=== PATIENT | female | born 1945 | race Caucasian/White ===

== ENCOUNTER 2017-03-19 06:55 | Inpatient (IN) | payer MEDICARE, SELFPAY ==
[2017-03-19] VITALS (12 sets, daily range): BP systolic 110–158; BP diastolic 66–84; PULSE 78–100; RESP 16–20; TEMP 36.1–36.7; O2SAT 89–98; BMI 28.1
--- NOTE | 2017-03-19 07:15 | CT_ITS ---
STUDY: CT ABDOMEN AND PELVIS WITH CONTRAST REASON FOR EXAM: Female, 71 years old. 2 day history of lower abdominal pain with nausea and diarrhea RADIATION DOSAGE (If Supplied By Facility): CTDIvol = ( 17.6 ) mGy, DLP = ( 1144.55 ) mGycm TECHNIQUE: Transaxial images were obtained from the dome of the diaphragm to the symphysis pubis without oral contrast. 100 ml of Isovue 300 contrast was administered. Sagittal and coronal images were reconstructed. Individualized dose optimization techniques were used for this CT. COMPARISON: Comparison is made with prior study dated October 01, 2015. FINDINGS: Minimal increased markings at the lung bases suggestive of mild scarring. The visualized portions of the heart are within normal limits. Normal liver. There are surgical clips in the gallbladder fossa consistent with a prior cholecystectomy. Normal spleen. Normal pancreas. Normal bilateral adrenal glands. Normal right kidney. Normal left kidney. Normal visualized stomach. There is evidence of the mural thickening and increased markings in the surrounding mesenteric fat in the small bowel loops in the right mid abdomen and right lower quadrant. Enteritis should be ruled out. The patient is status post right hemicolectomy. There is non-visualization of the appendix. Normal abdominal aorta. Normal inferior vena cava. Normal retroperitoneum. Normal urinary bladder. There is absence of the uterus consistent with a prior hysterectomy. There is evidence of a midline ventral hernia just cephalad to the umbilicus containing fat. The hernial neck measures 6.9 cm. Increased markings are seen within the subcutaneous fat at that site. There are diffuse degenerative changes of the visualized lumbar spine. CT/Abdomen/Pelvis WITH Contrast IMPRESSION: Circumferential wall thickening of the distal ileal loops in the right mid abdomen and right lower quadrant with increased markings in the surrounding peritoneal fat. This is suggestive of enteritis. Midline anterior abdominal wall hernia containing fat with increased markings within it just cephalad to the umbilicus. The neck of the hernia measures 6.9 cm. Electronically Signed: Srinivasa Garcia MD at 10:00 EDT Tel [phone], Service support ,
[2017-03-19] MEDS: 0.9% Normal Saline 1,000 ML 125 ML IV (07:30)
[2017-03-19 07:34] LABS: Absolute Lymphocyte Count 1.68 X10^3/ul (0.83-4.51); Basophil# 0.03 X10^3/uL; Basophil% 0.3 % (0-1); Eosinophil# 0.11 X10^3/uL; Hematocrit 45.4 % (37-47); Hemoglobin 15.3 g/dl (12.0-15.0); Lymphocyte # 1.68 X10^3/ul (4.0); Lymphocyte % 14.7 % (19-41); Mean Corp Hgb Conc 33.7 g/gl (32-36); Mean Corpuscular Hgb 29.4 pg (27.0-32.0); Mean Corpuscular Volume 87.1 fL (81-99); Monocyte# 0.62 X10^3/uL; Monocyte% 5.4 % (0-10); Neutrophil # 8.98 X10^3/uL (2.7-7.7); Neutrophil % 78.3 % (47-70); Platelet Count 325 K/mm3 (150-450); RBC Distribution Width CV 14.3 % (11.6-14.6); RBC Distribution Width SD 45.2 fl (35.1-43.9); Red Blood Count 5.21 M/mm3 (4.2-5.4); White Blood Count 11.5 K/mm3 (4.4-11.0)
[2017-03-19 07:35] LABS: POSITIVE COUNT NO; POSITIVE DIFFERENTIAL NO; POSITIVE MORPHOLOGY NO
[2017-03-19 07:38] LABS: Anion Gap 7 (5-15); BUN 16 mg/dL (7-18); Calcium,Total 8.8 mg/dL (8.5-10.1); Chloride 107 mmol/L (98-107); EST Glomerular Filtration Rate 58 mL/min (>60); Est Glom Filt Rate - Afr Amer 70 mL/min (>60); Estimated Creatinine Clearance 50.18 ml/min; Glucose 109 mg/dL (70-110); Potassium 4.3 mmol/L (3.5-5.1); Sodium Level 140 mmol/L (136-145)
[2017-03-19 08:08] LABS: Mucous, Urine 0 SEEN /hpf (<or=2+)
[2017-03-19 08:09] LABS: Color, Urine Yellow (Yellow); Glucose, Dipstick Normal (Normal); Ketone-Dipstick Negative (Negative); Leukocyte Esterase-Dipstick 500 /ul (Negative); Nitrite-Dipstick Positive (Negative); Occult Blood-Urine 50 /ul (Negative); Protein-Dipstick Negative (Negative); Urine Bilirubin Dipstick Negative (Negative); Urine Clarity Sl. Cloudy (Clear); Urine Urobilinogen Normal (Normal)
[2017-03-19 08:19] LABS: Bacteria 4+ /hpf (None Seen); Red Blood Cells-Urine 0-5 SEEN /hpf (0-5); Squamous Epithelial Cells - UA 0-5 SEEN /hpf (5-10); White Blood Cells 10-25 SEEN /hpf (0-5)
--- NOTE | 2017-03-19 10:39 | NURSING ---
DR REYES IN ER. PATIENT GOING TO SURGERY, INCARCERATED HERNIA
--- NOTE | 2017-03-19 10:44 | EKG12_ITS ---
Test Reason : PRE OP Blood Pressure : / mmHG Vent. Rate : 087 BPM Atrial Rate : 087 BPM P-R Int : 138 ms QRS Dur : 084 ms QT Int : 396 ms P-R-T Axes : 074 034 055 degrees QTc Int : 476 ms Normal sinus rhythm Low voltage QRS (LIMB LEADS) Confirmed by SUGEY SIDDIQUI, MALLY ([id number]), material expeditor CHELSIE MONTOYA ([id number]) on 03/24/2017 2:59:46 PM Referred By: ERIC/MICHELLE Confirmed By:MALLY MAYES MD
--- NOTE | 2017-03-19 10:49 | NURSING ---
MED SURG INCARCERATED VENTRAL INCISION HERNIA REYES
[2017-03-19] MEDS: Bupiv/Epi 0.5% Mpf 30 ML Vial (11:56)
--- NOTE | 2017-03-19 12:23 | HP_ITS ---
DATE OF SERVICE: CHIEF COMPLAINT: Abdominal pain. HISTORY OF PRESENT ILLNESS: The patient is a 71-year-old white female who presents with severe abdominal pain in the periumbilical area. She is found by CT scan in the Emergency Room to have an incarcerated ventral incisional hernia with fatty omental tissue within it. She states that she has been having intermittent abdominal pain for the past few days. However, at around 1:30 this morning, she woke with severe abdominal pain and therefore presents to the Emergency Room. She has been passing flatus that she had a bowel movement just prior to this examination. She notes that she has been having diarrhea since the last night, having loose bowel movement almost every hour. She states that she normally has loose stool since her surgery that was done in 2012. She had undergone a laparoscopic-assisted right colectomy by Dr. Fernando for unresectable dysplastic colon polyp. Postoperatively, she developed superior mesenteric venous thrombosis. She was treated with Lovenox and Coumadin and this resolved. She was last seen by Dr. Fernando in 2013 for which she underwent a colonoscopy. She has complaint of abdominal pain at that time. However, CT scan finding revealed no source of the pain. 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 PAST MEDICAL HISTORY: Gastroesophageal reflux disease, history of depressive disorder, seasonal allergies. PAST SURGICAL HISTORY: Laparoscopic cholecystectomy in 1999, laparoscopic right colectomy in July 2013. Skin lesion removed in 2004, multiple colonoscopies. MEDICATIONS: Pantoprazole and an allergy medication. ALLERGIES TO MEDICATIONS: DEMEROL, PERCOCET AND VICODIN. SOCIAL HISTORY: The patient denies tobacco or alcohol use. She is and is present with her at bedside. REVIEW OF SYSTEMS: GENERAL: The patient denies any fevers. CARDIOVASCULAR: She denies any chest pain or history of heart attack. RESPIRATORY: Denies any shortness of breath or hemoptysis. GASTROINTESTINAL: As per HPI. KIDNEY, BLADDER: Denies any burning with urination. Denies any blood in her urine. NEUROLOGIC: Denies any seizures. ENDOCRINE: Denies any diabetes or thyroid disorders. HEMATOLOGIC: Denies any spontaneous prolonged bleeding, is not on any blood thinners. MUSCULOSKELETAL: The patient does note sciatica. Denies any chronic joint pain. PHYSICAL EXAMINATION: VITAL SIGNS: Temperature is 98, heart rate is 100, blood pressure is 158/84, respiratory rate is 20. GENERAL: Well-developed, well-nourished white female in apparent abdominal pain, anxious appearing, alert and oriented. HEENT: Normocephalic, EOMI, sclerae is clear. NECK: Supple with no tracheal deviation, no jugular venous distention detected. LUNGS: With normal breath sounds, no rales, rhonchi or wheezing noted. HEART: Sounds normal with no rubs, murmurs or clicks detected. ABDOMEN: Soft, but tender in the periumbilical area. There is no hernia palpable due to the patient's body habitus. There is a well-healed incisional site just above the vertical incisional site above the umbilicus. The hernia is more prominent when the patient is standing upright and obvious protrusion is noted. EXTREMITIES: Without any pitting edema or calf tenderness. LABORATORY STUDIES: WBC is 11.5K with a slight left differential of 78.3 neutrophils. BUN and creatinine are 16 and 1 respectively. The patient also is noted to have urinary tract infection at present. She is nitrite positive and the gastritis positive with bacteria also seen. She presented to the Emergency Room with this. CT scan findings are consistent with an incarcerated ventral hernia with omentum. The impression is circumferential wall thickening of the distal loops in the right mid abdomen and right lower quadrant with increased markings in the surrounding peritoneal fat, which is suggestive of enteritis, mild anterior abdominal wall hernia containing fat with increased markings just superior to the umbilicus. The neck of the hernia measures 6.9 cm. IMPRESSION: Incarcerated ventral hernia. PLAN: The patient presently rates the pain 10/10. She states that she cannot continue with such severe pain. We will proceed to the Emergency Room for urgent ventral hernia repair plus or minus use of mesh. I have counseled the patient as to risks of procedure including but not limited to infection, bleeding, injury to any bowel or bladder, injury to any internal organs, injury to any blood vessels or nerves, scar tissue, recurrence of hernia, wound infections intraabdominal abscess, intraabdominal bleeding, possible DVT, pulmonary embolism, heart attack, stroke, etc. The patient understands and agrees to proceed. Monika Barry MD T: [facility] JOB: [id number]
--- NOTE | 2017-03-19 12:50 | PCM.IMDPSTOP ---
Immediate Post-Op Note Date of Procedure: 03/19/17 Primary Surgeon/Physician: Monika Barry citrix systems administrator: NOT,DEFINED Pre-Operative Diagnosis: incarcerated ventral incisional hernia Post-Operative Diagnosis: incarcerated incisional ventral hernia - multiple small hernias Surgery/Procedure Performed:: incarcerated incisional ventral hernia repair with mesh Description of Surgical Findings:: patient with multiple ventral incisional hernias at site of previous incision one large hernia defect about 6 cm, and multiple smaller lesions ranging in size for 1-2 cm Devices used - Ventrio ST hernia patch medium lot [id number] Secure Strap Lot [id number] Estimated Blood Loss: < 10 ml Specimen's removed: none Type of Anesthesia:: General ASA Class: ASA2 Plus Emergency - Admit VTE Documentation VTE Present on Admission: Yes VTE Mechan Device Prophylaxis: SCD's
--- NOTE | 2017-03-19 12:53 | OP.PN_ITS ---
Immediate Post-Op Note Date of Procedure: 03/19/17 Primary Surgeon/Physician: Monika Barry mailroom coordinator: NOT,DEFINED Pre-Operative Diagnosis: incarcerated ventral incisional hernia Post-Operative Diagnosis: incarcerated incisional ventral hernia - multiple small hernias Surgery/Procedure Performed:: incarcerated incisional ventral hernia repair with mesh Description of Surgical Findings:: patient with multiple ventral incisional hernias at site of previous incision one large hernia defect about 6 cm, and multiple smaller lesions ranging in size for 1-2 cm Devices used - Ventrio ST hernia patch medium lot [id number] Secure Strap Lot [id number] Estimated Blood Loss: < 10 ml Specimen's removed: none Type of Anesthesia:: General ASA Class: ASA2 Plus Emergency - Admit VTE Documentation VTE Present on Admission: Yes VTE Mechan Device Prophylaxis: SCD's
--- NOTE | 2017-03-19 12:57 | EDS_ITS ---
DATE OF SERVICE: 03/19/2017 CHIEF COMPLAINT: Abdominal pain. HISTORY OF CHIEF COMPLAINT: A 71-year-old female with abdominal pain over the last 3 days, worse over the last 24 hours. States that really throughout the night could not sleep. She has had nausea, but no vomiting. Did start with some diarrhea this morning. She has had about 8 episodes of watery stool. She states there may have been some blood mixed in at times. The patient denies any fevers at home. She states that she feels like there might be a knot in her left lower quadrant, especially when standing and walking as when most of her pain comes on lying flat. She describes a burning sensation, but not so much pain. PAST MEDICAL HISTORY: Significant for GERD. SURGICAL HISTORY: Includes cholecystectomy, hysterectomy, bladder suspension, and partial colectomy. PRIMARY CARE PHYSICIAN: Dr. Avendaño. Dr. Prabhakar Fernando has been her surgeon in the past. ALLERGIES: VICODIN AND DEMEROL. SOCIAL HISTORY: The patient does not smoke or drink alcohol. PHYSICAL EXAMINATION: VITAL SIGNS: Blood pressure 158/84, temperature 98, heart rate 100, respirations 20, pulse oximetry 99% on room air. GENERAL APPEARANCE: The patient is awake, alert, no acute distress. Nontoxic appearing. HEENT: The patient is normocephalic, atraumatic. Pupils equal, react to light. TMs are clear. Neck is supple. Mucous membranes moist. CARDIOVASCULAR: Heart is regular. Pulses +2/4 equal bilaterally in the upper and lower extremities. LUNGS: Clear. No rales or wheezes. Chest wall is stable. No crepitus. No subcutaneous emphysema. ABDOMEN: Soft, tender to palpation over the left lower quadrant and just over the area of suprapubic region. There is some mild soft tissue swelling and fullness noted in the left lower quadrant. It is very tender to palpation. When she stands it becomes more noticeable and more tender on palpation. EXTREMITIES: Intact x4. Muscle strength +5/5. Exam otherwise unremarkable. EMERGENCY DEPARTMENT COURSE: An IV line was established. The patient initially did not want anything for pain. CBC with differential obtained showed an elevated white count of 11.5, hemoglobin 15, hematocrit 45, platelets 325. Chemistries were normal. Urinalysis was positive for nitrites, 10-25 wbc's and +4 bacteria. I did send off a urine culture. The patient was started on Rocephin [address] scan of the abdomen and pelvis was ordered and was read by radiology as circumferential wall thickening of the distal ileal loops on the right mid abdomen and right lower quadrant with increased markings in the surrounding peritoneal fat is suggestive of enteritis. Also, midline anterior abdominal wall hernia containing fat with increased markings within it just cephalad to the umbilicus. The neck of the hernia measures 6.9 cm. At this point, discussed the case with Dr. Monika Barry who is covering for Dr. Fernando. She will present to the Emergency Department to evaluate the patient. After the patient was evaluated by Dr. Barry, Dr. Barry decided she will take patient to the OR. DIAGNOSES: 1. Abdominal pain, incarcerated abdominal hernia. 2. Urinary tract infection. The patient's final disposition per Dr. Barry. Baron Blanco DO T: [facility] JOB: [id number]
--- NOTE | 2017-03-19 13:20 | NURSING ---
o2 applied at 3l for low r.a. p.o.
[2017-03-19] MEDS: Lactated Ringers 1,000 ML 150 ML IV ×2 (15:13→21:33)
[2017-03-19] MEDS: HYDROmorphone 0.5 MG/0.5 ML Syringe IV (16:36)
[2017-03-19] MEDS: Ketorolac 15 MG/ML Vial IV ×2 (18:37→23:41)
[2017-03-19] MEDS: Ondansetron 4 MG/2 ML Vial IV (18:42)
[2017-03-20 02:14] VITALS: BP 118/50; PULSE 95; RESP 14; TEMP 37.2; O2SAT 96
[2017-03-20] MEDS: 0.9% NaCl Peripheral Flush Adult/Peds IV ×2 (02:31→23:19)
[2017-03-20] MEDS: Lactated Ringers 1,000 ML 150 ML IV ×3 (04:38→18:16)
[2017-03-20] MEDS: Ketorolac 15 MG/ML Vial IV (05:57)
[2017-03-20 07:06] VITALS: O2SAT 95
[2017-03-20 07:39] VITALS: BP 121/70; PULSE 79; RESP 18; TEMP 36.8; O2SAT 94
--- NOTE | 2017-03-20 08:13 | PN.SURG_ITS ---
Subjective: difficulty with controlling patient's pain throughout night, pain at incisional site c/w postoperative pain has passed small amount of flatus and urinating well had tried toradol throughout night with no improvement - will d/c - Physical Exam General: Alert, Oriented x3 Oral: Moist Mucosa Neck: Supple Lungs: Normal air movement Cardiovascular: Regular rate Abdomen: Bowel Sounds Present, Soft, - - dressing intact - no seepage, slight ecchymoses surrounding Vital Signs Temp Pulse Resp BP Pulse Ox 98.2 F 79 18 121/70 94 03/20/17 07:39 03/20/17 07:39 03/20/17 07:39 03/20/17 07:39 03/20/17 07:39 Oxygen Flow Rate 2 Oxygen Delivery Method Room Air Weight: 87.1 kg Body Mass Index (BMI) 30.0 Intake and Output for Last 24 Hours 03/18/17 03/19/17 03/20/17 23:59 23:59 23:59 Intake Total 3927 1025 Output Total 500 300 Balance 3427 725 Laboratory Tests Past 24 Hrs 03/19/17 08:00 Urine Color Yellow Urine Clarity Sl. Cloudy Urine pH 5.0 Ur Specific [place] 1.020 Urine Protein Negative Urine Glucose (UA) Normal Urine Ketones Negative Urine Occult Blood 50 H Urine Nitrite Positive H Urine Bilirubin Negative Urine Urobilinogen Normal Ur Leukocyte Esterase 500 H Urine RBC 0-5 SEEN Urine WBC 10-25 SEEN Ur Squamous Epith Cells 0-5 SEEN Urine Bacteria 4+ Urine Mucus 0 SEEN Assessment/Plan Impression: POD#1 s/p incarcerated ventral incisional hernia repair UTI Plan: will d/c toradol, since not working, concern for renal side effects in this elderly patient will trial oxyir round the clock - patient does have side effect to vicodin - will monitor - may have to change to another type of narcotic if develops side effects encourage ambulation and IS continue with morphine
[2017-03-20] MEDS: oxyCODONE 5 MG Tablet PO (09:37)
[2017-03-20] MEDS: Pantoprazole Sodium 20 MG Tablet PO ×2 (09:38→18:16)
--- NOTE | 2017-03-20 09:53 | OP_ITS ---
DATE OF SERVICE: 03/19/2017 DATE OF SERVICE: 03/19/2017. PREOPERATIVE DIAGNOSIS: Incarcerated incisional ventral hernia. POSTOPERATIVE DIAGNOSIS: Incarcerated incisional ventral hernia. PROCEDURE PERFORMED: Repair of incarcerated incisional ventral hernia with mesh. ANESTHESIA USED: General endotracheal. THE MATERIAL FORWARDED TO LABORATORY FOR EXAMINATION: None. INDICATIONS: The patient is a 71-year-old white female who presents with severe abdominal pain and findings of an incarcerated incisional ventral hernia with fat that was found by CT scan upon her presentation to the Emergency Room. She therefore presents for hernia repair. She has been counseled as to the risks of procedure including but not limited to infection, bleeding, injury to any bowel or bladder, injury to any intraabdominal organs, injury to any blood vessels or nerves, scar tissue, intraabdominal abscess, intraabdominal bleeding, recurrence of hernia, complications of anesthesia, wound infections, etc. The patient understands and agrees to proceed. DESCRIPTION OF THE PROCEDURE: After informed consent was given, the patient was brought to the operating room , placed in supine position. Appropriate time-out protocol was followed. The patient was then placed under general endotracheal anesthesia. The abdomen was then prepped with a sterile surgical skin preparation. Appropriate sterile surgical drapes were placed. The patient had a previous midline vertical skin incision. The skin and subcutaneous tissues were infiltrated with local anesthetic. The skin was then incised at the previous incision site with a 10 blade scalpel, was carried down to subcutaneous tissues. Any hemorrhage was adequately controlled with electrocoagulation. Dissection then began bluntly to identify out the hernia. There was no actual hernia sac. The patient did have a large amount of subcutaneous fatty tissues. There was a fascial defect that was noted. Of note is that the patient had thinning of the fascia with concomitant rectus diastasis. The patient was noted to have multiple ventral incisional hernias at the site of the previous incision; the largest defect being above the umbilicus and approximately 6 cm in diameter. There were also multiple smaller lesions ranging in size from 1 to 2 cm along the incision site, almost like a [place]oc[place] cheese type of pattern. It was felt then the patient would best benefit with placement of a dual-sided mesh. All the omental adhesions were cleared from the intraabdominal surface of the abdominal wall. Hemostasis carefully checked with electrocautery. Once the anterior abdominal wall was freed of all omental adhesions, then a medium-sized Ventrio ST Hernia Patch, lot # [id number] was placed up against the anterior abdominal wall, so that it would be overlapping over all the fascial defect sites and covering them. It was then secured in position using the SecureStrap stapling device, lot # is [id number]. Once it was properly positioned superiorly, then digital examination revealed that the mesh had covered all the fascial defects superiorly where most of the smaller defects were. Once again, the stapling device was then applied to secure the mesh in proper position and a staple was applied every 1-2 cm in circumference of the entire mesh. Once this was done, the fascia was then reapproximated using a [id number] PDS suture. Hemostasis carefully controlled with electrocautery. The subdermal tissues were then approximated using Vicryl suture in interrupted simple fashion. The skin incision was closed with 4-0 Monocryl in a running subcuticular fashion. Benzoin and Steri-Strips were used to reinforce skin closure. Proper sterile dressing was applied. The patient was extubated, tolerated the procedure well and brought to the recovery room in stable condition. Monika Barry MD T: [facility] JOB: [id number]
--- NOTE | 2017-03-20 10:58 | CPS ---
not started, patient sleepy
[2017-03-20 11:34] VITALS: BP 112/66; PULSE 78; RESP 18; TEMP 36.9; O2SAT 94
[2017-03-20] MEDS: Smz/Tmp Ds Tablet 1 TABLET PO ×2 (11:38→18:16)
--- NOTE | 2017-03-20 15:00 | CASEMGMT ---
See RN CM Assessment. DC PLAN: home on dc. -Intro role of CM to patient in room. She states she is independent, drives and has family available to help. Her requires some assistance, and her family will do this as well as provide transportation while she recovers. Bhavna DE GUZMAN BSN ACM
[2017-03-20 18:11] VITALS: BP 132/67; PULSE 79; RESP 20; TEMP 37; O2SAT 95
[2017-03-20] MEDS: Bisacodyl 5 MG Tablet PO (18:34)
[2017-03-20] MEDS: DiphenhydrAMINE 25 MG Capsule PO (21:08)
[2017-03-20 23:01] VITALS: BP 134/77; PULSE 82; RESP 16; TEMP 37; O2SAT 92
[2017-03-21 02:50] VITALS: BP 133/78; PULSE 84; RESP 16; TEMP 36.8; O2SAT 96
[2017-03-21] MEDS: Lactated Ringers 1,000 ML 150 ML IV ×2 (02:56→09:59)
[2017-03-21 07:35] VITALS: BP 130/83; PULSE 74; RESP 18; TEMP 36.1; O2SAT 91
[2017-03-21] MEDS: Pantoprazole Sodium 20 MG Tablet PO (07:38)
[2017-03-21] MEDS: Smz/Tmp Ds Tablet 1 TABLET PO (07:38)
--- NOTE | 2017-03-21 10:12 | PCM.PN.SRG ---
Subjective: patient feeling well, passing flatus, no BM tolerating liquids - Physical Exam General: Alert, Oriented x3 Oral: Moist Mucosa Neck: Supple Lungs: Normal air movement Cardiovascular: Regular rate Abdomen: Bowel Sounds Present, Soft, - - dressing intact Vital Signs Temp Pulse Resp BP Pulse Ox 97.0 F 74 18 130/83 91 03/21/17 07:35 03/21/17 07:35 03/21/17 07:35 03/21/17 07:35 03/21/17 07:35 Oxygen Flow Rate 2 Oxygen Delivery Method Room Air Weight: 87.1 kg Body Mass Index (BMI) 30.0 Intake and Output for Last 24 Hours 03/19/17 03/20/17 03/21/17 23:59 23:59 23:59 Intake Total 3927 3183 1854 Output Total 500 1500 1000 Balance 3427 3935 448 Assessment/Plan Impression: POD#2 s/p incarcerated ventral incisional hernia repair UTI Plan: d/c to home today
--- NOTE | 2017-03-21 10:13 | PCM.DC.HER ---
Discharge Diet: Light diet - advance as tolerated Discharge Activity: Return to Normal Activity, May not drive while taking narcotic pain medications. Lifting Restrictions: no lifting/pushing/pulling greater than 10 pounds for 2 months Call your doctor if your incision/area has: Continuous Slow Oozing, Foul Smelling Discharge Call your doctor if you observe: Fever of 101 or Higher Additional Dressing/Incision Instructions:: Sponge bathe until follow up appointment. Use abdominal binder as per needed. Leave dressings in place, if falls off or becomes soiled - may remove but do not replace Allergies/Adverse Reactions: Allergies prednisone Allergy (Severe, Verified 03/19/17 07:00) deathly sick hydrocodone bitartrate [From Vicodin] Adverse Reaction (Verified 03/19/17 07:00) Other oxycodone Adverse Reaction (Verified 03/20/17 16:52) Itching Medications to take at Discharge Acid Reflux Pill 1 tab PO BID 03/19/17 Allergy Pill 1 tab PO DAILY 03/19/17 Bisacodyl [Dulcolax] 5 mg PO DAILY #1 tablet 03/21/17 DiphenhydrAMINE [Benadryl] 25 mg PO TID PRN PRN #20 capsule 03/21/17 Smz/Tmp Ds [Bactrim Ds] 1 tablet PO BID #10 tablet 03/21/17 TraMADol [Ultram] 50 mg PO Q4H PRN PRN #30 tablet 03/21/17 The following prescriptions were given: TraMADol [Ultram] 50 mg PO Q4H PRN PRN #30 tablet PRN Reason: Pain Bisacodyl [Dulcolax] 5 mg PO DAILY #1 tablet DiphenhydrAMINE [Benadryl] 25 mg PO TID PRN PRN #20 capsule PRN Reason: Itching Smz/Tmp Ds [Bactrim Ds] 1 tablet PO BID #10 tablet Please Follow Up With: Monika Barry - call When: to be seen on March 30, please call for time
[2017-03-21 10:17] VITALS: BP 137/88; PULSE 85; RESP 18; TEMP 36.4; O2SAT 93
--- NOTE | 2017-03-21 10:17 | PCM.DC.BLA ---
Discharge Summary (Blank) Date of Admission: 03/19/17 Date of Discharge: 03/21/17 Summary: Bozena Stuart is a 71 y/o WF who presents with acute abdominal pain that awoke her from sleep. Presented to ED, CT scan obtained which revealed ventral incisional hernia with incarcerated fat. Upon examination, patient with severe abdominal pain, rated at 10 out of 10. Taken to OR for urgent ventral incisional hernia repair. Found to have multiple small incisional hernias and one larger hernia defect (about 6 cm). Dual sided mesh placed was placed intraabdominally. Patient's postoperative recovery was unremarkable, except for pain control. Does not tolerate vicodin, and trial of oxyir resulted in pruritis. Patient tolerated Tramadol. Discharged to home on light diet, to self advance at home. Follow up as outpatient in the clinic.
[2017-03-21] MEDS: DiphenhydrAMINE 25 MG Capsule PO (10:20)
== END 2017-03-21 13:00 | disposition home or self-care (01) | DRG 354 ==
PROVIDERS: Admitting Provider Surgery; Emergency Provider Emergency Medicine; Family Provider Family Medicine; PCP Family Medicine; Visit Provider Surgery
DX: K43.0 Incisional hernia with obstruction, without gangrene (principal); M62.08 Separation of muscle (nontraumatic), other site; N39.0 Urinary tract infection, site not specified; K21.9 Gastro-esophageal reflux disease without esophagitis; Z79.899 Other long term (current) drug therapy; Z90.49 Acquired absence of other specified parts of digestive tract; Z90.710 Acquired absence of both cervix and uterus; Z86.718 Personal history of other venous thrombosis and embolism
CPT/HCPCS: 74177; 80048; 81001; 85025; 87086; 87088; 87186; 93005; 99284; J7030; J7120; Q9967; A4216; C1781; J2405; J3490

== ENCOUNTER 2017-12-17 11:33 | Emergency (ER) | payer MEDICARE, SELFPAY ==
[2017-12-17 11:35] VITALS: BP 132/76; PULSE 100; RESP 18; TEMP 36.9; O2SAT 95; BMI 25.8
[2017-12-17 11:46] VITALS: BP 128/75; PULSE 95; RESP 14; O2SAT 99
--- NOTE | 2017-12-17 12:03 | CT_ITS ---
STUDY: CT ABDOMEN AND PELVIS WITHOUT CONTRAST REASON FOR EXAM: Female, 72 years old. Abdominal pain. Low back pain. Diarrhea. RADIATION DOSAGE (If Supplied By Facility): CTDIvol = ( 9.59 ) mGy, DLP = ( 496.20 ) mGycm TECHNIQUE: Transaxial images were obtained from the dome of the diaphragm to the symphysis pubis without oral contrast, and without intravenous contrast. Sagittal and coronal images were reconstructed. Individualized dose optimization techniques were used for this CT. COMPARISON: None. FINDINGS: The visualized lung bases are unremarkable. The visualized portions of the heart are within normal limits. Normal liver. There are surgical clips in the gallbladder fossa consistent with a prior cholecystectomy. Normal spleen. Normal pancreas. Normal bilateral adrenal glands. Normal right kidney. Normal left kidney. Normal bilateral ureters. Normal visualized stomach. Normal small intestine. There is descending and sigmoid diverticulosis without acute inflammatory change. There is evidence of right hemicolectomy with an ileocolic transverse colonic anastomosis seen in the right upper quadrant. There is questionable thickening at the anastomosis. This appears unchanged from the prior CT.. There is diffuse atherosclerotic calcification of the abdominal aorta, without a demonstrated aneurysm. Normal inferior vena cava. Normal retroperitoneum. Normal urinary bladder. Normal vaginal cuff. There is no pelvic lymphadenopathy. No free air or free fluid is seen within the cavity. There are midline surgical changes of the abdominal wall. There is a decrease in the ventral hernia containing omental fat. Prior study. There are mild degenerative changes of the thoracic spine. CT/Abdomen/Pelvis without Cont IMPRESSION: 1. Resolution of the right upper quadrant enteritis seen on the prior study. 2. Decrease in size of the ventral hernia. 3. No other marked interval change. Electronically Signed: Josse Wright DO at 13:07 EDT Tel [phone], Service support ,
--- NOTE | 2017-12-17 12:03 | EKG12_ITS ---
Test Reason : Blood Pressure : / mmHG Vent. Rate : 088 BPM Atrial Rate : 088 BPM P-R Int : 146 ms QRS Dur : 090 ms QT Int : 382 ms P-R-T Axes : 080 035 064 degrees QTc Int : 462 ms Normal sinus rhythm Low voltage QRS Borderline ECG Confirmed by KERLINE SIDDIQUI, SHELBY ([id number]), movie editor CHELSIE MONTOYA ([id number]) on 12/18/2017 2:44:43 PM Referred By: FRANK Confirmed By:SHELBY CHURCHILL MD
--- NOTE | 2017-12-17 12:20 | ED.DCSUM_ITS ---
- ER Visit Summary Date of Service: 12/17/17 Chief Complaint: [] Right sided abdominal pain with diarrhea since Thursday History of Present Illness: The patient is a 72 F [] complaints since Thursday no fever no vomiting copious diarrhea no blood she has a history of colon surgery to precancerous polyps no cancer was found, she had a colonoscopy about a year ago unremarkable, also history of cholecystectomy Thursday with crampy pain to the right side of the abdomen no vomiting no fever no antibiotics no exposure to anyone who is been ill no history of C. difficile she is otherwise healthy, she also reports that she had some type of abdominal surgery possibly for abdominal wall hernias a year or 2 ago Physical Examination: [] Distress her vital signs are unremarkable head neck chest unremarkable the abdomen is soft there is a vague pain to the right lower abdomen is diffuse is no rebound guarding or megaly is focal her upper lower extremities unremarkable neurologically she is awake alert moving all 4 Test Results: [] Emergency Department Course and Treatment: [] Differential is rather extensive certainly would include appendicitis bowel obstruction diarrheal illnesses CT scan is general unremarkable she appears to have had a right partial colectomy in the area of the ileocecal valve region please see the CT report but again is nothing acute her labs are also generally unremarkable except her UA shows signs of UTI but also contamination, I recommended her a urine cath for better analysis of the UA urine culture however she declined that I explained her if she has UTI this could cause her symptoms would need to start antibiotics it would be better to actually know what were treating with a clean urine sample culture but she again declined at this time she is feeling much better abdomen soft there is no tenderness rebound guarding organomegaly she wants to be discharged home we will send the urine cultures of the her family doctor follow that start her on Cipro and have her return for change in symptoms and also see her surgeon in a few days Treatment Plan: [] Disposition: [] Home stable Impression: [] Right abdominal pain resolved possible UTI versus contamination This note was generated with [facility] dictation software. It may contain incorrect words, spelling, and punctuation that were not noted in review of the chart prior to signing ED Disposition - Plan for ED Patient: Chief Complaint: Abd Pain Referrals: Oh Avendaño [Primary Care Provider] -
[2017-12-17] MEDS: 0.9% Normal Saline 1,000 ML 125 ML IV (12:31)
[2017-12-17] MEDS: Ondansetron 4 MG/2 ML Vial IV (12:31)
[2017-12-17] MEDS: morphine 8 MG/ML Syringe IV (12:31)
[2017-12-17 12:35] LABS: Absolute Lymphocyte Count 1.48 X10^3/ul (0.83-4.51); Absolute Neutrophil Count 1.1 X10^3/uL (2.0-7.7); Basophil# 0.02 X10^3/uL; Basophil% 0.6 % (0-1); Hematocrit 44.1 % (37-47); Hemoglobin 14.9 g/dl (12.0-15.0); Lymphocyte # 1.48 X10^3/ul (4.0); Lymphocyte % 46.8 % (19-41); Mean Corp Hgb Conc 33.8 g/gl (32-36); Mean Corpuscular Hgb 29.1 pg (27.0-32.0); Mean Corpuscular Volume 86.1 fL (81-99); Mean Platelet Vol. 8.5 fl (6.2-12.0); Monocyte# 0.55 X10^3/uL; Monocyte% 17.4 % (0-10); Neutrophil % 34.9 % (47-70); Platelet Count 242 K/mm3 (150-450); RBC Distribution Width CV 13.7 % (11.6-14.6); RBC Distribution Width SD 43.2 fl (35.1-43.9); Red Blood Count 5.12 M/mm3 (4.2-5.4); White Blood Count 3.2 K/mm3 (4.4-11.0)
[2017-12-17 12:36] LABS: POSITIVE COUNT NO; POSITIVE DIFFERENTIAL NO; POSITIVE MORPHOLOGY NO
[2017-12-17 12:49] LABS: AST(SGOT) 24 U/L (15-37); Alanine Aminotransfer ALT/SGPT 21 U/L (13-56); Albumin, Serum 3.4 g/dL (3.2-5.0); Alkaline Phosphatase 89 U/L (45-117); Anion Gap 9 (5-15); BUN 15 mg/dL (7-18); BUN/Creat Ratio 15.5 RATIO (10-20); Bilirubin, Direct 0.14 mg/dL (0.00-0.30); Calcium,Total 8.2 mg/dL (8.5-10.1); Chloride 97 mmol/L (98-107); Creatinine, Serum 0.96 mg/dL (0.55-1.02); EST Glomerular Filtration Rate 60 mL/min (>60); Est Glom Filt Rate - Afr Amer 73 mL/min (>60); Estimated Creatinine Clearance 51.51 ml/min; Globulin 3.9 g/dL (2.2-4.2); Glucose 88 mg/dL (74-106); Lipase 140 U/L (73-393); Potassium 3.7 mmol/L (3.5-5.1); Protein, Total 7.3 g/dL (6.4-8.2); Sodium Level 132 mmol/L (136-145)
[2017-12-17 14:14] VITALS: BP 135/76; PULSE 82; RESP 16; O2SAT 99
[2017-12-17 14:47] LABS: Color, Urine Yellow (Yellow); Glucose, Dipstick Normal (Normal); Ketone-Dipstick 15 mg/dl (Negative); Leukocyte Esterase-Dipstick 500 /ul (Negative); Mucous, Urine 0 SEEN /hpf (<or=2+); Nitrite-Dipstick Positive (Negative); Occult Blood-Urine 50 /ul (Negative); Protein-Dipstick 30 mg/dl (Negative); Specific Gravity, Urine 1.025 (1.002-1.030); Urine Bilirubin Dipstick Negative (Negative); Urine Clarity Sl. Cloudy (Clear); Urine Urobilinogen Normal (Normal)
[2017-12-17 14:56] LABS: Red Blood Cells-Urine 0-5 SEEN /hpf (0-5); Squamous Epithelial Cells - UA 5-10 SEEN /hpf (5-10); White Blood Cells 50-100 SEEN /hpf (0-5)
[2017-12-17 14:57] LABS: Bacteria 4+ /hpf (None Seen)
--- NOTE | 2017-12-17 15:43 | ED.DEP ---
ED Disposition - Plan for ED Patient: Chief Complaint: Abd Pain Instructions: ED Abdominal Pain Unkn Cause, ED UTI Cystitis Female Prescriptions: Ciprofloxacin [Cipro] 500 mg PO BID #20 tab Referrals: Oh Avendaño [Primary Care Provider] -
[2017-12-17] MEDS: 0.9% Normal Saline 1,000 ML 999 ML IV (15:49)
[2017-12-17] MEDS: Ciprofloxacin 500 MG Tablet PO (16:01)
[2017-12-17 16:09] VITALS: BP 135/91; PULSE 74; RESP 16; O2SAT 95
== END 2017-12-17 16:11 | disposition home or self-care (01) ==
PROVIDERS: Emergency Provider Emergency Medicine
DX: R10.9 Unspecified abdominal pain (principal); R19.7 Diarrhea, unspecified; Z90.49 Acquired absence of other specified parts of digestive tract
CPT/HCPCS: 74176; 80048; 80076; 81001; 83690; 85025; 87077; 87086; 87088; 87186; 93005; 96361; 96374; 96375; 99283; J7030; J2405

== ENCOUNTER → 2018-02-10 07:34 | Outpatient (CLI) | payer MEDICARE, SELFPAY ==
--- NOTE | 2018-02-10 07:36 | BI_ITS ---
MAMMOGRAPHY - BILATERAL SCREENING REASON FOR EXAM: Female, 72 years old. Routine annual screening examination. PERTINENT HISTORY: Remote right excisional breast biopsy. TECHNIQUE: Digital bilateral breast ankit (3D mammographic acquisition) in the CC and MLO projections. 2-D mediolateral oblique (MLO) and craniocaudad (CC) views of both breasts were obtained. CAD: Full Field Digital Mammography with Computer Added Detection was performed. COMPARISON: Comparison is made with prior study dated January 19, 2017 and November 15, 2015. FINDINGS: Breast Composition: The breasts are almost entirely fatty. There are no dominant masses or suspicious calcifications. No other significant abnormalities are identified. There has been no significant change since the prior study. BI/SCREENING MAMM (CAD), BILAT IMPRESSION: Stable bilateral screening mammogram. Yearly follow-up mammogram recommended. (A) ASSESSMENT CATEGORY: BIRADS Category 1: Negative. A letter regarding these results will be sent to the patient by the facility within 30 days. Approximately 10% of breast cancers are not detected by mammography. A normal mammogram should not delay biopsy of a clinically suspicious abnormality. [id number] Electronically Signed: Srinivasa Garcia MD at 9:11 EDT Tel [phone], Service support ,
== END ==
PROVIDERS: Visit Provider Family Medicine
DX: Z12.31 Encounter for screening mammogram for malignant neoplasm of breast (principal)
CPT/HCPCS: 77063; 77067

== ENCOUNTER → 2018-07-16 10:26 | Outpatient (CLI) | payer MEDICARE, SELFPAY ==
[2018-07-16 12:09] LABS: Absolute Lymphocyte Count 2.77 X10^3/ul (0.83-4.51); Absolute Neutrophil Count 2.8 X10^3/uL (2.0-7.7); Basophil# 0.04 X10^3/uL; Basophil% 0.6 % (0-1); Eosinophil# 0.21 X10^3/uL; Eosinophils% 3.4 % (0-5); Hematocrit 43.8 % (37-47); Hemoglobin 14.8 g/dl (12.0-15.0); Lymphocyte # 2.77 X10^3/ul (4.0); Lymphocyte % 44.3 % (19-41); Mean Corp Hgb Conc 33.8 g/gl (32-36); Mean Corpuscular Volume 88.8 fL (81-99); Monocyte# 0.47 X10^3/uL; Monocyte% 7.5 % (0-10); Neutrophil # 2.75 X10^3/uL (2.7-7.7); Platelet Count 283 K/mm3 (150-450); RBC Distribution Width CV 13.4 % (11.6-14.6); RBC Distribution Width SD 43.2 fl (35.1-43.9); Red Blood Count 4.93 M/mm3 (4.2-5.4); White Blood Count 6.3 K/mm3 (4.4-11.0)
[2018-07-16 12:11] LABS: POSITIVE COUNT NO; POSITIVE DIFFERENTIAL NO; POSITIVE MORPHOLOGY NO
[2018-07-16 12:19] LABS: Color, Urine Yellow (Yellow); Glucose, Dipstick Normal (Normal); Ketone-Dipstick Negative (Negative); Leukocyte Esterase-Dipstick 500 /ul (Negative); Nitrite-Dipstick Negative (Negative); Occult Blood-Urine 25 /ul (Negative); Protein-Dipstick 15 mg/dl (Negative); Specific Gravity, Urine 1.025 (1.002-1.030); Urine Bilirubin Dipstick Negative (Negative); Urine Clarity Sl. Cloudy (Clear); Urine Urobilinogen Normal (Normal)
[2018-07-16 12:39] LABS: BUN 19 mg/dL (7-18); Creatinine, Serum 0.91 mg/dL (0.55-1.02); Glucose 85 mg/dL (74-106)
[2018-07-16 12:40] LABS: ALB/GLOB Ratio 0.9 RATIO (0.9-2.4); AST(SGOT) 15 U/L (15-37); Alanine Aminotransfer ALT/SGPT 19 U/L (13-56); Albumin, Serum 3.6 g/dL (3.2-5.0); Alkaline Phosphatase 106 U/L (45-117); Anion Gap 7 (5-15); BUN/Creat Ratio 20.9 RATIO (10-20); Calcium,Total 8.8 mg/dL (8.5-10.1); Chloride 105 mmol/L (98-107); Cholesterol 160 mg/dL (200); EST Glomerular Filtration Rate 65 mL/min (>60); Est Glom Filt Rate - Afr Amer 78 mL/min (>60); Globulin 3.9 g/dL (2.2-4.2); High Density Lipoprotein 41 mg/dL; Potassium 3.9 mmol/L (3.5-5.1); Protein, Total 7.5 g/dL (6.4-8.2); Sodium Level 139 mmol/L (136-145); Triglycerides 145 mg/dL; Very Low Density Lipoprotein 29 mg/dL (5-40)
== END ==
PROVIDERS: Referring Provider Family Medicine; Visit Provider Family Medicine
DX: Z00.00 Encounter for general adult medical examination without abnormal findings (principal); E78.6 Lipoprotein deficiency
CPT/HCPCS: 36415; 80053; 80061; 81002; 85025

== ENCOUNTER 2019-03-07 08:57 | Emergency (ER) | payer OTHER, MEDICARE, SELFPAY ==
[2019-03-07 08:58] VITALS: BP 126/72; PULSE 88; RESP 17; TEMP 36.7; O2SAT 93; BMI 25.8
--- NOTE | 2019-03-07 09:15 | RAD_ITS ---
STUDY: X-RAY - RIGHT FOOT CLINICAL: Female, 73 years old. Pain following a fall. TECHNIQUE: 3 view(s) of the foot. COMPARISON: None. FINDINGS: There is an enthesophyte involving the posterior superior calcaneus at the site of insertion of the Achilles tendon. Normal visualized subtalar, talonavicular, calcaneocuboid, tarsal and tarsometatarsal articulations. Normal metatarsi. There is degenerative arthrosis of the metatarsophalangeal joint of the hallux . Normal tibial and fibular sesamoid bones. Normal interphalangeal joint of the great toe. Normal phalanges of the great toe. Normal second through fifth metatarsophalangeal joints. Normal interphalangeal joints and phalanges of the lesser toes. Dorsal soft tissue swelling. RAD/Foot min 3 Views IMPRESSION: Dorsal soft tissue swelling. Electronically Signed: Srinivasa Garcia, at 9:49 EDT , Service support ,
--- NOTE | 2019-03-07 09:18 | ED.DCSUM_ITS ---
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 She complains of pain and swelling to her right foot. She is able to walk on her heel only. She did take Tylenol prior to arrival for pain. Physical Examination: Vital signs unremarkable. Patient sitting upright in bed no acute distress. Right lower extremity examination reveals ecchymosis and edema to the distal aspect of the right dorsal foot. She has normal cap refill distally. She denies tenderness at the ankle or knee. Test Results: Right foot x-rays reveal dorsal soft tissue swelling with no evidence of fracture. Emergency Department Course and Treatment: Patient had taken Tylenol prior to arrival declined anything further for pain. Test results were discussed with her. She will be given a postop shoe. She will follow-up with [facility]. Treatment Plan: [] Disposition: Discharge Impression: Crush injury right foot This note was generated with [employer] dictation software. It may contain incorrect words, spelling, and punctuation that were not noted in review of the chart prior to signing ED Disposition - Plan for ED Patient: Disposition: Home or Assisted Living Instructions: ED Crush Injury Toe No Fx Referrals: [facility] [GROUP OF PHYSICIANS] - 3-5 Days
== END 2019-03-07 10:55 | disposition home or self-care (01) ==
PROVIDERS: Emergency Provider Emergency Medicine
DX: S97.81XA Crushing injury of right foot, initial encounter (principal); W20.8XXA Other cause of strike by thrown, projected or falling object, initial encounter; Y93.9 Activity, unspecified; Y92.9 Unspecified place or not applicable; Y99.9 Unspecified external cause status; K21.9 Gastro-esophageal reflux disease without esophagitis
CPT/HCPCS: 73630; 99283

== ENCOUNTER → 2019-04-26 16:52 | Outpatient (CLI) | payer MEDICARE, SELFPAY ==
[2019-03-10 10:50] VITALS: BMI 25.8
--- NOTE | 2019-04-26 16:57 | BI_ITS ---
MAMMOGRAPHY - BILATERAL SCREENING REASON FOR EXAM: Female, 73 years old. Routine annual screening examination. PERTINENT HISTORY: Non-contributory. Remote right excisional breast biopsy. TECHNIQUE: Digital bilateral breast jyoti (3D mammographic acquisition) in the CC and MLO projections. 2-D mediolateral oblique (MLO) and craniocaudad (CC) views of both breasts were obtained. CAD: Full Field Digital Mammography with Computer Added Detection was performed. COMPARISON: Comparison is made with prior examination dated February 10, 2018 and January 19, 2017. FINDINGS: Breast Composition: The breasts are almost entirely fatty. There are no dominant masses or suspicious calcifications. No other significant abnormalities are identified. There has been no significant change since the prior study. BI/SCREEN MAMM (CAD) W/JYOTI BILAT IMPRESSION: Stable bilateral screening mammogram. Yearly follow-up mammogram recommended. (A) ASSESSMENT CATEGORY: BIRADS Category 1: Negative. A letter regarding these results will be sent to the patient by the facility within 30 days. Approximately 10% of breast cancers are not detected by mammography. A normal mammogram should not delay biopsy of a clinically suspicious abnormality. [id number] Electronically Signed: Srinivasa Garcia, at 9:26 EDT , Service support ,
== END ==
PROVIDERS: Referring Provider Family Medicine; Visit Provider Family Medicine
DX: Z12.31 Encounter for screening mammogram for malignant neoplasm of breast (principal)
CPT/HCPCS: 77063; 77067

== ENCOUNTER → 2019-07-20 14:31 | Outpatient (CLI) | payer MEDICARE, SELFPAY ==
[2019-03-10 10:50] VITALS: BMI 25.8
[2019-07-20 16:04] LABS: CRP < 2.90 mg/L (0.0-3.0)
[2019-07-22 16:08] LABS: Endomysial Antibody IgA Negative (Negative)
[2019-07-25 13:21] LABS: Immunoglobulin A 406 mg/dL (64-422); t-Transglutaminase IgA <2 U/mL (0-3)
== END ==
PROVIDERS: Referring Provider Internal Medicine Gastroenterology; Visit Provider Internal Medicine Gastroenterology
DX: R19.7 Diarrhea, unspecified (principal)
CPT/HCPCS: 36415; 82784; 83516; 86140; 86255

== ENCOUNTER → 2019-07-25 | Outpatient (CLI) | payer MEDICARE, SELFPAY ==
[2019-03-10 10:50] VITALS: BMI 25.8
--- NOTE | 2019-07-25 12:52 | COLBX_PTH ---
PATIENT: CRISTÓBAL MDEEL [facility][id number] AGE/SX: 73/F ROOM: RE07/25/[address]: Dr. Jeet Martinez MD : 1945 BED: DIS: 07/25/2019 SPEC #: [id number] RECD: 07/25/19 15:26 STATUS: LION RESteve #: [id number] ROMELIA: 07/25/19 12:[address]: Jeet Martinez DEPT: SURGICAL PATHOLOGY RECD BY: Robert Hallman ENTERED: 07/26/19 08:00 SP TYPE: COLON BX OTHR DR: Oh Avendaño [facility] Tissues: A - Transverse colon B - Rectum, NOS Procedures: Surgery Specimen Level IV HEADER OPERATION: Colonoscopy with biopsies PRE-OP DIAGNOSIS: Rectal bleed/diarrhea TISSUE SUBMITTED: A - Transverse and left colon, B - Polyp rectum MICROSCOPIC DIAGNOSIS A. Transverse and left colon, biopsy: Fragments of colonic mucosa, no pathologic diagnosis. B. Polyp rectum, biopsy: Hyperplastic polyp. ERICKA:bertin 07/27/19 MICROSCOPIC DESCRIPTION Slides are reviewed. GROSS DESCRIPTION A - Received in fixative is one container labeled with the patient's name and designated transverse and left colon. The specimen consists of multiple irregular fragments of light snider soft tissue that in aggregate measure 1.2 x 0.7 x 0.1 cm. The specimen is totally submitted in one cassette. B - Received in fixative is one container labeled with the patient's name and designated polyp rectum. The specimen consists of one irregular fragment of light snider soft tissue that measures 0.3 x 0.3 x 0.2 cm. The specimen is totally submitted in one cassette. / ERICKA:bertin 07/26/19 TC:1 CPT: 74449 x2
== END | disposition home or self-care (01) ==
LOC: LABSPEC 16:25
PROVIDERS: Referring Provider Internal Medicine Gastroenterology; Visit Provider Internal Medicine Gastroenterology
DX: K62.5 Hemorrhage of anus and rectum (principal); R19.7 Diarrhea, unspecified
CPT/HCPCS: 88305

== ENCOUNTER → 2019-10-14 13:12 | Outpatient (CLI) | payer MEDICARE, SELFPAY ==
[2019-03-10 10:50] VITALS: BMI 25.8
[2019-10-14 14:45] LABS: Anion Gap 6 (5-15); BUN 19 mg/dL (7-18); BUN/Creat Ratio 17.3 RATIO (10-20); Calcium,Total 9.2 mg/dL (8.5-10.1); Chloride 107 mmol/L (98-107); EST Glomerular Filtration Rate 52 mL/min (>60); Est Glom Filt Rate - Afr Amer 62 mL/min (>60); Glucose 143 mg/dL (74-106); Potassium 3.7 mmol/L (3.5-5.1); Sodium Level 140 mmol/L (136-145)
== END ==
PROVIDERS: Referring Provider Family Medicine; Visit Provider Family Medicine
DX: K52.9 Noninfective gastroenteritis and colitis, unspecified (principal)
CPT/HCPCS: 36415; 80048

== ENCOUNTER → 2020-04-04 08:44 | Outpatient (CLI) | payer MEDICARE, SELFPAY ==
[2019-03-10 10:50] VITALS: BMI 25.8
[2020-04-04 10:15] LABS: Absolute Lymphocyte Count 2.53 X10^3/uL (0.83-4.51); Absolute Neutrophil Count 2.5 X10^3/uL (2.0-7.7); Basophil# 0.06 X10^3/uL; Eosinophil# 0.29 X10^3/uL; Eosinophils% 4.9 % (0-5); Hematocrit 44.3 % (37-47); Hemoglobin 13.9 g/dL (12.0-15.0); Lymphocyte # 2.53 X10^3/ul (4.0); Mean Corp Hgb Conc 31.4 g/dL (32-36); Mean Corpuscular Hgb 28.1 pg (27.0-32.0); Mean Corpuscular Volume 89.7 fL (81-99); Mean Platelet Vol. 8.9 fl (6.2-12.0); Monocyte# 0.51 X10^3/uL; Monocyte% 8.7 % (0-10); NRBC Flagged by Analyzer 0 % (0-5); Neutrophil # 2.48 X10^3/uL (2.7-7.7); Neutrophil % 42.1 % (47-70); Platelet Count 309 K/mm3 (150-450); RBC Distribution Width CV 13.3 % (11.6-14.6); RBC Distribution Width SD 43.7 fl (35.1-43.9); Red Blood Count 4.94 M/mm3 (4.2-5.4); White Blood Count 5.9 K/mm3 (4.4-11.0)
[2020-04-04 10:29] LABS: Color, Urine Yellow (Yellow); Glucose, Dipstick Normal (Normal); Ketone-Dipstick Negative (Negative); Leukocyte Esterase-Dipstick 500 /ul (Negative); Nitrite-Dipstick Negative (Negative); Occult Blood-Urine 25 /ul (Negative); Protein-Dipstick 100 mg/dl (Negative); Specific Gravity, Urine 1.025 (1.002-1.030); Urine Bilirubin Dipstick Negative (Negative); Urine Clarity Sl. Cloudy (Clear); Urine Urobilinogen Normal (Normal)
[2020-04-04 10:43] LABS: ALB/GLOB Ratio 0.9 RATIO (0.9-2.4); AST(SGOT) 14 U/L (15-37); Alanine Aminotransfer ALT/SGPT 20 U/L (13-56); Albumin, Serum 3.5 g/dL (3.2-5.0); Alkaline Phosphatase 102 U/L (45-117); Anion Gap 5 (5-15); BUN 20 mg/dL (7-18); BUN/Creat Ratio 24.7 RATIO (10-20); Calcium,Total 8.5 mg/dL (8.5-10.1); Chloride 107 mmol/L (98-107); Cholesterol 172 mg/dL (200); Creatinine, Serum 0.81 mg/dL (0.55-1.02); EST Glomerular Filtration Rate 73 mL/min (>60); Est Glom Filt Rate - Afr Amer 89 mL/min (>60); Glucose 90 mg/dL (74-106); High Density Lipoprotein 42 mg/dL; Potassium 3.6 mmol/L (3.5-5.1); Protein, Total 7.5 g/dL (6.4-8.2); Sodium Level 138 mmol/L (136-145); Triglycerides 210 mg/dL; Very Low Density Lipoprotein 42 mg/dL (5-40)
== END ==
PROVIDERS: Referring Provider Family Medicine; Visit Provider Family Medicine
DX: Z00.00 Encounter for general adult medical examination without abnormal findings (principal); K62.5 Hemorrhage of anus and rectum; R19.7 Diarrhea, unspecified
CPT/HCPCS: 36415; 80053; 80061; 81002; 85025

== ENCOUNTER → 2020-05-09 16:06 | Outpatient (CLI) | payer MEDICARE, SELFPAY ==
[2019-03-10 10:50] VITALS: BMI 25.8
--- NOTE | 2020-05-09 16:09 | BI_ITS ---
MAMMOGRAPHY - BILATERAL SCREENING REASON FOR EXAM: Female, 74 years old. Routine annual screening examination. PERTINENT HISTORY: Non-contributory. Remote right excisional breast biopsy. TECHNIQUE: Digital bilateral breast jyoti (3D mammographic acquisition) in the CC and MLO projections. 2-D mediolateral oblique (MLO) and craniocaudad (CC) views of both breasts were obtained. CAD: Full Field Digital Mammography with Computer Added Detection was performed. COMPARISON: Comparison is made with prior study dated 04/26/2019 and 02/10/2018. FINDINGS: Breast Composition: The breasts are almost entirely fatty. There are no dominant masses or suspicious calcifications. No other significant abnormalities are identified. There has been no significant change since the prior study. BI/SCREEN MAMM (CAD) W/JYOTI BILAT IMPRESSION: Stable bilateral screening mammogram. Yearly follow-up mammogram recommended. (A) ASSESSMENT CATEGORY: BIRADS Category 1: Negative. A letter regarding these results will be sent to the patient by the facility within 30 days. Approximately 10% of breast cancers are not detected by mammography. A normal mammogram should not delay biopsy of a clinically suspicious abnormality. [id number] Electronically Signed: Srinivasa Garcia, at 8:03 EDT , Service support ,
== END ==
PROVIDERS: Referring Provider Family Medicine; Visit Provider Family Medicine
DX: Z12.31 Encounter for screening mammogram for malignant neoplasm of breast (principal)
CPT/HCPCS: 77063; 77067

== ENCOUNTER 2020-11-29 04:17 | Emergency (ER) | payer MEDICARE, SELFPAY ==
[2019-03-10 10:50] VITALS: BMI 25.8
[2020-11-29 04:18] VITALS: BP 175/90; PULSE 86; RESP 15; TEMP 35.9; O2SAT 92; BMI 28.6
--- NOTE | 2020-11-29 04:24 | RAD_ITS ---
STUDY: X-RAY CHEST REASON FOR EXAM: Female, 75 years old. chest pain TECHNIQUE: AP COMPARISON: None. FINDINGS: The lungs are clear and expanded. There is no demonstrated pleural abnormality. Normal size heart. Normal mediastinum and stephen. Normal visualized pulmonary arteries. Normal visualized aortic arch and descending thoracic aorta. Normal visualized thoracic spine. Normal visualized ribs, clavicles, and shoulders. There is no demonstrated abnormality of the visualized soft tissue structures of the upper abdomen. RAD/Chest 1 View (Portable) IMPRESSION: Negative x-ray examination of the chest. Electronically Signed: Asim Abarca MD at 5:08 EST Tel , Service support ,
--- NOTE | 2020-11-29 04:24 | EKG12_ITS ---
Test Reason : L ARM PAIN Blood Pressure : / mmHG Vent. Rate : 083 BPM Atrial Rate : 083 BPM P-R Int : 140 ms QRS Dur : 090 ms QT Int : 380 ms P-R-T Axes : 069 028 037 degrees QTc Int : 446 ms Normal sinus rhythm Normal ECG Confirmed by SUGEY SIDDIQUI, MALLY ([id number]), society editor MIGUEL ANGEL ONEILL ([id number]) on 12/03/2020 2:35:57 PM Referred By: GERMAINE Confirmed By:MALLY MAYES MD
[2020-11-29 04:25] VITALS: O2SAT 90; O2SAT 97
--- NOTE | 2020-11-29 04:31 | ED.VIS.GEN ---
History of Present Illness Chief Complaint: Shortness of Breath Informant: Patient Narrative: 75-year-old female presenting with complaint of shortness of breath. Patient states she gets short of breath at shorter distances now. Patient denies having any chest pain. She states she gets concerned because she has tingling in her left hand that radiates up her arm. She also complains of some neck pain. She has not had any facial droop, slurred speech, loss of use of any extremity. She states she has no medical problems except reflux intermittently. She states she did call her primary care provider who set up a stress test for next week. - Past Medical History (1) GERD (gastroesophageal reflux disease) Status: Chronic Past Medical History - Allergies and Home Meds Allergies/Adverse Reactions: Allergies prednisone Allergy (Severe, Verified 03/10/19 10:49) deathly sick hydrocodone bitartrate [From Vicodin] Adverse Reaction (Verified 03/10/19 10:49) Other oxycodone Adverse Reaction (Verified 03/10/19 10:49) Itching Primary Care Physician: Abdi Hampton DO [STAFF PHYSICIAN] - Oh Avendaño [Primary Care Provider] - Prior records reviewed: Yes Past Medical History: - - Reviewed in problem list Surgical History: cholecystectomy, colectomy, hysterectomy, - - Bladder sling. Lives: Alone Smoking Status: Never smoker Alcohol: None Drugs: None - Family History Maternal Family History: Reports: Unknown, No pertinent history Paternal Family History: Reports: Unknown, No pertinent history Review of Systems General: Denies: Chills, Fever, Sweats Eyes: Denies: Visual changes - bilaterally, Diplopia ENT: Denies: Rhinorrhea, Sore throat Cardiovascular: Denies: Chest pain, Palpitations Respiratory: Reports: Dyspnea, Dyspnea on exertion Gastrointestinal: Denies: Abdominal pain, Nausea, Vomiting Genitourinary: Denies: Dysuria, Hematuria Musculoskeletal: Reports: Neck pain. Denies: Myalgias, Arthralgias Neurological: Reports: Parasthesia - Left forearm and left hand to all fingers. Psych: Denies: Depression, Anxiety Physical Exam Vital Signs/Narrative: Vital Signs Temp Pulse Resp BP Pulse Ox 11/29/20 04:25 97 11/29/20 04:18 96.6 F L 86 15 175/90 H 92 General: Well nourished, Acute Distress Head: Normocephalic, Atraumatic Eyes: Perrl, EOMI ENT: Moist mucous membranes, No rhinorrhea Neck: - - Tenderness to palpation left paraspinal cervical musculature. No midline deformity or step-off. Cardiovascular: Regular rate, Regular rhythm Respiratory: No distress, CTA bilaterally Back: Negative for: Nontender, Normal Inspection Extremities: Negative for: Nontender, No edema Skin: Negative for: Normal color, No rash, Cyanosis, Diaphoresis Neurological: Alert, Oriented x3, Cranial nerves II-XII grossly intact Psychological: Normal affect, Normal Mood Diagnostic/Tx/Re-eval Clinical Impression(s) from Imaging Studies Chest X-Ray 11/29/20 04:24 IMPRESSION: Negative x-ray examination of the chest. Electronically Signed: Asim Abarca MD at 5:08 EST Tel , Service support , Cervical Spine CT 11/29/20 05:07 IMPRESSION: Multilevel degenerative changes, as described above. Electronically Signed: Asim Abarca MD at 5:43 EST Tel , Service support , Laboratory Data 11/29/20 11/29/20 11/29/20 04:40 04:40 05:25 WBC 7.2 RBC 4.85 Hgb 14.2 Hct 42.9 MCV 88.5 MCH 29.3 MCHC 33.1 RDW Std Deviation 42.6 RDW Coeff of Pollo 13.1 Plt Count 281 MPV 8.8 Immature Gran % (Auto) 0.100 Neut % (Auto) 37.6 L Lymph % (Auto) 47.6 H Archuleta % (Auto) 9.3 Eos % (Auto) 4.6 Baso % (Auto) 0.8 Absolute Neuts (auto) 2.7 Absolute Lymphs (auto) 3.42 Nucleated RBC % 0 D-Dimer Quant (PE/DVT) 0.58 H* Sodium 139 Potassium 4.1 Chloride 106 Carbon Dioxide 26.0 Anion Gap 7 BUN 19 H Creatinine 0.97 Estim Creat Clear Calc 48.73 Est GFR (MDRD) Af Amer 72 Est GFR (MDRD) Non-Af 59 L BUN/Creatinine Ratio 19.6 Glucose 92 Calcium 9.4 Troponin I < 0.015 - Medical Decision Making 75-year-old female presenting with intermittent episodes of shortness of breath as well as tingling in the left arm. She states that the tingling radiates up from her hand sometimes to her shoulder. She also has left-sided neck pain. She denies any chest pain with her shortness of breath. She states he does not have any significant medical problems. Patient's EKG is normal sinus rhythm at 81 bpm without signs of ischemic change as interpreted by myself. Her chest x-ray one-view portable shows no acute cardiopulmonary process as interpreted by myself. CBC shows blood cell count of 7.2, hemoglobin 14.2, platelets 281. D-dimer is 0.58 and when age-adjusted is negative. GFR is 59 creatinine 0.97 troponin is negative. Patient was noted to have elevated blood pressure multiple times in the ED. She does not have a history of this. She is given hydralazine 5 mg. I discussed her with Dr. Avendaño who wants her to be started on Norvasc 5 mg. She follows up with him next week for an appointment. Impression: 1. Shortness of breath 2. Hypertension 3. Cervical radiculopathy ED Disposition - Plan for ED Patient: Disposition: Home or Assisted Living Instructions: ED Dyspnea, ED Hypertension, New (Begin Treatment), ED Radiculopathy, Cervical Prescriptions: Amlodipine [Norvasc] 5 mg PO DAILY #30 tab Prescription Printed Referrals: Oh Avendaño [Primary Care Provider] - Abdi Hampton DO [STAFF PHYSICIAN] -
[2020-11-29] MEDS: Aspirin 81 MG TAB.CHEW 324 MG PO (04:42)
[2020-11-29 04:45] LABS: Absolute Lymphocyte Count 3.42 X10^3/uL (0.83-4.51); Absolute Neutrophil Count 2.7 X10^3/uL (2.0-7.7); Basophil# 0.06 X10^3/uL; Basophil% 0.8 % (0-1); Eosinophil# 0.33 X10^3/uL; Eosinophils% 4.6 % (0-5); Hematocrit 42.9 % (37-47); Hemoglobin 14.2 g/dL (12.0-15.0); Lymphocyte # 3.42 X10^3/ul (4.0); Lymphocyte % 47.6 % (19-41); Mean Corp Hgb Conc 33.1 g/dL (32-36); Mean Corpuscular Hgb 29.3 pg (27.0-32.0); Mean Corpuscular Volume 88.5 fL (81-99); Mean Platelet Vol. 8.8 fl (6.2-12.0); Monocyte# 0.67 X10^3/uL; Monocyte% 9.3 % (0-10); NRBC Flagged by Analyzer 0 % (0-5); Neutrophil % 37.6 % (47-70); Platelet Count 281 K/mm3 (150-450); RBC Distribution Width CV 13.1 % (11.6-14.6); RBC Distribution Width SD 42.6 fl (35.1-43.9); Red Blood Count 4.85 M/mm3 (4.2-5.4); White Blood Count 7.2 K/mm3 (4.4-11.0)
[2020-11-29 05:04] LABS: Anion Gap 7 (5-15); BUN 19 mg/dL (7-18); BUN/Creat Ratio 19.6 RATIO (10-20); Calcium,Total 9.4 mg/dL (8.5-10.1); Chloride 106 mmol/L (98-107); Creatinine, Serum 0.97 mg/dL (0.55-1.02); EST Glomerular Filtration Rate 59 mL/min (>60); Est Glom Filt Rate - Afr Amer 72 mL/min (>60); Estimated Creatinine Clearance 48.73 ml/min; Glucose 92 mg/dL (74-106); Potassium 4.1 mmol/L (3.5-5.1); Sodium Level 139 mmol/L (136-145)
--- NOTE | 2020-11-29 05:07 | CT_ITS ---
STUDY: CT CERVICAL SPINE WITHOUT CONTRAST REASON FOR EXAM: Female, 75 years old. neck pain RADIATION DOSAGE (If Supplied By Facility): CTDIvol = ( 19.36 ) mGy, DLP = ( 390.40 ) mGycm TECHNIQUE: High resolution transaxial imaging was performed without contrast material. Sagittal and coronal images were reconstructed. Individualized dose optimization techniques were used for this CT. COMPARISON: None FINDINGS: Normal craniovertebral junction. There are degenerative changes of the anterior atlantoaxial articulation. Normal odontoid process. Normal cervical lordosis. No acute fracture or subluxation. Diffuse facet arthrosis. There is areas of mild neural foraminal encroachment due to facet arthrosis and endplate changes. Normal visualized soft tissue structures. CT/Spine Cervical without Contras IMPRESSION: Multilevel degenerative changes, as described above. Electronically Signed: Asim Abarca MD at 5:43 EST Tel , Service support ,
[2020-11-29 06:11] LABS: D-Dimer Quantitative (DVT/PE) 0.58 FEU/ug/m (0.27-0.49)
[2020-11-29] MEDS: hydrALAZINE 20 MG/ML Vial 5 MG IV (06:28)
[2020-11-29] MEDS: amLODIPine 5 MG Tablet PO (07:10)
[2020-11-29 07:12] VITALS: BP 168/104; PULSE 93; RESP 16; O2SAT 94
== END 2020-11-29 07:17 | disposition home or self-care (01) ==
PROVIDERS: Emergency Provider Student in an Organized Health Care Education/Training Program
DX: R06.02 Shortness of breath (principal); I10 Essential (primary) hypertension; M54.12 Radiculopathy, cervical region; K21.9 Gastro-esophageal reflux disease without esophagitis; Z79.899 Other long term (current) drug therapy; Z90.710 Acquired absence of both cervix and uterus; Z90.49 Acquired absence of other specified parts of digestive tract
CPT/HCPCS: 71045; 72125; 80048; 84484; 85025; 85379; 93005; 96374; 99285; A4216

== ENCOUNTER → 2020-12-04 06:56 | Outpatient (CLI) | payer MEDICARE, SELFPAY ==
[2019-03-10 10:50] VITALS: BMI 25.8
[2020-11-29 04:18] VITALS: BMI 28.6
--- NOTE | 2020-12-04 11:59 | STRESSREP ---
Stress Test Report Pharmacologic myocardial perfusion stress test. 75-year-old lady with a history of shortness of breath. Stress protocol: Resting EKG demonstrates normal sinus rhythm with a rate of 94 bpm normal occasional premature ventricular complexes are noted. Resting blood pressure is 128/90 mmHg. 0.4 mg of regadenoson was infused per usual protocol followed by rapid intravenous saline flush injection continuous EKG monitoring was performed. At rest there were no ST or T wave changes noted to suggest abnormal flow reserve at peak infusion nonspecific ST-T wave changes were noted with no meet the criteria for ischemia. No clinical angina was noted. The final blood pressure was 124/78. Myocardial perfusion protocol. 11.9 mCi of technetium 99m sestamibi was injected at rest. 0.4 mg of regadenoson was infused per usual protocol. At peak infusion 36.0 mCi of technetium 99m sestamibi was injected stress images were obtained stress and rest images were reconstructed and compared in the short axis vertical long horizontal long axis. Gated images were also obtained Perfusion SPECT analysis: Review of the stress images demonstrate normal uptake of tracer noted in all areas of the myocardium the resting images similarly demonstrate normal uptake of tracer noted in all areas of the myocardium. No reversibility is noted to suggest ischemia no previous infarct is noted. Gated SPECT analysis: The gated ejection fraction is 88%. Conclusion: Normal pharmacologic myocardial perfusion stress test. Preserved ejection fraction.
== END ==
PROVIDERS: Referring Provider Family Medicine; Visit Provider Family Medicine
DX: R07.9 Chest pain, unspecified (principal); R06.00 Dyspnea, unspecified
CPT/HCPCS: 78452; 93017; A9500; A4216; J2785

== ENCOUNTER → 2021-05-16 13:33 | Outpatient (CLI) | payer MEDICARE, SELFPAY ==
--- NOTE | 2021-05-16 13:36 | BI_ITS ---
MAMMOGRAPHY - BILATERAL SCREENING REASON FOR EXAM: Female, 75 years old. Routine annual screening examination. PERTINENT HISTORY: Non-contributory. Remote excisional right breast biopsy. TECHNIQUE: Digital bilateral breast jyoti (3D mammographic acquisition) in the CC and MLO projections. 2-D mediolateral oblique (MLO) and craniocaudad (CC) views of both breasts were obtained. CAD: Full Field Digital Mammography with Computer Added Detection was performed. COMPARISON: Comparison is made with prior study 05/09/2020 and 04/26/2019. FINDINGS: Breast Composition: The breasts are almost entirely fatty. There are no dominant masses or suspicious calcifications. No other significant abnormalities are identified. There has been no significant change since the prior study. BI/SCRN MAMM (CAD)W/JYOTI BILAT IMPRESSION: Stable bilateral screening mammogram. Yearly follow-up mammogram recommended. (A) ASSESSMENT CATEGORY: BIRADS Category 1: Negative. A letter regarding these results will be sent to the patient by the facility within 30 days. Approximately 10% of breast cancers are not detected by mammography. A normal mammogram should not delay biopsy of a clinically suspicious abnormality. [id number] Electronically Signed: Srinivasa Garcia MD at 14:36 EDT , Service support ,
== END ==
PROVIDERS: Referring Provider Family Medicine; Visit Provider Family Medicine
DX: Z12.31 Encounter for screening mammogram for malignant neoplasm of breast (principal)
CPT/HCPCS: 77063; 77067

== ENCOUNTER → 2022-02-06 | Outpatient (CLI) | payer MEDICARE, SELFPAY ==
[2022-02-06 17:46] LABS: Absolute Lymphocyte Count 2.84 X10^3/uL (0.83-4.51); Absolute Neutrophil Count 2.9 X10^3/uL (2.0-7.7); Basophil# 0.06 X10^3/uL; Basophil% 0.9 % (0-1); Eosinophil# 0.17 X10^3/uL; Eosinophils% 2.7 % (0-5); Hematocrit 41.7 % (37-47); Hemoglobin 13.6 g/dL (12.0-15.0); Lymphocyte # 2.84 X10^3/ul (0.83-4.51); Lymphocyte % 44.3 % (19-41); Mean Corp Hgb Conc 32.6 g/dL (32-36); Mean Corpuscular Hgb 29.5 pg (27.0-32.0); Mean Corpuscular Volume 90.5 fL (81-99); Mean Platelet Vol. 9.4 fl (6.2-12.0); Monocyte# 0.45 X10^3/uL; NRBC Flagged by Analyzer 0 % (0-5); Neutrophil # 2.88 X10^3/uL (2.7-7.7); Neutrophil % 44.9 % (47-70); Platelet Count 271 K/mm3 (150-450); RBC Distribution Width CV 13.1 % (11.6-14.6); RBC Distribution Width SD 42.9 fl (35.1-43.9); Red Blood Count 4.61 M/mm3 (4.2-5.4); White Blood Count 6.4 K/mm3 (4.4-11.0)
[2022-02-06 18:06] LABS: AST(SGOT) 13 U/L (15-37); Alanine Aminotransfer ALT/SGPT 18 U/L (13-56); Albumin, Serum 3.6 g/dL (3.2-5.0); Alkaline Phosphatase 97 U/L (45-117); Anion Gap 5 (5-15); BUN 19 mg/dL (7-18); BUN/Creat Ratio 24.9 RATIO (10-20); Calcium,Total 8.9 mg/dL (8.5-10.1); Chloride 108 mmol/L (98-107); Cholesterol 158 mg/dL (200); Creatinine, Serum 0.76 mg/dL (0.55-1.02); EST Glomerular Filtration Rate 78 mL/min (>60); Est Glom Filt Rate - Afr Amer 94 mL/min (>60); Globulin 3.6 g/dL (2.2-4.2); Glucose 107 mg/dL (74-106); High Density Lipoprotein 43 mg/dL; Potassium 3.6 mmol/L (3.5-5.1); Protein, Total 7.2 g/dL (6.4-8.2); Sodium Level 139 mmol/L (136-145); T4 Free Direct 0.95 ng/dL (0.76-1.46); Thyroid Stim Hormone (TSH) 1.52 uIU/mL (0.358-3.74); Triglycerides 174 mg/dL; Very Low Density Lipoprotein 35 mg/dL (5-40)
[2022-02-10 18:02] LABS: Hemoglobin A1c 5.4 % (3.8-5.6)
== END | disposition home or self-care (01) ==
LOC: MFPLAB 15:50
PROVIDERS: Visit Provider Family Medicine
DX: K21.9 Gastro-esophageal reflux disease without esophagitis (principal); E04.1 Nontoxic single thyroid nodule; R73.09 Other abnormal glucose; Z13.220 Encounter for screening for lipoid disorders
CPT/HCPCS: 36415; 80053; 80061; 83036; 84439; 84443; 85025

== ENCOUNTER → 2022-03-04 | Outpatient (CLI) | payer MEDICARE, SELFPAY ==
--- NOTE | 2022-03-04 13:16 | US_ITS ---
STUDY: THYROID ULTRASOUND REASON FOR EXAM: Female, 76 years old. Thyroid nodule TECHNIQUE: Ultrasound evaluation of the thyroid was performed with real-time and static miller-scale imaging. COMPARISON: None. FINDINGS: RIGHT LOBE: The right lobe of the thyroid gland measures 3.9 cm x 1.5 cm x 1.1 cm. There is a homogeneous echotexture. There is a 3 mm x 4 mm x 2 mm cyst in the lower pole. LEFT LOBE: The left lobe of the thyroid gland measures 3.7 cm x 1.7 cm x 1 cm. There is a homogeneous echotexture. There is evidence of a 4 mm x 3 mm x 2 mm cyst in the upper pole. ISTHMUS: The isthmus measures 2 mm. The regional lymph nodes are normal. US/Thyroid IMPRESSION: Tiny cyst in both lobes of the thyroid gland. Electronically Signed: Srinivasa Garcia MD at 15:54 EDT ,
== END | disposition home or self-care (01) ==
LOC: US 13:15
PROVIDERS: PCP Family Medicine; Referring Provider Family Medicine; Visit Provider Family Medicine
DX: E04.1 Nontoxic single thyroid nodule (principal)
CPT/HCPCS: 76536

== ENCOUNTER → 2022-05-22 | Outpatient (CLI) | payer MEDICARE, SELFPAY ==
--- NOTE | 2022-05-22 12:06 | BI_ITS ---
MAMMOGRAPHY - BILATERAL SCREENING REASON FOR EXAM: Female, 76 years old. Routine annual screening examination. PERTINENT HISTORY: Non-contributory. Remote right excisional breast biopsy. TECHNIQUE: Digital bilateral breast jyoti (3D mammographic acquisition) in the CC and MLO projections. 2-D mediolateral oblique (MLO) and craniocaudad (CC) views of both breasts were obtained. CAD: Full Field Digital Mammography with Computer Added Detection was performed. COMPARISON: Comparison is made with prior study dated 05/16/2021 and 05/09/2020. FINDINGS: Breast Composition: The breasts are almost entirely fatty. There are no dominant masses or suspicious calcifications. No other significant abnormalities are identified. There has been no significant change since the prior study. BI/SCRN MAMM (CAD)W/JYOTI BILAT IMPRESSION: Stable bilateral screening mammogram. Yearly follow-up mammogram recommended. (A) ASSESSMENT CATEGORY: BIRADS Category 1: Negative. A letter regarding these results will be sent to the patient by the facility within 30 days. Approximately 10% of breast cancers are not detected by mammography. A normal mammogram should not delay biopsy of a clinically suspicious abnormality. [id number] Electronically Signed: Srinivasa Garcia MD at 13:17 EDT ,
--- NOTE | 2022-05-22 12:20 | BD_ITS ---
STUDY: DUAL ENERGY X-RAY ABSORPTIOMETRY / DXA REASON FOR EXAM: Female, 76 years old. [id number]. Patient is postmenopausal. TECHNIQUE: Bone Mineral Density (BMD) measurements of lumbar spine and bilateral hips were obtained. COMPARISON: None. FINDINGS: Lumbar Spine (L1-L4): g/cm2 (0.752) / T-score (-2.4) / Z-score (0.0) Findings are suggestive of osteopenia with a high fracture risk. Left Femur Total: g/cm2 (0.815) / T-score (-1.0) / Z-score (0.8) Left Femoral Neck: g/cm2 (0.668) / T-score (-1.6) / Z-score (0.5) Right Femur Total: g/cm2 (0.756) / T-score (-1.5) / Z-score (0.4) Right Femoral Neck: g/cm2 (0.625) / T-score (-2.0) / Z-score (0.1) BD/Dexa Bone Density Study IMPRESSION: The patient is considered osteopenic as outlined below according to World Mal Organization (WHO) criteria with a high fracture risk. Reference Information: The T-score is the number of standard deviations above or below the standard which is normal for young adults at their peak bone mineral density. The World Health Organization (WHO) interprets the T-scores as follows: Above -1 Normal bone density Between -1 and -2.5 Osteopenia Equal to / or below -2.5 Osteoporosis As a practical clinical guideline, osteopenia may be graded as follows: Mild -1 through -1.5 Moderate -1.6 through -2.0 Severe -2.1 through -2.4 The Z-score is the number of standard deviations above or below age-matched controls. A Z-score of less than -1.5 would be considered abnormal. References: 1. NIH Osteoporosis and Related Bone Diseases www osteo.org 2. International Society for Clinical Densitometry www iscd.org 3. National Osteoporosis Foundation www nof.org Electronically Signed: Srinivasa Garcia MD at 15:27 EDT ,
== END | disposition home or self-care (01) ==
LOC: OPBD 12:03
PROVIDERS: PCP Family Medicine; Visit Provider Family Medicine
DX: Z12.31 Encounter for screening mammogram for malignant neoplasm of breast (principal); M85.80 Other specified disorders of bone density and structure, unspecified site; Z78.0 Asymptomatic menopausal state
CPT/HCPCS: 77063; 77067; 77080

== ENCOUNTER → 2023-04-30 | Outpatient (CLI) | payer MEDICARE, SELFPAY ==
[2023-04-30 12:54] LABS: Anion Gap 6 (5-15); BUN 15 mg/dL (7-18); BUN/Creat Ratio 17.3 RATIO (10-20); Calcium,Total 8.9 mg/dL (8.5-10.1); Chloride 106 mmol/L (98-107); Cholesterol 122 mg/dL (200); Creatinine, Serum 0.86 mg/dL (0.55-1.02); EST Glomerular Filtration Rate 67 mL/min (>60); Est Glom Filt Rate - Afr Amer 82 mL/min (>60); Glucose 80 mg/dL (74-106); High Density Lipoprotein 49 mg/dL; Potassium 4.1 mmol/L (3.5-5.1); Sodium Level 139 mmol/L (136-145); Triglycerides 122 mg/dL; Very Low Density Lipoprotein 24 mg/dL (5-40)
== END | disposition home or self-care (01) ==
LOC: MFPLAB 10:48
PROVIDERS: PCP Family Medicine; Visit Provider Family Medicine
DX: Z13.220 Encounter for screening for lipoid disorders (principal); Z13.6 Encounter for screening for cardiovascular disorders; Z13.1 Encounter for screening for diabetes mellitus
CPT/HCPCS: 36415; 80048; 80061

== ENCOUNTER → 2023-05-28 | Outpatient (CLI) | payer MEDICARE, SELFPAY ==
--- NOTE | 2023-05-28 11:56 | BI_ITS ---
MAMMOGRAPHY - BILATERAL SCREENING REASON FOR EXAM: Female, 77 years old. Routine annual screening examination. PERTINENT HISTORY: Non-contributory. Remote right excisional breast biopsy. TECHNIQUE: Digital bilateral breast jyoti (3D mammographic acquisition) in the CC and MLO projections. 2-D mediolateral oblique (MLO) and craniocaudad (CC) views of both breasts were obtained. CAD: Full Field Digital Mammography with Computer Added Detection was performed. COMPARISON: Comparison is made with prior study dated May 22, 2022 and May 16, 2021. FINDINGS: Breast Composition: The breasts are almost entirely fatty. There are no dominant masses or suspicious calcifications. No other significant abnormalities are identified. There has been no significant change since the prior study. BI/SCRN MAMM (CAD)W/JYOTI BILAT IMPRESSION: Stable bilateral screening mammogram. Yearly follow-up mammogram recommended. (A) ASSESSMENT CATEGORY: BIRADS Category 1: Negative. A letter regarding these results will be sent to the patient by the facility within 30 days. Approximately 10% of breast cancers are not detected by mammography. A normal mammogram should not delay biopsy of a clinically suspicious abnormality. [id number] Electronically Signed: Srinivasa Garcia MD at 13:22 EDT ,
== END | disposition home or self-care (01) ==
LOC: OPBI 11:54
PROVIDERS: PCP Family Medicine; Referring Provider Family Medicine; Visit Provider Family Medicine
DX: Z12.31 Encounter for screening mammogram for malignant neoplasm of breast (principal)
CPT/HCPCS: 77063; 77067

== ENCOUNTER 2023-06-22 15:33 | Outpatient (CLI) | payer MEDICARE, SELFPAY ==
[2023-06-22 17:50] LABS: Absolute Lymphocyte Count 3.02 X10^3/uL (0.83-4.51); Absolute Neutrophil Count 2.6 X10^3/uL (2.0-7.7); Basophil# 0.07 X10^3/uL; Basophil% 1.1 % (0-1); Eosinophil# 0.17 X10^3/uL; Eosinophils% 2.7 % (0-5); Hematocrit 44.3 % (37-47); Hemoglobin 14.1 g/dL (12.0-15.0); Lymphocyte # 3.02 X10^3/ul (0.83-4.51); Lymphocyte % 47.7 % (19-41); Mean Corp Hgb Conc 31.8 g/dL (32-36); Mean Corpuscular Hgb 29.1 pg (27.0-32.0); Mean Corpuscular Volume 91.3 fL (81-99); Mean Platelet Vol. 9.6 fl (6.2-12.0); Monocyte# 0.49 X10^3/uL; Monocyte% 7.7 % (0-10); NRBC Flagged by Analyzer 0 % (0-5); Neutrophil # 2.57 X10^3/uL (2.7-7.7); Neutrophil % 40.6 % (47-70); Platelet Count 300 K/mm3 (150-450); RBC Distribution Width CV 13.3 % (11.6-14.6); RBC Distribution Width SD 45.2 fl (35.1-43.9); Red Blood Count 4.85 M/mm3 (4.2-5.4); White Blood Count 6.3 K/mm3 (4.4-11.0)
[2023-06-22 18:14] LABS: ALB/GLOB Ratio 0.9 RATIO (0.9-2.4); AST(SGOT) 15 U/L (15-37); Alanine Aminotransfer ALT/SGPT 18 U/L (13-56); Albumin, Serum 3.6 g/dL (3.2-5.0); Alkaline Phosphatase 104 U/L (45-117); Anion Gap 5 (5-15); BUN 20 mg/dL (7-18); BUN/Creat Ratio 22.3 RATIO (10-20); Calcium,Total 8.8 mg/dL (8.5-10.1); Chloride 107 mmol/L (98-107); EST Glomerular Filtration Rate 65 mL/min (>60); Est Glom Filt Rate - Afr Amer 78 mL/min (>60); Globulin 3.8 g/dL (2.2-4.2); Glucose 92 mg/dL (74-106); Magnesium 2.7 mg/dL (1.6-2.6); Potassium 4.2 mmol/L (3.5-5.1); Protein, Total 7.4 g/dL (6.4-8.2); Sodium Level 139 mmol/L (136-145)
[2023-06-22 18:23] LABS: Erythrocyte Sedimentation Rate 12 mm/hr (0-30)
[2023-06-22 18:48] LABS: Vitamin D,25 Hydroxy 27.5 ng/mL
== END 2023-06-22 23:59 | disposition home or self-care (01) ==
PROVIDERS: PCP Family Medicine; Referring Provider Family Medicine; Visit Provider Family Medicine
DX: R25.2 Cramp and spasm (principal)
CPT/HCPCS: 36415; 80053; 82306; 83735; 84443; 85025; 85652

== ENCOUNTER 2024-01-26 14:24 | Emergency (ER) | payer MEDICARE, SELFPAY ==
[2024-01-26 14:25] VITALS: BP 127/83; PULSE 87; RESP 18; TEMP 36.4; O2SAT 95
--- NOTE | 2024-01-26 14:37 | RAD_ITS ---
STUDY: X-RAY - RIGHT FEMUR REASON FOR STUDY: Female, 78 years old. Pain. No known injury. TECHNIQUE: 5 view(s) of the femur. COMPARISON: None. FINDINGS: Normal visualized femur. Normal visualized soft tissue structure. RAD/Femur Min 2 Views IMPRESSION: Normal x-ray examination of the femur. Electronically Signed: Srinivasa Garcia MD at 15:01 EDT ,
--- NOTE | 2024-01-26 14:40 | RAD_ITS ---
STUDY: X-RAY - RIGHT KNEE REASON FOR EXAM: Female, 78 years old. INJURY TECHNIQUE: 4 view(s) of the knee. COMPARISON: None. FINDINGS: Normal visualized distal femur. Normal visualized proximal tibia and fibula. Normal proximal tibiofibular articulation. There is mild degenerative arthrosis of the medial femorotibial compartment. Normal lateral femorotibial compartment. There is mild degenerative arthrosis of the patellofemoral articulation. Mild calcification of the medial and lateral menisci in keeping with chondrocalcinosis. Minimal soft tissue swelling. RAD/Knee 4 or More Views IMPRESSION: Degenerative arthrosis. Electronically Signed: Srinivasa Garcia MD at 15:03 EDT ,
--- NOTE | 2024-01-26 15:05 | ED.VIS.LOWEX ---
HPI History of Present Illness Chief Complaint: Lower Extremity Injury Detail of Chief Complaint: Throbbing pain mid right thigh distally to calf. Informant: patient Occured/Mechanism Comment: No history of trauma. No history of injury Onset/Context/Timing Onset: Days (4 to 5 days) Context: Sudden Onset Timing: Intermittent and Waxes and wanes Quality of Pain: Throbbing Location: Mid thigh to calf right side, circumferential Current Severity: 1/10 Maximum Severity: 8/10 Worsened by: Movement and weightbearing Relieved by: Elevation of the foot Associated Symptoms Associated Symptoms: Negative for Parasthesia, Weakness or Loss of Funtion Narrative Narrative: Patient is a 78-year-old woman. She has history of atypical chest pain, GERD who presents with atraumatic throbbing right mid thigh pain radiating to the calf. It is circumferential. Walking makes it worse. She denies symptoms of claudication. She denies history of PE or DVT. She denies rash. She has no other complaints. Patient has been taking Advil gelcaps with some improvement. Reluctant to prescribe NSAIDs in light of patient's age history of GERD. Prior similar symptoms: No Recent Illness/Hospitalization: No PFSH PFSH Home Medications amlodipine 5 mg tablet 5 mg PO DAILY #30 tabs 11/29/20 [Rx Last Taken Unknown] hydrocodone-acetaminophen 5-325mg 5mg-325mg 1 tab PO Q6H PRN PRN Pain 3 days #10 TABLETS 01/26/24 [Rx Last Taken Unknown] Allergy/AdvReac Type Severity Reaction Status Date / Time prednisone Allergy Severe deathly Verified 01/26/24 14:27 sick hydrocodone bitartrate AdvReac Other Verified 01/26/24 14:27 [From Vicodin] oxycodone AdvReac Itching Verified 01/26/24 14:27 Social History (Updated 01/26/24 @ 15:[address] Noam Hennessy MD) household members: spouse Smoking Status: Never smoker alcohol intake: never ROS ROS ED Constitutional Constitutional ED: Denies chills, fever(s), subjective or sweats Eyes Eyes: Denies blurry vision or change in vision Respiratory/Chest Respiratory/Chest: Denies dyspnea or dyspnea on exertion Musculoskeletal Musculoskeletal: Denies arthralgias, back pain, myalgias or neck pain Integumentary Denies rash Neurologic Neurologic: Denies paresthesias or weakness Hematologic/Lymphatic Hematologic/Lymphatic: Denies easy bleeding or easy bruising EXAM Physical Exam Const Vital Signs: 01/26/24 14:25 Temperature 97.6 F L Temperature Source Temporal Pulse Rate 87 Respiratory Rate 18 Blood Pressure 127/83 H Blood Pressure Mean 97 Pulse Ox 95 Oxygen Delivery Method Room Air Positive well nourished and well developed General Appearance ED: well developed and NAD HEENT Reports moist mucous membranes normocephalic and atraumatic Resp normal respiratory effort Cardio regular rate and regular rhythm Extremity normal to inspection Extremity Narrative: There is no inguinal lymphadenopathy. There is no asymmetry, swelling, discoloration, leg vein distention, palpable cords or tenderness along the distribution of the deep venous system. DP and PT pulse are 2+ and symmetric. There is no pain palpation with palpation of the calf, popliteal fossa or abductor canal. Movement of her leg causes her discomfort. Ángel Ad 4 test causes her significant discomfort in the proximal gastrocnemius region. There is no swelling of the knee. The patella is not ballotable. There is no effusion. Patient complains of pain with varus valgus stress testing. There was no laxity. Efra's test was negative. Modified Peyman's test was negative. There is no pulsatile mass in the popliteal fossa. Psych mental status grossly normal Skin no wounds Lesions: no lesions Rashes: no rashes MDM MDM MDM Narrative Medical decision making narrative: X-rays were obtained per nurse protocol. Differential diagnosis is musculoskeletal pain, pathologic fracture, peripheral arterial disease. Since patient has palpable pulses and movement exacerbates her pain and a positive Ángel Ad 4 test this is not due to peripheral arterial disease or DVT and x-ray confirms there is no evidence of pathologic fracture. Radiography Chest X-Ray - ED: 2 View (Three-view x-ray of the femur reveals no fracture, foreign body or abnormality of the hip joint or knee joint. Interpreted by me [email or web address]) and Read by ED Physician (4 view x-ray of the knee reveals degenerative arthritis. There is no effusion, fracture, subluxation dislocation. This was apparently reviewed interpreted by [id number]) Diagnostic Testing: Clinical Impression(s) from Imaging Studies Femur X-Ray 01/26/24 14:37 IMPRESSION: Normal x-ray examination of the femur. Electronically Signed: Srinivasa Garcia MD at 15:01 EDT , Knee X-Ray 01/26/24 14:40 IMPRESSION: Degenerative arthrosis. Electronically Signed: Srinivasa Garcia MD at 15:03 EDT , Discharge Plan Triage Chief Complaint: Lower Extremity Injury ED Provider: Noam Hennessy Dx/Rx/DC Orders Clinical Impression: Musculoskeletal pain of right lower extremity, Pain of right lower extremity, Elevated blood-pressure reading without diagnosis of hypertension Instructions: Osteoarthritis Knee Prescriptions: New hydrocodone-acetaminophen [hydrocodone-acetaminophen] 5-325 mg tablet 1 tab PO Q6H PRN PRN (Reason: Pain) 3 Days Qty: 10 0RF No Action amlodipine 5 MG tablet 5 mg PO DAILY Qty: 30 0RF Primary Care Provider: Lali Crowley Referrals: Rebecca Menezes MD [Med Staff - Active Staff] - Keep Maril[facility] appointment Lali Crowley DO [Primary Care Provider] - Activity Restrictions/Additional Instructions: 1. Apply ice 6 times a day. Disposition Disposition: Home, Self Care
[2024-01-26 15:33] VITALS: BMI 29.8
== END 2024-01-26 15:35 | disposition home or self-care (01) ==
PROVIDERS: Emergency Provider Emergency Medicine; PCP Family Medicine; Visit Provider Emergency Medicine
DX: M79.604 Pain in right leg (principal); R03.0 Elevated blood-pressure reading, without diagnosis of hypertension; Z79.899 Other long term (current) drug therapy
CPT/HCPCS: 73552; 73564; 99282

== ENCOUNTER → 2024-02-23 | Outpatient (CLI) | payer MEDICARE, SELFPAY ==
--- NOTE | 2024-02-23 10:57 | CT_ITS ---
STUDY: CT ABDOMEN AND PELVIS WITH CONTRAST REASON FOR EXAM: Female, 78 years old. Incisional pain, h/o hernia RADIATION DOSAGE (If Supplied By Facility): CTDIvol = ( 16.10 ) mGy, DLP = ( 864.83 ) mGycm TECHNIQUE: Oral and amp; IV Gastrografin and amp; 100mL Isovue-300 was administered. Transaxial images were obtained from the dome of the diaphragm to the symphysis pubis. Multiplanar coronal and sagittal images were reformatted. The protocol utilizes one or more of the following dose reduction techniques: automated exposure control, adjustment of mA and/or kV according to patient size,and/or use of iterative reconstruction technique. COMPARISON: No relevant prior comparison study available FINDINGS: The visualized portions of lung bases demonstrate chronic changes. No focal infiltrate. The visualized portions of the heart are within normal limits. Normal liver. There are surgical clips in the gallbladder fossa consistent with a prior cholecystectomy. Normal spleen. Normal pancreas. Normal bilateral adrenal glands. Prominent bilateral collecting system likely due to extrarenal pelvis. No evidence of hydronephrosis. The kidneys otherwise unremarkable. Normal visualized stomach. Normal in caliber small bowel loops. Status post right hemicolectomy. Thickening of the descending and rectosigmoid colon could be due to underdistention. Colitis cannot be excluded. There is diffuse atherosclerotic calcification of the abdominal aorta with elongation and tortuosity, but without a demonstrated aneurysm. No retroperitoneal adenopathy. Circumferential thickening of the bladder wall probably due to underdistention. Cystitis is less likely. There is absence of the uterus consistent with a prior hysterectomy. No discrete abdominal wall hernia. No demonstrated acute osseous changes. CT/Abdomen/Pelvis WITH Contrast IMPRESSION: 1. Status post right hemicolectomy, cholecystectomy and hysterectomy. 2. Thickening of the descending and rectosigmoid colon could be due to underdistention. Colitis cannot be excluded. 3. Circumferential thickening of bladder wall likely due to underdistention. Cystitis is less likely. 4. Otherwise no focal acute inflammatory process. Electronically Signed: Samy Mejia MD at 15:33 EDT ,
[2024-02-23 14:52] LABS: CREATININE FINGERSTICK < 1.0 mg/dL (0.55-1.02)
== END | disposition home or self-care (01) ==
PROVIDERS: PCP Internal Medicine; Referring Provider Internal Medicine; Visit Provider Internal Medicine
DX: L76.82 Other postprocedural complications of skin and subcutaneous tissue (principal); Z87.19 Personal history of other diseases of the digestive system
CPT/HCPCS: 74177; Q9967

== ENCOUNTER 2024-04-15 11:45 | Day surgery (SDC) | payer MEDICARE, SELFPAY ==
--- NOTE | 2024-04-07 13:33 | EKG12_ITS ---
Test Reason : PREOP Blood Pressure : / mmHG Vent. Rate : 099 BPM Atrial Rate : 099 BPM P-R Int : 146 ms QRS Dur : 076 ms QT Int : 370 ms P-R-T Axes : 077 018 063 degrees QTc Int : 474 ms Sinus rhythm with frequent Premature ventricular complexes Low voltage QRS Borderline ECG Confirmed by Demetri Torres ([id number]), department editor MIGUEL ANGEL ONEILL ([id number]) on 04/08/2024 6:23:04 AM Referred By: Lori Mart Confirmed By:Demetri Torres
[2024-04-15] VITALS (12 sets, daily range): BP systolic 129–151; BP diastolic 73–93; PULSE 65–95; RESP 14–16; TEMP 36.1–36.7; O2SAT 93–96; BMI 26.6
[2024-04-15] MEDS: Lactated Ringers 1,000 ML 15 ML IV (12:39)
--- NOTE | 2024-04-15 13:10 | PRE.ANES_ITS ---
ASA Classification* ASA Classification ASA Classification: 3 Assessment & Plan Anesthesia* Anesthesia Assessment Anesthesia Assessment: Discussed sedation and/or anesthesia options, risks, benefits, and alternatives with patient/parents/legal guardian/POA. Questions invited. The patient/parents/legal guardian/POA seems to understand and agrees to proceed with anesthesia plan. Reviewed the physical assessment, medical history, allergy history and patient home medications list prior to surgery/procedure/anesthetic and documented any changes. Performed airway and anesthesia risk assessments. Anesthesia Type Anesthesia Type: General History Source History Obtained from:: Patient and Chart Anesthesia Focused Assessment* Temperature: 98.0 F Pulse Rate: 95 Blood Pressure: 138/73 Respiratory Rate: 14 Pulse Ox: 93 Oxygen Delivery Method: Room Air Airway Assessment Mouth opens: >3 cm Mallampati Score: II Teeth Condition: Dentures and Full (Dentures are out) Neck Range of motion (ROM): Full ROM Pertinent Findings EKG Pertinent Findings:: 04/07/2021 Sinus rhythm with PVC's Stress Test Pertinent Findings:: 12/04/2020. EF=88%. No ischemia Focused Labs Anesthesia Preop lab: CBC WBC 6.3 K/mm3 (4.4-11.0) 06/22/23 15:36 RBC 4.85 M/mm3 (4.2-5.4) 06/22/23 15:36 Hgb 14.1 g/dL (12.0-15.0) 06/22/23 15:36 Hct 44.3 % (37-47) 06/22/23 15:36 Plt Count 300 K/mm3 (150-450) 06/22/23 15:36 CHEMISTRY Potassium 4.2 mmol/L (3.5-5.1) 06/22/23 15:36 Sodium 139 mmol/L (136-145) 06/22/23 15:36 Magnesium 2.7 mg/dL (1.6-2.6) H 06/22/23 15:36 BUN 20 mg/dL (7-18) H 06/22/23 15:36 Creatinine 0.90 mg/dL (0.55-1.02) 06/22/23 15:36 Glucose 92 mg/dL (74-106) 06/22/23 15:36 TSH 2.40 uIU/mL (0.358-3.74) 06/22/23 15:36 COAG PT 25.7 SECONDS (11.9-14.4) H 09/29/13 10:41 Pre-Assessment Diagnosis/Proposed Procedure Planned Operative Procedure(s): Hybrid lap/open Hernia,Recurrent Incisional Repair w/ Mesh poss removal of mesh Anesthesia History Anesthesia History - audio installer: Anesthesia History - audio installer Hx Hospitalization No 04/06/24 08:25 Any Problems With Anesthesia Yes: PT STATES LOW O2 WITH 04/06/24 08:25 LAST HERNIA SURG, KEPT OVER NIGHT DUE TO THIS Cholinesterase deficiency No 04/06/24 08:25 You/Your Family Experience No 04/06/24 08:25 fever (hyperthermia) with Relationship Recent Exposure to Contagious No 04/15/24 12:35 Disease Does patient have nerve No 04/06/24 08:25 stimulator Patient instructed to have device shut off --Does patient have Pacemaker No 04/15/24 12:35 or ICD? When Was Last Pacemaker Check QUESTION #4 FULL TEXT: You/Your Family Experience fever (hyperthermia) with Anesthesia Last Oral Intake Last Oral intake: Last Oral Intake NPO since 00:00 04/15/24 12:35 Meds taken in AM with sips of No 04/15/24 12:35 water? Meds patient instructed to take am of surgery PONV PONV - audio installer: PONV - audio installer Female Yes 04/06/24 08:25 HX of Motion Sickness No 04/06/24 08:25 HX of N/V After Surgery No 04/06/24 08:25 Non-Smoker Yes 04/06/24 08:25 Duration of Surgery greater Yes 04/06/24 08:25 than 60 minutes Number of Risk Factors 3 04/06/24 08:25 PONV Score Moderate Risk 04/06/24 08:25 Height & Weight Height & Weight: Anesthesia: Height & Weight Height 5 ft 7 in 04/15/24 12:35 Weight: 77.111 kg 04/15/24 12:35 Body Mass Index (BMI) 26.6 04/15/24 12:35 Respiratory Assessment Respiratory Assessment - audio installer: Respiratory Tract Infection Hx - audio installer Hx Respiratory Tract Infection No 04/06/24 08:25 STOP Sleep Apnea STOP Sleep Apnea - audio installer: STOP Sleep Apnea - audio installer Hx Hypertension No 04/06/24 08:25 Hx Sleep Apnea No 04/06/24 08:25 CPAP No 08/07/17 06:50 BIPAP No 08/06/16 19:08 Do you snore loudly (louder No 04/06/24 08:25 than talking or can be heard Do you often feel tired/ No 04/06/24 08:25 fatigued/ sleepy during daytime? Has anyone observed you stop No 04/06/24 08:25 breathing during sleep? STOP Results Negative 04/06/24 08:25 QUESTION #5 FULL TEXT : Do you snore loudly (louder than talking or can be heard through closed doors)? 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 Specify any problems Hx of Preganancy in last 3 N/A 04/06/24 08:25 Months Nurse Filling Out Transfusion NBUCHER 04/06/24 08:25 & Questions: Date: 04/06/24 04/06/24 08:25 Time: 08:27 04/06/24 08:25 Patient unable to answer at this time (ie. confused, unrespo /Reproduction History /Reproductive History - audio installer: /Reproductive Hx- audio installer Hx Now Gestational Age (in weeks): EDC: Hx Hx Para Hx Section SAB Active Medications Active Medications: Current Medications Generic Name Dose Route Start Last Admin Trade Name Freq PRN Reason Stop Dose Admin Cefazolin Sodium 2 gm/ Sodium 110 mls @ 150 mls/hr 04/15/24 14:00 Chloride IV 04/15/24 14:43 PREOP ONE Lactated Ringer's 1,000 mls @ 15 mls/hr 04/15/24 12:00 04/15/24 12:39 IV 15 mls/hr .Q48H REGLA Administration PFSH Medical History Wears hearing aid Loss of hearing Wears glasses Wears dentures Post-menopausal Cancer Anxiety Arthritis History of IBS Non-smoker Leg cramps History of stress test (~2020) Skin cancer IBS (irritable bowel syndrome) Hearing problem Gallstone Emotional problems Breast lump Back problem Crushing injury of right foot, initial encounter Precancerous polyps Home Medications ?Medication ?Instructions ?Recorded ?Last Taken ?Type cetirizine 10 mg capsule (Zyrtec) 10 mg PO DAILY PRN allergy symptoms 02/03/24 04/14/24 History alprazolam 0.25 mg tablet 0.25 mg PO BID PRN anxiety #10 tabs 04/11/24 04/14/24 Rx Allergy/AdvReac Type Severity Reaction Status Date / Time prednisone Allergy Severe deathly Verified 04/15/24 12:22 sick hydrocodone bitartrate (From AdvReac Other Verified 04/15/24 12:22 Vicodin) oxycodone AdvReac Itching Verified 04/15/24 12:22 Family History Father Alcohol abuse Respiratory disease Emphysema Brother Colon cancer Sister CVA (cerebral vascular accident) Mother Myocardial infarction Surgical History History of cardiac catheterization (~2020) History of surgical procedure History of colon surgery H/O hernia repair Hx of bladder repair surgery H/O: hysterectomy History of tubal ligation History of cholecystectomy H/O breast surgery Social History household members: none housing: house current occupational status: employed 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
--- NOTE | 2024-04-15 13:12 | PCM.HP.BLA ---
History and Physical Date of Admission: 04/15/24 Date of Service: 03/22/24 MR#: [id number] Acct: [id number] Name: CRISTÓBAL MEDEL Rep #: [id number] : 1945 Provider: Dr. Lori Mart MD Age/Sex: 78/F Location: [facility] Status: Signed Intake Vital Signs 02/03/2412:48 03/22/2414:41 Height 5 ft 7 in 5 ft 7 in Weight: 165 lb 165 lb BMI 25.8 25.8 BP 120/76 137/78 H Blood Pressure Location Lt brachial Rt brachial Position Sitting Sitting Respiration 16 16 Pulse 93 Pulse Source Monitor Temp 97.4 F L Temp Source Temporal Pulse Oximetry (%) 96 Oxygen Delivery Method room air Intake Visit Reasons: POSSIBLE Adhesion Lysis Chief Complaint: abn CT scan Outpatient Program Coordinator Required: No Is patient in pain?: Yes (midline lower abdomen) Allergies prednisone Allergy (Severe, Verified 03/22/24 14:42) deathly sickhydrocodone bitartrate (From Vicodin) Adverse Reaction (Verified 03/22/24 14:42) Otheroxycodone Adverse Reaction (Verified 03/22/24 14:42) Itching Medications ?Medication ?Instructions ?Recorded ?Confirmed ?Type alprazolam 0.25 mg tablet 0.25 mg PO BID PRN anxiety 02/03/24 03/22/24 History cetirizine 10 mg capsule (Zyrtec) 10 mg PO DAILY PRN 02/03/24 03/22/24 History Have you fallen in the past year?: No PFSH Medical History Skin cancer IBS (irritable bowel syndrome) Hearing problem Gallstone Emotional problems Breast lump Back problem Crushing injury of right foot, initial encounter Precancerous polyps Surgical History History of surgical procedure History of colon surgery H/O hernia repair Hx of bladder repair surgery H/O: hysterectomy History of tubal ligation History of cholecystectomy H/O breast surgery Family History Father Alcohol abuse Respiratory disease EmphysemaBrother Colon cancerSister CVA (cerebral vascular accident)Mother Myocardial infarction Social History household members: none housing: house current occupational status: employed 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 Patient states she has had this for about 6 or 7 months. This will cause patient occasionally occasionally can wake her up at night or if she moves a certain way during the day. Patient has been avoiding lifting she does work at [employer] due to the pain. Patient did have incisional hernia [place] [address] Barry with Ventralex ST mesh placement. Recent CT abdomen pelvis did not call any hernias however upon reviewing it there is an area on the left that appears to have a small hernia. ROS General General: Yes weight change and fatigue; No appetite, colon cancer, breast cancer or weakness HEENT HEENT: No difficulty swallowing, eye injury, eye surgery, swollen glands or hoarseness Endo Endocrine: No thyroid disease, diabetes mellitus, thyroid cancer, Hair loss, heat intolerance or cold intolerance Skin Skin: No rash or changing moles Breast Breast: No left breast lump, right breast lump, nipple discharge, breast pain, abnormal mammogram, abnormal US or breast enlargement Musc Musculoskeletal: Yes back problems and arthritis; No rheumatoid arthritis, gout or joint pain Cardio Cardiovascular: No murmur, pacemaker, heart disease, atrial fibrillation, high blood pressure, heart attack, heart stent, palpitations, shortness of breat with exertion or chest pain Psych Psychiatric: No depression, anxiety or hearing voices Resp Respiratory: No shortness of breath, No sleep apnea, No cough, No COPD, No asthma, No emphysema and No wheezing Gastro Gastrointestinal: Yes abdominal pain, No nausea or vomiting, No diarrhea, No constipation, No blood in stool, Yes acid reflux, Yes hemorrhoids, No ulcers, No gallbladder problem and No black,tarry stools Juan Hematologic: No blood thinners, No blood disorders, No bleeding, No anemia and No blood clots Neuro Neurologic: No system reviewed and no additional complaints, except as documented, No as per HPI, No abnormal gait, No abnormal hearing, No abnormal movements, No abnormal speech, No behavioral changes, No burning sensations, No confusion, No convulsions, No disequilibrium, No dizziness, No localized weakness, No frequent falls, No headache(s), No lack of coordination, No loss of vision, No memory loss, No numbness, No other visual disturbances, No radicular pain, No restless legs, No sensory deficit, No syncope, No tingling, No tremor(s), No weakness and No other Exam Const General: cooperative, healthy appearing, comfortable and no acute distress HENNY Head: normocephalic and atraumatic Neck Neck: supple Resp Effort & Inspection: normal respiratory effort Cardio Rate: regular rate GI Inspection: non-distended Palpation: soft and tender periumbilically Other: Unable to feel a discrete hernia on exam patient is tender around the umbilicus with palpation. No peritoneal signs Skin General: no rashes or lesions noted Neuro General: CN's II-XI intact bilaterally Extrem General: normal to inspection Psych Mental Status: mental status grossly normal Attitude: cooperative Assessment and Plan Assessment and Plan (1) Recurrent incisional hernia: Status: Acute Plan Did review patient's latest CT abdomen pelvis with the patient personally. There appears to be a small area just to the left of the mesh with herniation. Discussed with patient would plan for a hybrid laparoscopic possible open approach. Did discuss possible removal of the mesh or placing additional mesh over the mesh if it is well incorporated. Discussed procedure including but not limited to risk of bleeding, infection, recurrent hernia, pain and anesthesia. Patient is also aware that during surgery we could find no additional hernia however CAT scan does show a likely hernia. Patient had no further questions this time. She is agreeable to proceed. Coding Level of Care Code Off vis,new,level 3 Diagnoses Recurrent incisional hernia K43.2 Clinical Quality Measures Falls Risk Screening/Assistive Devices Have you fallen in the past year?: No 03/25/24 0515 <Electronically signed by Lori Mart MD> Date Lori Mart MD
[2024-04-15] MEDS: Cefazolin 2 GM in 0.9% Normal Saline (100mL Bag) 100 ML IV (13:59)
--- NOTE | 2024-04-15 15:39 | OP.PCM_ITS ---
Report of Operation Date of Procedure: 04/15/24 Pre-Operative Diagnosis: recurrent ventral incisional hernia Post-Operative Diagnosis: same Surgery/Procedure Performed:: laparoscopic/open repair of recurrent incisional hernia with mesh Surgeon: Lori Mart profile saw operator: Gregg Rivera Type of Anesthesia: General/Supplemental Anesthesiologist: Gurpreet Mcgovern Special Medications: Ancef 2 grams IV x1 Specimen's removed: none Estimated Blood Loss (mL): 10 cc Description of Procedure: Indications this is a 78 year-old female who had a symptomatic recurrent incisional ventral hernia. Laparoscopic ventral hernia repair with mesh was elected. Description procedure: The patient was placed on operating table in supine position. General Anesthesia was induced. A timeout was completed verifying correct patient, procedure, site, position, social, and special equipment prior to beginning procedure. The abdomen was prepped and draped in usual sterile fashion. An incision was made in the epigastric midline. The fascia was elevated and incised. The peritoneum was elevated and incised. Entry into the peritoneum was confirmed visually and no bowel was noted in the vicinity of the incision. Solis trocar was placed. The abdomen was insufflated with carbon dioxide to a pressure of 12-15 mmHg. Patient tolerated insufflation well. The laparoscope was then inserted and abdomen inspected. No injuries from initial trocar placement were noted. Additional trochars were then inserted in the following locations 5 mm trocar in the left upper/mid/lower abdomen. The abdomen was inspected omentum was adherent to previous mesh, which was well incorporated to the fascia- omentum was removed using enseal and omentum was removed from hernia left side of edge of mesh -12mm x 12 mm hernia with gentle traction. Hernia was closed primarily with 0 prolene figure of 8 suture. The echo mesh 11.4 cm diameter was showed chosen for repair. Mesh was rolled into a cylinder in place through the Solis trocar. The inflation tubing was grasped with a suture passer in the middle of the hernia defect and pulled up against the abdominal wall. The balloon was deployed and the mesh was laying flat against the abdominal wall. Additional 5 mm trocar was placed in right lateral abdomen. The secure strap was used to secure the mesh in place. The balloon deployment system was removed from the mesh and the abdomen. The mesh was further secured in place. Secondary trochars removed under direct vision. No bleeding was noted the trocar sites. The laparoscope was withdrawn and umbilical trocar removed. The abdomen was allowed to collapse. The fascia of the 12 mm trocar was closed with a [id number] 0 Vicryl suture. The skin was closed with sutures of 4-0 Monocryl and Steri-Strips. The patient was extubated. The patient tolerated procedure well and was taken to the postanesthesia care unit in stable condition. Grafts/Implants Used: echo mesh 11.4 cm diameter REF [id number] Complications none
[2024-04-15] MEDS: Bupivacaine Mpf 0.5% 30 ML VIAL (15:40)
--- NOTE | 2024-04-15 15:47 | DCINST_ITS ---
Discharge Instructions Diet Discharge Diet: Light diet - advance as tolerated Activity Discharge Activity: May Not Drive (while taking narcotic pain medications.) May shower in (days): 1 Lifting Restrictions: no lifting >20 lbs x 2 wks, no strenuous exercise for 4 wks Additional Activity Instructions:: abdominal binder for comfort only Dressing / Incision Call your doctor if your incision/area has: Continuous Slow Oozing, Sudden Increased Bleeding, Increased Pain/ Swelling, Increased Redness, Foul Smelling Discharge and Swelling at the incision site Call your doctor if you observe: Fever of 101 or Higher Remove Dressing in: 2 days Cleanse incision/area with: Soap & Water Additional Dressing/Incision Instructions:: Steri-Strips will fall off in 7 to 10 days, if they do not fall off okay to remove after 10 days. Follow Up Care Please Follow Up With: Lori Mart MD When: Call the office for a follow-up appointment 2 weeks; after 5 PM and on the weekends call [phone] with any concerns. Test Results: Test results from this visit will be discussed in further detail at your follow- up appointment, if applicable. Discharge Plan Admission Attending Provider: Lori Mart Primary Care Provider: Rebecca Menezes Instructions Print Language: Persian Discharge Orders/Prescriptions Prescriptions: New tramadol 50 mg tablet 50 - 100 mg PO Q6H PRN (Reason: pain) 3 Days Qty: 14 0RF Continued Zyrtec 10 mg capsule 10 mg PO DAILY PRN (Reason: allergy symptoms) alprazolam 0.25 mg tablet 0.25 mg PO BID PRN (Reason: anxiety) Qty: 10 0RF Referrals / Follow Up: Rebecca Menezes MD [Primary Care Provider] - Disposition Disposition (needs filled in before D/C Order can be placed): Home, Self Care
--- NOTE | 2024-04-15 16:06 | PCM.POST.ANE ---
Anesthesia: Postop Eval I Current Vital Signs Temperature: 97 F Pulse Rate: 65 Blood Pressure: 133/73 Respiratory Rate: 16 Pulse Ox: 96 Oxygen Delivery Method: Room Air Assessment Airway patent: Yes Spontaneous unlabored respirations: Yes Mental status: Awake and Calm nausea: No Vomiting: No Anesthesia Complication: No Fluid Hydration Crystalloid volume administer (ml): 1,500 Total IV fluid infused: 1,500 Progress Note Anesthesia document: Postop Eval 1 completed: Yes
--- NOTE | 2024-04-15 16:25 | PCM.POSTANE2 ---
Anesthesia Postop Eval I Sum Postop Eval Completion status Anesthesia document: Postop Eval 1 completed: Yes Anesthesia Postop Eval I Summary Anesthesia Postop Eval I Summary: Anesthesia Postop Eval I: Assessment Summary Airway patent Yes 04/15/24 16:09 Spontaneous unlabored Yes 04/15/24 16:09 respirations Mental status Awake,Calm 04/15/24 16:09 nausea No 04/15/24 16:09 Vomiting No 04/15/24 16:09 Anesthesia Postop Eval I: Fluid Summary Crystalloid volume administer 1,500 04/15/24 16:11 (ml) Colloids volume administered ( ml) Blood Product volume administered (ml) Total IV fluid infused 1,500 04/15/24 16:11 Anesthesia Postop Eval I: Summary Notes Anesthesia Complication No 04/15/24 16:09 Anesthesia Complication Comment: Post-operative progress note Anesthesia: Postop Eval II Evaluation Mental status: Awake and Calm Pain Level: 4 nausea: No Vomiting: No Complications Anesthesia Complication: No
[2024-04-15] MEDS: Ketorolac 15 MG/ML Vial IM (17:10)
[2024-04-15] MEDS: traMADol 50 MG Tablet PO (17:26)
== END 2024-04-15 18:20 | disposition home or self-care (01) ==
LOC: SDC 11:51 → AC 11:52
PROVIDERS: PCP Internal Medicine; Referring Provider Surgery; Visit Provider Surgery
PROC: 0WQF4ZZ Repair Abdominal Wall, Percutaneous Endoscopic Approach (ICD-10-PCS; CPT 49613; principal; 2024-04-15 13:40)
DX: K43.2 Incisional hernia without obstruction or gangrene (principal); Z87.19 Personal history of other diseases of the digestive system
CPT/HCPCS: 49613; 00840; 93005; J7120; C1760; J2405

== ENCOUNTER → 2024-06-01 | Outpatient (CLI) | payer MEDICARE, SELFPAY ==
--- NOTE | 2024-06-01 10:17 | BI_ITS ---
MAMMOGRAPHY - BILATERAL SCREENING REASON FOR EXAM: Female, 78 years old. Routine annual screening examination. PERTINENT HISTORY: Non-contributory. Remote right excisional breast biopsy. TECHNIQUE: Digital bilateral breast jyoti (3D mammographic acquisition) in the CC and MLO projections. 2-D mediolateral oblique (MLO) and craniocaudad (CC) views of both breasts were obtained. CAD: Full Field Digital Mammography with Computer Added Detection was performed. COMPARISON: Comparison is made with prior study dated May 28, 2023 and May 22, 2022. FINDINGS: Breast Composition: The breasts are almost entirely fatty. There are no dominant masses or suspicious calcifications. No other significant abnormalities are identified. There has been no significant change since the prior study. BI/SCRN MAMM (CAD)W/JYOTI BILAT IMPRESSION: Stable bilateral screening mammogram. Yearly follow-up mammogram recommended. (A) ASSESSMENT CATEGORY: BIRADS Category 1: Negative. A letter regarding these results will be sent to the patient by the facility within 30 days. Approximately 10% of breast cancers are not detected by mammography. A normal mammogram should not delay biopsy of a clinically suspicious abnormality. [id number] Electronically Signed: Srinivasa Garcia MD at 11:22 EDT ,
== END | disposition home or self-care (01) ==
PROVIDERS: PCP Internal Medicine; Referring Provider Internal Medicine; Visit Provider Physician Assistant
DX: Z12.31 Encounter for screening mammogram for malignant neoplasm of breast (principal)
CPT/HCPCS: 77063; 77067

== ENCOUNTER 2024-07-21 09:03 | Emergency (ER) | payer MEDICARE, SELFPAY ==
[2024-07-21 09:03] VITALS: BP 143/83; PULSE 100; RESP 14; TEMP 36.6; O2SAT 98; BMI 25.9
[2024-07-21 09:58] LABS: Absolute Lymphocyte Count 3.12 X10^3/uL (0.83-4.51); Absolute Neutrophil Count 3.2 X10^3/uL (2.0-7.7); Basophil# 0.05 X10^3/uL; Basophil% 0.7 % (0-1); Eosinophils% 2.8 % (0-5); Hematocrit 44.8 % (37-47); Hemoglobin 14.9 g/dL (12.0-15.0); Lymphocyte # 3.12 X10^3/ul (0.83-4.51); Lymphocyte % 43.9 % (19-41); Mean Corp Hgb Conc 33.3 g/dL (32-36); Mean Corpuscular Hgb 29.3 pg (27.0-32.0); Mean Platelet Vol. 8.9 fl (6.2-12.0); Monocyte# 0.55 X10^3/uL; Monocyte% 7.7 % (0-10); NRBC Flagged by Analyzer 0 % (0-5); Neutrophil # 3.18 X10^3/uL (2.7-7.7); Neutrophil % 44.8 % (47-70); Platelet Count 272 K/mm3 (150-450); RBC Distribution Width CV 13.4 % (11.6-14.6); RBC Distribution Width SD 43.2 fl (35.1-43.9); Red Blood Count 5.09 M/mm3 (4.2-5.4); White Blood Count 7.1 K/mm3 (4.4-11.0)
[2024-07-21 10:43] LABS: AST(SGOT) 14 U/L (15-37); Alanine Aminotransfer ALT/SGPT 15 U/L (13-56); Albumin, Serum 3.9 g/dL (3.2-5.0); Alkaline Phosphatase 92 U/L (45-117); Anion Gap 6 (5-15); BUN 17 mg/dL (7-18); BUN/Creat Ratio 17.9 RATIO (10-20); Calcium,Total 9.3 mg/dL (8.5-10.1); Chloride 106 mmol/L (98-107); Creatinine, Serum 0.95 mg/dL (0.55-1.02); EST Glomerular Filtration Rate 61 mL/min (>60); Est Glom Filt Rate - Afr Amer 73 mL/min (>60); Estimated Creatinine Clearance 51.62 ml/min; Globulin 3.8 g/dL (2.2-4.2); Glucose 100 mg/dL (74-106); Potassium 3.8 mmol/L (3.5-5.1); Protein, Total 7.7 g/dL (6.4-8.2); Sodium Level 137 mmol/L (136-145)
--- NOTE | 2024-07-21 10:43 | CT_ITS ---
STUDY: CT ABDOMEN AND PELVIS WITH CONTRAST REASON FOR EXAM: Female, 78 years old. Lower abdominal pain RADIATION DOSAGE (If Supplied By Facility): CTDIvol = ( 21.52 ) mGy, DLP = ( 1053.59 ) mGycm TECHNIQUE: Transaxial images were obtained from the dome of the diaphragm to the symphysis pubis with oral contrast. Oral and amp; IV Gastrografin and amp; 100mL Isovue-370 was administered. Sagittal and coronal images were reconstructed. Individualized dose optimization techniques were used for this CT. COMPARISON: 02/23/2024 FINDINGS: There are chronic interstitial fibrotic changes of the lung bases. The visualized portions of the heart are within normal limits. Normal liver. There are surgical clips in the gallbladder fossa consistent with a prior cholecystectomy. Normal spleen. Normal pancreas. Normal bilateral adrenal glands. Normal right kidney. Normal left kidney. Normal visualized stomach. Normal small intestine. Normal colon. There is non-visualization of the appendix. There is diffuse atherosclerotic calcification of the abdominal aorta, without a demonstrated aneurysm. Normal inferior vena cava. No suspicious retroperitoneal adenopathy. There is nonspecific induration of the mesenteric fat which is likely postsurgical Normal urinary bladder. There is absence of the uterus consistent with a prior hysterectomy. Normal abdominal wall. There are diffuse degenerative changes of the visualized lumbar spine, and pelvis. CT/Abdomen/Pelvis WITH Contrast IMPRESSION: No suspicious solid organ abnormality. Small and large bowel loops are unremarkable without evidence of inflammation of ileus or obstruction. Likely postsurgical induration of the mesenteric fat No free intraperitoneal fluid, air, or suspicious adenopathy Previous noted bladder wall thickening not seen current study Electronically Signed: Vinicio Ceballos MD at 12:56 EDT ,
--- NOTE | 2024-07-21 10:44 | EDS_ITS ---
HPI HPI - GI History of Present Illness Chief Complaint: Abd Pain Informant: patient Narrative Narrative: 78-year-old female was been having mid and lower diffuse abdominal pain intermittently, fairly randomly especially when she is walking though, not associated with meals, since March. This has been since she had a recent umbilical incisional herniorrhaphy. She saw her surgeon and has a CT ordered/scheduled for next week but she states the pain is getting worse and she cannot wait. She denies any nausea or vomiting or problems with bowel movements or urination. No bright red blood per rectum or melena. No fevers or chills. No radiation migration of the pain. She states it is there but not as bad right now that it has been. [facility] Medical History Abdominal pain Wears hearing aid Loss of hearing Wears glasses Wears dentures Post-menopausal Cancer Anxiety Arthritis History of IBS Non-smoker Leg cramps History of stress test (~2020) Skin cancer IBS (irritable bowel syndrome) Hearing problem Gallstone Emotional problems Breast lump Back problem Crushing injury of right foot, initial encounter Precancerous polyps Home Medications ?Medication ?Instructions ?Recorded ?Last Taken ?Type cetirizine 10 mg capsule (Zyrtec) 10 mg PO DAILY PRN allergy symptoms 02/03/24 04/14/24 History alprazolam 0.25 mg tablet 0.25 mg PO BID PRN anxiety #10 tabs 04/11/24 04/14/24 Rx tramadol 50 mg tablet 50 - 100 mg (1 - 2 x 50 mg) PO Q6H 04/15/24 Unknown Rx PRN pain 3 days #14 tabs Allergy/AdvReac Type Severity Reaction Status Date / Time prednisone Allergy Severe deathly Verified 07/21/24 09:03 sick hydrocodone bitartrate (From AdvReac Other Verified 07/21/24 09:03 Vicodin) oxycodone AdvReac Itching Verified 07/21/24 09:03 Family History Father Alcohol abuse Respiratory disease Emphysema Brother Colon cancer Sister CVA (cerebral vascular accident) Mother Myocardial infarction Surgical History History of cardiac catheterization (~2020) History of surgical procedure History of colon surgery H/O hernia repair Hx of bladder repair surgery H/O: hysterectomy History of tubal ligation History of cholecystectomy H/O breast surgery Social History household members: none housing: house current occupational status: employed 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 [employer] Smoking Status: Never smoker Electronic Cigarette Use: not used alcohol intake: never substance use type: does not use what type of physical activity do you participate in: none seatbelt use: always do you feel safe at home: Yes ROS ROS ED Constitutional Constitutional ED: Denies chills or fever(s) Eyes Eyes: Denies change in vision or diplopia ENT ENT ED: Denies rhinorrhea or sore throat Cardiovascular Cardiovascular: Denies chest pain or palpitations Respiratory/Chest Respiratory/Chest: Denies cough or dyspnea Gastrointestinal Gastrointestinal: Reports as per HPI and abdominal pain; Denies diarrhea, nausea or vomiting Genitourinary Genitourinary ED: Denies dysuria or hematuria Musculoskeletal Musculoskeletal: Denies back pain or neck pain Integumentary Denies abscess or rash Neurologic Neurologic: Denies headache(s), paresthesias or weakness Psychiatric Psychiatric: Denies anxiety or suicidal thoughts EXAM Physical Exam Const Vital Signs: 07/21/24 09:03 07/21/24 11:10 Temperature 98 F Temperature Source Temporal Pulse Rate 100 84 Respiratory Rate 14 18 Blood Pressure 143/83 H 148/77 H Blood Pressure Mean 103 100 Pulse Ox 98 Oxygen Delivery Method Room Air Positive well nourished and well developed General Appearance ED: well developed and NAD HEENT Reports moist mucous membranes normocephalic and atraumatic Eyes PERRL and EOMs intact bilaterally Neck full ROM and supple Resp normal respiratory effort and clear to auscultation bilaterally Cardio regular rate, regular rhythm and no murmurs GI non-distended GI Narrative: There is no palpable hernia. Bowel sounds are normal. There is diffuse tenderness in periumbilical area as well as throughout the lower abdomen. There is no palpable mass. Normal inspection well-healed laparoscopic surgical incisions. Auscultation: normoactive bowel sounds Palpation: soft Back/Spine no CVA tenderness General Back: other FROM Extremity normal to inspection General Extremety ED: Negative for edema, pulses abnormal or tenderness General Extremity: Negative for edema or pulses abnormal Neuro oriented x3, CN's II-XII intact bilaterally and no sensory deficits noted Sensorium / Orientation: awake and alert Motor Exam: strength 5/5 throughout Psych mental status grossly normal and thought process normal Skin no rashes or lesions noted and no wounds MDM MDM MDM Narrative Medical decision making narrative: I obtained labs, urinalysis, and an oral/IV contrasted CT the abdomen/pelvis. She states she was not hurting that bad she did not require any pain medication right now, and on reevaluation she states she is really feeling pretty good right now and does not require any medication either. I reviewed the CT images and the report which I agree with, it is basically negative for anything acute. There is some postoperative changes. I am referring her back to her surgeon as an outpatient, I offered her prescription for analgesics, she declines and states she does not want anything strong she will continue taking the Excedrin that she had been taking initially. Lab Data Attestation: I reviewed the patient's lab results. Labs: Laboratory Results - last 24 hr 07/21/24 07/21/24 09:45 10:30 WBC 7.1 RBC 5.09 Hgb 14.9 Hct 44.8 MCV 88.0 MCH 29.3 MCHC 33.3 RDW Std Deviation 43.2 RDW Coeff of Pollo 13.4 Plt Count 272 MPV 8.9 Immature Gran % (Auto) 0.100 Neut % (Auto) 44.8 L Lymph % (Auto) 43.9 H [place] % (Auto) 7.7 Eos % (Auto) 2.8 Baso % (Auto) 0.7 Absolute Neuts (auto) 3.2 Absolute Lymphs (auto) 3.12 Nucleated RBC % 0 Sodium 137 Potassium 3.8 Chloride 106 Carbon Dioxide 26.0 Anion Gap 6 BUN 17 Creatinine 0.95 Estim Creat Clear Calc 51.62 Est GFR (MDRD) Af Amer 73 Est GFR (MDRD) Non-Af 61 BUN/Creatinine Ratio 17.9 Glucose 100 Calcium 9.3 Total Bilirubin 0.80 AST 14 L ALT 15 Alkaline Phosphatase 92 Total Protein 7.7 Albumin 3.9 Globulin 3.8 Albumin/Globulin Ratio 1.0 Urine Color Yellow Urine Clarity Sl. Cloudy Urine pH 6.0 Ur Specific Given 1.015 Urine Protein Negative Urine Glucose (UA) Normal Urine Ketones Negative Urine Occult Blood 25 H Urine Nitrite Negative Urine Bilirubin Negative Urine Urobilinogen Normal Ur Leukocyte Esterase 25 H Urine RBC 0 SEEN Urine WBC 0-5 SEEN Ur Squamous Epith Cells 0-5 SEEN Urine Bacteria 0 SEEN Urine Mucus 0 SEEN Radiography Diagnostic Testing: Clinical Impression(s) from Imaging Studies Abdomen/Pelvis CT 07/21/24 10:43 IMPRESSION: No suspicious solid organ abnormality. Small and large bowel loops are unremarkable without evidence of inflammation of ileus or obstruction. Likely postsurgical induration of the mesenteric fat No free intraperitoneal fluid, air, or suspicious adenopathy Previous noted bladder wall thickening not seen current study Electronically Signed: Vinicio Ceballos MD at 12:56 EDT , Discharge Plan Triage Chief Complaint: Abd Pain ED Provider: Mehran Bravo Dx/Rx/DC Orders Clinical Impression: Abdominal pain, acute, periumbilical Instructions: Abdominal Pain Prescriptions: No Action Zyrtec 10 mg capsule 10 mg PO DAILY PRN (Reason: allergy symptoms) tramadol 50 mg tablet 50 - 100 mg PO Q6H PRN (Reason: pain) 3 Days Qty: 14 0RF alprazolam 0.25 mg tablet 0.25 mg PO BID PRN (Reason: anxiety) Qty: 10 0RF Primary Care Provider: Rebecca Menezes Referrals: Rebecca Menezes MD [Primary Care Provider] - Lori Mart MD [Med Staff - Active Staff] - As soon as possible Print Language: Persian Disposition Disposition: Home, Self Care
[2024-07-21 10:50] LABS: Bacteria 0 SEEN /hpf (None Seen); Mucous, Urine 0 SEEN /hpf (<or=2+); Red Blood Cells-Urine 0 SEEN /hpf (0-5)
[2024-07-21 10:53] LABS: Color, Urine Yellow (Yellow); Glucose, Dipstick Normal (Normal); Ketone-Dipstick Negative (Negative); Leukocyte Esterase-Dipstick 25 /ul (Negative); Nitrite-Dipstick Negative (Negative); Occult Blood-Urine 25 /ul (Negative); Protein-Dipstick Negative (Negative); Specific Gravity, Urine 1.015 (1.002-1.030); Urine Bilirubin Dipstick Negative (Negative); Urine Clarity Sl. Cloudy (Clear); Urine Urobilinogen Normal (Normal)
[2024-07-21 11:04] LABS: Squamous Epithelial Cells - UA 0-5 SEEN /hpf (5-10)
[2024-07-21 11:06] LABS: White Blood Cells 0-5 SEEN /hpf (0-5)
[2024-07-21 11:10] VITALS: BP 148/77; PULSE 84; RESP 18
--- OUTSIDE RECORDS SUMMARY | 2024-07-21 11:16 | XMS RPT_ITS | CCD ---
Author Organization [facility] Care Team Providers Care Coil Connector Name Role Phone Magdalene Hutton Unavailable Unavailable Sj Fernando MD Unavailable Jorge Crowley DO Primary Care Provider [phone] JORGE CROWLEY Primary Care Unavailable MEGAN VICTOR Unavailable JORGE CROWLEY Primary Care Unavailable Jorge Crowley DO Primary Care Provider [phone] Oh Avendaño MD Primary Care Provider Allergies Allergy Classification Reported Allergen(s) Allergy Type Date of Onset Reaction(s) Facility (2 sources) acetaminophen / HYDROcodone Drug Allergy 7 mental status change [facility] Work Phone: (2 sources) meperidine Drug Allergy 7 hives [facility] Work Phone: (4 sources) Acetaminophen / HYDROcodone; Translations: [HYDROCODONE-ACET AMINOPHEN] Drug Allergy 3 GI Upset [facility] (4 sources) Acetaminophen / oxyCODONE; Translations: [OXYCODONE-ACETAM INOPHEN] Drug Allergy 3 GI Upset [facility] (4 sources) Meperidine; Translations: [MEPERIDINE (PF)] Drug Allergy 3 Hives, Itching [facility] Medications Current Medications Medication Drug Class(es) Dates Sig (Normalized) Sig (Original) acetaminophen 325 mg oral tablet (3 sources) take 2 tablets by mouth every six hours as needed acetaminophen (TYLENOL) 325 mg tablet Take 650 mg by mouth every 6 hours as needed. Active Comment on above: Take 650 mg by mouth every 6 hours as needed. predniSONE 10 mg oral tablet (2 sources) Start: 12-07-2023 predniSONE (DELTASONE) 10 mg tablet Take 4 tabs daily for 3 days, then 2 tabs daily for 3 days, then 1 tab daily for 3 days with food. 21 tablet 09/03/2023 Active Comment on above: Take 4 tabs daily fo r 3 days, then 2 tabs daily for 3 days, then 1 tab daily for 3 days with food. Completed/Discontinued Medications Medication Drug Class(es) Dates Sig (Normalized) Sig (Original) amoxicillin 875 mg / clavulanate 125 mg oral tablet (2 sources) Penicillin-class Antibacterial Start: 09-03-2023 End: 09-13-2023 take 1 tablet by mouth twice daily amoxicillin-clavu lanate potassium (AUGMENTIN) 875-125 mg per tablet Take 1 tablet by mouth two times a day for 10 days. 20 tablet 09/03/2023 09/13/2023 Comment on above: Take 1 tablet by todd two times a day for 10 days. 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; Translations: [Embolism and thrombosis of unspecified artery] Onset: 10-20-2013 10-20-2013 Chronic Other congenital anomalies (3 sources) Congenital anomaly of skin; Translations: [Other specified congenital malformations of skin] Onset: 08-04-2005 08-04-2005 Chronic Other connective tissue disease (1 source) Pain in left foot; Translations: [Pain in left foot] 10-09-2021 Episodic Other lower respiratory disease (2 sources) Cough; Translations: [Acute cough] 09-03-2023 Episodic Other upper respiratory infections (1 source) Chronic sinusitis, unspecified; Translations: [Unspecified sinusitis (chronic)] 09-03-2023 Chronic Unclassified (1 source) Acute cough; Translations: [Acute cough] Onset: 09-03-2023 Past or Other Problems Problem Classification Problem Date Documented Da te Episodic/Chronic Abdominal pain (3 sources) Abdominal pain; Translations: [Unspecified abdominal pain] Onset: 12-22-2013 12-22-2013 Episodic Gastrointestinal hemorrhage (3 sources) Rectal hemorrhage; Translations: [Hemorrhage of anus and rectum] Onset: 03-10-2013 03-10-2013 Episodic Other and unspecified benign neoplasm (7 sources) Personal history of colonic polyps; Translations: [History of polyp of colon] Onset: 03-10-2013 07-01-2017 Episodic Other and unspecified benign neoplasm (3 sources) Polyp of colon; Translations: [Polyp of colon] Onset: 04-27-2013 04-27-2013 Episodic Results Test Name Value Interpretation Reference Range Facility [facility] 09-03-2023 CNOV Office Visit (UCWSTR ) BOZENA MEDEL ([id number]) 1945 F Date Time Provider Department 09/03/23 10:45 AM MEGAN VICTOR [facility] During your visit today, we recorded the following information about you: Temperature Pulse Respiration Blood pressure 98.4 degrees 98/minute 20/minute 123/81 Weight 74 kg Megan Victor APRN.CNP 09/03/2023 1:23 PM Signed This note was created using NoteWriter. Subjective Bozena Medel is a 78 year old female. 78 year old female with no PMH presents for complaints of illness. Acute onset 2 weeks ago Endorses she woke up feeling ill +sore throat +fatigue States she felt better after, But then this past week she developed return of symptoms +sore throat +cold + congestion + cough +sinus pressure + ill contacts The history is provided by the patient. No modern languages professor was used. Sore Throat This is a new problem. The current episode started 1 to 4 weeks ago. The problem has been unchanged. Neither side of throat is experiencing more pain than the other. There has been no fever. The pain is at a severity of 5/10. The pain is moderate. Associated symptoms include congestion, coughing, ear pain and headaches. Pertinent negatives include no abdominal pain, diarrhea, drooling, ear discharge, hoarse voice, neck pain, shortness of breath, stridor, swollen glands, trouble swallowing or vomiting. She has had no exposure to strep or mono. She has tried nothing for the symptoms. The treatment provided no relief. PAST MEDICAL HISTORY Diagnosis Date Depression Environmental allergies GERD (gastroesophageal reflux disease) Internal hemorrhoids Sciatica PAST SURGICAL HISTORY Procedure Laterality Date COLECTOMY PRTL W/RMVL TERMINAL ILEUM AND ILEOCOLOS 08-05-13 COLONOSCOPY 04/15/13 COLONOSCOPY - DIAGNOSTIC 08/09/03 with biopsy COLONOSCOPY FLX DX W/COLLJ SPEC WHEN PFRMD 05-02-14 LAPAROSCOPY SURG CHOLECYSTECTOMY 09/30/99 Cholecystectomy, lap REM LESION TRUNK,ARM,LEG 0.6 -1.0CM 08/06/05 Lesion Left Volar Wrist ALLERGIES Demerol [Meperidine (Pf)], Percocet [Oxycodone-Acetaminop hen], and Vicodin [Hydrocodone-Acetamin ophen] MEDICATIONS acetaminophen (TYLENOL) 325 mg tablet Take 650 mg by mouth every 6 hours as needed. predniSONE (DELTASONE) 10 mg tablet Take 4 tabs daily for 3 days, then 2 tabs daily for 3 days, then 1 tab daily for 3 days with food. amoxicillin-clavulana te potassium (AUGMENTIN) 875-125 mg per tablet Take 1 tablet by mouth two times a day for 10 days. No family history on file. Social History Tobacco Use Smoking status: Never Smokeless tobacco: Never Substance Use Topics Alcohol use: No Drug use: No Review of Systems Constitutional: Positive for fatigue and fever. Negative for activity change, appetite change and chills. HENT: Positive for congestion, ear pain and sore throat. Negative for drooling, ear discharge, hoarse voice and trouble swallowing. Eyes: Negative for pain, discharge, redness and itching. Respiratory: Positive for cough. Negative for shortness of breath and stridor. Gastrointestinal: Negative for abdominal pain, diarrhea and vomiting. Musculoskeletal: Negative for neck pain. Allergic/Immunologic: Negative for environmental allergies, food allergies and immunocompromised state. Neurological: Positive for headaches. Hematological: Negative for adenopathy. Does not bruise/bleed easily. Psychiatric/Behaviora l: Negative for agitation and behavioral problems. Objective BP 123/81 Pulse 98 Temp 36.9 ?C (98.4 ?F) Resp 20 Wt 74 kg (163 lb 3.2 oz) SpO2 93% BMI 25.56 kg/m? Physical Exam Vitals and nursing note reviewed. Constitutional: General: She is not in acute distress. Appearance: Normal appearance. She is normal weight. She is not ill-appearing, toxic-appearing or diaphoretic. HENT: Head: Normocephalic and atraumatic. Comments: +frontal sinus pressure +maxillary sinus pressure Right Ear: Ear canal and external ear normal. Left Ear: Ear canal and external ear normal. Nose: Congestion present. No rhinorrhea. Mouth/Throat: Mouth: Mucous membranes are moist. Pharynx: Posterior oropharyngeal erythema present. No oropharyngeal exudate. Eyes: General: Right eye: No discharge. Left eye: No discharge. Extraocular Movements: Extraocular movements intact. Conjunctiva/sclera: Conjunctivae normal. Pupils: Pupils are equal, round, and reactive to light. Cardiovascular: Rate and Rhythm: Normal rate and regular rhythm. Pulses: Normal pulses. Heart sounds: Normal heart sounds. No murmur heard. No friction rub. Pulmonary: Effort: Pulmonary effort is normal. No respiratory distress. Breath sounds: No stridor. Wheezing and rhonchi present. No rales. Chest: Chest wall: No tenderness. Abdominal: General: Abdomen is flat. There is no distension. Palpations: Abdom (more content not included)... Normal [facility] XR CHEST 2V FRONTAL/LATon XR CHEST 2V FRONTAL/LAT * * *Final Report* * * DATE OF EXAM: Sep 03 2023 11:15AM WOX 5291 - XR CHEST 2V FRONTAL/LAT / PROCEDURE REASON: Acute cough * * * * Physician Interpretation * * * * EXAMINATION: CHEST RADIOGRAPH (2 VIEW FRONTAL and LATERAL) CLINICAL HISTORY: Acute cough MQ: XC2_6 EXAM DATE/TIME: 09/03/2023 11:15 AM COMPARISON: Chest radiograph 09/29/2013 RESULT: Lines, tubes, and devices: None. Lungs and pleura: No consolidation. No lung mass. No pleural effusion. No pneumothorax. Minimal subsegmental left basilar atelectasis. Cardiomediastinal silhouette: Normal cardiomediastinal silhouette. Aortic calcifications. Bones and soft tissues: Thoracic spondylosis. IMPRESSION: No acute radiographic abnormality. Futures Trader: NISHI Transcribe Date/Time: Sep 03 2023 11:22A Dictated by : SADI ROTHMAN MD This examination was interpreted and the report reviewed and electronically signed by: SADI ROTHMAN MD on Sep 03 2023 11:23AM EST [id number] Normal [facility] XR Chest PA and Lateralon IMPRESSION: No acute radiographic abnormality. Futures Trader: NISHI Transcribe Date/Time: Sep 03 2023 11:22A Dictated by : SADI ROTHMAN MD This examination was interpreted and the report reviewed and electronically signed by: SADI ROTHMAN MD on Sep 03 2023 11:23AM EST DIVISION OF RADIOLOGY * * *Final Report* * * DATE OF EXAM: Sep 03 2023 11:15AM WOX 5291 - XR CHEST 2V FRONTAL/LAT / PROCEDURE REASON: Acute cough * * * * Physician Interpretation * * * * EXAMINATION: CHEST RADIOGRAPH (2 VIEW FRONTAL & LATERAL) CLINICAL HISTORY: Acute cough MQ: XC2_6 EXAM DATE/TIME: 09/03/2023 11:15 AM COMPARISON: Chest radiograph 09/29/2013 RESULT: Lines, tubes, and devices: None. Lungs and pleura: No consolidation. No lung mass. No pleural effusion. No pneumothorax. Minimal subsegmental left basilar atelectasis. Cardiomediastinal silhouette: Normal cardiomediastinal silhouette. Aortic calcifications. Bones and soft tissues: Thoracic spondylosis. DIVISION OF RADIOLOGY Provider, [facility] - 09/03/2023 * * *Final Report* * * DATE OF EXAM: Sep 03 2023 11:15AM WOX 5291 - XR CHEST 2V FRONTAL/LAT / PROCEDURE REASON: Acute cough * * * * Physician Interpretation * * * * EXAMINATION: CHEST RADIOGRAPH (2 VIEW FRONTAL & LATERAL) CLINICAL HISTORY: Acute cough MQ: XC2_6 EXAM DATE/TIME: 09/03/2023 11:15 AM COMPARISON: Chest radiograph 09/29/2013 RESULT: Lines, tubes, and devices: None. Lungs and pleura: No consolidation. No lung mass. No pleural effusion. No pneumothorax. Minimal subsegmental left basilar atelectasis. Cardiomediastinal silhouette: Normal cardiomediastinal silhouette. Aortic calcifications. Bones and soft tissues: Thoracic spondylosis. IMPRESSION IMPRESSION: No acute radiographic abnormality. Futures Trader: NISHI Transcribe Date/Time: Sep 03 2023 11:22A Dictated by : SADI ROTHMAN MD This examination was interpreted and the report reviewed and electronically signed by: SADI ROTHMAN MD on Sep 03 2023 11:23AM EST [facility] Radiology Study observation (narrative) [facility] XR Chest PA and LateralOrder ed By: [facility] Provider on 09-03-2023 [facility] No Panel Informationon 10-09 IMPRESSION: No acute bony finding. Futures Trader: [facility] Transcribe Date/Time: Oct 09 2021 11:41A Dictated by : PRINCE ROSS MD This examination was interpreted and the report reviewed and electronically signed by: PRINCE ROSS MD on Oct 09 2021 11:46AM EST DIVISION OF RADIOLOGY Radiology Study observation (narrative) [facility] No Panel InformationOrdered By: Ccf Provider on 10-09-2021 [facility] XR Ankle - left AP and Later al and obliqueon 10-09-2021 * * *Final Report* * * DATE OF EXAM: Oct 09 2021 11:22AM WOX 5298 - XR ANKLE 3V AP/LAT/OBL LT / PROCEDURE REASON: Foot pain, left * * * * Physician Interpretation * * * * Left ankle and foot HISTORY: 76 years old Clinical information: Foot pain, left Left dorsal forefoot pain and left anterior ankle pain x 6 days without injury. TECHNIQUE: Images: XR ANKLE 3V AP/LAT/OBL LT, XR FOOT 3V AP/LAT/OBL LT Comparison: None. RESULT: Findings: No fracture is evident. There is first metatarsal bunion and mild hallux valgus. Other joint spaces maintained. Posterior calcaneal enthesophyte. DIVISION OF RADIOLOGY Provider, [facility] - 10/09/2021 * * *Final Report* * * DATE OF EXAM: Oct 09 2021 11:22AM WOX 5298 - XR ANKLE 3V AP/LAT/OBL LT / PROCEDURE REASON: Foot pain, left * * * * Physician Interpretation * * * * Left ankle and foot HISTORY: 76 years old Clinical information: Foot pain, left Left dorsal forefoot pain and left anterior ankle pain x 6 days without injury. TECHNIQUE: Images: XR ANKLE 3V AP/LAT/OBL LT, XR FOOT 3V AP/LAT/OBL LT Comparison: None. RESULT: Findings: No fracture is evident. There is first metatarsal bunion and mild hallux valgus. Other joint spaces maintained. Posterior calcaneal enthesophyte. IMPRESSION IMPRESSION: No acute bony finding. Futures Trader: NISHI Transcribe Date/Time: Oct 09 2021 11:41A Dictated by : PRINCE ROSS MD This examination was interpreted and the report reviewed and electronically signed by: PRINCE ROSS MD on Oct 09 2021 11:46AM [facility] XR Foot - left AP and Latera l and obliqueon 10-09-2021 * * *Final Report* * * DATE OF EXAM: Oct 09 2021 11:22AM WOX 5336 - XR FOOT 3V AP/LAT/OBL LT / PROCEDURE REASON: Foot pain, left * * * * Physician Interpretation * * * * Left ankle and foot HISTORY: 76 years old Clinical information: Foot pain, left Left dorsal forefoot pain and left anterior ankle pain x 6 days without injury. TECHNIQUE: Images: XR ANKLE 3V AP/LAT/OBL LT, XR FOOT 3V AP/LAT/OBL LT Comparison: None. RESULT: Findings: No fracture is evident. There is first metatarsal bunion and mild hallux valgus. Other joint spaces maintained. Posterior calcaneal enthesophyte. DIVISION OF RADIOLOGY Provider, [facility] - 10/09/2021 * * *Final Report* * * DATE OF EXAM: Oct 09 2021 11:22AM WOX 5336 - XR FOOT 3V AP/LAT/OBL LT / PROCEDURE REASON: Foot pain, left * * * * Physician Interpretation * * * * Left ankle and foot HISTORY: 76 years old Clinical information: Foot pain, left Left dorsal forefoot pain and left anterior ankle pain x 6 days without injury. TECHNIQUE: Images: XR ANKLE 3V AP/LAT/OBL LT, XR FOOT 3V AP/LAT/OBL LT Comparison: None. RESULT: Findings: No fracture is evident. There is first metatarsal bunion and mild hallux valgus. Other joint spaces maintained. Posterior calcaneal enthesophyte. IMPRESSION IMPRESSION: No acute bony finding. Futures Trader: [facility] Transcribe Date/Time: Oct 09 2021 11:41A Dictated by : PRINCE ROSS MD This examination was interpreted and the report reviewed and electronically signed by: PRINCE ROSS MD on Oct 09 2021 11:46AM EST [facility] SURGon 04-25-2020 SURG - -------- Patient: BOZENA MEDEL -------- SPECIMEN: [id number] Collection Date: 04/25/20 Received: 04/26/20 Status: LION [address] Dr.: Oh Avendaño MD Ph# Material for Examination: A SUSPICIOUS MOLE LEFT SHOULDER PRE-OP DIAGNOSIS: SUSPICIOUS MOLE LEFT SHOULDER POST-OP DIAGNOSIS: SUSPICIOUS FOR SKIN CA SURGICAL PROCEDURE: NONE GIVEN DIAGNOSIS A. Skin, left shoulder, shave biopsy: Seborrheic keratosis. GROSS DESCRIPTION The specimen is received in formalin and labeled with the patient's name, ID and not designated, is a snider-miller, granular, thin shave of skin, 0.8 x 0.6 x 0.1 cm. The specimen is inked blue and trisected. The specimen is entirely submitted in cassettes A1-ends, A2- mid portion. MICROSCOPIC DESCRIPTION 4 Yumiko stained slides reviewed. RH/pm 04/27/2020 Signed Verified/Reviewed by SJ KONG MD 04/27/20 This dictation was created using voice recognition software. Phonetic and/or minor grammatical errors may exist. -------- [facility] NAME: BOZENA MEDEL Pathology and Laboratory Medicine UNIT#: [id number] LOC: [facility] Acquisition Associate: Grace Powell M.D. [id number] ROOM/BED: [facility] : 45 AGE/SEX: 74/F ORD.DR. Avendaño,Oh Jolly MD END OF REPORT Normal [facility] [place] Office Visit: 3 year colonos copyon 07-01-2017 Documentation of current medications (procedure) Done Invalid Interpretation Code [facility] [employer] Work Phone: Fall risk assessment No Invalid Interpretation Code [facility] [employer] Work Phone: Tobacco smoking status NHIS Never Invalid Interpretation Code [facility] [employer] Work Phone: Tobacco use [facility] Never smoker Invalid Interpretation Code [facility] [employer] Work Phone: Vital Signs Date Time Vital Sign Value Performing Clinician Facility 09-03-2023 10:46-0500 Body temperature 98.4 [degF] Megan Victor APRN.MATTRESS FILLER Work Phone: [facility] 09-03-2023 10:46-0500 Body weight 74.03 kg Megan Victor APRN.MATTRESS FILLER Work Phone: [facility] 09-03-2023 10:46-0500 Diastolic blood pressure 81 mm[Hg] Megan Victor APRN.MATTRESS FILLER Work Phone: [facility] 09-03-2023 10:46-0500 Heart rate 98 /min Megan Victor HEAVY DUTY PRESS OPERATOR.MATTRESS FILLER Work Phone: [facility] 09-03-2023 10:46-0500 Respiratory rate 20 /min Megan Victor HEAVY DUTY PRESS OPERATOR.MATTRESS FILLER Work Phone: [facility] 09-03-2023 10:46-0500 SaO2% (BldA) [Mass fraction] 93 % Megan Victor HEAVY DUTY PRESS OPERATOR.MATTRESS FILLER Work Phone: [facility] 09-03-2023 10:46-0500 Systolic blood pressure 123 mm[Hg] Megan Victor HEAVY DUTY PRESS OPERATOR.MATTRESS FILLER Work Phone: [facility] 07-01-2017 07:16-0400 BMI (Body Mass Index) 22.37 kg/m2 Sj Fernando MD [facility] Work Phone: 07-01-2017 07:16-0400 Body Temperature 97.9 [degF] Sj Fernando MD [facility] Work Phone: 07-01-2017 07:16-0400 BP Diastolic 93 mm[Hg] Sj Fernando MD [facility] Work Phone: 07-01-2017 07:16-0400 BP Systolic 154 mm[Hg] Sj Fernando MD [facility] Work Phone: 07-01-2017 07:16-0400 Height 167.64 cm Sj Fernando MD [facility] Work Phone: 07-01-2017 07:16-0400 Pulse (Heart Rate) 92 /min Sj Fernando MD [facility] Work Phone: 07-01-2017 07:16-0400 Respiratory Rate 20 /min Sj Fernando MD [facility] Work Phone: 07-01-2017 07:16-0400 Weight 62.87 kg Sj Fernando MD [facility] Work Phone: Encounters Encounter Date Encounter Type Care Provider Facility Start: 09-03-2023 End: 09-03-2023 ambulatory JORGE CROWLEY Facility:[facility] Start: 09-03-2023 End: 09-03-2023 Subsequent hospital visit by physician Alejandrina [facility] Work Phone: Radiology Comment on above: Acute cough [R05.1] Start: 09-03-2023 End: 09-03-2023 Patient encounter procedure Megan Victor APRN.MATTRESS FILLER Work Phone: [facility] Comment on above: Acute cough (Primary Dx); Rhinosinusitis Start: 10-09-2021 End: 10-09-2021 Subsequent hospital visit by physician Alejandrina [facility] Work Phone: Radiology Comment on above: Foot pain, left [[id number]] Procedures Date Procedure Procedure Detail Performing Clinician Start: 09-03-2023 Radiologic exam ches t 2 views Megan Victor HEAVY DUTY PRESS OPERATOR.MATTRESS FILLER Work Phone: Start: 10-09-2021 Radex ankle complete minimum 3 views Sandrita Sol HEAVY DUTY PRESS OPERATOR.MATTRESS FILLER Work Phone: Plan of Treatment Date Care Activity Detail Author Start: 05-29-2024 Covid-19 Vaccine ( season) Covid-19 Vaccine ( season) [facility] Start: 05-29-2024 Covid-19 Vaccine ( season) Covid-19 Vaccine ( season) [facility] Start: 05-29-2024 Influenza vaccination Influenza Vaccine (#1) [facility] Start: 09-28-2023 Advance Directive Discussion Advance Directive Discussion [facility] Start: 05-29-2023 Influenza vaccination Influenza Vaccine (#1) [facility] Start: 09-28-2022 Advance Directive Discussion Advance Directive Discussion [facility] Start: 09-28-2022 Depression Assessment Depression Assessment [facility] Start: 2020 RSV Vaccine (1 - 1-dose 75+ series) RSV Vaccine (1 - 1-dose 75+ series) [facility] Start: 07-03-2019 Shingrix Vaccine (2 of 2) Shingrix Vaccine (2 of 2) [facility] Start: 08-07-2017 End: 08-07-2017 Appointment Appointment [facility] Work Phone: Start: 07-01-2017 End: 07-01-2017 Colonoscopy flx dx w/collj spec when pfrmd Colonoscopy [facility] Work Phone: Start: 07-01-2017 End: 07-01-2017 Appointment Appointment [facility] Work Phone: Start: 04-05-2017 Diabetes Screening Diabetes Screening [facility] Start: 09-29-2012 Pneumococcal Vaccine: 65+ (2 - PCV) Pneumococcal Vaccine: 65+ (2 - PCV) [facility] Start: 09-29-2012 Pneumococcal Vaccine: 65+ (2 of 2 - PCV) Pneumococcal Vaccine: 65+ (2 of 2 - PCV) [facility] Start: 2010 Bone Density Screening Bone Density Screening [facility] Start: 2010 Screening for osteoporosis Bone Density Screening [facility] Start: 2005 RSV Vaccine (1 - 1-dose 60+ series) RSV Vaccine (1 - 1-dose 60+ series) [facility] Start: 1964 Urine microalbumin profile DTaP,Tdap,Td Vaccine (1 - Tdap) [facility] Start: 1963 Anxiety Screening Anxiety Screening [facility] Start: 1963 Depression Screening Depression Screening [facility] Start: 1963 Hepatitis C Screening Hepatitis C Screening [facility] Start: 1963 Hepatitis C screening Hepatitis C Screening [facility] Start: 01-27-1946 Covid-19 Vaccine (#1) Covid-19 Vaccine (#1) [facility] Immunizations Immunization Date Immunization Notes Care Provider Fa pierre 09-29-2011 pneumococcal polysaccharide vaccine, 23 valent Megan Victor HEAVY DUTY PRESS OPERATOR.MATTRESS FILLER Work Phone: [facility] Payers Date Payer Category Payer Unknown [id number] 2021 Unknown [id number] Social History Date Type Detail Facility Start: 09-29-2013 Tobacco smoking stat us PRIS Never smoked tobacco [facility] Start: 09-29-2013 Tobacco use and exposure Smoke less tobacco non-user [facility] Start: 10-09-2021 End: 09-03-2023 Alcohol intake Current non-drinker of alcohol (finding) [facility] Start: 09-02-2020 End: 09-03-2023 History of Social function [facility] Start: 09-02-2020 End: 09-03-2023 Tobacco use panel [facility] National Score (1-10 0), lower number is lower risk Not on file [facility] Start: 1945 Sex Assigned At Not on file [facility] Progress note 09-03-2023 Note Date & Type Note Facility 09-03-2023 Note HNO ID: [id number] Author: Dariana Richter RT(R) Service: Radiology Author Type: Technologist Type: Progress Notes Filed: 09/03/2023 11:15 AM Note Text: Radiology Service Progress Note PATIENT NAME: Bozena Medel DATE OF SERVICE: September 03, 2023 TIME: 11:07 AM PATIENT IDENTITY VERIFICATION COMPLETED USING TWO (2) IDENTIFIERS: Name and Date of confirmed by patient verbally. FALL SCREENING: Has the patient had 2 falls in the last year or 1 fall with injury or currently using an Ambulatory Assistive Device (Walker, Cane, Wheelchair, Crutches, etc.)? No PATIENT GENDER DATA: Female. status: : No status: NO. PATIENT RELEVANT IMPLANT DATA REVIEWED: Yes RADIOLOGY DEPARTMENT: General X-ray: Exam(s) Completed: Chest X-Ray PERIPHERAL IV DATA: Not applicable SIGNED BY: RT Kevin(R) September 03, 2023 11:07 AM [facility] Progress note 09-03-2023 Note Date & Type Note Facility 09-03-2023 Note HNO ID: [id number] Author: Megan Victor APRN.MATTRESS FILLER Service: ? Author Type: Nurse Practitioner Type: Progress Notes Filed: 09/03/2023 1:23 PM Note Text: This note was created using NoteWriter. Subjective Bozena Medel is a 78 year old female. 78 year old female with no PMH presents for complaints of illness. Acute onset 2 weeks ago Endorses she woke up feeling ill +sore throat +fatigue States she felt better after, But then this past week she developed return of symptoms +sore throat +cold + congestion + cough +sinus pressure + ill contacts The history is provided by the patient. No modern languages professor was used. Sore Throat This is a new problem. The current episode started 1 to 4 weeks ago. The problem has been unchanged. Neither side of throat is experiencing more pain than the other. There has been no fever. The pain is at a severity of 5/10. The pain is moderate. Associated symptoms include congestion, coughing, ear pain and headaches. Pertinent negatives include no abdominal pain, diarrhea, drooling, ear discharge, hoarse voice, neck pain, shortness of breath, stridor, swollen glands, trouble swallowing or vomiting. She has had no exposure to strep or mono. She has tried nothing for the symptoms. The treatment provided no relief. PAST MEDICAL HISTORY Diagnosis Date Depression Environmental allergies GERD (gastroesophageal reflux disease) Internal hemorrhoids Sciatica PAST SURGICAL HISTORY Procedure Laterality Date COLECTOMY PRTL W/RMVL TERMINAL ILEUM AND ILEOCOLOS 08-05-13 COLONOSCOPY 04/15/13 COLONOSCOPY - DIAGNOSTIC 08/09/03 with biopsy COLONOSCOPY FLX DX W/COLLJ SPEC WHEN PFRMD 05-02-14 LAPAROSCOPY SURG CHOLECYSTECTOMY 09/30/99 Cholecystectomy, lap REM LESION TRUNK,ARM,LEG 0.6 -1.0CM 08/06/05 Lesion Left Volar Wrist ALLERGIES Demerol [Meperidine (Pf)], Percocet [Oxycodone-Acetaminophen], and Vicodin [Hydrocodone-Acetaminophen] MEDICATIONS acetaminophen (TYLENOL) 325 mg tablet Take 650 mg by mouth every 6 hours as needed. predniSONE (DELTASONE) 10 mg tablet Take 4 tabs daily for 3 days, then 2 tabs daily for 3 days, then 1 tab daily for 3 days with food. amoxicillin-clavulanate potassium (AUGMENTIN) 875-125 mg per tablet Take 1 tablet by mouth two times a day for 10 days. No family history on file. Social History Tobacco Use Smoking status: Never Smokeless tobacco: Never Substance Use Topics Alcohol use: No Drug use: No Review of Systems Constitutional: Positive for fatigue and fever. Negative for activity change, appetite change and chills. HENT: Positive for congestion, ear pain and sore throat. Negative for drooling, ear discharge, hoarse voice and trouble swallowing. Eyes: Negative for pain, discharge, redness and itching. Respiratory: Positive for cough. Negative for shortness of breath and stridor. Gastrointestinal: Negative for abdominal pain, diarrhea and vomiting. Musculoskeletal: Negative for neck pain. Allergic/Immunologic: Negative for environmental allergies, food allergies and immunocompromised state. Neurological: Positive for headaches. Hematological: Negative for adenopathy. Does not bruise/bleed easily. Psychiatric/Behavioral: Negative for agitation and behavioral problems. Objective BP 123/81 Pulse 98 Temp 36.9 ?C (98.4 ?F) Resp 20 Wt 74 kg (163 lb 3.2 oz) SpO2 93% BMI 25.56 kg/m? Physical Exam Vitals and nursing note reviewed. Constitutional: General: She is not in acute distress. Appearance: Normal appearance. She is normal weight. She is not ill-appearing, toxic-appearing or diaphoretic. HENT: Head: Normocephalic and atraumatic. Comments: +frontal sinus pressure +maxillary sinus pressure Right Ear: Ear canal and external ear normal. Left Ear: Ear canal and external ear normal. Nose: Congestion present. No rhinorrhea. Mouth/Throat: Mouth: Mucous membranes are moist. Pharynx: Posterior oropharyngeal erythema present. No oropharyngeal exudate. Eyes: General: Right eye: No discharge. Left eye: No discharge. Extraocular Movements: Extraocular movements intact. Conjunctiva/sclera: Conjunctivae normal. Pupils: Pupils are equal, round, and reactive to light. Cardiovascular: Rate and Rhythm: Normal rate and regular rhythm. Pulses: Normal pulses. Heart sounds: Normal heart sounds. No murmur heard. No friction rub. Pulmonary: Effort: Pulmonary effort is normal. No respiratory distress. Breath sounds: No stridor. Wheezing and rhonchi present. No rales. Chest: Chest wall: No tenderness. Abdominal: General: Abdomen is flat. There is no distension. Palpations: Abdomen is soft. There is no mass. Tenderness: There is no abdominal tenderness. There is no right CVA tenderness, left CVA tenderness, guarding or rebound. Hernia: No hernia is present. Musculoskeletal: General: No swelling, tenderness, deformity or signs of injury. Normal ran (more content not included)... [facility] History of Present illness Narrative 09-03-2023 Dariana Richter RT(R) - 09/03/2023 11:10 AM EST Note Date & Type Note Facility 09-03-2023 History of Presen t illness Narrative Radiology Service Progress Note PATIENT NAME: Bozena Medel DATE OF SERVICE: September 03, 2023 TIME: 11:07 AM PATIENT IDENTITY VERIFICATION COMPLETED USING TWO (2) IDENTIFIERS: Name and Date of confirmed by patient verbally. FALL SCREENING: Has the patient had 2 falls in the last year or 1 fall with injury or currently using an Ambulatory Assistive Device (Walker, Cane, Wheelchair, Crutches, etc.)? No PATIENT GENDER DATA: Female. status: : No status: NO. PATIENT RELEVANT IMPLANT DATA REVIEWED: Yes RADIOLOGY DEPARTMENT: General X-ray: Exam(s) Completed: Chest X-Ray PERIPHERAL IV DATA: Not applicable SIGNED BY: RT Kevin(R) September 03, 2023 11:07 AM documented in this encounter [facility] History of Present illness Narrative 09-03-2023 Megan Victor APRN.MATTRESS FILLER - 09/03/2023 10:54 AM EST Note Date & Type Note Facility 09-03-2023 History of Presen t illness Narrative This note was created using Vigmeriter. Subjective Bozena Medel is a 78 year old female. 78 year old female with no PMH presents for complaints of illness. Acute onset 2 weeks ago Endorses she woke up feeling ill +sore throat +fatigue States she felt better after, But then this past week she developed return of symptoms +sore throat +cold + congestion + cough +sinus pressure + ill contacts The history is provided by the patient. No modern languages professor was used. Sore Throat This is a new problem. The current episode started 1 to 4 weeks ago. The problem has been unchanged. Neither side of throat is experiencing more pain than the other. There has been no fever. The pain is at a severity of 5/10. The pain is moderate. Associated symptoms include congestion, coughing, ear pain and headaches. Pertinent negatives include no abdominal pain, diarrhea, drooling, ear discharge, hoarse voice, neck pain, shortness of breath, stridor, swollen glands, trouble swallowing or vomiting. She has had no exposure to strep or mono. She has tried nothing for the symptoms. The treatment provided no relief. PAST MEDICAL HISTORY Diagnosis Date Depression Environmental allergies GERD (gastroesophageal reflux disease) Internal hemorrhoids Sciatica PAST SURGICAL HISTORY Procedure Laterality Date COLECTOMY PRTL W/RMVL TERMINAL ILEUM & ILEOCOLOS 08-05-13 COLONOSCOPY 04/15/13 COLONOSCOPY - DIAGNOSTIC 08/09/03 with biopsy COLONOSCOPY FLX DX W/COLLJ SPEC WHEN PFRMD 05-02-14 LAPAROSCOPY SURG CHOLECYSTECTOMY 09/30/99 Cholecystectomy, lap REM LESION TRUNK,ARM,LEG 0.6 -1.0CM 08/06/05 Lesion Left Volar Wrist ALLERGIES Demerol [Meperidine (Pf)], Percocet [Oxycodone-Acetaminophen], and Vicodin [Hydrocodone-Acetaminophen] MEDICATIONS acetaminophen (TYLENOL) 325 mg tablet Take 650 mg by mouth every 6 hours as needed. predniSONE (DELTASONE) 10 mg tablet Take 4 tabs daily for 3 days, then 2 tabs daily for 3 days, then 1 tab daily for 3 days with food. amoxicillin-clavulanate potassium (AUGMENTIN) 875-125 mg per tablet Take 1 tablet by mouth two times a day for 10 days. No family history on file. Social History Tobacco Use Smoking status: Never Smokeless tobacco: Never Substance Use Topics Alcohol use: No Drug use: No Review of Systems Constitutional: Positive for fatigue and fever. Negative for activity change, appetite change and chills. HENT: Positive for congestion, ear pain and sore throat. Negative for drooling, ear discharge, hoarse voice and trouble swallowing. Eyes: Negative for pain, discharge, redness and itching. Respiratory: Positive for cough. Negative for shortness of breath and stridor. Gastrointestinal: Negative for abdominal pain, diarrhea and vomiting. Musculoskeletal: Negative for neck pain. Allergic/Immunologic: Negative for environmental allergies, food allergies and immunocompromised state. Neurological: Positive for headaches. Hematological: Negative for adenopathy. Does not bruise/bleed easily. Psychiatric/Behavioral: Negative for agitation and behavioral problems. Objective BP 123/81 Pulse 98 Temp 36.9 C (98.4 F) Resp 20 Wt 74 kg (163 lb 3.2 oz) SpO2 93% BMI 25.56 kg/m Physical Exam Vitals and nursing note reviewed. Constitutional: General: She is not in acute distress. Appearance: Normal appearance. She is normal weight. She is not ill-appearing, toxic-appearing or diaphoretic. HENT: Head: Normocephalic and atraumatic. Comments: +frontal sinus pressure +maxillary sinus pressure Right Ear: Ear canal and external ear normal. Left Ear: Ear canal and external ear normal. Nose: Congestion present. No rhinorrhea. Mouth/Throat: Mouth: Mucous membranes are moist. Pharynx: Posterior oropharyngeal erythema present. No oropharyngeal exudate. Eyes: General: Right eye: No discharge. Left eye: No discharge. Extraocular Movements: Extraocular movements intact. Conjunctiva/sclera: Conjunctivae normal. Pupils: Pupils are equal, round, and reactive to light. Cardiovascular: Rate and Rhythm: Normal rate and regular rhythm. Pulses: Normal pulses. Heart sounds: Normal heart sounds. No murmur heard. No friction rub. Pulmonary: Effort: Pulmonary effort is normal. No respiratory distress. Breath sounds: No stridor. Wheezing and rhonchi present. No rales. Chest: Chest wall: No tenderness. Abdominal: General: Abdomen is flat. There is no distension. Palpations: Abdomen is soft. There is no mass. Tenderness: There is no abdominal tenderness. There is no right CVA tenderness, left CVA tenderness, guarding or rebound. Hernia: No hernia is present. Musculoskeletal: General: No swelling, tenderness, deformity or signs of injury. Normal range of motion. Cervical back: Normal range of motion and neck supple. No rigidity. Right lower leg: No edema. Left lower leg: No edema. Lymphadenopathy: Cervical: Cervical adenopathy present. Skin: General: Skin is warm and dry. Capillary Refill: Capillary refill takes less than 2 seconds. Coloration: Skin is not jaundiced or pale. Findings: No bruising, erythema, lesion or rash. Neurological: General: No focal deficit present. Mental Status: She is alert and oriented to person, place, and time. Cranial Nerves: No cranial nerve deficit. Sensory: No sensory deficit. Motor: No weakness. Coordination: Coordination normal. Gait: Gait normal. Psychiatric: Mood and Affect: Mood normal. Behavior: Behavior normal. Thought Content: Thought content normal. Judgment: Judgment normal. Assessment and Plan ASSESSMENT/PLAN: 1. Acute cough - ICD9: 786.2, ICD10: R05.1 (primary diagnosis) X 2 weeks No red flags - XR CHEST 2V FRONTAL/LAT 2. Rhinosinusitis - ICD9: 473.9, ICD10: J32.9 - Will begin treatment with as per antibiotic as written, see orders - The patient should also be given OTC cough and cold meds as needed, warm salt water gargles, throat lozenges and/or OTC throat spray as needed, and nasal saline gtts and suction prn for the first 5-7 days of treatment. - Supportive care with plenty of fluids, rest, and analgesia prn. - Follow up in 3-5 days if symptoms persist or worsen. Megan Victor APRN.MATTRESS FILLER documented in this encounter [facility] History of Present illness Narrative 10-09-2021 Dariana Richter RT(R) - 10/09/2021 11:00 AM EST Note Date & Type Note Facility 10-09-2021 History of Presen t illness Narrative Radiology Service Progress Note PATIENT NAME: Bozena Medel DATE OF SERVICE: October 09, 2021 TIME: 11:12 AM PATIENT IDENTITY VERIFICATION COMPLETED USING TWO (2) IDENTIFIERS: Name and Date of confirmed by patient verbally. FALL SCREENING: Has the patient had 2 falls in the last year or 1 fall with injury or currently using an Ambulatory Assistive Device (Walker, Cane, Wheelchair, Crutches, etc.)? Yes, Patient High Risk for Falls What interventions were put in place to prevent falls during this visit? Instructed Patient to Call for Help if Needed, Offered Assistance with Transfers/Clothing and Increased Observations by Caregivers PATIENT GENDER DATA: Female. status: : No status: NO. PATIENT RELEVANT IMPLANT DATA REVIEWED: Yes RADIOLOGY DEPARTMENT: General X-ray: Exam(s) Completed: Lower Extremity X-Ray(s): Ankle, Left and Foot, Left PERIPHERAL IV DATA: Not applicable SIGNED BY: RT Kevin(R) October 09, 2021 11:12 AM documented in this encounter [facility] Evaluation note Note Date & Type Note Facility Evaluation note Diagnosis Acute cough- Primary Rhinosinusitis Unspecified sinusitis (chronic) documented in this encounter [facility] Evaluation note Note Date & Type Note Facility Evaluation note Diagnosis Acute cough documented in this encounter [facility] Evaluation note Note Date & Type Note Facility Evaluation note Diagnosis Foot pain, left Pain in limb documented in this encounter [facility] Reason for referral (narrative) Diagnostic Procedure Only (Urgent) - Closed Note Date & Type Note Facility Reason for referral (narrati ve) Specialty Diagnoses / Procedures Referred By Contac t Referred To Contact XR IMAGING Diagnoses Foot pain, left Procedures XR FOOT GENERAL 3V AP/LAT/OBL LEFT X-RAY FOOT MINIMUM 3 VIEWS Sandrita Sol APRN.MATTRESS FILLER [address] [place] [address] [place] [address] Referral ID Status Reason Start Date Expiration Date V isits Requested Visits Authorized [id number] Closed Auto-Generate d Referral 10/09/2021 11/08/2022 1 1 * Diagnostic Procedure Only (Urgent) - Closed Specialty Diagnoses / Procedures Referred By Contac t Referred To Contact XR IMAGING Diagnoses Foot pain, left Procedures XR ANKLE GENERAL 3V AP/LAT/OBL LEFT X-RAY ANKLE MINIMUM 3 VIEWS Sandrita Sol APRN.MATTRESS FILLER [address] [place] [address] [place] [address] Referral ID Status Reason Start Date Expiration Date V isits Requested Visits Authorized [id number] Closed Auto-Generate d Referral 10/09/2021 11/08/2022 1 1 [facility] Reason for visit Narrative Diagnostic Procedure Only (Urgent) - Closed Note Date & Type Note Facility Reason for visit Narrative Specialty Diagnoses / Procedures Referred By Contac t Referred To Contact XR IMAGING Diagnoses Foot pain, left Procedures XR FOOT GENERAL 3V AP/LAT/OBL LEFT X-RAY FOOT MINIMUM 3 VIEWS Sandrita Sol APRN.MATTRESS FILLER [address] [place] [address] [place] [address] Referral ID Status Reason Start Date Expiration Date V isits Requested Visits Authorized [id number] Closed Auto-Generate d Referral 10/09/2021 11/08/2022 1 1 [facility] Summary Purpose Family History No Family History Records FoundNo Family History Records Found Advance Directives No Advanced Directives Records FoundNo Advanced Directives Records Found Additional Source Comments INFORMATION SOURCE (unrecogn ized section and content) DATE CREATED AUTHOR 05/03/2020 [facility] Ce gisella [place] DATE CREATED AUTHOR AUTHOR'S ORGANIZ ATION 09/05/2023 [facility] Source Comments (unrecognize d section and content) In the event this informatio n is protected by the Federal Confidentiality of Alcohol and Drug Abuse Patient Records regulations: The Federal rules restrict any use of the information to criminally investigate or prosecute any alcohol or drug abuse patient.[facility] the event this information is protected by the Federal Confidentiality of Alcohol and Drug Abuse Patient Records regulations: The Federal rules restrict any use of the information to criminally investigate or prosecute any alcohol or drug abuse patient.[facility] the event this information is protected by the Federal Confidentiality of Alcohol and Drug Abuse Patient Records regulations: The Federal rules restrict any use of the information to criminally investigate or prosecute any alcohol or drug abuse patient.[facility] Reason for Visit (unrecogniz ed section and content) Reason Comments Sore Throat Cough x2 weeks inter mittent Care Teams (unrecognized sec tion and content) Coil Connector Relationship Specialty Start Date End Date Jorge Crowley DO [address] [place] [address] PCP - General Family Medicine 09/03/23 Coil Connector Relationship Specialty Start Date End Date Jorge Crowley DO [address] [facility] [address] [place] [address] PCP - General Family Medicine 09/03/23 Coil Connector Relationship Specialty Start Date End Date Oh Avendaño MD PCP - General Family Medicine 01/26/13 05/04/23 FOR RECORDS PERTAINING TO PATIENTS WHO ARE OR HAVE BEEN ENROLLED IN A CHEMICAL DEPENDENCY/SUBSTANCEABUSE PROGRAM, SOME INFORMATION MAY BE OMITTED. This clinical summary was aggregated from multiple sources. Caution should be exercised in using it in the provision of clinical care. This summary normalizes information from multiple sources, and as a consequence, information in this document may materially change the coding, format and clinical context of patient data. In addition, data may be omitted in some cases. CLINICAL DECISIONS SHOULD BE BASED ON THE PRIMARY CLINICAL RECORDS. [facility]. provides no warranty or guarantee of the accuracy or completeness of information in this document.
== END 2024-07-21 14:17 | disposition home or self-care (01) ==
PROVIDERS: Emergency Provider Emergency Medicine; PCP Internal Medicine; Visit Provider Emergency Medicine
DX: R10.33 Periumbilical pain (principal); Z90.710 Acquired absence of both cervix and uterus
CPT/HCPCS: 74177; 80053; 81001; 85025; 99283; Q9967; A4216

== ENCOUNTER 2024-08-30 09:24 | Day surgery (SDC) | payer MEDICARE, SELFPAY ==
[2024-08-30] VITALS (11 sets, daily range): BP systolic 110–136; BP diastolic 61–88; PULSE 60–87; RESP 14–16; TEMP 36–36.7; O2SAT 91–99; BMI 25.9
--- NOTE | 2024-08-30 | IMM_PTH ---
PATIENT: CRISTÓBAL MEDEL [place] [facility] [place][id number] AGE/SX: 79/F ROOM: RE08/30/[address]: Dr. Lori Mart MD : 1945 BED: DIS: 08/30/2024 SPEC #: [id number] RECD: 09/01/24 13:57 STATUS: LION REQ #: [id number] ROMELIA: 08/30/24 00:[address]: Lori Mart DEPT: IMMUNOHISTOCHEMISTRY RECD BY: Pacheco Jones ENTERED: 09/01/24 13:58 SP TYPE: IMMUNO OTHR DR: Dr. Rebecca Menezes MD Tissues: Omentum, NOS Procedures: Donnie Ret (add) CK20 (add) KI-67 (add) P53 (add) Vimentin (add) Pankeratin (initial) CD68 (ADD) PHYSICIAN & INSTITUTION [place] [id number] SPECIMEN INFORMATION: Tissue Source: Omentum Clinical Info: Abdominal pain, history of hernia repair Specimen Number: [id number] CPT code: 37582,57583q2 METHODOLOGY: Deparaffinized sections of prefer/formalin-fixed tissue or PAP/DQ stained slides are incubated with monoclonal/polyclonal antibodies/oligonucleotide probes. Localization is made via biotin free immunoperoxidase method. Appropriate controls are performed and reacted as expected. Results on target cell population are indicated in the following table: RESULTS: ANTIBODY / CLONE RESULT AE1-3 (AE1/AE3/PCK26) negative CK20 (KS20.8) negative Vimentin (V9) positive CD68 (KP-1) positive CALRET (polyclonal) negative P53 (DO-7) negative, null pattern Ki-67 (30-9) positive, low These tests were developed and their performance characteristics determined by [facility]. They may not have been cleared or approved by the U.S. Food and Drug Administration. The FDA has determined that such clearance or approval is not necessary. The above immunohistochemical/dualISH markers are ordered and reviewed by the Pathologist. INTERPRETATION: Omentum, biopsy: No evidence of malignancy. 09/02/2024
--- NOTE | 2024-08-30 | IMM_PTH ---
PATIENT: CRISTÓBAL MEDEL [place] [facility] [place][id number] AGE/SX: 79/F ROOM: RE08/30/[address]: Dr. Lori Mart MD : 1945 BED: DIS: 08/30/2024 SPEC #: [id number] RECD: 09/01/24 13:57 STATUS: LION REQ #: [id number] ROMELIA: 08/30/24 00:[address]: Lori Mart DEPT: IMMUNOHISTOCHEMISTRY RECD BY: Pacheco Jones ENTERED: 09/01/24 13:58 SP TYPE: IMMUNO OTHR DR: Dr. Rebecca Menezes MD Tissues: Omentum, NOS Procedures: Donnie Ret (add) CK20 (add) KI-67 (add) P53 (add) Vimentin (add) Pankeratin (initial) CD68 (ADD) PHYSICIAN & INSTITUTION [place] [id number] SPECIMEN INFORMATION: Tissue Source: Omentum Clinical Info: Abdominal pain, history of hernia repair Specimen Number: [id number] CPT code: 81577,21545r7 METHODOLOGY: Deparaffinized sections of prefer/formalin-fixed tissue or PAP/DQ stained slides are incubated with monoclonal/polyclonal antibodies/oligonucleotide probes. Localization is made via biotin free immunoperoxidase method. Appropriate controls are performed and reacted as expected. Results on target cell population are indicated in the following table: RESULTS: ANTIBODY / CLONE RESULT AE1-3 (AE1/AE3/PCK26) negative CK20 (KS20.8) negative Vimentin (V9) positive CD68 (KP-1) positive CALRET (polyclonal) negative P53 (DO-7) negative, null pattern Ki-67 (30-9) positive, low These tests were developed and their performance characteristics determined by [facility]. They may not have been cleared or approved by the U.S. Food and Drug Administration. The FDA has determined that such clearance or approval is not necessary. The above immunohistochemical/dualISH markers are ordered and reviewed by the Pathologist. INTERPRETATION: Omentum, biopsy: No evidence of malignancy. 09/02/2024
--- NOTE | 2024-08-30 09:48 | PCM.HP.BLA ---
History and Physical Date of Admission: 08/30/24 Date of Service: 08/18/24 MR#: [id number] Acct: [id number] Name: CRISTÓBAL MEDEL Rep #: [id number] : 1945 Provider: Dr. Lori Mart MD Age/Sex: 79/F Location: [facility] Status: Signed Intake Vital Signs 07/21/2409:03 Height 5 ft 7 in Intake Visit Reasons: abd pain, burning Chief Complaint: Abdominal pain Allergies prednisone Allergy (Severe, Verified 08/18/24 14:48) deathly sickhydrocodone bitartrate (From Vicodin) Adverse Reaction (Verified 08/18/24 14:48) Otheroxycodone Adverse Reaction (Verified 08/18/24 14:48) Itching Medications ?Medication ?Instructions ?Recorded ?Confirmed ?Type cetirizine 10 mg capsule (Zyrtec) 10 mg PO DAILY PRN allergy symptoms 02/03/24 08/18/24 History alprazolam 0.25 mg tablet 0.25 mg PO BID PRN anxiety #10 tabs 04/11/24 08/18/24 Rx tramadol 50 mg tablet 50 - 100 mg (1 - 2 x 50 mg) PO Q6H 04/15/24 08/18/24 Rx PRN pain 3 days #14 tabs Have you fallen in the past year?: No PFSH Medical History Abdominal pain Wears hearing aid Loss of hearing Wears glasses Wears dentures Post-menopausal Cancer Anxiety Arthritis History of IBS Non-smoker Leg cramps History of stress test (~2020) Skin cancer IBS (irritable bowel syndrome) Hearing problem Gallstone Emotional problems Breast lump Back problem Crushing injury of right foot, initial encounter Precancerous polyps Surgical History History of cardiac catheterization (~2020) History of surgical procedure History of colon surgery H/O hernia repair Hx of bladder repair surgery H/O: hysterectomy History of tubal ligation History of cholecystectomy H/O breast surgery Family History Father Alcohol abuse Respiratory disease EmphysemaBrother Colon cancerSister CVA (cerebral vascular accident)Mother Myocardial infarction Social History household members: none housing: house current occupational status: employed 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 Patient did end up going to the ER to get her CAT scan instead of the 1 that was ordered due to pain. Patient's CAT scan not showing evidence of any hernia in read was called negative. Upon my read there is some haziness of the omentum or abdominal that near the right side below the hernia. Patient states she does have occasional pain that starts more in the right mid abdomen and crosses her umbilicus to the left which can be described as burning patient denies any nausea is having bowel function. Patient does occasionally have no pain other times can have increased pain currently rates the pain a 6/10. Patient states last night she did have increased pain which did not improve with change in position patient did try ibuprofen which did help. Patient does not want to have to take ibuprofen daily. ROS Cardio Cardiovascular: No chest pain Resp Respiratory: No cough Gastro Gastrointestinal: Yes abdominal pain, No nausea or vomiting and No constipation Exam Const General: cooperative, healthy appearing, comfortable and no acute distress HENMT Head: normocephalic and atraumatic Neck Neck: supple Resp Effort & Inspection: normal respiratory effort Cardio Rate: regular rate GI Inspection: non-distended Palpation: soft and tender (Right/hypogastric tenderness to palpation, no guarding) with no rebound tenderness Skin General: no rashes or lesions noted Neuro General: CN's II-XI intact bilaterally Extrem General: normal to inspection Psych Mental Status: mental status grossly normal Attitude: cooperative Assessment and Plan Assessment and Plan (1) Abdominal pain: Status: Acute (2) H/O hernia repair: Status: Acute Plan Did review CT abdomen pelvis with the patient. No obvious hernia seen however there appears to be some haziness in the omentum or mesentery to the right below the mesh. Discussed with patient we could do a diagnostic laparoscopy, possible open to see if adhesions could be causing some of her discomfort at is it is in the same location. Did discuss with patient that not a guarantee this will improve the discomfort. Patient was agreeable to plan. Discussed procedure including risk not limited to bleeding, infection, open surgery, injury to another organ i.e. small bowel requiring bowel resection, anesthesia. Patient was agreeable to proceed. Lori Mart M.D. Pager: [phone] [facility] [address] [place] [address], [address] [place] [address] Office: [phone] Coding Level of Care Code Off vis,est,level 3 Diagnoses Abdominal pain R10.9 H/O hernia repair Z98.890; Z87.19 Clinical Quality Measures Falls Risk Screening/Assistive Devices Have you fallen in the past year?: No 08/19/24 1151 <Electronically signed by Lori Mart MD> Date Lori Mart MD
--- NOTE | 2024-08-30 09:48 | PCM.HP.BLA ---
History and Physical Date of Admission: 08/30/24 Date of Service: 08/18/24 MR#: [id number] Acct: [id number] Name: CRISTÓBAL MEDEL Rep #: [id number] : 1945 Provider: Dr. Lori Mart MD Age/Sex: 79/F Location: [facility] Status: Signed Intake Vital Signs 07/21/2409:03 Height 5 ft 7 in Intake Visit Reasons: abd pain, burning Chief Complaint: Abdominal pain Allergies prednisone Allergy (Severe, Verified 08/18/24 14:48) deathly sickhydrocodone bitartrate (From Vicodin) Adverse Reaction (Verified 08/18/24 14:48) Otheroxycodone Adverse Reaction (Verified 08/18/24 14:48) Itching Medications ?Medication ?Instructions ?Recorded ?Confirmed ?Type cetirizine 10 mg capsule (Zyrtec) 10 mg PO DAILY PRN allergy symptoms 02/03/24 08/18/24 History alprazolam 0.25 mg tablet 0.25 mg PO BID PRN anxiety #10 tabs 04/11/24 08/18/24 Rx tramadol 50 mg tablet 50 - 100 mg (1 - 2 x 50 mg) PO Q6H 04/15/24 08/18/24 Rx PRN pain 3 days #14 tabs Have you fallen in the past year?: No PFSH Medical History Abdominal pain Wears hearing aid Loss of hearing Wears glasses Wears dentures Post-menopausal Cancer Anxiety Arthritis History of IBS Non-smoker Leg cramps History of stress test (~2020) Skin cancer IBS (irritable bowel syndrome) Hearing problem Gallstone Emotional problems Breast lump Back problem Crushing injury of right foot, initial encounter Precancerous polyps Surgical History History of cardiac catheterization (~2020) History of surgical procedure History of colon surgery H/O hernia repair Hx of bladder repair surgery H/O: hysterectomy History of tubal ligation History of cholecystectomy H/O breast surgery Family History Father Alcohol abuse Respiratory disease EmphysemaBrother Colon cancerSister CVA (cerebral vascular accident)Mother Myocardial infarction Social History household members: none housing: house current occupational status: employed 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 Patient did end up going to the ER to get her CAT scan instead of the 1 that was ordered due to pain. Patient's CAT scan not showing evidence of any hernia in read was called negative. Upon my read there is some haziness of the omentum or abdominal that near the right side below the hernia. Patient states she does have occasional pain that starts more in the right mid abdomen and crosses her umbilicus to the left which can be described as burning patient denies any nausea is having bowel function. Patient does occasionally have no pain other times can have increased pain currently rates the pain a 6/10. Patient states last night she did have increased pain which did not improve with change in position patient did try ibuprofen which did help. Patient does not want to have to take ibuprofen daily. ROS Cardio Cardiovascular: No chest pain Resp Respiratory: No cough Gastro Gastrointestinal: Yes abdominal pain, No nausea or vomiting and No constipation Exam Const General: cooperative, healthy appearing, comfortable and no acute distress HENMT Head: normocephalic and atraumatic Neck Neck: supple Resp Effort & Inspection: normal respiratory effort Cardio Rate: regular rate GI Inspection: non-distended Palpation: soft and tender (Right/hypogastric tenderness to palpation, no guarding) with no rebound tenderness Skin General: no rashes or lesions noted Neuro General: CN's II-XI intact bilaterally Extrem General: normal to inspection Psych Mental Status: mental status grossly normal Attitude: cooperative Assessment and Plan Assessment and Plan (1) Abdominal pain: Status: Acute (2) H/O hernia repair: Status: Acute Plan Did review CT abdomen pelvis with the patient. No obvious hernia seen however there appears to be some haziness in the omentum or mesentery to the right below the mesh. Discussed with patient we could do a diagnostic laparoscopy, possible open to see if adhesions could be causing some of her discomfort at is it is in the same location. Did discuss with patient that not a guarantee this will improve the discomfort. Patient was agreeable to plan. Discussed procedure including risk not limited to bleeding, infection, open surgery, injury to another organ i.e. small bowel requiring bowel resection, anesthesia. Patient was agreeable to proceed. Lori Mart M.D. Pager: [phone] [facility] [address] [place] [address], [address] [place] [address] Office: [phone] Coding Level of Care Code Off vis,est,level 3 Diagnoses Abdominal pain R10.9 H/O hernia repair Z98.890; Z87.19 Clinical Quality Measures Falls Risk Screening/Assistive Devices Have you fallen in the past year?: No 08/19/24 1151 <Electronically signed by Lori Mart MD> Date Lori Mart MD
--- NOTE | 2024-08-30 10:03 | EKG12_ITS ---
Test Reason : Blood Pressure : */* mmHG Vent. Rate : 87 BPM Atrial Rate : 87 BPM P-R Int : 148 ms QRS Dur : 90 ms QT Int : 384 ms P-R-T Axes : 70 25 64 degrees QTcB Int : 462 ms Normal sinus rhythm Normal ECG When compared with ECG of 07-Apr-2024 13:39, Premature ventricular complexes are no longer Present Confirmed by Demetri Torres ([id number]), supervising film or videotape editor JOLANTA CARRION ([id number]) on 08/31/2024 8:29:40 AM Referred By: Lori Mart Confirmed By: Demetri Torres
--- NOTE | 2024-08-30 10:03 | EKG12_ITS ---
Test Reason : Blood Pressure : */* mmHG Vent. Rate : 87 BPM Atrial Rate : 87 BPM P-R Int : 148 ms QRS Dur : 90 ms QT Int : 384 ms P-R-T Axes : 70 25 64 degrees QTcB Int : 462 ms Normal sinus rhythm Normal ECG When compared with ECG of 07-Apr-2024 13:39, Premature ventricular complexes are no longer Present Confirmed by Demetri Torres ([id number]), videotape editor JOLANTA CARRION ([id number]) on 08/31/2024 8:29:40 AM Referred By: Lori Mart Confirmed By: Demetri Torres
[2024-08-30] MEDS: Lactated Ringers 1,000 ML 15 ML IV (10:16)
--- NOTE | 2024-08-30 10:32 | PRE.ANES_ITS ---
ASA Classification* ASA Classification ASA Classification: 2 Assessment & Plan Anesthesia* Anesthesia Assessment Anesthesia Assessment: Discussed sedation and/or anesthesia options, risks, benefits, and alternatives with patient/parents/legal guardian/POA. Questions invited. The patient/parents/legal guardian/POA seems to understand and agrees to proceed with anesthesia plan. Reviewed the physical assessment, medical history, allergy history and patient home medications list prior to surgery/procedure/anesthetic and documented any changes. Performed airway and anesthesia risk assessments. Anesthesia Type Anesthesia Type: General History Source History Obtained from:: Patient and Chart Anesthesia Focused Assessment* Temperature: 98.1 F Pulse Rate: 60 Blood Pressure: 136/77 Respiratory Rate: 16 Pulse Ox: 98 Oxygen Delivery Method: Room Air Airway Assessment Mouth opens: >3 cm Mallampati Score: II Teeth Condition: Dentures (Patient has upper dentures. Which are out now.) Neck Range of motion (ROM): Full ROM Focused Labs Anesthesia Preop lab: CBC WBC 7.1 K/mm3 (4.4-11.0) 07/21/24 09:45 RBC 5.09 M/mm3 (4.2-5.4) 07/21/24 09:45 Hgb 14.9 g/dL (12.0-15.0) 07/21/24 09:45 Hct 44.8 % (37-47) 07/21/24 09:45 Plt Count 272 K/mm3 (150-450) 07/21/24 09:45 CHEMISTRY Potassium 3.8 mmol/L (3.5-5.1) 07/21/24 09:45 Sodium 137 mmol/L (136-145) 07/21/24 09:45 Magnesium 2.7 mg/dL (1.6-2.6) H 06/22/23 15:36 BUN 17 mg/dL (7-18) 07/21/24 09:45 Creatinine 0.95 mg/dL (0.55-1.02) 07/21/24 09:45 Glucose 100 mg/dL (74-106) 07/21/24 09:45 TSH 2.40 uIU/mL (0.358-3.74) 06/22/23 15:36 COAG PT 25.7 SECONDS (11.9-14.4) H 09/29/13 10:41 Pre-Assessment Diagnosis/Proposed Procedure Planned Operative Procedure(s): Diagnostic Laparoscopy Possible Open Anesthesia History Anesthesia History - oil expeller: Anesthesia History - oil expeller Hx Hospitalization No 08/24/24 12:43 Any Problems With Anesthesia No 08/24/24 12:43 Cholinesterase deficiency No 08/24/24 12:43 You/Your Family Experience No 08/24/24 12:43 fever (hyperthermia) with Relationship Recent Exposure to Contagious No 08/30/24 10:04 Disease Does patient have nerve No 08/24/24 12:43 stimulator Patient instructed to have device shut off --Does patient have Pacemaker No 08/30/24 10:04 or ICD? When Was Last Pacemaker Check QUESTION #4 FULL TEXT: You/Your Family Experience fever (hyperthermia) with Anesthesia Last Oral Intake Last Oral intake: Last Oral Intake NPO since 07:00 08/30/24 10:04 Meds taken in AM with sips of No 08/30/24 10:04 water? Meds patient instructed to take am of surgery Any additional information?: Yes NPO since: 07:00 (Patient had water at 7 AM.) PONV PONV - oil expeller: PONV - oil expeller Female Yes 08/24/24 12:43 HX of Motion Sickness No 08/24/24 12:43 HX of N/V After Surgery No 08/24/24 12:43 Non-Smoker Yes 08/24/24 12:43 Duration of Surgery greater Yes 08/24/24 12:43 than 60 minutes Number of Risk Factors 3 08/24/24 12:43 PONV Score Moderate Risk 08/24/24 12:43 Height & Weight Height & Weight: Anesthesia: Height & Weight Height 5 ft 7 in 08/30/24 10:04 Weight: 75 kg 08/30/24 10:04 Body Mass Index (BMI) 25.9 08/30/24 10:04 Respiratory Assessment Respiratory Assessment - oil expeller: Respiratory Tract Infection Hx - oil expeller Hx Respiratory Tract Infection No 08/24/24 12:43 STOP Sleep Apnea STOP Sleep Apnea - oil expeller: STOP Sleep Apnea - oil expeller Hx Hypertension No 08/24/24 12:43 Hx Sleep Apnea No 08/24/24 12:43 CPAP No 08/24/24 12:43 BIPAP No 08/24/24 12:43 Do you snore loudly (louder No 08/24/24 12:43 than talking or can be heard Do you often feel tired/ No 08/24/24 12:43 fatigued/ sleepy during daytime? Has anyone observed you stop No 08/24/24 12:43 breathing during sleep? STOP Results Negative 08/24/24 12:43 QUESTION #5 FULL TEXT : Do you snore loudly (louder than talking or can be heard through closed doors)? Tobacco Use History Tobacco Use History - oil expeller: Tobacco Use History - oil expeller Tobacco Use Smoking Status Never smoker 08/24/24 12:43 Hx Tobacco Use No 08/24/24 12:43 Years Smoking Packs Smoked per Day Smoking Cessation Date was within the last 15 years Hx Smoking Cessation Date Hx Smoking Cessation Counseling Hematologic Medial History Hematologic Hx - oil expeller: Hematologic Medical Hx - documentation designer Hx of Blood Transfusion No 08/24/24 12:43 Hx of Transfusion in last 3 No 08/24/24 12:43 Months Date of Last Transfusion (if within last 3 months) Ever experience any problems No 08/24/24 12:43 with transfusion(s)? Specify any problems Hx of Preganancy in last 3 N/A 08/24/24 12:43 Months Nurse Filling Out Transfusion NBUCHER 08/24/24 12:43 & Questions: Date: 08/24/24 08/24/24 12:43 Time: 12:46 08/24/24 12:43 Patient unable to answer at this time (ie. confused, unrespo /Reproduction History /Reproductive History - oil expeller: /Reproductive Hx- oil expeller Hx Now Gestational Age (in weeks): EDC: Hx Hx Para Hx Section SAB Active Medications Active Medications: Current Medications Generic Name Dose Route Start Last Admin Trade Name Freq PRN Reason Stop Dose Admin Cefazolin Sodium 2 gm/ N/A 20 mls @ 400 mls/hr 08/30/24 11:00 IV 08/30/24 11:02 PREOP ONE Lactated Ringer's 1,000 mls @ 15 mls/hr 08/30/24 09:30 08/30/24 10:16 IV 09/04/24 22:49 15 mls/hr .Q48H REGLA Administration Protocol PFSH Medical History Abdominal pain Wears hearing aid Loss of hearing Wears glasses Wears dentures Post-menopausal Cancer Anxiety Arthritis History of IBS Non-smoker Leg cramps History of stress test (~2020) Skin cancer IBS (irritable bowel syndrome) Hearing problem Gallstone Emotional problems Breast lump Back problem Crushing injury of right foot, initial encounter Precancerous polyps Home Medications ?Medication ?Instructions ?Recorded ?Last Taken ?Type cetirizine 10 mg capsule (Zyrtec) 10 mg PO DAILY PRN allergy symptoms 02/03/24 04/14/24 History alprazolam 0.25 mg tablet 0.25 mg PO BID PRN anxiety #10 tabs 04/11/24 04/14/24 Rx Allergy/AdvReac Type Severity Reaction Status Date / Time prednisone Allergy Severe deathly Verified 08/30/24 09:57 sick hydrocodone bitartrate (From AdvReac Other Verified 08/30/24 09:57 Vicodin) oxycodone AdvReac Itching Verified 08/30/24 09:57 Family History Father Alcohol abuse Respiratory disease Emphysema Brother Colon cancer Sister CVA (cerebral vascular accident) Mother Myocardial infarction Surgical History History of cardiac catheterization (~2020) History of surgical procedure History of colon surgery H/O hernia repair (04/15/24) Hx of bladder repair surgery H/O: hysterectomy History of tubal ligation History of cholecystectomy H/O breast surgery Social History household members: none housing: house current occupational status: employed 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
--- NOTE | 2024-08-30 10:32 | PRE.ANES_ITS ---
ASA Classification* ASA Classification ASA Classification: 2 Assessment & Plan Anesthesia* Anesthesia Assessment Anesthesia Assessment: Discussed sedation and/or anesthesia options, risks, benefits, and alternatives with patient/parents/legal guardian/POA. Questions invited. The patient/parents/legal guardian/POA seems to understand and agrees to proceed with anesthesia plan. Reviewed the physical assessment, medical history, allergy history and patient home medications list prior to surgery/procedure/anesthetic and documented any changes. Performed airway and anesthesia risk assessments. Anesthesia Type Anesthesia Type: General History Source History Obtained from:: Patient and Chart Anesthesia Focused Assessment* Temperature: 98.1 F Pulse Rate: 60 Blood Pressure: 136/77 Respiratory Rate: 16 Pulse Ox: 98 Oxygen Delivery Method: Room Air Airway Assessment Mouth opens: >3 cm Mallampati Score: II Teeth Condition: Dentures (Patient has upper dentures. Which are out now.) Neck Range of motion (ROM): Full ROM Focused Labs Anesthesia Preop lab: CBC WBC 7.1 K/mm3 (4.4-11.0) 07/21/24 09:45 RBC 5.09 M/mm3 (4.2-5.4) 07/21/24 09:45 Hgb 14.9 g/dL (12.0-15.0) 07/21/24 09:45 Hct 44.8 % (37-47) 07/21/24 09:45 Plt Count 272 K/mm3 (150-450) 07/21/24 09:45 CHEMISTRY Potassium 3.8 mmol/L (3.5-5.1) 07/21/24 09:45 Sodium 137 mmol/L (136-145) 07/21/24 09:45 Magnesium 2.7 mg/dL (1.6-2.6) H 06/22/23 15:36 BUN 17 mg/dL (7-18) 07/21/24 09:45 Creatinine 0.95 mg/dL (0.55-1.02) 07/21/24 09:45 Glucose 100 mg/dL (74-106) 07/21/24 09:45 TSH 2.40 uIU/mL (0.358-3.74) 06/22/23 15:36 COAG PT 25.7 SECONDS (11.9-14.4) H 09/29/13 10:41 Pre-Assessment Diagnosis/Proposed Procedure Planned Operative Procedure(s): Diagnostic Laparoscopy Possible Open Anesthesia History Anesthesia History - integrated logistics programs director: Anesthesia History - integrated logistics programs director Hx Hospitalization No 08/24/24 12:43 Any Problems With Anesthesia No 08/24/24 12:43 Cholinesterase deficiency No 08/24/24 12:43 You/Your Family Experience No 08/24/24 12:43 fever (hyperthermia) with Relationship Recent Exposure to Contagious No 08/30/24 10:04 Disease Does patient have nerve No 08/24/24 12:43 stimulator Patient instructed to have device shut off --Does patient have Pacemaker No 08/30/24 10:04 or ICD? When Was Last Pacemaker Check QUESTION #4 FULL TEXT: You/Your Family Experience fever (hyperthermia) with Anesthesia Last Oral Intake Last Oral intake: Last Oral Intake NPO since 07:00 08/30/24 10:04 Meds taken in AM with sips of No 08/30/24 10:04 water? Meds patient instructed to take am of surgery Any additional information?: Yes NPO since: 07:00 (Patient had water at 7 AM.) PONV PONV - integrated logistics programs director: PONV - integrated logistics programs director Female Yes 08/24/24 12:43 HX of Motion Sickness No 08/24/24 12:43 HX of N/V After Surgery No 08/24/24 12:43 Non-Smoker Yes 08/24/24 12:43 Duration of Surgery greater Yes 08/24/24 12:43 than 60 minutes Number of Risk Factors 3 08/24/24 12:43 PONV Score Moderate Risk 08/24/24 12:43 Height & Weight Height & Weight: Anesthesia: Height & Weight Height 5 ft 7 in 08/30/24 10:04 Weight: 75 kg 08/30/24 10:04 Body Mass Index (BMI) 25.9 08/30/24 10:04 Respiratory Assessment Respiratory Assessment - integrated logistics programs director: Respiratory Tract Infection Hx - integrated logistics programs director Hx Respiratory Tract Infection No 08/24/24 12:43 STOP Sleep Apnea STOP Sleep Apnea - integrated logistics programs director: STOP Sleep Apnea - integrated logistics programs director Hx Hypertension No 08/24/24 12:43 Hx Sleep Apnea No 08/24/24 12:43 CPAP No 08/24/24 12:43 BIPAP No 08/24/24 12:43 Do you snore loudly (louder No 08/24/24 12:43 than talking or can be heard Do you often feel tired/ No 08/24/24 12:43 fatigued/ sleepy during daytime? Has anyone observed you stop No 08/24/24 12:43 breathing during sleep? STOP Results Negative 08/24/24 12:43 QUESTION #5 FULL TEXT : Do you snore loudly (louder than talking or can be heard through closed doors)? Tobacco Use History Tobacco Use History - integrated logistics programs director: Tobacco Use History - integrated logistics programs director Tobacco Use Smoking Status Never smoker 08/24/24 12:43 Hx Tobacco Use No 08/24/24 12:43 Years Smoking Packs Smoked per Day Smoking Cessation Date was within the last 15 years Hx Smoking Cessation Date Hx Smoking Cessation Counseling Hematologic Medial History Hematologic Hx - integrated logistics programs director: Hematologic Medical Hx - commercial manager Hx of Blood Transfusion No 08/24/24 12:43 Hx of Transfusion in last 3 No 08/24/24 12:43 Months Date of Last Transfusion (if within last 3 months) Ever experience any problems No 08/24/24 12:43 with transfusion(s)? Specify any problems Hx of Preganancy in last 3 N/A 08/24/24 12:43 Months Nurse Filling Out Transfusion NBUCHER 08/24/24 12:43 & Questions: Date: 08/24/24 08/24/24 12:43 Time: 12:46 08/24/24 12:43 Patient unable to answer at this time (ie. confused, unrespo /Reproduction History /Reproductive History - integrated logistics programs director: /Reproductive Hx- integrated logistics programs director Hx Now Gestational Age (in weeks): EDC: Hx Hx Para Hx Section SAB Active Medications Active Medications: Current Medications Generic Name Dose Route Start Last Admin Trade Name Freq PRN Reason Stop Dose Admin Cefazolin Sodium 2 gm/ N/A 20 mls @ 400 mls/hr 08/30/24 11:00 IV 08/30/24 11:02 PREOP ONE Lactated Ringer's 1,000 mls @ 15 mls/hr 08/30/24 09:30 08/30/24 10:16 IV 09/04/24 22:49 15 mls/hr .Q48H REGLA Administration Protocol PFSH Medical History Abdominal pain Wears hearing aid Loss of hearing Wears glasses Wears dentures Post-menopausal Cancer Anxiety Arthritis History of IBS Non-smoker Leg cramps History of stress test (~2020) Skin cancer IBS (irritable bowel syndrome) Hearing problem Gallstone Emotional problems Breast lump Back problem Crushing injury of right foot, initial encounter Precancerous polyps Home Medications ?Medication ?Instructions ?Recorded ?Last Taken ?Type cetirizine 10 mg capsule (Zyrtec) 10 mg PO DAILY PRN allergy symptoms 02/03/24 04/14/24 History alprazolam 0.25 mg tablet 0.25 mg PO BID PRN anxiety #10 tabs 04/11/24 04/14/24 Rx Allergy/AdvReac Type Severity Reaction Status Date / Time prednisone Allergy Severe deathly Verified 08/30/24 09:57 sick hydrocodone bitartrate (From AdvReac Other Verified 08/30/24 09:57 Vicodin) oxycodone AdvReac Itching Verified 08/30/24 09:57 Family History Father Alcohol abuse Respiratory disease Emphysema Brother Colon cancer Sister CVA (cerebral vascular accident) Mother Myocardial infarction Surgical History History of cardiac catheterization (~2020) History of surgical procedure History of colon surgery H/O hernia repair (04/15/24) Hx of bladder repair surgery H/O: hysterectomy History of tubal ligation History of cholecystectomy H/O breast surgery Social History household members: none housing: house current occupational status: employed 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
[2024-08-30] MEDS: Cefazolin 2 GM in Syringe IV (11:00)
--- NOTE | 2024-08-30 11:00 | OM_PTH ---
PATIENT: CRISTÓBAL MEDEL LOC: [facility] [place] U#:[id number] AGE/SX: 79/F ROOM: RE08/30/[address]: Dr. Lori Mart MD : 1945 BED: DIS: 08/30/2024 SPEC #: [id number] RECD: 08/30/24 17:56 STATUS: LION RESteve #: [id number] ROMELIA: 08/30/24 11:[address]: Lori Mart DEPT: SURGICAL PATHOLOGY RECD BY: Camelia Hair ENTERED: 08/31/24 09:25 SP TYPE: OMENTUM OTHR DR: Dr. Rebecca Menezes MD Tissues: Omentum, NOS Procedures: Surgery Specimen Level IV HEADER OPERATION: Diagnostic laparoscopy PRE-OP DIAGNOSIS: Abdominal pain, history of hernia repair TISSUE SUBMITTED: Omentum MICROSCOPIC DIAGNOSIS Omentum, biopsy: Fat necrosis, fibrosis and benign histiocytic reparative and reactive change. See comment. AM.mr 09/01/2024 COMMENT Immunohistochemistry ([id number]) supports the above diagnosis. MICROSCOPIC DESCRIPTION Slides are reviewed. GROSS DESCRIPTION Received in fixative is one container labeled with the patient's name and designated Omentum. The specimen consists of four irregular fragments of snider-yellow soft tissue ranging in size from 2.5 to 7.0cm. Serial sections reveal chalky-yellow cut surfaces. No distinct mass lesion is identified. Time Motion Analyst sections are submitted in four cassettes. AM. 08/31/2024 TC:3 CPT:28172
--- NOTE | 2024-08-30 11:00 | OM_PTH ---
PATIENT: CRISTÓBAL MEDEL LOC: [facility] [place] U#:[id number] AGE/SX: 79/F ROOM: RE08/30/[address]: Dr. Lori Mart MD : 1945 BED: DIS: 08/30/2024 SPEC #: [id number] RECD: 08/30/24 17:56 STATUS: LION RESteve #: [id number] ROMELIA: 08/30/24 11:[address]: Lori Mart DEPT: SURGICAL PATHOLOGY RECD BY: Camelia Hair ENTERED: 08/31/24 09:25 SP TYPE: OMENTUM OTHR DR: Dr. Rebecca Menezes MD Tissues: Omentum, NOS Procedures: Surgery Specimen Level IV HEADER OPERATION: Diagnostic laparoscopy PRE-OP DIAGNOSIS: Abdominal pain, history of hernia repair TISSUE SUBMITTED: Omentum MICROSCOPIC DIAGNOSIS Omentum, biopsy: Fat necrosis, fibrosis and benign histiocytic reparative and reactive change. See comment. AM.mr 09/01/2024 COMMENT Immunohistochemistry ([id number]) supports the above diagnosis. MICROSCOPIC DESCRIPTION Slides are reviewed. GROSS DESCRIPTION Received in fixative is one container labeled with the patient's name and designated Omentum. The specimen consists of four irregular fragments of snider-yellow soft tissue ranging in size from 2.5 to 7.0cm. Serial sections reveal chalky-yellow cut surfaces. No distinct mass lesion is identified. Groundskeeper sections are submitted in four cassettes. AM. 08/31/2024 TC:3 CPT:92918
[2024-08-30] MEDS: Bupivacaine Mpf 0.5% 30 ML VIAL (12:04)
--- NOTE | 2024-08-30 12:08 | OP.PCM_ITS ---
Operative Report (Standard) Operative Information Surgery/Procedure Performed: Diagnostic laparoscopy, lysis of adhesions, in cisional biopsy of omentum Surgeon: Lori Mart Date of Procedure: 08/30/24 Procedure Start Time: 11:13 Procedure Stop Time: 12:15 Pre-Operative Diagnosis: RLQ abd pain Post-Operative Diagnosis: same Select all DRAINS/GRAFTS/IMPLANTS that apply: None Type of Anesthesia: General/Supplemental Special Medications: ancef 2 grams IV x 1 Estimated Blood Loss: <10 cc Specimen collected: Yes Description of specimen(s) removed: omentum biopsy Description of surgery: Indications: this is a 78 year-old female who had a recent ventral hernia repair-march 2024-and had been having right lower quadrant abdominal pain, CT did show haziness of the adipose tissue in this area near the abdominal wall per my read. Diagnostics laparoscopy and possible lysis of adhesions was elected. Description procedure: The patient was placed on operating table in supine position. General Anesthesia was induced. A timeout was completed verifying correct patient, procedure, site, position, social, and special equipment prior to beginning procedure. The abdomen was prepped and draped in usual sterile fashion. An incision was made in the epigastric midline. The fascia was elevated and incised. The peritoneum was elevated and incised. Entry into the peritoneum was confirmed visually and no bowel was noted in the vicinity of the incision. Solis trocar was placed. The abdomen was insufflated with carbon dioxide to a pressure of 12-15 mmHg. Patient tolerated insufflation well. The laparoscope was then inserted and abdomen inspected. No injuries from initial trocar placement were noted. Additional trochars were then inserted in the following locations 5 mm trocar in the left upper/mid/lower abdomen. The abdomen was inspected omentum was adherent to previous mesh, which was well incorporated to the fascia. Adhesions of the omentum were taken down with the Enseal. The distal omentum just beyond the mesh was noted to be firm/inflamed. An incisional biopsy of this omentum was taken and sent to pathology. Anaerobic & aerobic cultures were also taken of this omentum. Trocars removed under direct visualization. Abdomen was allowed to collapse. Local anesthesia of 0.5% Marcaine 30 cc was used throughout the case. The 12 mm trocar site was closed with [id number] 0 Vicryl suture. The skin was closed with 4-0 Monocryl and Steri-Strips/OpSite. Patient tolerated procedure well and taken to the postanesthesia care unit in stable condition. Surgical Findings: Patient's distal omentum was noted to be thickened this was actually adherent to abdominal wall below the area of the mesh. Part of this distal omentum was removed and sent to pathology. Management Consulting co founder & ceo: Yes Adult Health Clinical Nurse Specialist: Gregg Rivera Tasks completed by investment sales assistant: Opening & closing Complications Complications: No
--- NOTE | 2024-08-30 12:08 | OP.PCM_ITS ---
Operative Report (Standard) Operative Information Surgery/Procedure Performed: Diagnostic laparoscopy, lysis of adhesions, in cisional biopsy of omentum Surgeon: Lori Mart Date of Procedure: 08/30/24 Procedure Start Time: 11:13 Procedure Stop Time: 12:15 Pre-Operative Diagnosis: RLQ abd pain Post-Operative Diagnosis: same Select all DRAINS/GRAFTS/IMPLANTS that apply: None Type of Anesthesia: General/Supplemental Special Medications: ancef 2 grams IV x 1 Estimated Blood Loss: <10 cc Specimen collected: Yes Description of specimen(s) removed: omentum biopsy Description of surgery: Indications: this is a 78 year-old female who had a recent ventral hernia repair-march 2024-and had been having right lower quadrant abdominal pain, CT did show haziness of the adipose tissue in this area near the abdominal wall per my read. Diagnostics laparoscopy and possible lysis of adhesions was elected. Description procedure: The patient was placed on operating table in supine position. General Anesthesia was induced. A timeout was completed verifying correct patient, procedure, site, position, social, and special equipment prior to beginning procedure. The abdomen was prepped and draped in usual sterile fashion. An incision was made in the epigastric midline. The fascia was elevated and incised. The peritoneum was elevated and incised. Entry into the peritoneum was confirmed visually and no bowel was noted in the vicinity of the incision. Solis trocar was placed. The abdomen was insufflated with carbon dioxide to a pressure of 12-15 mmHg. Patient tolerated insufflation well. The laparoscope was then inserted and abdomen inspected. No injuries from initial trocar placement were noted. Additional trochars were then inserted in the following locations 5 mm trocar in the left upper/mid/lower abdomen. The abdomen was inspected omentum was adherent to previous mesh, which was well incorporated to the fascia. Adhesions of the omentum were taken down with the Enseal. The distal omentum just beyond the mesh was noted to be firm/inflamed. An incisional biopsy of this omentum was taken and sent to pathology. Anaerobic & aerobic cultures were also taken of this omentum. Trocars removed under direct visualization. Abdomen was allowed to collapse. Local anesthesia of 0.5% Marcaine 30 cc was used throughout the case. The 12 mm trocar site was closed with [id number] 0 Vicryl suture. The skin was closed with 4-0 Monocryl and Steri-Strips/OpSite. Patient tolerated procedure well and taken to the postanesthesia care unit in stable condition. Surgical Findings: Patient's distal omentum was noted to be thickened this was actually adherent to abdominal wall below the area of the mesh. Part of this distal omentum was removed and sent to pathology. [employer] Crusher endodontics dentist: Yes Hedge Trimmer: Gregg Rivera Tasks completed by apartment community assistant manager: Opening & closing Complications Complications: No
--- NOTE | 2024-08-30 12:10 | DCINST_ITS ---
Discharge Instructions Diet Discharge Diet: Light diet - advance as tolerated Activity Discharge Activity: May Not Drive (while taking narcotic pain medications.) May shower in (days): 1 Lifting Restrictions: no lifting >20 lbs x 2 wks, no strenuous exercise for 4 wks Dressing / Incision Call your doctor if your incision/area has: Continuous Slow Oozing, Sudden Increased Bleeding, Increased Pain/ Swelling, Increased Redness, Foul Smelling Discharge and Swelling at the incision site Call your doctor if you observe: Fever of 101 or Higher Remove Dressing in: 2 days Cleanse incision/area with: Soap & Water Additional Dressing/Incision Instructions:: Steri-Strips will fall off in 7 to 10 days, if they do not fall off okay to remove after 10 days. Follow Up Care Please Follow Up With: Lori Mart MD When: Call the office for a follow-up appointment 2 weeks; after 5 PM and on the weekends call [phone] with any concerns. Test Results: Test results from this visit will be discussed in further detail at your follow- up appointment, if applicable. Discharge Plan Admission Attending Provider: Lori Mart Primary Care Provider: Rebecca Menezes Instructions Print Language: Albanian Discharge Orders/Prescriptions Prescriptions: New acetaminophen-codeine 300-30 mg tablet 1 - 2 tab PO Q6H PRN (Reason: pain) 3 Days Qty: 14 0RF Continued Zyrtec 10 mg capsule 10 mg PO DAILY PRN (Reason: allergy symptoms) alprazolam 0.25 mg tablet 0.25 mg PO BID PRN (Reason: anxiety) Qty: 10 0RF Referrals / Follow Up: Rebecca Menezes MD [Primary Care Provider] - Disposition Disposition (needs filled in before D/C Order can be placed): Home, Self Care
--- NOTE | 2024-08-30 12:28 | PCM.POST.ANE ---
Anesthesia: Postop Eval I Current Vital Signs Temperature: 97 F Pulse Rate: 86 Blood Pressure: 131/79 Respiratory Rate: 16 Pulse Ox: 99 Oxygen Delivery Method: Room Air Assessment Airway patent: Yes Spontaneous unlabored respirations: Yes Mental status: Awake and Calm nausea: No Vomiting: No Anesthesia Complication: No Fluid Hydration Crystalloid volume administer (ml): 800 Total IV fluid infused: 800 Progress Note Anesthesia document: Postop Eval 1 completed: Yes
[2024-08-30] MEDS: Acetaminophen/Codeine #3 Tablet 1 TABLET PO (13:46)
--- NOTE | 2024-08-30 16:47 | POSTOPAN2_ITS ---
Anesthesia Postop Eval I Sum Postop Eval Completion status Anesthesia document: Postop Eval 1 completed: Yes Anesthesia Postop Eval I Summary Anesthesia Postop Eval I Summary: Anesthesia Postop Eval I: Assessment Summary Airway patent Yes 08/30/24 12:29 BALANCING MACHINE OPERATOR.SKOBY Spontaneous unlabored Yes 08/30/24 12:29 BALANCING MACHINE OPERATOR.TIM respirations Mental status Awake,Calm 08/30/24 12:29 BALANCING MACHINE OPERATOR.SKOBY nausea No 08/30/24 12:29 BALANCING MACHINE OPERATOR.SKOBY Vomiting No 08/30/24 12:29 BALANCING MACHINE OPERATOR.SKOBSalma Anesthesia Postop Eval I: Fluid Summary Crystalloid volume administer 800 08/30/24 12:29 BALANCING MACHINE OPERATOR.SKOBY (ml) Colloids volume administered ( ml) Blood Product volume administered (ml) Total IV fluid infused 800 08/30/24 12:29 BALANCING MACHINE OPERATOR.MOIOBSalma Anesthesia Postop Eval I: Summary Notes Anesthesia Complication No 08/30/24 12:29 BALANCING MACHINE OPERATOR.TIM Anesthesia Complication Comment: Post-operative progress note Anesthesia: Postop Eval II Evaluation Mental status: Awake and Calm Pain Level: 1 nausea: No Vomiting: No Complications Anesthesia Complication: No
--- NOTE | 2024-08-30 16:47 | POSTOPAN2_ITS ---
Anesthesia Postop Eval I Sum Postop Eval Completion status Anesthesia document: Postop Eval 1 completed: Yes Anesthesia Postop Eval I Summary Anesthesia Postop Eval I Summary: Anesthesia Postop Eval I: Assessment Summary Airway patent Yes 08/30/24 12:29 ENVIRONMENTAL EDUCATOR.SKOBY Spontaneous unlabored Yes 08/30/24 12:29 ENVIRONMENTAL EDUCATOR.TIM respirations Mental status Awake,Calm 08/30/24 12:29 ENVIRONMENTAL EDUCATOR.SKOBY nausea No 08/30/24 12:29 ENVIRONMENTAL EDUCATOR.SKOBY Vomiting No 08/30/24 12:29 ENVIRONMENTAL EDUCATOR.SKOBSalma Anesthesia Postop Eval I: Fluid Summary Crystalloid volume administer 800 08/30/24 12:29 ENVIRONMENTAL EDUCATOR.SKOBY (ml) Colloids volume administered ( ml) Blood Product volume administered (ml) Total IV fluid infused 800 08/30/24 12:29 ENVIRONMENTAL EDUCATOR.MOIOBSalma Anesthesia Postop Eval I: Summary Notes Anesthesia Complication No 08/30/24 12:29 ENVIRONMENTAL EDUCATOR.TIM Anesthesia Complication Comment: Post-operative progress note Anesthesia: Postop Eval II Evaluation Mental status: Awake and Calm Pain Level: 1 nausea: No Vomiting: No Complications Anesthesia Complication: No
--- NOTE | 2024-08-30 16:47 | PCM.POSTANE2 ---
Anesthesia Postop Eval I Sum Postop Eval Completion status Anesthesia document: Postop Eval 1 completed: Yes Anesthesia Postop Eval I Summary Anesthesia Postop Eval I Summary: Anesthesia Postop Eval I: Assessment Summary Airway patent Yes 08/30/24 12:29 POSITION CLERK.SKOBY Spontaneous unlabored Yes 08/30/24 12:29 POSITION CLERK.TIM respirations Mental status Awake,Calm 08/30/24 12:29 POSITION CLERK.SKOBY nausea No 08/30/24 12:29 POSITION CLERK.SKOBY Vomiting No 08/30/24 12:29 POSITION CLERK.SKOBSalma Anesthesia Postop Eval I: Fluid Summary Crystalloid volume administer 800 08/30/24 12:29 POSITION CLERK.SKOBY (ml) Colloids volume administered ( ml) Blood Product volume administered (ml) Total IV fluid infused 800 08/30/24 12:29 POSITION CLERK.MOIOBSalma Anesthesia Postop Eval I: Summary Notes Anesthesia Complication No 08/30/24 12:29 POSITION CLERK.TIM Anesthesia Complication Comment: Post-operative progress note Anesthesia: Postop Eval II Evaluation Mental status: Awake and Calm Pain Level: 1 nausea: No Vomiting: No Complications Anesthesia Complication: No
--- NOTE | 2024-08-30 16:47 | PCM.POSTANE2 ---
Anesthesia Postop Eval I Sum Postop Eval Completion status Anesthesia document: Postop Eval 1 completed: Yes Anesthesia Postop Eval I Summary Anesthesia Postop Eval I Summary: Anesthesia Postop Eval I: Assessment Summary Airway patent Yes 08/30/24 12:29 OIL CHANGER.SKOBY Spontaneous unlabored Yes 08/30/24 12:29 OIL CHANGER.TIM respirations Mental status Awake,Calm 08/30/24 12:29 OIL CHANGER.SKOBY nausea No 08/30/24 12:29 OIL CHANGER.SKOBY Vomiting No 08/30/24 12:29 OIL CHANGER.SKOBSalma Anesthesia Postop Eval I: Fluid Summary Crystalloid volume administer 800 08/30/24 12:29 OIL CHANGER.SKOBY (ml) Colloids volume administered ( ml) Blood Product volume administered (ml) Total IV fluid infused 800 08/30/24 12:29 OIL CHANGER.MOIOBSalma Anesthesia Postop Eval I: Summary Notes Anesthesia Complication No 08/30/24 12:29 OIL CHANGER.TIM Anesthesia Complication Comment: Post-operative progress note Anesthesia: Postop Eval II Evaluation Mental status: Awake and Calm Pain Level: 1 nausea: No Vomiting: No Complications Anesthesia Complication: No
== END 2024-08-30 15:18 | disposition home or self-care (01) ==
LOC: SDC 09:25 → AC 09:26
PROVIDERS: PCP Internal Medicine; Referring Provider Surgery; Visit Provider Surgery
PROC: (CPT 44202; principal; 2024-08-30 10:40)
DX: K65.4 Sclerosing mesenteritis (principal); K66.0 Peritoneal adhesions (postprocedural) (postinfection); Z79.899 Other long term (current) drug therapy; R10.31 Right lower quadrant pain
CPT/HCPCS: 49321; 00840; 87070; 87075; 87205; 88305; 88341; 88342; 93005; J7120; A4216; J2405

== ENCOUNTER 2024-11-04 18:32 | Emergency (ER) | payer MEDICARE, SELFPAY ==
[2024-11-04 18:32] VITALS: BP 146/83; PULSE 95; RESP 14; TEMP 36.6; O2SAT 94
--- NOTE | 2024-11-04 19:50 | RAD_ITS ---
PROCEDURE: ANKLE MIN 3 VIEWS REASON FOR EXAM: Fall. TECHNIQUE: 3 views of the left ankle COMPARISON: None FINDINGS: Proximal 5th metatarsal fracture. No suspicious bone lesion. Normal alignment. Mortise appears intact. No effusion. Soft tissues are unremarkable. RAD/Ankle min 3 Views IMPRESSION: Proximal 5th metatarsal fracture. Reading Location: [id number]
--- NOTE | 2024-11-04 19:50 | RAD_ITS ---
PROCEDURE: FOOT MIN 3 VIEWS REASON FOR EXAM: Fall TECHNIQUE: 3 view(s) of the left foot. COMPARISON: None. FINDINGS: Mildly distracted fracture of the proximal 5th metatarsal. Normal alignment. Soft tissues are unremarkable. RAD/Foot min 3 Views IMPRESSION: Proximal 5th metatarsal fracture. Reading Location: [id number]
--- NOTE | 2024-11-04 20:05 | EX.ED.DYSGE1 ---
HPI History of Present Illness Chief Complaint: Lower Extremity Injury Narrative Narrative: Patient is a 79-year-old female with a past medical history anxiety, IBS who presented to the Emergency Department with a chief complaint of left foot and ankle pain. Patient states that she was on the couch she went to stand up and her family bedside states that her foot got caught from her sock and she felt immediately pain and heard a pop. She said she took Advil prior to coming here but had significant pain and wanted to be further evaluated. Patient states that she denied chest pain shortness of breath lightness dizziness prior to the fall states that she simply had her sock get caught on the rug. [facility] Medical History Abdominal pain Wears hearing aid Loss of hearing Wears glasses Wears dentures Post-menopausal Cancer Anxiety Arthritis History of IBS Non-smoker Leg cramps History of stress test (~2020) Skin cancer IBS (irritable bowel syndrome) Hearing problem Gallstone Emotional problems Breast lump Back problem Crushing injury of right foot, initial encounter Precancerous polyps Home Medications ?Medication ?Instructions ?Recorded ?Last Taken ?Type cetirizine 10 mg capsule (Zyrtec) 10 mg PO DAILY PRN allergy symptoms 02/03/24 04/14/24 History alprazolam 0.25 mg tablet 0.25 mg PO BID PRN anxiety #10 tabs 04/11/24 04/14/24 Rx acetaminophen 300 mg-codeine 30 mg 1 - 2 tab PO Q6H PRN pain 3 days 08/30/24 Unknown Rx tablet #14 tabs Allergy/AdvReac Type Severity Reaction Status Date / Time prednisone Allergy Severe deathly Verified 11/04/24 18:33 sick hydrocodone bitartrate (From AdvReac Other Verified 11/04/24 18:33 Vicodin) oxycodone AdvReac Itching Verified 11/04/24 18:33 Family History Father Alcohol abuse Respiratory disease Emphysema Brother Colon cancer Sister CVA (cerebral vascular accident) Mother Myocardial infarction Surgical History History of laparoscopy History of cardiac catheterization (~2020) History of surgical procedure History of colon surgery H/O hernia repair (04/15/24) Hx of bladder repair surgery H/O: hysterectomy History of tubal ligation History of cholecystectomy H/O breast surgery Social History household members: none housing: house current occupational status: employed 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 [email or web address] Smoking Status: Never smoker Electronic Cigarette Use: not used alcohol intake: never substance use type: does not use what type of physical activity do you participate in: none seatbelt use: always do you feel safe at home: Yes ROS ROS ED ROS Narrative Constitutional: Denies any fevers, chills, headaches, lightness, dizziness Eyes: Denies change in vision double vision blurry vision Cardiovascular: Denies chest pain Neurological: Denies numbness, weakness, tingling Musculoskeletal: Complains of left foot and ankle pain as noted above Skin: Complains of bruising to the foot as noted above EXAM Physical Exam Narrative Exam Narrative: General: Patient lying in bed rest comfortably did not appear to be in acute distress Head: Atraumatic, normocephalic Eyes: PERRL bilaterally, EOMI bilaterally, no conjunctival injection noted Neck: Soft, supple, trachea midline Cardiovascular: Regular rate and rhythm Respiratory: Clear to auscultation bilaterally Musculoskeletal: Patient has tenderness to palpation to the dorsal aspect of her left foot as well as over the lateral malleolus Extremities: DP pulses +2/4 in the bilateral extremities, +5/5 strength noted in the bilateral upper extremities as well as right lower extremity and +4/5 strength noted in left lower extremity secondary to pain Neurological: Patient follow commands knew that she was at [facility] year is 2024. Sensation grossly intact in the bilateral lower extremities Skin: Mood affect appropriate Const Vital Signs: 11/04/24 18:32 11/04/24 20:32 Temperature 98 F Temperature Source Temporal Pulse Rate 95 89 Respiratory Rate 14 Blood Pressure 146/83 H 147/102 H Blood Pressure Mean 104 117 Pulse Ox 94 Oxygen Delivery Method Room Air MDM MDM MDM Narrative Medical decision making narrative: Patient is a 79-year-old female who presented to the emerged part with chief complaint of left foot and ankle pain after mechanical fall while her sock caught on the rug. On the differential diagnose includes Melamin to metatarsal fracture, medial malleolus fracture, lateral malleolus fracture, sprain. Once workup is obtained reviewed she will be reevaluated. Patient states she does not anything for pain Patient's foot x-ray on the left side was reviewed showed a proximal fifth metatarsal fracture that is mildly displaced. Patient's x-ray of her ankle reviewed and showed no acute fracture dislocation Did discuss the results with the patient and she would like some Tylenol before she leaves. She be placed in a postop shoe and will be given crutches. She was encouraged to follow-up with Dr. Scales in the outpatient setting and they are advised to call Thursday for an appointment. They are encouraged return with worsening symptoms or concerns. She does not want any narcotics. All question concerns answered she is discharged home in stable condition. Radiography Diagnostic Testing: Clinical Impression(s) from Imaging Studies Ankle X-Ray 11/04/24 19:50 IMPRESSION: Proximal 5th metatarsal fracture. Reading Location: [facility] Foot X-Ray 11/04/24 19:50 IMPRESSION: Proximal 5th metatarsal fracture. Reading Location: [facility] Discharge Plan Triage Chief Complaint: Lower Extremity Injury ED Provider: Arnold Reich Dx/Rx/DC Orders Clinical Impression: Closed fracture of fifth metatarsal bone Prescriptions: No Action Zyrtec 10 mg capsule 10 mg PO DAILY PRN (Reason: allergy symptoms) acetaminophen-codeine 300-30 mg tablet 1 - 2 tab PO Q6H PRN (Reason: pain) 3 Days Qty: 14 0RF alprazolam 0.25 mg tablet 0.25 mg PO BID PRN (Reason: anxiety) Qty: 10 0RF Primary Care Provider: Rebecca Menezes Referrals: Rebecca Menezes MD [Primary Care Provider] - Jordi Scales DPM [Med Staff - Courtesy Staff] - Activity Restrictions/Additional Instructions: Ice, elevate, rotate Tylenol and ibuprofen [id number]. Wear postop shoe and use crutches. Follow-up with the foot and ankle doctor you referred to. Return for symptoms and concerns. Print Language: Slovenian Disposition Disposition: Home, Self Care
[2024-11-04 20:32] VITALS: BP 147/102; PULSE 89
[2024-11-04] MEDS: Acetaminophen 500 MG Tablet 1000 MG PO (21:13)
== END 2024-11-04 21:31 | disposition home or self-care (01) ==
PROVIDERS: Emergency Provider Emergency Medicine; PCP Internal Medicine; Visit Provider Emergency Medicine
DX: S92.352A Displaced fracture of fifth metatarsal bone, left foot, initial encounter for closed fracture (principal); W18.09XA Striking against other object with subsequent fall, initial encounter; F41.9 Anxiety disorder, unspecified
CPT/HCPCS: 73610; 73630; 99285

== ENCOUNTER → 2025-01-16 | Outpatient (CLI) | payer MEDICARE, SELFPAY ==
[2025-01-16 12:40] LABS: Absolute Lymphocyte Count 2.99 X10^3/uL (0.83-4.51); Basophil# 0.06 X10^3/uL; Basophil% 0.9 % (0-1); Eosinophil# 0.28 X10^3/uL; Eosinophils% 4.1 % (0-5); Lymphocyte # 2.99 X10^3/ul (0.83-4.51); Lymphocyte % 43.5 % (19-41); Mean Corp Hgb Conc 32.6 g/dL (32-36); Mean Corpuscular Hgb 29.6 pg (27.0-32.0); Mean Corpuscular Volume 90.9 fL (81-99); Mean Platelet Vol. 9.2 fl (6.2-12.0); Monocyte# 0.56 X10^3/uL; Monocyte% 8.2 % (0-10); NRBC Flagged by Analyzer 0 % (0-5); Neutrophil # 2.96 X10^3/uL (2.7-7.7); Platelet Count 290 K/mm3 (150-450); RBC Distribution Width CV 13.1 % (11.6-14.6); RBC Distribution Width SD 44.2 fl (35.1-43.9); Red Blood Count 4.73 M/mm3 (4.2-5.4); White Blood Count 6.9 K/mm3 (4.4-11.0)
[2025-01-16 13:44] LABS: ALB/GLOB Ratio 1.4 RATIO (0.9-2.4); AST(SGOT) 19 U/L (<=31); Alanine Aminotransfer ALT/SGPT 9 U/L (<=34); Albumin, Serum 4.3 g/dL (3.4-4.8); Alkaline Phosphatase 86 U/L (35-104); Anion Gap 11 (5-15); BUN 17 mg/dL (4-19); BUN/Creat Ratio 19.9 RATIO (10-20); Calcium,Total 9.6 mg/dL (7.6-11.0); Chloride 104 mmol/L (98-108); Cholesterol 185 mg/dL (<=200); Creatinine, Serum 0.84 mg/dL (0.70-1.20); EST Glomerular Filtration Rate 70 (>60); Glucose 94 mg/dL (70-99); High Density Lipoprotein 48 mg/dL; Low Density Lipoprotein Calc. 108 mg/dL; Potassium 4.4 mmol/L (3.3-5.1); Protein, Total 7.2 g/dL (5.9-8.4); Sodium Level 138 mmol/L (133-145); Total Bilirubin 0.74 mg/dL (0.00-1.30); Triglycerides 149 mg/dL; Very Low Density Lipoprotein 30 mg/dL (5-40); Vitamin B12 273 pg/mL (180-914); Vitamin D,25 Hydroxy 20.5 ng/mL (30-100); cholesterol:hdl ratio screen 3.89
== END | disposition home or self-care (01) ==
LOC: BIMLAB 09:29
PROVIDERS: PCP Internal Medicine; Referring Provider Internal Medicine; Visit Provider Internal Medicine
DX: Z13.6 Encounter for screening for cardiovascular disorders (principal); R06.02 Shortness of breath; E55.9 Vitamin D deficiency, unspecified; R53.83 Other fatigue
CPT/HCPCS: 36415; 80053; 80061; 82306; 82607; 85025

== ENCOUNTER 2025-02-02 04:31 | Emergency (ER) | payer MEDICARE, SELFPAY ==
[2025-02-02 04:34] VITALS: BP 127/69; PULSE 95; RESP 18; TEMP 37.1; O2SAT 93; BMI 26.6
--- NOTE | 2025-02-02 04:43 | EKG12_ITS ---
Test Reason : CP Blood Pressure : */* mmHG Vent. Rate : 96 BPM Atrial Rate : 96 BPM P-R Int : 144 ms QRS Dur : 84 ms QT Int : 364 ms P-R-T Axes : 60 3 48 degrees QTcB Int : 459 ms Normal sinus rhythm Confirmed by Demetri Torres ([id number]), editor farm journal JOLANTA CARRION ([id number]) on 02/03/2025 12:18:43 PM Referred By: Confirmed By: Demetri Torres
--- NOTE | 2025-02-02 04:45 | EDS_ITS ---
HPI History of Present Illness Chief Complaint: Chest Pain Informant: patient, family and EMS Narrative Narrative: Fairly healthy 79-year-old female presenting with left-sided pleuritic chest discomfort. She states it is not sharp or tearing or pressure or heavy or dull but it is significant. She feels a little bit in the left upper back and the left shoulder but not down her arm or into her jaw/neck. A little dyspneic, no cough or fevers, no palpitations, no near-syncope or syncope. No GI symptoms. No sweats. She broke her foot in October and was laid up for a while but it is doing better now, she denies having any unilateral calf pain or edema or history of DVT/PE. Family states she has been belching a lot all night. This has been going on now for about 8 hours, constantly. She does not have a history of heart problems except for some EKGs that showed a mild heart attack, she actually has a nuclear stress test scheduled for this coming Thursday less than [address] away[address] [facility] Medical History (Updated 02/02/25 @ 07:[address] Mehran Bravo MD) Recurrent incisional hernia Abdominal pain Wears hearing aid Loss of hearing Wears glasses Wears dentures Post-menopausal Anxiety Arthritis Non-smoker Leg cramps History of stress test (~2020) Skin cancer IBS (irritable bowel syndrome) Hearing problem Gallstone Emotional problems Breast lump Back problem Crushing injury of right foot, initial encounter Precancerous polyps Home Medications ?Medication ?Instructions ?Recorded ?Last Taken ?Type cetirizine 10 mg capsule (Zyrtec) 10 mg PO DAILY PRN a llergy symptoms 02/03/24 04/14/24 History Allergy/AdvReac Type Severity Reaction Status Date / Time prednisone Allergy Severe deathly Verified 02/02/25 04:33 sick hydrocodone bitartrate (From AdvReac Other Verified 02/02/25 04:33 Vicodin) oxycodone AdvReac Itching Verified 02/02/25 04:33 Family History Father Alcohol abuse Respiratory disease Emphysema Brother Colon cancer Sister CVA (cerebral vascular accident) Mother Myocardial infarction Surgical History History of laparoscopy History of cardiac catheterization (~2020) History of surgical procedure History of colon surgery H/O hernia repair (04/15/24) Hx of bladder repair surgery H/O: hysterectomy History of tubal ligation History of cholecystectomy H/O breast surgery Social History household members: none housing: house current occupational status: retired Smoking Status: Never smoker Electronic Cigarette Use: not used alcohol intake: never substance use type: does not use what type of physical activity do you participate in: none seatbelt use: always do you feel safe at home: Yes ROS ROS ED Constitutional Constitutional ED: Denies chills, fever(s) or sweats Eyes Eyes: Denies change in vision or diplopia ENT ENT ED: Denies rhinorrhea or sore throat Cardiovascular Cardiovascular: Reports chest pain; Denies palpitations Respiratory/Chest Respiratory/Chest: Reports dyspnea; Denies cough Gastrointestinal Gastrointestinal: Denies abdominal pain, diarrhea, nausea or vomiting Genitourinary Genitourinary ED: Denies dysuria or hematuria Musculoskeletal Musculoskeletal: Denies back pain or neck pain Integumentary Denies abscess or rash Neurologic Neurologic: Denies headache(s), paresthesias or weakness Psychiatric Psychiatric: Denies anxiety or suicidal thoughts EXAM Physical Exam Const Vital Signs: 02/02/25 04:34 02/02/25 04:34 02/02/25 04:50 Temperature 98.7 F Temperature Source Oral Pulse Rate 95 Respiratory Rate 18 Respiratory Effort Normal Blood Pressure 127/69 H Blood Pressure Mean 88 Pulse Ox 93 92 Oxygen Delivery Method Room Air Room Air 02/02/25 05:30 02/02/25 06:00 02/02/25 07:00 Temperature Temperature Source Pulse Rate 94 89 89 Respiratory Rate 16 16 18 Respiratory Effort Blood Pressure 116/76 113/45 L 123/79 H Blood Pressure Mean 89 67 93 Pulse Ox 91 94 98 Oxygen Delivery Method Room Air Room Air Positive well nourished and well developed General Appearance ED: well developed and NAD HEENT Reports moist mucous membranes normocephalic and atraumatic Eyes PERRL and EOMs intact bilaterally Neck full ROM and supple Chest Wall Chest Narrative: Left chest is very tender, no crepitance or subcutaneous emphysema or palpable step-off, the tenderness is diffuse and from the sternum all the way into the axillary region. Resp normal respiratory effort and clear to auscultation bilaterally Resp Narrative: Breath sounds are equal bilaterally. Cardio regular rate, regular rhythm and no murmurs GI non-tender and non-distended Auscultation: normoactive bowel sounds Palpation: soft Back/Spine no CVA tenderness General Back: other FROM Extremity normal to inspection Extremity Narrative: No calf tenderness or palpable cords. General Extremety ED: Negative for edema, pulses abnormal or tenderness General Extremity: Negative for edema or pulses abnormal Neuro oriented x3, CN's II-XII intact bilaterally and no sensory deficits noted Sensorium / Orientation: awake and alert Motor Exam: strength 5/5 throughout Skin no rashes or lesions noted and no wounds Heart Score History: Slightly/Non-Suspicious ECG: Normal Age: >/= 65 years Risk Factors: No Risk Factors Score: 2 MDM MDM MDM Narrative Medical decision making narrative: EMS did 3 prehospital EKGs all of which were transmitted and reviewed by myself and normal. Her EKG here is normal. Her troponin also was normal. The rest of her labs are unremarkable except for D-dimer which is elevated at 0.99, and prior to that returning her 1 view chest x-ray on my interpretation is normal. Given her abnormal D-dimer, I sent her for CT angiography, I reviewed the images and report which I agree with, it is essentially unremarkable except for a small hiatal hernia. No pulmonary embolus. On reexamination after the patient was given Toradol 15 mg she feels much better. Given her exam and this response, this suggest chest wall etiology although she had no reason to have that. I asked her if she had done any heavy lifting or repetitive movements earlier in the day or during the time of the onset and she has not. Pleurisy in the differential as well. Given that she is doing much better vital signs are normal with blood pressure 123/79 and her ancillaries are all normal comfortable with her being discharged home with close outpatient follow-up as scheduled. She is as well. She declined prescription analgesics. Lab Data Attestation: I reviewed the patient's lab results. Labs: Laboratory Results - last 24 hr 02/02/25 04:52 WBC 9.7 RBC 4.54 Hgb 13.6 Hct 39.5 MCV 87.0 MCH 30.0 MCHC 34.4 RDW Std Deviation 40.6 RDW Coeff of [place] 12.7 Plt Count 256 MPV 8.6 Immature Gran % (Auto) 0.300 Neut % (Auto) 57.8 Lymph % (Auto) 32.6 [place] % (Auto) 7.5 Eos % (Auto) 1.3 Baso % (Auto) 0.5 Absolute Neuts (auto) 5.6 Absolute Lymphs (auto) 3.16 Nucleated RBC % 0 D-Dimer Quant (PE/DVT) 0.99 H* Sodium 137 Potassium 4.2 Chloride 104 Carbon Dioxide 23.6 Anion Gap 9 BUN 15 Creatinine 0.98 Estim Creat Clear Calc 49.79 L Est GFR (MDRD) Non-Af 58 L BUN/Creatinine Ratio 15.0 Glucose 99 Calcium 9.0 Troponin T High Sens 11 Radiography Diagnostic Testing: Clinical Impression(s) from Imaging Studies Chest X-Ray 02/02/25 05:00 IMPRESSION: No evidence of acute disease. Reading Location: [id number] Chest CTA 02/02/25 05:22 IMPRESSION: No focal infiltrate or consolidation is seen within the lungs. No evidence of pulmonary embolism. Small hiatal hernia. Reading Location: [id number] Rhythm Strip Rhythm Strip: Sinus Rhythm Rate: 96 Ectopy: None EKG Initial EKG: Attestation: I personally reviewed and interpreted this EKG as follows: Interpretation: Sinus Rhythm and No Acute Injury Pattern Comments: Nml axis & intervals; nml EKG Discharge Plan Triage Chief Complaint: Chest Pain ED Provider: Mehran Bravo Dx/Rx/DC Orders Clinical Impression: Left-sided chest pain Instructions: ED Chest Pain, Noncardiac, ED Pleurisy Prescriptions: No Action Zyrtec 10 mg capsule 10 mg PO DAILY PRN (Reason: allergy symptoms) Primary Care Provider: Rebecca Menezes Referrals: Rebecca Menezes MD [Primary Care Provider] - 1 Week if not improving (and follow up for your scheduled nuclear stress) Print Language: Japanese Disposition Disposition: Home, Self Care
[2025-02-02 04:50] VITALS: O2SAT 92
[2025-02-02] MEDS: Ketorolac 15 MG/ML Vial IV (04:50)
[2025-02-02 04:59] LABS: Absolute Lymphocyte Count 3.16 X10^3/uL (0.83-4.51); Absolute Neutrophil Count 5.6 X10^3/uL (2.0-7.7); Basophil# 0.05 X10^3/uL; Basophil% 0.5 % (0-1); Eosinophil# 0.13 X10^3/uL; Eosinophils% 1.3 % (0-5); Hematocrit 39.5 % (37-47); Hemoglobin 13.6 g/dL (12.0-15.0); Lymphocyte # 3.16 X10^3/ul (0.83-4.51); Lymphocyte % 32.6 % (19-41); Mean Corp Hgb Conc 34.4 g/dL (32-36); Mean Platelet Vol. 8.6 fl (6.2-12.0); Monocyte# 0.73 X10^3/uL; Monocyte% 7.5 % (0-10); NRBC Flagged by Analyzer 0 % (0-5); Neutrophil % 57.8 % (47-70); Platelet Count 256 K/mm3 (150-450); RBC Distribution Width CV 12.7 % (11.6-14.6); RBC Distribution Width SD 40.6 fl (35.1-43.9); Red Blood Count 4.54 M/mm3 (4.2-5.4); White Blood Count 9.7 K/mm3 (4.4-11.0)
--- NOTE | 2025-02-02 05:00 | RAD_ITS ---
PROCEDURE: CHEST 1 VIEW (PORTABLE) 02/02/2025 REASON FOR EXAM: CHEST PAIN TECHNIQUE: Frontal view of the chest. COMPARISON: 11/29/2020 FINDINGS: The lungs appear clear. Pulmonary vascularity appears within limits. No evidence of pleural effusion. The cardiac and mediastinal contours appear within limits. Surgical clips noted right upper quadrant. RAD/Chest 1 View (Portable) IMPRESSION: No evidence of acute disease. Reading Location: [id number]
[2025-02-02 05:20] LABS: D-Dimer Quantitative (DVT/PE) 0.99 FEU/ug/m (0.27-0.49)
[2025-02-02 05:21] LABS: Anion Gap 9 (5-15); BUN 15 mg/dL (4-19); Carbon Dioxide 23.6 mmol/L (21.0-32.0); Chloride 104 mmol/L (98-108); Creatinine, Serum 0.98 mg/dL (0.70-1.20); EST Glomerular Filtration Rate 58 (>60); Estimated Creatinine Clearance 49.79 ml/min (50-250); Glucose 99 mg/dL (70-99); Potassium 4.2 mmol/L (3.3-5.1); Sodium Level 137 mmol/L (133-145); Troponin T High Sensitivity 11 ng/L (<=14)
--- NOTE | 2025-02-02 05:22 | CT_ITS ---
PROCEDURE: CTA CHEST W/WO CONTRAST 02/02/2025 REASON FOR EXAM: LEFT PLEURITIC CHEST PAIN, ELEVATED D-DIMER TECHNIQUE: CTA axial imaging of the chest with intravenous contrast. Multiplanar and multisequence images were obtained. PATIENT PREPARATION: Per protocol CONTRAST: Yes. One or more dose reduction techniques were used (e.g., Automated exposure control, adjustment of the mA and/or kV according to patient size, use of iterative reconstruction technique). RADIATION DOSE SUMMARY: CTDlvol: 12.8 mGy DLP: 353 mGycm . COMPARISON: Chest x-ray dated 02/02/2025. FINDINGS: The trachea and central bronchial tree are patent. There is no pleural or pericardial effusion. The heart is normal in size. The pulmonary arteries are normal in size and caliber. There is no filling defects to suggest pulmonary arterial embolism. The thoracic aorta is without evidence of aneurysmal dilatation. No focal consolidation is seen within the lungs. Dependent changes are present at the lung bases. No acute osseous abnormality seen. Small hiatal hernia is present. CT/CTA Chest W/WO Contrast IMPRESSION: No focal infiltrate or consolidation is seen within the lungs. No evidence of pulmonary embolism. Small hiatal hernia. Reading Location: [id number]
[2025-02-02 05:30] VITALS: BP 116/76; PULSE 94; RESP 16; O2SAT 91
[2025-02-02 06:00] VITALS: BP 113/45; PULSE 89; RESP 16; O2SAT 94
[2025-02-02 07:00] VITALS: BP 123/79; PULSE 89; RESP 18; O2SAT 98
[2025-02-02 07:23] LABS: Troponin T High Sens 2 HR 15 ng/L (<=14)
[2025-02-02 07:41] VITALS: BP 110/76; PULSE 64; RESP 18; TEMP 36.6; O2SAT 97
== END 2025-02-02 07:41 | disposition home or self-care (01) ==
PROVIDERS: Emergency Provider Emergency Medicine; PCP Internal Medicine; Visit Provider Emergency Medicine
DX: R07.89 Other chest pain (principal); K44.9 Diaphragmatic hernia without obstruction or gangrene
CPT/HCPCS: 71045; 71275; 80048; 84484; 85025; 85379; 93005; 96374; 99285; Q9967; A4216

== ENCOUNTER → 2025-02-06 | Outpatient (CLI) | payer MEDICARE, SELFPAY ==
--- NOTE | 2025-02-06 16:38 | STRESSREP ---
Stress Test Report Pharmacologic myocardial perfusion stress test. 79-year-old lady with a history of chest pain Resting EKG demonstrates sinus rhythm with premature ventricular complex with a rate of 89 bpm. Resting blood pressure is 118/64 mmHg. 0.4 mg of regadenoson was infused per usual protocol followed by rapid intravenous saline flush injection. Continuous EKG monitoring was performed. The maximum heart rate was 106 bpm which was 75% of max impacted heart rate the maximum workload was 1 metabolic equivalent. At rest there were no ST or T wave changes noted to suggest ischemia and at peak infusion nonspecific ST changes were noted which did not meet the criteria for ischemia. No clinical angina is noted. The final blood pressure was 108/64 mmHg. Myocardial perfusion protocol. 12 point mCi of technetium 99m sestamibi was injected at rest. 0.4 mg of regadenoson was infused per usual protocol. At peak infusion 36.8 mCi of technetium 99m sestamibi was injected stress images were obtained stress and rest images were reconstructed and compared in the short axis vertical long and horizontal long axis. Gated images were also obtained. Perfusion SPECT analysis: Review of the stress images demonstrate normal uptake of tracer noted in all areas of the myocardium. The resting images similar demonstrated normal uptake of tracer noted in all areas of the myocardium. No areas of reversibility are noted to suggest ischemia and no previous infarct is noted. Gated SPECT analysis: The gated ejection fraction is 72%. Conclusion: Normal pharmacologic myocardial perfusion stress test. Preserved ejection fraction.
== END | disposition home or self-care (01) ==
PROVIDERS: PCP Internal Medicine; Referring Provider Internal Medicine; Visit Provider Internal Medicine
DX: R06.02 Shortness of breath (principal)
CPT/HCPCS: 78452; 93017; A9500; A4216

== ENCOUNTER → 2025-02-09 | Outpatient (CLI) | payer MEDICARE, SELFPAY ==
[2025-02-09 15:46] LABS: Iron 49 ug/dL (50-170); Iron Binding Capacity,Unsat 158 ug/dL (228-428); Magnesium 2.2 mg/dL (1.5-2.2)
[2025-02-09 15:58] LABS: Iron Binding Capacity,Total 207 ug/dL (250-450)
== END | disposition home or self-care (01) ==
LOC: BIMLAB 13:28
PROVIDERS: PCP Internal Medicine; Referring Provider Physician Assistant; Visit Provider Physician Assistant
DX: R53.83 Other fatigue (principal)
CPT/HCPCS: 36415; 83540; 83550; 83735; 84443

== ENCOUNTER → 2025-04-03 | Outpatient (CLI) | payer MEDICARE, SELFPAY | END | disposition home or self-care (01) | LOC: LABSPEC 12:25 | PROVIDERS: PCP Internal Medicine; Referring Provider Physician Assistant Medical; Visit Provider Physician Assistant Medical | DX: R82.90 Unspecified abnormal findings in urine (principal) | CPT/HCPCS: 87077; 87086; 87088; 87186 ==

== ENCOUNTER → 2025-06-19 | Outpatient (CLI) | payer MEDICARE, SELFPAY ==
[2025-06-19 14:22] LABS: Mucous, Urine 0 SEEN /hpf (<or=2+); Squamous Epithelial Cells - UA 0 SEEN /hpf (5-10)
[2025-06-19 15:47] LABS: Hematocrit 40.3 % (37-47); Hemoglobin 13.3 g/dL (12.0-15.0); Immature Granulocytes Count 0.020 X10^3/uL (0.0-0.0); Mean Corp Hgb Conc 33.0 g/dL (32-36); Mean Corpuscular Volume 88.2 fL (81-99); Mean Platelet Vol. 9.2 fl (6.2-12.0); NRBC Flagged by Analyzer 0 % (0-5); Platelet Count 289 K/mm3 (150-450); RBC Distribution Width CV 13.7 % (11.6-14.6); RBC Distribution Width SD 44.2 fl (35.1-43.9); Red Blood Count 4.57 M/mm3 (4.2-5.4); White Blood Count 7.5 K/mm3 (4.4-11.0)
[2025-06-19 16:59] LABS: Vitamin D,25 Hydroxy 61.2 ng/mL (30-100)
[2025-06-19 17:00] LABS: AST(SGOT) 20 U/L (<=31); Alanine Aminotransfer ALT/SGPT 9 U/L (<=34); Albumin, Serum 3.9 g/dL (3.4-4.8); Alkaline Phosphatase 91 U/L (35-104); Anion Gap 13 (5-15); BUN 21 mg/dL (4-19); BUN/Creat Ratio 21.9 RATIO (10-20); Calcium,Total 9.7 mg/dL (7.6-11.0); Carbon Dioxide 21.7 mmol/L (21.0-32.0); Chloride 105 mmol/L (98-108); Globulin 3.1 g/dL (2.2-4.2); Glucose 85 mg/dL (70-99); Potassium 4.4 mmol/L (3.3-5.1)
[2025-06-19 19:06] LABS: Color, Urine Straw (Yellow); Glucose, Dipstick Normal (Normal); Ketone-Dipstick Negative (Negative); Leukocyte Esterase-Dipstick 500 /ul (Negative); Nitrite-Dipstick Positive (Negative); Occult Blood-Urine 50 /ul (Negative); Protein-Dipstick 30 mg/dl (Negative); Specific Gravity, Urine 1.020 (1.002-1.030); Urine Bilirubin Dipstick Negative (Negative)
[2025-06-19 20:15] LABS: Red Blood Cells-Urine 5-10 SEEN /hpf (0-5)
== END | disposition home or self-care (01) ==
LOC: LAB 14:17
PROVIDERS: PCP Internal Medicine; Referring Provider Internal Medicine; Visit Provider Internal Medicine
DX: R10.2 Pelvic and perineal pain (principal); E55.9 Vitamin D deficiency, unspecified
CPT/HCPCS: 36415; 80053; 81001; 82306; 85025; 87077; 87086; 87088; 87186

== ENCOUNTER 2025-09-01 16:42 | Emergency (ER) | payer MEDICARE, SELFPAY ==
[2025-09-01 16:44] VITALS: BP 128/84; PULSE 106; RESP 18; TEMP 36.5; O2SAT 93; BMI 26.5
--- OUTSIDE RECORDS SUMMARY | 2025-09-01 17:37 | XMS RPT_ITS | CCD ---
Author Organization [facility] Care Team Providers Care Academic Support Director Name Role Phone Magdalene Hutton Unavailable Unavailable Abdullahi SIDDIQUI, Sj Arnold Unavailable Jorge Crowley DO Primary Care Provider [phone] JORGE CROWLEY Primary Care Unavailable STEFANIA VICTOR Referring Unavailable JORGE CROWLEY Primary Care Unavailable Jorge Crowley DO Primary Care Provider Oh Avendaño MD Primary Care Provider Dr. Rebecca Menezes MD Primary Care Provider [phone] Dr. Arnold Reich DO Attending Provider Dr. Arnold Reich DO Emergency Provider Dr. Rebecca Menezes MD Attending Provider Dr. Rebecca Menezes MD Referring Provider Dr. Mehran Bravo MD Emergency Provider Dr. Mehran Bravo MD Attending Provider Riri SIDDIQUI, Dr. Fernandez Other Provider Luís SIDDIQUI, Dr. Ledesma Attending Provider Kashif Reynoso Attending Provider Kashif Reynoso Referring Provider Dr. Rebecca Menezes MD Primary Care Provider Malou Reddy Attending Provider [phone] Malou Reddy Referring Provider [phone] Riri SIDDIQUI, Dr. Fernandez Primary Care Physician [phone] Riri SIDDIQUI, Dr. Fernandez Referring Provider Malou Reddy Attending Physician [phone] Riri SIDDIQUI, Dr. Fernandez Attending Physician Dacono, Rebecca Attending Unavailable Riri, Rebecca Primary Care Unavailable Riri, Rebecca Referring Unavailable Riri, Rebecca Primary Care Unavailable Dacono, Rebecca Referring Unavailable Robotham, Lori Attending Unavailable Dacono, Rebecca Referring Unavailable Dacono, Rebecca Attending Unavailable Riri, Rebecca Primary Care Unavailable Riri, Rebecca Referring Unavailable Dacono, Rebecca Primary Care Unavailable Malou Reddy Attending Unavail able Dacono, Rebecca Referring Unavailable Riri, Rebecca Primary Care Unavailable Kashif Reynoso Attending Unavailable Dacono, Rebecca Consulting Unavailable Riri, Rebecca Referring Unavailable Baltazar Staley Attending Unavailable Riri, Rebecca Primary Care Unavailable Robotham, Lori Consulting Unavailable Dacono, Rebecca Primary Care Unavailable Robotham, Lori Referring Unavailable Robotham, Lori Attending Unavailable Riri, Rebecca Attending Unavailable Dacono, Rebecca Referring Unavailable Dacono, Rebecca Primary Care Unavailable Dacono, Rebecca Referring Unavailable Riri, Rebecca Attending Unavailable Dacono, Rebecca Primary Care Unavailable Dacono, Rebecca Attending Unavailable Dacono, Rebecca Referring Unavailable Dacono, Rebecca Primary Care Unavailable Dacono, Rebecca Primary Care Unavailable Robotham, Lori Referring Unavailable Robotham, Lori Attending Unavailable Riri, Rebecca Primary Care Unavailable Arnold Reich Attending Unavailable Mehran Bravo Attending Unavailable Riri, Rebecca Primary Care Unavailable Riri, Rebecca Primary Care Unavailable Riri, Rebecca Referring Unavailable Riri, Rebecca Attending Unavailable Dacono, Rebecca Primary Care Unavailable Malou Reddy Referring Unavail able Malou Reddy Attending Unavail able Kashif Reynoso Attending Unavailable Dacono, Rebecca Primary Care Unavailable Kashif Reynoso Referring Unavailable Rebecca Menezes Primary Care Unavailable Rebecca Menezes Referring Unavailable Lori Mart Attending Unavailable Allergies Allergy Classification Reported Allergen(s) Allergy Type Date of Onset Reaction(s) Facility (2 sources) acetaminophen / HYDROcodone Drug Allergy 7 mental status change [facility] Work Phone: (2 sources) meperidine Drug Allergy 7 hives [facility] Work Phone: (15 sources) HYDROcodone; Translations: [hydrocodone bitartrate] Drug Allergy 9 Other [facility] (14 sources) oxyCODONE Drug Allergy 9 Itching [facility] (14 sources) predniSONE Drug Allergy 9 deathly sick [facility] (4 sources) Acetaminophen / HYDROcodone; Translations: [HYDROCODONE-ACET AMINOPHEN] Drug Allergy 3 GI Upset [facility] (4 sources) Acetaminophen / oxyCODONE; Translations: [OXYCODONE-ACETAM INOPHEN] Drug Allergy 3 GI Upset [facility] (4 sources) Meperidine; Translations: [MEPERIDINE (PF)] Drug Allergy 3 Hives, Itching [facility] (1 source) oxyCODONE Drug Allergy 5 [facility] (1 source) predniSONE Drug Allergy 5 [facility] Medications Current Medications Medication Drug Class(es) Dates Sig (Normalized) Sig (Original) acetaminophen 325 mg oral tablet (3 sources) take 2 tablets by mouth every six hours as needed acetaminophen (TYLENOL) 325 mg tablet Take 650 mg by mouth every 6 hours as needed. Active Comment on above: Take 650 mg by mouth every 6 hours as needed. ALPRAZolam 0.25 mg oral tablet (18 sources) Benzodiazepine Start: 06-19-2025 take 1 tablet by mouth once daily as needed for anxiety Start: 02-03-2024 End: 01-16-2025 take 1 tablet by mouth twice daily as needed for anxiety Alprazolam 0.25 mg tablet Discontinued 0.25 mg PO TWICE A DAY as needed for anxiety 10 0 April 11, 2024 4:04pm January 16, 2025 8:22am cetirizine hydrochloride 10 mg oral capsule (10 sources) Histamine-1 Receptor Antagonist Start: 02-03-2024 take 1 capsule by mouth once daily as needed Start: 07-01-2017 ZYRTEC ALLERGY 10 MG CAPS as needed CETIRIZINE HCL [id number] Sj Fernando MD cholecalciferol 1.25 mg oral capsule (14 sources) Vitamin D Start: 02-09-2025 take 1 capsule by mo [facility] every week Start: 02-09-2025 End: 02-09-2025 take 1 capsule by mouth once daily Cholecalciferol (Vitamin D3) 25 mcg (1,000 unit) capsule Discontinued 25 ug PO daily February 09, 2025 12:00am February 09, 2025 1:12pm ibuprofen 200 mg oral tablet (2 sources) Nonsteroidal Anti-inflammatory Drug Start: 06-19-2025 take 1 tablet by mouth every six hours as needed mecobalamin (5 sources) Start: 02-09-2025 Mecobalamin (Vitamin B12) 500 mcg tablet,chewable Active ug PO February 09, 2025 12:00am predniSONE 10 mg oral tablet (2 sources) Start: 09-03-2023 predniSONE (DELTASONE) 10 mg tablet Take 4 tabs daily for 3 days, then 2 tabs daily for 3 days, then 1 tab daily for 3 days with food. 21 tablet 09/03/2023 Active Comment on above: Take 4 tabs daily fo r 3 days, then 2 tabs daily for 3 days, then 1 tab daily for 3 days with food. vitamin b12 0.5 mg chewable tablet (2 sources) Vitamin B12 Start: 02-09-2025 Completed/Discontinued Medications Medication Drug Class(es) Dates Sig (Normalized) Sig (Original) acetaminophen 300 mg / codeine phosphate 30 mg oral tablet (8 sources) Opioid Agonist Start: 08-30-2024 End: 01-16-2025 Acetaminophen-Codeine 300-30 mg tablet Discontinued 1 - 2 {tbl} PO EVERY 6 HOURS as needed for pain 14 3 0 August 30, 2024 1:00am January 16, 2025 8:22am Postoperative pain Other acute postprocedural pain acetaminophen 325 mg / HYDROcodone bitartrate 5 mg oral tablet (20 sources) Opioid Agonist Start: 01-26-2024 End: 02-03-2024 Hydrocodone-Acetamino phen 5-325 mg tablet Discontinued 1 {tbl} PO EVERY 6 HOURS NEEDED as needed for Pain 10 3 January 26, 2024 February 03, 2024 12:45pm Pain of right lower extremity Pain in right leg Start: 01-26-2024 take 1 tablet by todd th every six hours as needed Hydrocodone-Acetaminophen Active 1 TABLE T PO EVERY 6 HOURS NEEDED 10 3 January 26, 2024 Start: 08-07-2013 End: 08-17-2013 Hydrocodone-Acetaminophen 1 TABLET tablet Discontinued 1 - 2 {tbl} PO EVERY 4 HOURS NEEDED as needed for Pain 15 August 07, 2013 1:00am August 17, 2013 1:44pm Start: 08-07-2013 End: 08-17-2013 take 1 tablet by mouth every four hours as needed Hydrocodone-Acetaminophen Discontinued 1 - 2 TABLET PO EVERY 4 HOURS NEEDED 15 August 07, 2013 1:00am August 17, 2013 1:44pm amLODIPine 5 mg oral tablet (14 sources) Dihydropyridine Calcium Channel Phoebe Start: 11-29-2020 End: 02-03-2024 take 1 tablet by mouth once daily Amlodipine 5 MG tablet Discontinued 5 mg PO DAILY 30 November 29, 2020 1:00am February 03, 2024 12:45pm amoxicillin 875 mg / clavulanate 125 mg oral tablet (2 sources) Penicillin-class Antibacterial Start: 09-03-2023 End: 09-13-2023 take 1 tablet by mouth twice daily amoxicillin-clavula gela potassium (AUGMENTIN) 875-125 mg per tablet Take 1 tablet by mouth two times a day for 10 days. 20 tablet 09/03/2023 09/13/2023 Comment on above: Take 1 tablet by todd th two times a day for 10 days. cefdinir 300 mg oral capsule (3 sources) Cephalosporin Antibacterial Start: 04-06-2025 End: 04-13-2025 take 1 capsule by mouth twice daily Cefdinir 300 mg capsule Discontinued 300 mg PO TWICE A DAY 14 7 0 April 06, 2025 12:00am April 12, 2025 12:00am April 13, 2025 12:08am ciprofloxacin 500 mg oral tablet (14 sources) Quinolone Antimicrobial Start: 12-17-2017 End: 03-10-2019 take 1 tablet by mouth twice daily Ciprofloxacin Hcl 500 MG tablet Discontinued 500 mg PO TWICE A DAY 20 0 December 17, 2017 12:00am March 10, 2019 10:49am 0.8 ml enoxaparin sodium 100 mg/ml prefilled syringe (14 sources) Low Molecular Weight Heparin Start: 08-20-2013 End: 09-29-2013 Enoxaparin 80 MG/0.8 ML syringe Discontinued 70 mg SC Q12@0600,1800 16 0 August 20, 2013 1:00am September 29, 2013 2:25pm nitrofurantoin, macrocrystals 25 mg / nitrofurantoin, monohydrate 75 mg oral capsule (6 sources) Nitrofuran Antibacterial Start: 06-20-2025 End: 06-25-2025 take 1 capsule by mouth every twelve hours at mealtime Nitrofurantoin Monohyd/M-Cryst (Macrobid) 100 mg capsule Discontinued 100 mg PO Q12H 10 5 0 June 20, 2025 12:00am June 24, 2025 12:00am June 25, 2025 12:10am must administer with a meal/food Start: 04-03-2025 End: 04-06-2025 take 1 capsule by mouth every twelve hours at mealtime Nitrofurantoin Monohyd/M-Cryst (Macrobid) 100 mg capsule Discontinued 100 mg PO Q12H 10 5 0 April 03, 2025 12:00am April 07, 2025 12:00am April 06, 2025 4:12pm must administer with a meal/food omeprazole 20 mg delayed release oral capsule (2 sources) Proton Pump Inhibitor Start: 07-01-2017 PRILOSEC 20 MG CPDR as needed OMEPRAZOLE [id number] Sj Fernando MD traMADol hydrochloride 50 mg oral tablet (16 sources) Opioid Agonist Start: 08-31-2024 End: 09-03-2024 take 50-100 mg by mouth every six hours as needed for pain Tramadol 50 mg tablet Discontinued 50 - 100 mg PO EVERY 6 HOURS as needed for pain 10 3 0 August 31, 2024 1:00am September 02, 2024 1:00am September 03, 2024 1:16am Postoperative pain Other acute postprocedural pain Start: 04-15-2024 End: 08-24-2024 take 50-100 mg by mouth every six hours as needed for pain Tramadol 50 mg tablet Discontinued 50 - 100 mg PO EVERY 6 HOURS as needed for pain 14 3 0 April 15, 2024 12:00am August 24, 2024 1:43pm Postoperative pain Other acute postprocedural pain warfarin sodium 5 mg oral tablet (14 sources) Vitamin K Antagonist Start: 08-20-2013 End: 09-29-2013 take 1 tablet by mouth once daily Warfarin (Jantoven) 5 MG tablet Discontinued 5 mg PO DAILY@1700 10 0 August 20, 2013 1:00am September 29, 2013 2:27pm Problems Active Problems Problem Classification Problem Date Documented Date Episodic/Chronic Abdominal hernia (8 sources) Incisional hernia without obstruction or gangrene; Translations: [Recurrent incisional hernia] 01-11-2025 Episodic Abdominal pain (20 sources) Abdominal pain; Translations: [Unspecified abdominal pain] Onset: 12-22-2013 12-22-2013 Episodic Anxiety disorders (8 sources) Anxiety; Translations: [Anxiety disorder, unspecified] 01-16-2025 Chronic 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; Translations: [Embolism and thrombosis of unspecified artery] Onset: 10-20-2013 10-20-2013 Chronic Crushing injury or internal injury (14 sources) Crush injury of right foot; Translations: [Crushing injury of right foot, initial encounter] 11-29-2020 Episodic Esophageal disorders (14 sources) Gastroesophageal reflux disease; Translations: [Gastro-esophageal reflux disease without esophagitis] 11-29-2020 Chronic Fracture of lower limb (8 sources) Closed fracture of fifth metatarsal bone; Translations: [Displaced fracture of fifth metatarsal bone, unspecified foot, initial encounter for closed fracture] 11-12-2024 Episodic Nonspecific chest pain (20 sources) Atypical chest pain; Translations: [Other chest pain] Onset: 06-19-2025 11-29-2020 Episodic Nutritional deficiencies (9 sources) Vitamin D deficiency; Translations: [Vitamin D deficiency, unspecified] Onset: 06-19-2025 01-16-2025 Chronic Other bone disease and musculoskeletal deformities (2 sources) Osteopenia; Translations: [Other specified disorders of bone density and structure, unspecified site] 06-19-2025 Episodic Other circulatory disease (9 sources) Elevated blood-pressure reading without diagnosis of hypertension; Translations: [Elevated blood-pressure reading, without diagnosis of hypertension] 01-26-2024 Episodic Other congenital anomalies (3 sources) Congenital anomaly of skin; Translations: [Other specified congenital malformations of skin] Onset: 08-04-2005 08-04-2005 Chronic Other connective tissue disease (9 sources) Pain in lower limb; Translations: [Pain in right leg] 01-26-2024 Episodic Other connective tissue disease (9 sources) Pain in right lower limb; Translations: [Pain in right leg] 01-26-2024 Episodic Other connective tissue disease (1 source) Pain in left foot; Translations: [Pain in left foot] 10-09-2021 Episodic Other lower respiratory disease (2 sources) Cough; Translations: [Acute cough] 09-03-2023 Episodic Other lower respiratory disease (6 sources) Dyspnea; Translations: [Shortness of breath] 01-16-2025 Episodic Other non-epithelial cancer of skin (8 sources) History of malignant neoplasm of skin; Translations: [Personal history of other malignant neoplasm of skin] 01-16-2025 Episodic Other non-traumatic joint disorders (6 sources) Pain in right shoulder; Translations: [Right shoulder pain] 01-16-2025 Episodic Other screening for suspected conditions (not mental disorders or infectious disease) (13 sources) Patient encounter status; Translations: [Encounter for other screening for malignant neoplasm of breast] Onset: 01-20-2025 01-16-2025 Episodic Other upper respiratory infections (1 source) Chronic sinusitis, unspecified; Translations: [Unspecified sinusitis (chronic)] 09-03-2023 Chronic Residual codes; unclassified (8 sources) History of laparoscopy; Translations: [Other specified postprocedural states] 01-11-2025 Episodic Comment on above: Diagnostic Laparosco py/omentum Biopsy/Lysis of Adhesions 08/30/24 Residual codes; unclassified (2 sources) Influenza vaccination declined; Translations: [Immunization not carried out because of patient refusal] 06-19-2025 Episodic Residual codes; unclassified (2 sources) Asymptomatic menopausal state; Translations: [Asymptomatic menopausal state] Onset: 06-19-2025 Episodic Unclassified (1 source) Acute cough; Translations: [Acute cough] Onset: 09-03-2023 Unclassified (6 sources) and follow up for your scheduled nuclear stress Past or Other Problems Problem Classification Problem Date Documented Da te Episodic/Chronic Gastrointestinal hemorrhage (3 sources) Rectal hemorrhage; Translations: [Hemorrhage of anus and rectum] Onset: 03-10-2013 03-10-2013 Episodic Genitourinary symptoms and ill-defined conditions (2 sources) Unspecified abnormal findings in urine; Translations: [Dysuria] Onset: 04-03-2025 Episodic Malaise and fatigue (19 sources) Fatigue; Translations: [Other fatigue] Onset: 02-15-2025 01-16-2025 Episodic Other and unspecified benign neoplasm (7 sources) Personal history of colonic polyps; Translations: [History of polyp of colon] Onset: 03-10-2013 07-01-2017 Episodic Other and unspecified benign neoplasm (3 sources) Polyp of colon; Translations: [Polyp of colon] Onset: 04-27-2013 04-27-2013 Episodic Other injuries and conditions due to external causes (1 source) Unspecified injury of unspecified lower leg, initial encounter; Translations: [Unspecified injury of unspecified lower leg, initial encounter] Onset: 11-19-2024 Episodic Other lower respiratory disease (2 sources) Shortness of breath; Translations: [Shortness of breath] Onset: 02-14-2025 Episodic Residual codes; unclassified (8 sources) History of hernia repair; Translations: [Other specified postprocedural states] Onset: 04-15-2024 01-11-2025 Episodic Comment on above: vnetral/umbilical he rnia repair Unclassified (14 sources) Precancerous polyps 11-29-2020 Comment on above: Status post partial colectomy. Urinary tract infections (9 sources) Urinary tract infectious disease; Translations: [Urinary tract infection, site not specified] Onset: 04-03-2025 04-03-2025 Episodic Results Test Name Value Interpretation Reference Range Facility Urine Cultureon 06-21-2025 [facility] Escherichia coli [place] Count >100,000 Escherichia coli: REACTION Ampicillin Islt MAMIE <=2 Ampicillin+Sulbac Islt MAMIE <=2 S Cefepime Islt MAMIE <=0.12 S cefTRIAXone Islt MAMIE <=0.25 S Ciprofloxacin Islt MAMIE <=0.06 S B-Lactamase Extended Susc Islt NEG Gentamicin Islt MAMIE <=1 S levoFLOXacin Islt MAMIE <=0.12 S Meropenem Islt MAMIE <=0.25 S Nitrofurantoin Islt MAMIE <=16 S Pip+Tazo Islt MAMIE <=4 S TMP SMX Islt MAMIE <=20 S Normal [facility] Comment on above: Performed By: #### L 100.0100, L506.1001, L500.4050, L400.0001, M100.2200 ####[facility] [address] [place], [place], [id number] Absolute lymphocyte countOrd ered By: Rebecca Menezes on 06-19-2025 Lymphocytes Auto (Unsp spec) [#/Vol] 3.60 10*3/uL 0.83-4.51 [facility] Absolute neutrophil countOrd ered By: Rebecca Menezes on 06-19-2025 Neutrophils (Bld) [#/Vol] 3.1 10*3/uL 2.0-7.7 [facility] Anion gap in Serum or Plasma Ordered By: Rebecca Menezes on 06-19-2025 Anion gap [Moles/Vol] 13 mmol/L 5-15 [facility] Automated lymphocyte count a s percentage of total leukocytesOrdered By: Rebecca Menezes on 06-19-2025 Lymphocytes/100 WBC Auto (Unsp spec) 47.8 % High 19-41 [facility] BUN/creatinine ratioOrdered By: Rebecca Menezes on 06-19-2025 Urea nitrogen/Creatinine [Mass ratio] 21.9 mg/mg High 10-20 [facility] Basophil percentageOrdered B y: Rebecca Menezes on 06-19-2025 Basophils/100 WBC (Bld) 0.8 % 0-1 [facility] Bilirubin Test strip Ql (U)O rdered By: Rebecca Menezes on 06-19-2025 Bilirubin Ql (U) Negative Negative [facility] Bilirubin, totalOrdered By: Rebecca Menezes on 06-19-2025 Bilirubin [Mass/Vol] 0.39 mg/dL Normal 0.00-1.30 [place] Comment on above: Performed By: #### L 100.0100, L506.1001, L500.4050, L400.0001, M100.2200 ####[facility] [address] [place], [address] CBC W/Diff, Automatedon 05-30 Absolute Lymph 3.60 X10 3/uL Normal 0.83-4.51 [facility] Comment on above: Performed By: #### L 100.0100, L506.1001, L500.4050, L400.0001, M100.2200 ####[facility] [address] [place], [address] Absolute Neut 3.1 X10 3/uL Normal 2.0-7.7 [facility] Comment on above: Performed By: #### L 100.0100, L506.1001, L500.4050, L400.0001, M100.2200 ####[facility] [address] [place], [address] Basophils/100 WBC (Bld) 0.8 % Normal 0-1 [facility] Comment on above: Performed By: #### L 100.0100, L506.1001, L500.4050, L400.0001, M100.2200 ####[facility] [address] [place], [address] Eosinophils/100 WBC (Bld) 2.5 % Normal 0-5 [facility] Comment on above: Performed By: #### L 100.0100, L506.1001, L500.4050, L400.0001, M100.2200 ####[facility] [address] [place], [address] Erythrocyte distribution width (RBC) [Ratio] 13.7 % Normal 11.6-14.6 [facility] Comment on above: Performed By: #### L 100.0100, L506.1001, L500.4050, L400.0001, M100.2200 ####[facility] [address] [place], [address] Hematocrit (Bld) [Volume fraction] 40.3 % Normal 37-47 [facility] Comment on above: Performed By: #### L 100.0100, L506.1001, L500.4050, L400.0001, M100.2200 ####[facility] [address] [place], [address] Hemoglobin (Bld) [Mass/Vol] 13.3 g/dL Normal 12.0-15.0 [facility] Comment on above: Performed By: #### L 100.0100, L506.1001, L500.4050, L400.0001, M100.2200 ####[facility] [address] [place], [address] IG% 0.300 Normal 0.0-0.9 [facility] Comment on above: Result Comment: IG% - Immature Granulocytes (promyelocytes, myelocytes and metamyelocytes) > 1% indicates that a LEFT SHIFT is Present. Performed By: #### L 100.0100, L506.1001, L500.4050, L400.0001, M100.2200 ####[facility] [address] [place], [address] Lymphocytes/100 WBC (Bld) 47.8 % High 19-41 [facility] Comment on above: Performed By: #### L 100.0100, L506.1001, L500.4050, L400.0001, M100.2200 ####[facility] [address] [place], [address] MCH (RBC) [Entitic mass] 29.1 pg Normal 27.0-32.0 [facility] Comment on above: Performed By: #### L 100.0100, L506.1001, L500.4050, L400.0001, M100.2200 ####[facility] [address] [place], [address] MCHC (RBC) [Mass/Vol] 33.0 g/dL Normal 32-36 [facility] Comment on above: Performed By: #### L 100.0100, L506.1001, L500.4050, L400.0001, M100.2200 ####[facility] [address] [place], [address] MCV (RBC) [Entitic vol] 88.2 fL Normal 81-[address] [facility] Comment on above: Performed By: #### L 100.0100, L506.1001, L500.4050, L400.0001, M100.2200 ####[facility] [address] [place], [address] Monocytes/100 WBC (Bld) 7.7 % Normal 0-[address] [facility] Comment on above: Performed By: #### L 100.0100, L506.1001, L500.4050, L400.0001, M100.2200 ####[facility] [address] [place], [address] Neutrophils/100 WBC (Bld) 40.9 % Low 47-70 [facility] Comment on above: Performed By: #### L 100.0100, L506.1001, L500.4050, L400.0001, M100.2200 ####[facility] [address] [place], [address] Nucleated RBC (Bld) [#/Vol] 0 10*3/uL Normal 0-5 [facility] Comment on above: Performed By: #### L 100.0100, L506.1001, L500.4050, L400.0001, M100.2200 ####[facility] [address] [place], [address] Platelet mean volume (Bld) [Entitic vol] 9.2 fL Normal 6.2-12.0 [facility] Comment on above: Performed By: #### L 100.0100, L506.1001, L500.4050, L400.0001, M100.2200 ####[facility] [address] [place], [address] Platelets (Bld) [#/Vol] 289 10*3/uL Normal 150-450 [facility] Comment on above: Performed By: #### L 100.0100, L506.1001, L500.4050, L400.0001, M100.2200 ####[facility] [address] [place], [address] RBC (Bld) [#/Vol] 4.57 10*6/uL Normal 4.2-5.4 [facility] Comment on above: Performed By: #### L 100.0100, L506.1001, L500.4050, L400.0001, M100.2200 ####[facility] [address] [place], [address] RDW SD 44.2 fl High 35.1-43.9 [facility] Comment on above: Performed By: #### L 100.0100, L506.1001, L500.4050, L400.0001, M100.2200 ####[facility] [address] [place], [address] WBC (Bld) [#/Vol] 7.5 10*3/uL Normal 4.4-11.0 [facility] Comment on above: Performed By: #### L 100.0100, L506.1001, L500.4050, L400.0001, M100.2200 ####[facility] [address] [place], [address] Carbon dioxide, total [Moles /volume] in Central venous bloodOrdered By: Rebecca Menezes on 06-19-2025 CO2 [Moles/Vol] 21.7 mmol/L Normal 21.0-32.0 [facility] Comment on above: Performed By: #### L 100.0100, L506.1001, L500.4050, L400.0001, M100.2200 ####[facility] [address] [place], [address] Chloride assayOrdered By: Al ycia Riri on 06-19-2025 Chloride [Moles/Vol] 105 mmol/L Normal 98-108 [place] Comment on above: Performed By: #### L 100.0100, L506.1001, L500.4050, L400.0001, M100.2200 ####[facility] [address] [place], [address] Comprehensive Metabolic Prof ilon 06-19-2025 ALK PHOS 91 U/L Normal 35-104 [facility] Comment on above: Performed By: #### L 100.0100, L506.1001, L500.4050, L400.0001, M100.2200 ####[facility] [address] [place], [address] BUN/CRE 21.9 RATIO High 10-20 [facility] Comment on above: Performed By: #### L 100.0100, L506.1001, L500.4050, L400.0001, M100.2200 ####[facility] [address] [place], [address] GAP 13 Normal 5-15 [facility] Comment on above: Performed By: #### L 100.0100, L506.1001, L500.4050, L400.0001, M100.2200 ####[facility] [address] [place], [address] Potassium [Moles/Vol] 4.4 mmol/L Normal 3.3-5.1 [facility] Comment on above: Result Comment: Hemo lysis present, Results??could be affected. ?? Performed By: #### L 100.0100, L506.1001, L500.4050, L400.0001, M100.2200 ####[facility] [address] [place], [place], [id number] T PROT 7.0 g/dL Normal 5.9-8.4 [facility] Comment on above: Performed By: #### L 100.0100, L506.1001, L500.4050, L400.0001, M100.2200 ####[facility] [address] [place], [address] Comprehensive Metabolic Prof ilOrdered By: Rebecca Menezes on 06-19-2025 AST [Catalytic activity/Vol] 20 U/L Normal <=31 [facility] Comment on above: Hemolysis present, R esults could be affected. Result Comment: Hemo lysis present, Results??could be affected. ?? Performed By: #### L 100.0100, L506.1001, L500.4050, L400.0001, M100.2200 ####[facility] [address] [place], [place], [address] Eosinophil percentageOrdered By: Rebecca Menezes on 06-19-2025 Eosinophils/100 WBC (Bld) 2.5 % 0-5 [facility] Erythrocyte distribution wid th ratioOrdered By: Rebecca Menezes on 06-19-2025 Erythrocyte distribution width (RBC) [Ratio] 13.7 % 11.6-14.6 [facility] Erythrocyte distribution wid th standard deviationOrdered By: Rebecca Menezes on 06-19-2025 Erythrocyte distribution width (RBC) [Ratio] 44.2 fl High 35.1-43.9 [facility] Glomerular filtration rate ( GFR) estimation/1.73 sq m using serum, plasma, or whole bOrdered By: Rebecca Menezes on 06-19-2025 GFR/1.73 sq M.predicted among non-blacks MDRD (S/P/Bld) [Vol rate/Area] 60 mL/min/{1.73_m2} Normal >60 [facility] Comment on above: mL/min/1.73m2 CKD-EP I Creatinine Equation (2020) Result Comment: mL/m in/1.73m2 CKD-EPI Creatinine Equation (2020) Performed By: #### L 100.0100, L506.1001, L500.4050, L400.0001, M100.2200 ####[facility] [address] [place], [address] Hematocrit Auto (Bld) [Volum e fraction]Ordered By: Rebecca Menezes on 06-19-2025 Hematocrit (Bld) [Volume fraction] 40.3 % 37-47 [facility] Hemoglobin measurementOrdere d By: Rebecca Menezes on 06-19-2025 Hemoglobin (Bld) [Mass/Vol] 13.3 g/dL 12.0-15.0 [facility] Immature granulocytes/100 WB C Auto (Bld)Ordered By: Rebecca Menezes on 06-19-2025 Immature granulocytes/100 WBC (Bld) 0.300 % 0.0-0.9 [facility] Comment on above: IG% - Immature Granu locytes (promyelocytes, myelocytes and metamyelocytes) > 1% indicates that a LEFT SHIFT is Present. Ketones Test strip Ql (U)Ord ered By: Rebecca Menezes on 06-19-2025 Ketones Ql (U) Negative Negative [facility] MCV (mean corpuscular volume ) determinationOrdered By: Rebecca Menezes on 06-19-2025 MCV (RBC) [Entitic vol] 88.2 fL 81-99 [facility] Mean corpuscular hemoglobin (MCH) determinationOrdered By: Rebecca Menezes on 06-19-2025 MCH (RBC) [Entitic mass] 29.1 pg 27.0-32.0 [facility] Mean corpuscular hemoglobin concentration (MCHC) determinationOrdered By: Rebecca Menezes on 06-19-2025 MCHC (RBC) [Mass/Vol] 33.0 g/dL 32-36 [facility] Mean platelet volume determi nationOrdered By: Rebecca Menezes on 06-19-2025 Platelet mean volume (Bld) [Entitic vol] 9.2 fL 6.2-12.0 [facility] Microscopic analysis of urin e for red blood cells (RBC)Ordered By: Rebecca Menezes on 06-19-2025 Microscopic analysis of urine for red blood cells (RBC) 5-10 SEEN /hpf 0-5 [facility] Monocyte percentageOrdered B y: Rebecca Menezes on 06-19-2025 Monocytes/100 WBC (Bld) 7.7 % 0-10 [facility] Mucus LM Ql (Urine sed)Order ed By: Rebecca Menezes on 06-19-2025 Mucus Ql (Urine sed) 0 SEEN /hpf [facility] Neutrophil percentageOrdered By: Rebecca Menezes on 06-19-2025 Neutrophils/100 WBC (Bld) 40.9 % Low 47-70 [facility] Nitrite Test strip Ql (U)Ord ered By: Rebecca Menezes on 06-19-2025 Nitrite Ql (U) Positive High Negative [facility] Nucleated red blood cell per centageOrdered By: Rebecca Menezes on 06-19-2025 Nucleated RBC/100 WBC (Bld) [Ratio] 0 % 0-5 [facility] Platelet countOrdered By: Kirill Menezes on 06-19-2025 Platelets (Bld) [#/Vol] 289 10*3/uL 150-450 [facility] Potassium measurement (mass/ volume)Ordered By: Rebecca eMnezes on 06-19-2025 Potassium (Unsp spec) [Mass/Vol] 4.4 mmol/L 3.3-5.1 [facility] Comment on above: Hemolysis present, R esults could be affected. Protein Test strip Ql (U)Ord ered By: Rebecca Menezes on 06-19-2025 Protein Ql (U) 30 mg/dl High Negative [facility] RBC Auto (Bld) [#/Vol]Ordere d By: Rebecca Menezes on 06-19-2025 RBC (Bld) [#/Vol] 4.57 10*6/uL 4.2-5.4 [facility] Serum creatinine measurement (mass/volume)Ordered By: Rebecca Menezes on 06-19-2025 Creatinine [Mass/Vol] 0.96 mg/dL Normal 0.70-1.20 [facility] Comment on above: Performed By: #### L 100.0100, L506.1001, L500.4050, L400.0001, M100.2200 ####[facility] [address] [place], [address] Serum globulin measurementOr dered By: Rebecca Menezes on 06-19-2025 Globulin (S) [Mass/Vol] 3.1 g/dL Normal 2.2-4.[address] [facility] Comment on above: Performed By: #### L 100.0100, L506.1001, L500.4050, L400.0001, M100.2200 ####[facility] [address] [place], [address] Serum glucose measurement (m ass/volume)Ordered By: Rebecca Menezes on 06-19-2025 Glucose [Mass/Vol] 85 mg/dL Normal 70-99 [facility] Comment on above: Performed By: #### L 100.0100, L506.1001, L500.4050, L400.0001, M100.2200 ####[facility] [address] [place], [address] Serum or plasma alanine fernandes otransferase (ALT) measurementOrdered By: Rebecca Menezes on 06-19-2025 ALT [Catalytic activity/Vol] 9 U/L Normal <=34 [facility] Comment on above: Performed By: #### L 100.0100, L506.1001, L500.4050, L400.0001, M100.2200 ####[facility] [address] [place], [address] Serum or plasma albumin lfavia urement (mass/volume)Ordered By: Rebecca Riri on 06-19-2025 Albumin [Mass/Vol] 3.9 g/dL Normal 3.4-4.8 [facility] Comment on above: Performed By: #### L 100.0100, L506.1001, L500.4050, L400.0001, M100.2200 ####[facility] [address] [place], [address] Serum or plasma albumin/glob ulin mass ratioOrdered By: Rebeccadarryl Menezes on 06-19-2025 Albumin/Globulin [Mass ratio] 1.3 {ratio} Normal 0.9-2.4 [facility] Comment on above: Performed By: #### L 100.0100, L506.1001, L500.4050, L400.0001, M100.2200 ####[facility] [address] [place], [address] Serum or plasma alkaline kobe sphatase measurementOrdered By: Rebeccadarryl Thomsonlay on 06-19-2025 ALP [Catalytic activity/Vol] 91 U/L 35-104 [facility] Serum or plasma calcium flavia urement (mass/volume)Ordered By: Rebeccaludin Menezes on 06-19-2025 Calcium [Mass/Vol] 9.7 mg/dL Normal 7.6-11.0 [facility] Comment on above: Performed By: #### L 100.0100, L506.1001, L500.4050, L400.0001, M100.2200 ####[facility] [address] [place], [address] Serum or plasma urea nitroge n measurement (mass/volume)Ordered By: Rebeccadarryl Menezes on 06-19-2025 Urea nitrogen [Mass/Vol] 21 mg/dL High 4-19 [facility] Comment on above: Performed By: #### L 100.0100, L506.1001, L500.4050, L400.0001, M100.2200 ####[facility] [address] [place], [address] Sodium levelOrdered By: Stephanie Menezes on 06-19-2025 Sodium [Moles/Vol] 140 mmol/L Normal 133-145 [facility] Comment on above: Performed By: #### L 100.0100, L506.1001, L500.4050, L400.0001, M100.2200 ####[facility] [address] [place], [address] Squamous epithelial cells de tection in urine sediment by light microscopyOrdered By: Rebecca Menezes on 06-19-2025 Epithelial cells.squamous LM Ql (Urine sed) 0 SEEN /hpf 5-10 [facility] Total proteinOrdered By: Kee Menezes on 06-19-2025 Protein [Mass/Vol] 7.0 g/dL 5.9-8.4 [facility] Urinalysis, Completeon 06-19 RBC 5-10 SEEN Normal 0-5 [facility] Comment on above: Order Comment: COLLE CTOR TO SPECIFY Performed By: #### L 100.0100, L506.1001, L500.4050, L400.0001, M100.2200 ####[facility] [address] [place], [address] BACTERIA 4+ /hpf Normal None Seen [facility] Comment on above: Order Comment: COLLE CTOR TO SPECIFY Performed By: #### L 100.0100, L506.1001, L500.4050, L400.0001, M100.2200 ####[facility] [address] [place], [address] WBC >100 SEEN Normal 0-5 [facility] Comment on above: Order Comment: COLLE CTOR TO SPECIFY Performed By: #### L 100.0100, L506.1001, L500.4050, L400.0001, M100.2200 ####[facility] [address] [place], [address] EPI,SQUAMOUS 0 SEEN Normal 5-10 [facility] Comment on above: Order Comment: JENNIFER CTOR TO SPECIFY Performed By: #### L 100.0100, L506.1001, L500.4050, L400.0001, M100.2200 ####[facility] [address] [place], [address] Mucus Ql (Urine sed) 0 SEEN Normal [place] Comment on above: Order Comment: JENNIFER CTOR TO SPECIFY Performed By: #### L 100.0100, L506.1001, L500.4050, L400.0001, M100.2200 ####[facility] [address] [place], [address] Urine clarityOrdered By: Kee Menezes on 06-19-2025 Clarity (U) Turbid Clear [facility] Urine color determinationOrd ered By: Rebecca Menezes on 06-19-2025 Color (U) Straw Yellow [facility] Urine cultureOrdered By: Kee Menezes on 06-19-2025 Bacteria identified Cx Nom (U) Escherichia coli Abnormal [facility] Urine glucose detectionOrder ed By: Rebecca Menezes on 06-19-2025 Glucose Ql (U) Normal mg/dl Normal [facility] Urine leukocyte esterase det ection by dipstickOrdered By: Rebecca Menezes on 06-19-2025 Leukocyte esterase Test strip Ql (U) 500 /ul High Negative [facility] Urine pHOrdered By: Rebecca benjamin on 06-19-2025 pH (U) 5.0 [pH] 5.0 - 8.0 [facility] Urine sediment bacteria coun t by microscopy (number/high power field)Ordered By: Rebecca Menezes on 06-19-2025 Bacteria LM.HPF (Urine sed) [#/Area] 4 /[HPF] None Seen [facility] Urine specific gravity measu rementOrdered By: Rebecca Menezes on 06-19-2025 Specific gravity (U) [Rel density] 1.020 1.002-1.030 [facility] Urine urobilinogen measureme ntOrdered By: Rebecca Menezes on 06-19-2025 Urobilinogen Ql (U) Normal mg/dl Normal [facility] Vitamin D,25 Hydroxyon 06-19 Vitamin D 25-OH 61.2 ng/mL Normal 30-100 [facility] Comment on above: Result Comment: Viviana min D Status Deficiency: <20 ng/mL (50nmol/L) Insufficiency: 20-30 ng/mL (50-75 nmol/L) Sufficiency: 30-100 ng/mL (75-250 nmol/L) Toxicity: >100 ng/mL (>250 nmol/L) Performed By: #### L 100.0100, L506.1001, L500.4050, L400.0001, M100.2200 ####[facility] [address] [place], [address] White blood cell (WBC) count Ordered By: Rebecca Menezes on 06-19-2025 WBC (Bld) [#/Vol] 7.5 10*3/uL 4.4-11.0 [facility] White blood cell countOrdere d By: Rebecca Menezes on 06-19-2025 White blood cell count >100 SEEN /hpf 0-5 [facility] Internal Medicine Office Vis iton 06-16-2025 Internal Medicine Office Visit [facility] [address] [place] [address] [address] [place], [place] [address] OFFICE VISIT Date of Service: 06/19/25 MR#: [id number] Acct: [id number] Name: BOZENA MEDEL Rep #: [id number] : 1945 Provider: Dr. Rebecca stephens MD Age/Sex: 79/F Location: [facility] [place].[facility] Status: Signed Intake Vital Signs 04/03/25 10:38 06/19/25 11:17 Height 5 ft 7 in 5 ft 7 in Weight: 167 lb BMI 26.2 BP 96/60 Blood Pressure Location Lt brachial Position Sitting Respiration 16 Pulse 89 Pulse Source Monitor Temp 96.2 F L Temp Source Temporal Pulse Oximetry (%) 95 Oxygen Delivery Method room air Intake Visit Reasons: FOLLOW UP Densitometer Reader Required: No Accompanied by: Self Is patient in pain?: No Allergies prednisone Allergy (Severe, Verified 06/19/25 11:11) deathly sick hydrocodone bitartrate (From Vicodin) Adverse Reaction (Verified 06/19/25 11:11) Other oxycodone Adverse Reaction (Verified 06/19/25 11:11) Itching Medications ???Medication ???Instructions ???Recorded ???Confirmed ???Type cetirizine 10 mg capsule (Zyrtec) 10 mg PO DAILY PRN allergy sympto ms 02/03/24 06/19/25 History cholecalciferol (vitamin D3) 1,250 1,250 mcg PO QWEEK #12 caps 01/2606/19/25 Rx mcg (50,000 unit) capsule mecobalamin (vitamin B12) 500 mcg mcg PO 02/09/25 06/19/25 History chewable tablet ibuprofen 200 mg tablet (Advil) 200 mg PO Q6H PRN 06/19/25 5 History Have you fallen in the past year?: Yes PFSH Medical History (Updated 06/19/25 @ 11:[address] Rebecca Menezes MD) Foot fracture, left Recurrent incisional hernia Abdominal pain Wears hearing aid Loss of hearing Wears glasses Wears dentures Post-menopausal Anxiety Arthritis Non-smoker Leg cramps History of stress test ( 2020) Skin cancer IBS (irritable bowel syndrome) Hearing problem Gallstone Emotional problems Breast lump Back problem Crushing injury of right foot, initial encounter Precancerous polyps Surgical History History of laparoscopy History of cardiac catheterization ( 2020) History of surgical procedure History of colon surgery H/O hernia repair (04/15/24) Hx of bladder repair surgery H/O: hysterectomy History of tubal ligation History of cholecystectomy H/O breast surgery Family History Father Alcohol abuse Respiratory disease Emphysema Brother Colon cancer Sister CVA (cerebral vascular accident) Mother Myocardial infarction Social History household members: none housing: house current occupational status: retired Smoking Status: Never smoker Electronic Cigarette Use: not used alcohol intake: never substance use type: does not use what type of physical activity do you participate in: none seatbelt use: always do you feel safe at home: Yes Questionnaire [facility]-9 BMS Over the last 2 weeks, how often have you been bothered by any of the following problems? 1. Little interest or pleasure in doing things: not at all 2. Feeling down, depressed, or hopeless: several days 3. Trouble falling or staying asleep, or sleeping too much: several days 4. Feeling tired or having little energy: not at all 5. Poor appetite or overeating: not at all 6. Feeling bad about yourself - or that you are a failure or have let yourself and your family down: not at all 7. Trouble concentrating on things, such as reading the newspaper or watching television: not at all 8. Moving or speaking so slowly that other people could have noticed? - Or the opposite - being so fidgety or restless that you have been moving around a lot more than usual: several days 9. Thoughts that you would be better off or of hurting yourself in some way: not at all Total score: 3 If you checked off any problems, how difficult have these problems made it for you to do your work, take care of things at home, or get along with other people?: not difficult at all Source: Developed by Drs. Sj Greco, Felecia Rust, Shlomo Kathleen and colleagues, with an educational simon from [employer]. VANESSA-7 BMS VANESSA-7 Feeling nervous, anxious, or on edge: 1 = Several days Not being able to stop or control worryin = Not at all Worrying too much about different things: 2 = More than half the days Trouble relaxin = Several days Being so restless that it is hard to sit still: 1 = Several days Becoming easily annoyed or irritable: 1 = Several days Feeling afraid as if something awful might happen: 0 = Not at all Total VANESSA-7 score (0-4 normal; 5-9 mild; 10-14 moderate; 15-21 severe): 6 Source: Developed by Drs. Sj Greco, Felecia Rust, Shlomo Kathleen and colleagues, with an educational simon from (more content not included)... Normal [facility] Urine Cultureon 04-06-2025 [facility] Streptococcus sanguinis [place] Count 50,000-80,000 Streptococcus sanguinis: REACTION Ampicillin Islt MAMIE <=0.25 Penicillin G Islt MAMIE <=0.06 S Cefotaxime Islt MAMIE <=0.12 S cefTRIAXone Islt MAMIE <=0.12 S Vancomycin Islt MAMIE 0.5 S Normal [facility] Comment on above: Performed By: #### M 100.2200 #### [facility] [address] [place], [place], [address] Laboratory - Chemistry and C hemistry - challengeOrdered By: Malou Godinez on 04-03-2025 Bilirubin Ql (U) Moderate (2+) [facility] Glucose Ql (U) Negative [facility] Ketones Ql (U) Small (15+) [facility] pH (U) 6.0 [pH] [facility] Specific gravity (U) [Rel density] 1.015 [facility] Urobilinogen (U) [Mass/Vol] 1 mg/dL [facility] Laboratory - Hematology and Cell countsOrdered By: Malou Godinez on 04-03-2025 Hemoglobin Ql (U) Negative [facility] Laboratory - Specimen inform ationOrdered By: Malou Gdoinez on 04-03-2025 Clarity (U) Clear [facility] Color (U) ORANGE [facility] Laboratory - UrinalysisOrder ed By: Malou Godinez on 04-03-2025 Nitrite Ql (U) Positive [facility] Protein Ql (U) 3+ [facility] No Panel InformationOrdered By: Malou Godinez on 04-03-2025 Urine Leukocytes Positive [facility] Office Visit Reporton 2024 Office Visit Report [facility] [address] [place] [address] OFFICE VISIT Date of Service: 04/03/25 MR#: [id number] Acct: [id number] Patient: BOZENA MEDEL Rep #: [id number] : 1945 Provider: NICOLE Knowles Age/Sex: 79/F Location: [facility] [place].[facility] Status: Signed Intake Vital Signs 02/09/25 12:32 04/03/25 10:38 Height 5 ft 7 in 5 ft 7 in Weight: 167 lb 170 lb 4 oz BMI 26.2 26.6 BP 128/76 H 118/78 Blood Pressure Location Lt brachial Lt brachial Position Sitting Sitting Respiration 18 17 Pulse 117 H 100 Pulse Source Monitor Monitor Temp 98.1 F 98.3 F Temp Source Temporal Oral Pulse Oximetry (%) 95 92 Oxygen Delivery Method room air Intake Visit Reasons: CONCERN FOR KIDNEY INFECTION Chief Complaint: Burning while urination Densitometer Reader Required: No Accompanied by: Self Is patient in pain?: No Allergies prednisone Allergy (Severe, Verified 04/03/25 10:40) deathly sick hydrocodone bitartrate (From Vicodin) Adverse Reaction (Verified 04/03/25 10:40) Other oxycodone Adverse Reaction (Verified 04/03/25 10:40) Itching Medications ???Medication ???Instructions ???Recorded ???Confirmed ???Type cetirizine 10 mg capsule (Zyrtec) 10 mg PO DAILY PRN allergy sympto ms 02/03/24 04/03/25 History cholecalciferol (vitamin D3) 1,250 1,250 mcg PO QWEEK #12 caps 01/2604/03/25 Rx mcg (50,000 unit) capsule mecobalamin (vitamin B12) 500 mcg mcg PO 02/09/25 04/03/25 History chewable tablet nitrofurantoin 100 mg PO Q12H 5 days #10 caps 04/2104/03/25 Rx monohydrate/macrocrys tals 100 mg capsule (Macrobid) Have you fallen in the past year?: No Nurse's Note: Burning with urination and lower back pain. Also has periods of frequent urination with little to no production. Symptoms for 5 days. [facility] Medical History Recurrent incisional hernia Abdominal pain Wears hearing aid Loss of hearing Wears glasses Wears dentures Post-menopausal Anxiety Arthritis Non-smoker Leg cramps History of stress test ( 2020) Skin cancer IBS (irritable bowel syndrome) Hearing problem Gallstone Emotional problems Breast lump Back problem Crushing injury of right foot, initial encounter Precancerous polyps Surgical History History of laparoscopy History of cardiac catheterization ( 2020) History of surgical procedure History of colon surgery H/O hernia repair (04/15/24) Hx of bladder repair surgery H/O: hysterectomy History of tubal ligation History of cholecystectomy H/O breast surgery Family History Father Alcohol abuse Respiratory disease Emphysema Brother Colon cancer Sister CVA (cerebral vascular accident) Mother Myocardial infarction Social History household members: none housing: house current occupational status: retired Smoking Status: Never smoker Electronic Cigarette Use: not used alcohol intake: never substance use type: does not use what type of physical activity do you participate in: none seatbelt use: always do you feel safe at home: Yes HPI HPI Chief Complaint: Burning while urination Details: BOZENA MEDEL, is a 79 F who presents to the office today for concerns over a UTI. Patient states that symptoms started over the weekend while she was camping. She has severe back pain and burning when she urinates. She feels like she has to urinate but cannot. She did try cranberry tablets and frequent water while she was at camp over the weekend. Symptoms have not been relieved. She does not get UTIs frequently. She has not had any fevers or chills. ROS Const Constitutional: Positive for other (ROS negative x 6 except what is described above) Exam Const General: cooperative, healthy appearing and no acute distress Nutritional Appearance: average body habitus Orientation: alert, awake and oriented x3 HENMT Head: normal to inspection and atraumatic Ears: hearing grossly normal bilaterally Nose: external nose normal Face and sinus: normal facial exam Mouth: oral mucosae normal Eyes General: appearance normal, both eyes and all related structures Resp Effort Inspection: normal respiratory effort Auscultation: Bilateral: Clear to Auscultation Cardio Palpation: normal PMI Rate: regular rate Rhythm: regular rhythm Heart Sounds: S1 normal, S2 normal, no gallops, no murmurs and no rubs GI Inspection: normal to inspection Auscultation: normal bowel sounds Palpation: soft, no hepatosplenomegaly and nontender Neuro General: patient alert, patient awake, patient oriented x3 and CN's II-XI intact bilaterally Coding Level of Care Code Off vis,est,level 3 (more content not included)... Normal [facility] Urine cultureOrdered By: Mamie Godinez on 04-03-2025 Bacteria identified Cx Nom (U) Streptococcus sanguinis Abnormal [facility] [facility] Internal [facility] Office Vis iton 02-09-2025 Internal Medicine Office Visit [facility] [address] [place] [address] OFFICE VISIT Date of Service: 02/09/25 MR#: [id number] Acct: [id number] Name: BOZENA MEDEL Rep #: [id number] : 1945 Provider: NICOLE Echeverria Age/Sex: 79/F Location: [facility] [place] Status: Signed Intake Vital Signs 02/02/25 04:34 02/09/25 12:32 Height 5 ft 7 in 5 ft 7 in Weight: 167 lb BMI 26.2 BP 128/76 H Blood Pressure Location Lt brachial Position Sitting Respiration 18 Pulse 117 H Pulse Source Monitor Temp 98.1 F Temp Source Temporal Pulse Oximetry (%) 95 Oxygen Delivery Method room air Intake Visit Reasons: ACUTE NO ENERGY Chief Complaint: ACUTE NO ENERGY Is patient in pain?: No Allergies prednisone Allergy (Severe, Verified 02/09/25 12:31) deathly sick hydrocodone bitartrate (From Vicodin) Adverse Reaction (Verified 02/09/25 12:31) Other oxycodone Adverse Reaction (Verified 02/09/25 12:31) Itching Medications ???Medication ???Instructions ???Recorded ???Confirmed ???Type cetirizine 10 mg capsule (Zyrtec) 10 mg PO DAILY PRN allergy sympto ms 02/03/24 02/09/25 History cholecalciferol (vitamin D3) 1,250 1,250 mcg PO QWEEK #12 caps 01/2602/09/25 Rx mcg (50,000 unit) capsule mecobalamin (vitamin B12) 500 mcg mcg PO 02/09/25 02/09/25 History chewable tablet Have you fallen in the past year?: Yes (x1) Nurse's Note: pt reports she has been having zero energy for the past month PFS Medical History Recurrent incisional hernia Abdominal pain Wears hearing aid Loss of hearing Wears glasses Wears dentures Post-menopausal Anxiety Arthritis Non-smoker Leg cramps History of stress test ( 2020) Skin cancer IBS (irritable bowel syndrome) Hearing problem Gallstone Emotional problems Breast lump Back problem Crushing injury of right foot, initial encounter Precancerous polyps Surgical History History of laparoscopy History of cardiac catheterization ( 2020) History of surgical procedure History of colon surgery H/O hernia repair (04/15/24) Hx of bladder repair surgery H/O: hysterectomy History of tubal ligation History of cholecystectomy H/O breast surgery Family History Father Alcohol abuse Respiratory disease Emphysema Brother Colon cancer Sister CVA (cerebral vascular accident) Mother Myocardial infarction Social History household members: none housing: house current occupational status: retired Smoking Status: Never smoker Electronic Cigarette Use: not used alcohol intake: never substance use type: does not use what type of physical activity do you participate in: none seatbelt use: always do you feel safe at home: Yes HPI HPI Chief Complaint: ACUTE NO ENERGY Details: BOZENA MEDEL, is a 79 F who presents to the office today for f/u on her fatigue. She states that she has been having fatigue for many months now probably starting around September / October. She states that she could tell she was getting tired and that it has just sort of progressed since then. She saw her PCP a month ago for this and work-up was initiated. She has had evaluations including her lungs (CTA) as well as her heart (having recently having cardiac stress test) both of which were normal. She has had recent labs all of which was normal other than low vitamin D (she has been taking vitamin D supplement) Patient states that she just feels tired all the time. She wakes up and feels like she could go back to sleep a few hours later. She states that she just doesn't have any energy to to do anything. She has to make herself do something. She is just constantly tired) She denies having any other symptoms with her fatigue. She denies any changes in her bowel habits or any bowel issues. Patient had a normal colonoscopy this past October. She denies having urinary complaints or any history of issues. She denies any muscle or joint pains. She was always very healthy and has never been on any medications. She initially states that she does not get SOB at the same when asked about previous documentation of shortness of breath she states that she gets a little winded if she has to walk up a bunch of stairs or with other activites. Patient states that she doesn't feel like she has any depressive symptoms. She states that she actually feels pretty good at this time. ROS Const Constitutional: No body ache, chills, excessive sweating, fatigue, fever(s), frequent falls, headache(s), snoring, weight change, sleep problems, abnormal sleep pattern or change in appetite Eyes E (more content not included)... Normal [facility] Iron measurement (mass/mass) Ordered By: Kashif Garcia on 02-09-2025 Iron (Unsp spec) [Mass/Mass] 49 ug/dL Low 50-170 [facility] Iron+Iron Binding Capacityon 02-09-2025 TIBC 207 ug/dL Low 250-450 [facility] Comment on above: Performed By: #### P SUIV #### [facility] [address] [place], [place], [id number] Magnesiumon 02-09-2025 Magnesium [Mass/Vol] 2.2 mg/dL Normal 1.5-2.2 [place] Comment on above: Performed By: #### P SUIV #### [facility] [address] [facility] [place], [place], [id number] Magnesium measurement (mass/ volume)Ordered By: Kashif Garcia on 02-09-2025 Magnesium (Unsp spec) [Mass/Vol] 2.2 mg/dL 1.5-2.2 [facility] No Panel InformationOrdered By: Kashif Garcia on 02-09-2025 Unsaturated Iron Binding Capacity 158 ug/dL Low 228-428 [facility] Serum or plasma iron saturat ion measurement (mass fraction)Ordered By: Kashif Garcia on 02-09-2025 Iron saturation [Mass fraction] 24.0 % 13-59 [facility] Comment on above: Previous reported re sult: 24.0 %Edited by: TEENA on 02/09/25:1558 TSH DL <= 0.005 mIU/L QnOrde red By: Kashif Garcia on 02-09-2025 TSH Qn 1.670 uIU/mL 0.300-4.200 [facility] Thyroid Stim Hormone (TSH)on 02-09-2025 TSH 1.670 uIU/mL Normal 0.300-4.200 [facility] Comment on above: Performed By: #### P SUIV #### [facility] [address] [place], [address] Cardiovascular stress test r eportOrdered By: Baltazar Staley on 02-06-2025 Study report [facility] [address] [place] [address] MR#: [id number] Acct: [id number] Name: BOZENA MEDEL Rep #: [id number] : 1945 79 From: Baltazar Staley MD Primary Care: Dr. Rebecca Menezes MD Stat us: REG CLI Referring Dr: Rebecca Menezes MD Sex: F C Stress Test Report Pharmacologic myocardial perfusion stress test. 79-year-old lady with a history of chest pain Resting EKG demonstrates sinus rhythm with premature ventricular complex with a rate of 89 bpm. Resting blood pressure is 118/64 mmHg. 0.4 mg of regadenoson was infused per usual protocol followed by rapid intravenous saline flush injection. Continuous EKG monitoring was performed. The maximum heart rate [id number] bpm which was 75% of max impacted heart rate the maximum workload was 1 metabolic equivalent. At rest there were no ST or T wave changes noted to suggest ischemia and at peak infusion nonspecific ST changes were noted which did not meet the criteria for ischemia. No clinical angina is noted. The final blood pressure was 108/64 mmHg. Myocardial perfusion protocol. 12 point mCi of technetium 99m sestamibi was injected at rest. 0.4 mg of regadenoson was infused per usual protocol. At peak infusion 36.8 mCi of technetium 99m sestamibi was injected stress images were obtained stress and rest images were reconstructed and compared in the short axis vertical long and horizontal long axis. Gated images were also obtained. Perfusion SPECT analysis: Review of the stress images demonstrate normal uptake of tracer noted in all areas of the myocardium. The resting images similar demonstrated normal uptake of tracer noted in all areas of the myocardium. No areas of reversibility are noted to suggest ischemia and no previous infarct is noted. Gated SPECT analysis: The gated ejection fraction is 72%. Conclusion: Normal pharmacologic myocardial perfusion stress test. Preserved ejection fraction. 02/06/251638 Date _ Baltazar Staley MD CC: Dr. Rebecca Menezes MD ~ Date Dictated: 02/06/251637 Date Transcribed: 02/06/251637 Meat Service Team Member: CO Signed [facility] Work Phone: Stress Reporton 02-06-2025 Stress Report [facility] Cardi[facility] Services [address] [place], [place] [id number] MR#: [id number] Acct: [id number] Name: REGLACAMPBELLBOZENA White Mattie Rep #: [id number] : 1945 79 From: Baltazar Staley MD Primary Care: Dr. Reebcca Menezes MD Status: REG I Referring Dr: Rebecca Menezes MD Sex: F C Stress Test Report Pharmacologic myocardial perfusion stress test. 79-year-old lady with a history of chest pain Resting EKG demonstrates sinus rhythm with premature ventricular complex with a rate of 89 bpm. Resting blood pressure is 118/64 mmHg. 0.4 mg of regadenoson was infused per usual protocol followed by rapid intravenous saline flush injection. Continuous EKG monitoring was performed. The maximum heart rate was 106 bpm which was 75% of max impacted heart rate the maximum workload was 1 metabolic equivalent. At rest there were no ST or T wave changes noted to suggest ischemia and at peak infusion nonspecific ST changes were noted which did not meet the criteria for ischemia. No clinical angina is noted. The final blood pressure was 108/64 mmHg. Myocardial perfusion protocol. 12 point mCi of technetium 99m sestamibi was injected at rest. 0.4 mg of regadenoson was infused per usual protocol. At peak infusion 36.8 mCi of technetium 99m sestamibi was injected stress images were obtained stress and rest images were reconstructed and compared in the short axis vertical long and horizontal long axis. Gated images were also obtained. Perfusion SPECT analysis: Review of the stress images demonstrate normal uptake of tracer noted in all areas of the myocardium. The resting images similar demonstrated normal uptake of tracer noted in all areas of the myocardium. No areas of reversibility are noted to suggest ischemia and no previous infarct is noted. Gated SPECT analysis: The gated ejection fraction is 72%. Conclusion: Normal pharmacologic myocardial perfusion stress test. Preserved ejection fraction. 02/06/251638 Date Baltazar Staley MD CC: Dr. Rebecca Menezes MD Date Dictated: 02/06/251637 Date Transcribed: 02/06/251637 Meat Service Team Member: CO Signed Normal [facility] 12 Lead EKGon 02-02-2025 12 Lead EKG [facility] Cardiovascular Services [address] [place] [address] 12 Lead EKG 02/02/25 0445 MR#: [id number] Acct: [id number] Name: BOZENA MEDEL Rep #: [id number] : 1945 79 From: Demetri Torres MD Attending Dr: Status: DEP ER Ordering Dr: Mehran Bravo MD Date: 02/02/25 Location: ED Sex: F C Admitted: Test Reason : CP Blood Pressure : */* mmHG Vent. Rate : 96 BPM Atrial Rate : 96 BPM P-R Int : 144 ms QRS Dur : 84 ms QT Int : 364 ms P-R-T Axes : 60 3 48 degrees QTcB Int : 459 ms Normal sinus rhythm Confirmed by Demetri Torres ([id number]), television news video editor JOLANTA CARRION ([id number]) on 02/03/2025 12:18:43 PM Referred By: Confirmed By: Demetri Torres 02/03/25 1218 Date Demetri Torres MD CC: Dr. Rebecca Menezes MD; Dr. Mehran Bravo MD Signed Normal [facility] Absolute lymphocyte countOrd ered By: Mehran Bravo on 02-02-2025 Lymphocytes Auto (Unsp spec) [#/Vol] 3.16 10*3/uL 0.83-4.51 [facility] Absolute neutrophil countOrd ered By: Mehran Bravo on 02-02-2025 Neutrophils (Bld) [#/Vol] 5.6 10*3/uL 2.0-7.7 [facility] Anion gap in Serum or Plasma Ordered By: Mehran Bravo on 02-02-2025 Anion gap [Moles/Vol] 9 mmol/L 02-09 [facility] Automated lymphocyte count a s percentage of total leukocytesOrdered By: Mehran Bravo on 02-02-2025 Lymphocytes/100 WBC Auto (Unsp spec) 32.6 % - [facility] BUN/creatinine ratioOrdered By: Mehran Bravo on 02-02-2025 Urea nitrogen/Creatinine [Mass ratio] 15.0 mg/mg - [facility] Basic Metabolic Profile (BMP )on 02-02-2025 BUN/CRE 15.0 RATIO Normal - [facility] Comment on above: Performed By: #### L 100.0100, L300.8000, L500.2500, L501.4021 #### [facility] [address] [place], [address] Calcium [Mass/Vol] 9.0 mg/dL Normal 7.6-11.0 [facility] Comment on above: Performed By: #### L 100.0100, L300.8000, L500.2500, L501.4021 #### [facility] [address] [place], [address] Chloride [Moles/Vol] 104 mmol/L Normal 98-108 [place] Comment on above: Performed By: #### L 100.0100, L300.8000, L500.2500, L501.4021 #### [facility] [address] [place], [address] CO2 [Moles/Vol] 23.6 mmol/L Normal 21.0-32.0 [facility] Comment on above: Performed By: #### L 100.0100, L300.8000, L500.2500, L501.4021 #### [facility] [address] [place], [address] Creatinine [Mass/Vol] 0.98 mg/dL Normal 0.70-1.20 [facility] Comment on above: Performed By: #### L 100.0100, L300.8000, L500.2500, L501.4021 #### [facility] [address] [place], [address] ECRCL 49.79 ml/min Low 50-250 [facility] Comment on above: Performed By: #### L 100.0100, L300.8000, L500.2500, L501.4021 #### [facility] [address] [place], [address] GAP 9 Normal 5-15 [facility] Comment on above: Performed By: #### L 100.0100, L300.8000, L500.2500, L501.4021 #### [facility] [address] [place], [address] GFR/1.73 sq M.predicted among non-blacks MDRD (S/P/Bld) [Vol rate/Area] 58 mL/min/{1.73_m2} Low >60 [facility] Comment on above: Result Comment: mL/m in/1.73m2 CKD-EPI Creatinine Equation (2020) Performed By: #### L 100.0100, L300.8000, L500.2500, L501.4021 #### [facility] [address] [place], [address] Glucose [Mass/Vol] 99 mg/dL Normal 70-99 [facility] Comment on above: Performed By: #### L 100.0100, L300.8000, L500.2500, L501.4021 #### [facility] [address] [place], [address] Potassium [Moles/Vol] 4.2 mmol/L Normal 3.3-5.1 [facility] Comment on above: Performed By: #### L 100.0100, L300.8000, L500.2500, L501.4021 #### [facility] [address] [place], [address] Sodium [Moles/Vol] 137 mmol/L Normal 133-145 [facility] Comment on above: Performed By: #### L 100.0100, L300.8000, L500.2500, L501.4021 #### [facility] [address] [place], [address] Urea nitrogen [Mass/Vol] 15 mg/dL Normal 4-19 [facility] Comment on above: Performed By: #### L 100.0100, L300.8000, L500.2500, L501.4021 #### [facility] [address] [place], [address] Basophil percentageOrdered B y: Mehran Bravo on 02-02-2025 Basophils/100 WBC (Bld) 0.5 % 0-1 [facility] CBC W/Diff, Automatedon 050 Absolute Lymph 3.16 X10 3/uL Normal 0.83-4.51 [facility] Comment on above: Performed By: #### L 100.0100, L300.8000, L500.2500, L501.4021 #### [facility] [address] [place], [address] Absolute Neut 5.6 X10 3/uL Normal 2.0-7.7 [facility] Comment on above: Performed By: #### L 100.0100, L300.8000, L500.2500, L501.4021 #### [facility] [address] [place], [address] Basophils/100 WBC (Bld) 0.5 % Normal 0-1 [facility] Comment on above: Performed By: #### L 100.0100, L300.8000, L500.2500, L501.4021 #### [facility] [address] [place], [address] Eosinophils/100 WBC (Bld) 1.3 % Normal 0-5 [facility] Comment on above: Performed By: #### L 100.0100, L300.8000, L500.2500, L501.4021 #### [facility] [address] [place], [address] Erythrocyte distribution width (RBC) [Ratio] 12.7 % Normal 11.6-14.6 [facility] Comment on above: Performed By: #### L 100.0100, L300.8000, L500.2500, L501.4021 #### [facility] [address] [place], [address] Hematocrit (Bld) [Volume fraction] 39.5 % Normal 37-47 [facility] Comment on above: Performed By: #### L 100.0100, L300.8000, L500.2500, L501.4021 #### [facility] [address] [place], [address] Hemoglobin (Bld) [Mass/Vol] 13.6 g/dL Normal 12.0-15.0 [facility] Comment on above: Performed By: #### L 100.0100, L300.8000, L500.2500, L501.4021 #### [facility] [address] [place], [address] IG% 0.300 Normal 0.0-0.9 [facility] Comment on above: Result Comment: IG% - Immature Granulocytes (promyelocytes, myelocytes and metamyelocytes) > 1% indicates that a LEFT SHIFT is Present. Performed By: #### L 100.0100, L300.8000, L500.2500, L501.4021 #### [facility] [address] [place], [address] Lymphocytes/100 WBC (Bld) 32.6 % Normal 19-41 [facility] Comment on above: Performed By: #### L 100.0100, L300.8000, L500.2500, L501.4021 #### [facility] [address] [place], [address] MCH (RBC) [Entitic mass] 30.0 pg Normal 27.0-32.0 [facility] Comment on above: Performed By: #### L 100.0100, L300.8000, L500.2500, L501.4021 #### [facility] [address] [place], [address] MCHC (RBC) [Mass/Vol] 34.4 g/dL Normal 32-36 [facility] Comment on above: Performed By: #### L 100.0100, L300.8000, L500.2500, L501.4021 #### [facility] [address] [place], [address] MCV (RBC) [Entitic vol] 87.0 fL Normal 81-99 [facility] Comment on above: Performed By: #### L 100.0100, L300.8000, L500.2500, L501.4021 #### [facility] [address] [place], [address] Monocytes/100 WBC (Bld) 7.5 % Normal 0-10 [facility] Comment on above: Performed By: #### L 100.0100, L300.8000, L500.2500, L501.4021 #### [facility] [address] [place], [address] Neutrophils/100 WBC (Bld) 57.8 % Normal 47-70 [facility] Comment on above: Performed By: #### L 100.0100, L300.8000, L500.2500, L501.4021 #### [facility] [address] [place], [address] Nucleated RBC (Bld) [#/Vol] 0 10*3/uL Normal 0-5 [facility] Comment on above: Performed By: #### L 100.0100, L300.8000, L500.2500, L501.4021 #### [facility] [address] [place], [address] Platelet mean volume (Bld) [Entitic vol] 8.6 fL Normal 6.2-12.0 [facility] Comment on above: Performed By: #### L 100.0100, L300.8000, L500.2500, L501.4021 #### [facility] [address] [place], [address] Platelets (Bld) [#/Vol] 256 10*3/uL Normal 150-450 [facility] Comment on above: Performed By: #### L 100.0100, L300.8000, L500.2500, L501.4021 #### [facility] [address] [place], [address] RBC (Bld) [#/Vol] 4.54 10*6/uL Normal 4.2-5.4 [facility] Comment on above: Performed By: #### L 100.0100, L300.8000, L500.2500, L501.4021 #### [facility] [address] [place], [address] RDW SD 40.6 fl Normal 35.1-43.9 [facility] Comment on above: Performed By: #### L 100.0100, L300.8000, L500.2500, L501.4021 #### [facility] [address] [place], [address] WBC (Bld) [#/Vol] 9.7 10*3/uL Normal 4.4-11.0 [facility] Comment on above: Performed By: #### L 100.0100, L300.8000, L500.2500, L501.4021 #### [facility] [address] [place], [address] CTA Chest W/WO Contraston CTA Chest W/WO Contrast [facility] Imaging Services [address] [place] [address] CTA Chest W/WO Contrast MR#: [id number] Acct: [id number] Name: BOZENA MEDEL Rep #: [id number] : 1945 F 79 From: Demetri Benitez i, MD PCP: Dr. Rebecca Menezes MD Status: [facility] ER Study: CTA Chest W/WO Contrast Date of Exam: 02/02/25 Exam# [id number] Ordering Dr: Mehran Bravo MD PROCEDURE: CTA CHEST W/WO CONTRAST 02/02/2025 REASON FOR EXAM: LEFT PLEURITIC CHEST PAIN, ELEVATED D-DIMER TECHNIQUE: CTA axial imaging of the chest with intravenous contrast. Multiplanar and multisequence images were obtained. PATIENT PREPARATION: Per protocol CONTRAST: Yes. One or more dose reduction techniques were used (e.g., Automated exposure control, adjustment of the mA and/or kV according to patient size, use of iterative reconstruction technique). RADIATION DOSE SUMMARY: CTDlvol: 12.8 mGy DLP: 353 mGycm . COMPARISON: Chest x-ray dated 02/02/2025. FINDINGS: The trachea and central bronchial tree are patent. There is no pleural or pericardial effusion. The heart is normal in size. The pulmonary arteries are normal in size and caliber. There is no filling defects to suggest pulmonary arterial embolism. The thoracic aorta is without evidence of aneurysmal dilatation. No focal consolidation is seen within the lungs. Dependent changes are present at the lung bases. No acute osseous abnormality seen. Small hiatal hernia is present. CT/CTA Chest W/WO Contrast IMPRESSION: No focal infiltrate or consolidation is seen within the lungs. No evidence of pulmonary embolism. Small hiatal hernia. Reading Location: [facility] CC: Dr. Rebecca Menezes MD; Dr. Mehran Bravo MD Meat Service Team Member: Signed Normal [facility] Carbon dioxide, total [Moles /volume] in Central venous bloodOrdered By: Mehran Bravo on 02-02-2025 CO2 [Moles/Vol] 23.6 mmol/L 21.0-32.0 [facility] Chest 1 View (Portable)on Chest 1 View (Portable) [facility] Imaging Services [address] [place] [address] Chest 1 View (Portable) MR#: [id number] Acct: [id number] Name: BOZENA MEDEL Rep #: [id number] : 1945 F 79 From: Sj Silva MD PCP: Dr. Rebecca Menezes MD Status: REG ER Study: Chest 1 View (Portable) Date of Exam: 02/02/25 Exam# [id number] Ordering Dr: Mehran Bravo MD PROCEDURE: CHEST 1 VIEW (PORTABLE) 02/02/2025 REASON FOR EXAM: CHEST PAIN TECHNIQUE: Frontal view of the chest. COMPARISON: 11/29/2020 FINDINGS: The lungs appear clear. Pulmonary vascularity appears within limits. No evidence of pleural effusion. The cardiac and mediastinal contours appear within limits. Surgical clips noted right upper quadrant. RAD/Chest 1 View (Portable) IMPRESSION: No evidence of acute disease. Reading Location: [facility] CC: Dr. Rebecca Menezes MD; Dr. Mehran Bravo MD Meat Service Team Member: Signed Normal [facility] Chloride assayOrdered By: Janee Bravo on 02-02-2025 Chloride [Moles/Vol] 104 mmol/L 98-108 [place] D-Dimer Quantitative (DVT/PE )on 02-02-2025 D-DIMER QUANT 0.99 FEU/ug/m Invalid Interpretation Code 0.27-0.49 [facility] Comment on above: Result Comment: D-Di jordan ELEVATED (>0.49): Additional studies and clinical assessments are indicated to conclude diagnosis of: Deep Vein Thrombosis (DVT) or Pulmonary Embolism (PE) CRITICAL VALUE CALLED TO LSPARR 02/02/25 0520 Arnoldo Pattreson. RESULTS READ BACK BY SAME. Performed By: #### L 100.0100, L300.8000, L500.2500, L501.4021 #### [facility] [address] [place], [address] Emergency Department Summary on 02-02-2025 Emergency Department Summary [facility] Medical Records Department [address] [place] [address] Emergency Department Summary 02/02/25 MR#: [id number] Acct: [id number] Name: BOZENA MEDEL Rep #: [id number] : [id number] From: Mehran Bravo MD PCP: Dr. Rebecca Menezes MD Status:REG ER Location: ED HPI History of Present Illness Chief Complaint: Chest Pain Informant: patient, family and EMS Narrative Narrative: Fairly healthy 79-year-old female presenting with left-sided pleuritic chest discomfort. She states it is not sharp or tearing or pressure or heavy or dull but it is significant. She feels a little bit in the left upper back and the left shoulder but not down her arm or into her jaw/neck. A little dyspneic, no cough or fevers, no palpitations, no near-syncope or syncope. No GI symptoms. No sweats. She broke her foot in October and was laid up for a while but it is doing better now, she denies having any unilateral calf pain or edema or history of DVT/PE. Family states she has been belching a lot all night. This has been going on now for about 8 hours, constantly. She does not have a history of heart problems except for some EKGs that showed a mild heart attack, she actually has a nuclear stress test scheduled for this coming Thursday less than 1 week away. [facility] Medical History (Updated 02/02/25 @ 07:[address] Mehran Bravo MD) Recurrent incisional hernia Abdominal pain Wears hearing aid Loss of hearing Wears glasses Wears dentures Post-menopausal Anxiety Arthritis Non-smoker Leg cramps History of stress test ( 2020) Skin cancer IBS (irritable bowel syndrome) Hearing problem Gallstone Emotional problems Breast lump Back problem Crushing injury of right foot, initial encounter Precancerous polyps Home Medications ???Medication ???Instructions ???Recorded ???Last Taken ???Type cetirizine 10 mg capsule (Zyrtec) 10 mg PO DAILY PRN allergy sympto ms 02/03/24 04/14/24 History Allergy/AdvReac Type Severity Reaction Status Date / Time prednisone Allergy Severe deathly Verified 02/02/25 04:33 sick hydrocodone bitartrate (From AdvReac Other Verified 02/02/25 04:33 Vicodin) oxycodone AdvReac Itching Verified 02/02/25 04:33 Family History Father Alcohol abuse Respiratory disease Emphysema Brother Colon cancer Sister CVA (cerebral vascular accident) Mother Myocardial infarction Surgical History History of laparoscopy History of cardiac catheterization ( 2020) History of surgical procedure History of colon surgery H/O hernia repair (04/15/24) Hx of bladder repair surgery H/O: hysterectomy History of tubal ligation History of cholecystectomy H/O breast surgery Social History household members: none housing: house current occupational status: retired Smoking Status: Never smoker Electronic Cigarette Use: not used alcohol intake: never substance use type: does not use what type of physical activity do you participate in: none seatbelt use: always do you feel safe at home: Yes ROS ROS ED Constitutional Constitutional ED: Denies chills, fever(s) or sweats Eyes Eyes: Denies change in vision or diplopia ENT ENT ED: Denies rhinorrhea or sore throat Cardiovascular Cardiovascular: Reports chest pain; Denies palpitations Respiratory/Chest Respiratory/Chest: Reports dyspnea; Denies cough Gastrointestinal Gastrointestinal: Denies abdominal pain, diarrhea, nausea or vomiting Genitourinary Genitourinary ED: Denies dysuria or hematuria Musculoskeletal Musculoskeletal: Denies back pain or neck pain Integumentary Denies abscess or rash Neurologic Neurologic: Denies headache(s), paresthesias or weakness Psychiatric Psychiatric: Denies anxiety or suicidal thoughts EXAM Physical Exam Const Vital Signs: 02/02/25 04:34 02/02/25 04:34 02/02/25 04:50 Temperature 98.7 F Temperature Source Oral Pulse Rate 95 Respiratory Rate 18 Respiratory Effort Normal Blood Pressure 127/69 H Blood Pressure Mean 88 Pulse Ox 93 92 Oxygen Delivery Method Room Air Room Air 02/02/25 05:30 02/02/25 06:00 02/02/25 07:00 Temperature Temperature Source Pulse Rate 94 89 89 Respiratory Rate 16 16 18 Respiratory Effort Blood Pressure 116/76 113/45 L 123/79 H Blood Pressure Mean 89 67 93 Pulse Ox 91 94 98 Oxygen Delivery Method Room Air Room Air Positive well nourished and well developed General Appearance ED: well developed and NAD HEENT Reports moist mucous membranes normocephalic and atraumatic Eyes PERRL and EOMs intact bilaterally Neck full ROM and supple Ches (more content not included)... Normal [facility] Eosinophil percentageOrdered By: Mehran Bravo on 02-02-2025 Eosinophils/100 WBC (Bld) 1.3 % 0-5 [facility] Erythrocyte distribution wid th ratioOrdered By: Mehran Bravo on 02-02-2025 Erythrocyte distribution width (RBC) [Ratio] 12.7 % 11.6-14.6 [facility] Erythrocyte distribution wid th standard deviationOrdered By: Mehran Bravo on 02-02-2025 Erythrocyte distribution width (RBC) [Ratio] 40.6 fl 35.1-43.9 [facility] Glomerular filtration rate ( GFR) estimation/1.73 sq m using serum, plasma, or whole bOrdered By: Mehran Bravo on 02-02-2025 GFR/1.73 sq M.predicted among non-blacks MDRD (S/P/Bld) [Vol rate/Area] 58 mL/min/{1.73_m2} Low >60 [facility] Comment on above: mL/min/1.73m2 CKD-EP I Creatinine Equation (2020) Hematocrit Auto (Bld) [Volum e fraction]Ordered By: Mehran Bravo on 02-02-2025 Hematocrit (Bld) [Volume fraction] 39.5 % 37-47 [facility] Hemoglobin measurementOrdere d By: Mehran Bravo on 02-02-2025 Hemoglobin (Bld) [Mass/Vol] 13.6 g/dL 12.0-15.0 [facility] Immature granulocytes/100 WB C Auto (Bld)Ordered By: Mehran Bravo on 02-02-2025 Immature granulocytes/100 WBC (Bld) 0.300 % 0.0-0.9 [facility] Comment on above: IG% - Immature Granu locytes (promyelocytes, myelocytes and metamyelocytes) > 1% indicates that a LEFT SHIFT is Present. L499.0042on 02-02-2025 Trop T High Sen 15 ng/L High <=14 [facility] Comment on above: Performed By: #### L 499.0042 #### [facility] [address] [place], [place], [address] L499.0043on 02-02-2025 Trop T High Sen Normal <=14 [facility] Comment on above: Result Comment: Canc elled via OM: Order cancelled - Patient discharged Performed By: #### L 499.0043 #### [facility] [address] [place], [address] L501.4021on 02-02-2025 Trop T High Sen 11 ng/L Normal <=14 [facility] Comment on above: Performed By: #### L 100.0100, L300.8000, L500.2500, L501.4021 #### [facility] [place], [address] MCV (mean corpuscular volume ) determinationOrdered By: Mehran Bravo on 02-02-2025 MCV (RBC) [Entitic vol] 87.0 fL 81-99 [facility] Mean corpuscular hemoglobin (MCH) determinationOrdered By: Mehran Bravo on 02-02-2025 MCH (RBC) [Entitic mass] 30.0 pg 27.0-32.0 [facility] Mean corpuscular hemoglobin concentration (MCHC) determinationOrdered By: Mehran Bravo on 02-02-2025 MCHC (RBC) [Mass/Vol] 34.4 g/dL 32-36 [facility] Mean platelet volume determi nationOrdered By: Mehran Bravo on 02-02-2025 Platelet mean volume (Bld) [Entitic vol] 8.6 fL 6.2-12.0 [facility] Monocyte percentageOrdered B y: Mehran Bravo on 02-02-2025 Monocytes/100 WBC (Bld) 7.5 % 0-10 [facility] Neutrophil percentageOrdered By: Mehran Bravo on 02-02-2025 Neutrophils/100 WBC (Bld) 57.8 % 47-70 [facility] Nucleated red blood cell per centageOrdered By: Mehran Bravo on 02-02-2025 Nucleated RBC/100 WBC (Bld) [Ratio] 0 % 0-5 [facility] Platelet countOrdered By: Janee Bravo on 02-02-2025 Platelets (Bld) [#/Vol] 256 10*3/uL 150-450 [facility] Potassium measurement (mass/ volume)Ordered By: Mehran Bravo on 02-02-2025 Potassium (Unsp spec) [Mass/Vol] 4.2 mmol/L 3.3-5.1 [facility] RBC Auto (Bld) [#/Vol]Ordere d By: Mehran Bravo on 02-02-2025 RBC (Bld) [#/Vol] 4.54 10*6/uL 4.2-5.4 [facility] Serum creatinine measurement (mass/volume)Ordered By: Mehran Bravo on 02-02-2025 Creatinine [Mass/Vol] 0.98 mg/dL 0.70-1.20 [facility] Serum glucose measurement (m ass/volume)Ordered By: Mehran Bravo on 02-02-2025 Glucose [Mass/Vol] 99 mg/dL 70-99 [facility] Serum or plasma calcium flavia urement (mass/volume)Ordered By: Mehran Bravo on 02-02-2025 Calcium [Mass/Vol] 9.0 mg/dL 7.6-11.0 [facility] Serum or plasma urea nitroge n measurement (mass/volume)Ordered By: Mehran Bravo on 02-02-2025 Urea nitrogen [Mass/Vol] 15 mg/dL 4-19 [facility] Sodium levelOrdered By: Wellington Bravo on 02-02-2025 Sodium [Moles/Vol] 137 mmol/L 133-145 [facility] Troponin T.cardiac [Mass/vol ume] in Serum or Plasma by High sensitivity methodOrdered By: Mehran Bravo on 02-02-2025 Troponin T.cardiac High sensitivity method [Mass/Vol] 15 ng/L High <14 [facility] Troponin T.cardiac High sensitivity method [Mass/Vol] 11 ng/L <14 [facility] White blood cell (WBC) count Ordered By: Mehran Bravo on 02-02-2025 WBC (Bld) [#/Vol] 9.7 10*3/uL 4.4-11.0 [facility] Absolute lymphocyte countOrd ered By: Rebecca Menezes on 01-16-2025 Lymphocytes Auto (Unsp spec) [#/Vol] 2.99 10*3/uL 0.83-4.51 [facility] Absolute neutrophil countOrd ered By: Rebecca Menezes on 01-16-2025 Neutrophils (Bld) [#/Vol] 3.0 10*3/uL 2.0-7.7 [facility] Anion gap in Serum or Plasma Ordered By: Rebecca Menezes on 01-16-2025 Anion gap [Moles/Vol] 11 mmol/L 5-15 [facility] Automated lymphocyte count a s percentage of total leukocytesOrdered By: Rebecca Menezes on 01-16-2025 Lymphocytes/100 WBC Auto (Unsp spec) 43.5 % High 19-41 [facility] BUN/creatinine ratioOrdered By: Rebecca Menezes on 01-16-2025 Urea nitrogen/Creatinine [Mass ratio] 19.9 mg/mg 10-20 [facility] Basophil percentageOrdered B y: Rebecca Menezes on 01-16-2025 Basophils/100 WBC (Bld) 0.9 % 0-1 [facility] Bilirubin, totalOrdered By: Rebecca Menezes on 01-16-2025 Bilirubin [Mass/Vol] 0.74 mg/dL 0.00-1.30 [place] CBC W/Diff, Automatedon 12-28 Absolute Lymph 2.99 X10 3/uL Normal 0.83-4.51 [facility] Comment on above: Performed By: #### L 500.4100, L503.0106, L506.1001, L100.0100, L500.4050 ####[facility] [address] [place], [address] Absolute Neut 3.0 X10 3/uL Normal 2.0-7.7 [facility] Comment on above: Performed By: #### L 500.4100, L503.0106, L506.1001, L100.0100, L500.4050 ####[facility] [address] [place], [address] Basophils/100 WBC (Bld) 0.9 % Normal 0-1 [facility] Comment on above: Performed By: #### L 500.4100, L503.0106, L506.1001, L100.0100, L500.4050 ####[facility] [address] [place], [address] Eosinophils/100 WBC (Bld) 4.1 % Normal 0-5 [facility] Comment on above: Performed By: #### L 500.4100, L503.0106, L506.1001, L100.0100, L500.4050 ####[facility] [address] [place], [address] Erythrocyte distribution width (RBC) [Ratio] 13.1 % Normal 11.6-14.6 [facility] Comment on above: Performed By: #### L 500.4100, L503.0106, L506.1001, L100.0100, L500.4050 ####[facility] [address] [place], [address] Hematocrit (Bld) [Volume fraction] 43.0 % Normal 37-47 [facility] Comment on above: Performed By: #### L 500.4100, L503.0106, L506.1001, L100.0100, L500.4050 ####[facility] [address] [place], [address] Hemoglobin (Bld) [Mass/Vol] 14.0 g/dL Normal 12.0-15.0 [facility] Comment on above: Performed By: #### L 500.4100, L503.0106, L506.1001, L100.0100, L500.4050 ####[facility] [address] [place], [address] IG% 0.300 Normal 0.0-0.9 [facility] Comment on above: Result Comment: IG% - Immature Granulocytes (promyelocytes, myelocytes and metamyelocytes) > 1% indicates that a LEFT SHIFT is Present. Performed By: #### L 500.4100, L503.0106, L506.1001, L100.0100, L500.4050 ####[facility] [address] [place], [address] Lymphocytes/100 WBC (Bld) 43.5 % High 19-41 [facility] Comment on above: Performed By: #### L 500.4100, L503.0106, L506.1001, L100.0100, L500.4050 ####[facility] [address] [place], [address] MCH (RBC) [Entitic mass] 29.6 pg Normal 27.0-32.0 [facility] Comment on above: Performed By: #### L 500.4100, L503.0106, L506.1001, L100.0100, L500.4050 ####[facility] [address] [place], [address] MCHC (RBC) [Mass/Vol] 32.6 g/dL Normal 32-36 [facility] Comment on above: Performed By: #### L 500.4100, L503.0106, L506.1001, L100.0100, L500.4050 ####[facility] [address] [place], [address] MCV (RBC) [Entitic vol] 90.9 fL Normal 81-[address] [facility] Comment on above: Performed By: #### L 500.4100, L503.0106, L506.1001, L100.0100, L500.4050 ####[facility] [address] [place], [address] Monocytes/100 WBC (Bld) 8.2 % Normal 0-[address] [facility] Comment on above: Performed By: #### L 500.4100, L503.0106, L506.1001, L100.0100, L500.4050 ####[facility] [address] [place], [address] Neutrophils/100 WBC (Bld) 43.0 % Low 47-70 [facility] Comment on above: Performed By: #### L 500.4100, L503.0106, L506.1001, L100.0100, L500.4050 ####[facility] [address] [place], [address] Nucleated RBC (Bld) [#/Vol] 0 10*3/uL Normal 0-5 [facility] Comment on above: Performed By: #### L 500.4100, L503.0106, L506.1001, L100.0100, L500.4050 ####[facility] [address] [place], [address] Platelet mean volume (Bld) [Entitic vol] 9.2 fL Normal 6.2-12.0 [facility] Comment on above: Performed By: #### L 500.4100, L503.0106, L506.1001, L100.0100, L500.4050 ####[facility] [address] [place], [address] Platelets (Bld) [#/Vol] 290 10*3/uL Normal 150-450 [facility] Comment on above: Performed By: #### L 500.4100, L503.0106, L506.1001, L100.0100, L500.4050 ####[facility] [address] [place], [address] RBC (Bld) [#/Vol] 4.73 10*6/uL Normal 4.2-5.4 [facility] Comment on above: Performed By: #### L 500.4100, L503.0106, L506.1001, L100.0100, L500.4050 ####[facility] [address] [place], [address] RDW SD 44.2 fl High 35.1-43.9 [facility] Comment on above: Performed By: #### L 500.4100, L503.0106, L506.1001, L100.0100, L500.4050 ####[facility] [address] [place], [address] WBC (Bld) [#/Vol] 6.9 10*3/uL Normal 4.4-11.0 [facility] Comment on above: Performed By: #### L 500.4100, L503.0106, L506.1001, L100.0100, L500.4050 ####[facility] [address] [place], [address] Calculated very low density lipoprotein (VLDL) cholesterol measurementOrdered By: Rebecca Dacono on 01-16-2025 Calculated very low density lipoprotein (VLDL) cholesterol measurement 30 mg/dL 5-40 [facility] Carbon dioxide, total [Moles /volume] in Central venous bloodOrdered By: Rebecca Riri on 01-16-2025 CO2 [Moles/Vol] 23.0 mmol/L 21.0-32.0 [facility] Chloride assayOrdered By: Al ycia Dacono on 01-16-2025 Chloride [Moles/Vol] 104 mmol/L 98-108 [place] Comprehensive Metabolic Prof ilon 01-16-2025 Albumin [Mass/Vol] 4.3 g/dL Normal 3.4-4.8 [facility] Comment on above: Performed By: #### L 500.4100, L503.0106, L506.1001, L100.0100, L500.4050 ####[facility] [address] [place], [address] Albumin/Globulin [Mass ratio] 1.4 {ratio} Normal 0.9-2.4 [facility] Comment on above: Performed By: #### L 500.4100, L503.0106, L506.1001, L100.0100, L500.4050 ####[facility] [address] [place], [address] ALK PHOS 86 U/L Normal 35-104 [facility] Comment on above: Performed By: #### L 500.4100, L503.0106, L506.1001, L100.0100, L500.4050 ####[facility] [address] [place], [address] ALT [Catalytic activity/Vol] 9 U/L Normal <=34 [facility] Comment on above: Performed By: #### L 500.4100, L503.0106, L506.1001, L100.0100, L500.4050 ####[facility] [address] [place], [address] AST [Catalytic activity/Vol] 19 U/L Normal <=31 [facility] Comment on above: Performed By: #### L 500.4100, L503.0106, L506.1001, L100.0100, L500.4050 ####[facility] [address] [place], [address] Bilirubin [Mass/Vol] 0.74 mg/dL Normal 0.00-1.30 [place] Comment on above: Performed By: #### L 500.4100, L503.0106, L506.1001, L100.0100, L500.4050 ####[facility] [address] [place], [address] BUN/CRE 19.9 RATIO Normal 10-20 [facility] Comment on above: Performed By: #### L 500.4100, L503.0106, L506.1001, L100.0100, L500.4050 ####[facility] [address] [place], [address] Calcium [Mass/Vol] 9.6 mg/dL Normal 7.6-11.0 [facility] Comment on above: Performed By: #### L 500.4100, L503.0106, L506.1001, L100.0100, L500.4050 ####[facility] [address] [place], [address] Chloride [Moles/Vol] 104 mmol/L Normal 98-108 [place] Comment on above: Performed By: #### L 500.4100, L503.0106, L506.1001, L100.0100, L500.4050 ####[facility] [address] [place], [address] CO2 [Moles/Vol] 23.0 mmol/L Normal 21.0-32.0 [facility] Comment on above: Performed By: #### L 500.4100, L503.0106, L506.1001, L100.0100, L500.4050 ####[facility] [address] [place], [address] Creatinine [Mass/Vol] 0.84 mg/dL Normal 0.70-1.20 [facility] Comment on above: Performed By: #### L 500.4100, L503.0106, L506.1001, L100.0100, L500.4050 ####[facility] [address] [place], [address] GAP 11 Normal 5-15 [facility] Comment on above: Performed By: #### L 500.4100, L503.0106, L506.1001, L100.0100, L500.4050 ####[facility] [address] [place], [address] GFR/1.73 sq M.predicted among non-blacks MDRD (S/P/Bld) [Vol rate/Area] 70 mL/min/{1.73_m2} Normal >60 [facility] Comment on above: Result Comment: mL/m in/1.73m2 CKD-EPI Creatinine Equation (2020) Performed By: #### L 500.4100, L503.0106, L506.1001, L100.0100, L500.4050 ####[facility] [address] [place], [address] Globulin (S) [Mass/Vol] 3.0 g/dL Normal 2.2-4.[address] [facility] Comment on above: Performed By: #### L 500.4100, L503.0106, L506.1001, L100.0100, L500.4050 ####[facility] [address] [place], [address] Glucose [Mass/Vol] 94 mg/dL Normal 70-99 [facility] Comment on above: Performed By: #### L 500.4100, L503.0106, L506.1001, L100.0100, L500.4050 ####[facility] [address] [place], [address] Potassium [Moles/Vol] 4.4 mmol/L Normal 3.3-5.1 [facility] Comment on above: Performed By: #### L 500.4100, L503.0106, L506.1001, L100.0100, L500.4050 ####[facility] [address] [place], [address] Sodium [Moles/Vol] 138 mmol/L Normal 133-145 [facility] Comment on above: Performed By: #### L 500.4100, L503.0106, L506.1001, L100.0100, L500.4050 ####[facility] [address] [place], [address] T PROT 7.2 g/dL Normal 5.9-8.4 [facility] Comment on above: Performed By: #### L 500.4100, L503.0106, L506.1001, L100.0100, L500.4050 ####[facility] [address] [place], [address] Urea nitrogen [Mass/Vol] 17 mg/dL Normal 4-19 [facility] Comment on above: Performed By: #### L 500.4100, L503.0106, L506.1001, L100.0100, L500.4050 ####[facility] [address] [place], [address] Eosinophil percentageOrdered By: Rebecca Menezes on 01-16-2025 Eosinophils/100 WBC (Bld) 4.1 % 0-5 [facility] Erythrocyte distribution wid th ratioOrdered By: Rebecca Menezes on 01-16-2025 Erythrocyte distribution width (RBC) [Ratio] 13.1 % 11.6-14.6 [facility] Erythrocyte distribution wid th standard deviationOrdered By: Rebecca Menezes on 01-16-2025 Erythrocyte distribution width (RBC) [Ratio] 44.2 fl High 35.1-43.9 [facility] Glomerular filtration rate ( GFR) estimation/1.73 sq m using serum, plasma, or whole bOrdered By: Rebecca Menezes on 01-16-2025 GFR/1.73 sq M.predicted among non-blacks MDRD (S/P/Bld) [Vol rate/Area] 70 mL/min/{1.73_m2} >60 [facility] Comment on above: mL/min/1.73m2 CKD-EP I Creatinine Equation (2020) Hematocrit Auto (Bld) [Volum e fraction]Ordered By: Rebecca Menezes on 01-16-2025 Hematocrit (Bld) [Volume fraction] 43.0 % 37-47 [facility] Hemoglobin measurementOrdere d By: Rebecca Menezes on 01-16-2025 Hemoglobin (Bld) [Mass/Vol] 14.0 g/dL 12.0-15.0 [facility] Immature granulocytes/100 WB C Auto (Bld)Ordered By: Rebecca Menezes on 01-16-2025 Immature granulocytes/100 WBC (Bld) 0.300 % 0.0-0.9 [facility] Comment on above: IG% - Immature Granu locytes (promyelocytes, myelocytes and metamyelocytes) > 1% indicates that a LEFT SHIFT is Present. LDL calc ser/plasOrdered By: Rebecca Menezes on 01-16-2025 Cholesterol in LDL [Mass/Vol] 108 mg/dL [facility] Comment on above: Vwdvhjabdf=829-818 m g/dL & Higher Umgk=095 mg/dL or greater Laboratory - Chemistry and C hemistry - challengeOrdered By: Rebecca Menezes on 01-16-2025 AST [Catalytic activity/Vol] 19 U/L <32 [facility] Lipid Profileon 01-16-2025 CHOL:HDL 3.89 Normal [facility] Comment on above: Performed By: #### L 500.4100, L503.0106, L506.1001, L100.0100, L500.4050 ####[facility] [address] [place], [address] Cholesterol [Mass/Vol] 185 mg/dL Normal <=200 [facility] Comment on above: Result Comment: Chol esterol level, Desirable <200 mg/dL Borderline high cholesterol 200-239 mg/dL High cholesterol >=240 mg/dL Recommendations of the NCEP Adult Treatment Panel for the following risk-cutoff thresholds for the [place] population. Performed By: #### L 500.4100, L503.0106, L506.1001, L100.0100, L500.4050 ####[facility] [address] [place], [address] Cholesterol in HDL [Mass/Vol] 48 mg/dL Normal [facility] Comment on above: Result Comment: Christa onal Cholesterol Education Program (NCEP) guidelines: <40 mg/dL: Low HDL-cholesterol (major risk factor for CHD) >= 60 mg/dL: High HDL-cholesterol (negative risk factor for CHD) HDL-cholesterol is affected by a number of factors, e.g. smoking, exercise, hormones, sex and age. Performed By: #### L 500.4100, L503.0106, L506.1001, L100.0100, L500.4050 ####[facility] [address] [place], [address] Cholesterol in LDL [Mass/Vol] 108 mg/dL Normal [facility] Comment on above: Result Comment: Bord lleyrx=321-874 mg/dL Higher Mktp=183 mg/dL or greater Performed By: #### L 500.4100, L503.0106, L506.1001, L100.0100, L500.4050 ####[facility] [address] [place], [address] Cholesterol in VLDL [Mass/Vol] 30 mg/dL Normal 5-40 [facility] Comment on above: Performed By: #### L 500.4100, L503.0106, L506.1001, L100.0100, L500.4050 ####[facility] [address] [place], [address] Triglyceride [Mass/Vol] 149 mg/dL Normal [facility] Comment on above: Result Comment: The drugs N-Acetylcysteine and Metamizole may falsely depress this assay. Normal range: <150 mg/dL Borderline High: 150-199 mg/dL High: 200-499 mg/dL Very High: >500 mg/dL Performed By: #### L 500.4100, L503.0106, L506.1001, L100.0100, L500.4050 ####[facility] [address] [place], [address] MCV (mean corpuscular volume ) determinationOrdered By: Rebecca Menezes on 01-16-2025 MCV (RBC) [Entitic vol] 90.9 fL 81-[address] [facility] Mean corpuscular hemoglobin (MCH) determinationOrdered By: Rebecca Riri on 01-16-2025 MCH (RBC) [Entitic mass] 29.6 pg 27.0-32.0 [facility] Mean corpuscular hemoglobin concentration (MCHC) determinationOrdered By: Rebecca Riri on 01-16-2025 MCHC (RBC) [Mass/Vol] 32.6 g/dL 32-36 [facility] Mean platelet volume determi nationOrdered By: Rebecca Riri on 01-16-2025 Platelet mean volume (Bld) [Entitic vol] 9.2 fL 6.2-12.0 [facility] Monocyte percentageOrdered B y: Rebecca Menezes on 01-16-2025 Monocytes/100 WBC (Bld) 8.2 % 0-10 [facility] Neutrophil percentageOrdered By: Rebecca Menezes on 01-16-2025 Neutrophils/100 WBC (Bld) 43.0 % Low 47-70 [facility] Nucleated red blood cell per centageOrdered By: Rebecca Menezes on 01-16-2025 Nucleated RBC/100 WBC (Bld) [Ratio] 0 % 0-5 [facility] Platelet countOrdered By: Kirill Menezes on 01-16-2025 Platelets (Bld) [#/Vol] 290 10*3/uL 150-450 [facility] Potassium measurement (mass/ volume)Ordered By: Rebecca Menezes on 01-16-2025 Potassium (Unsp spec) [Mass/Vol] 4.4 mmol/L 3.3-5.1 [facility] RBC Auto (Bld) [#/Vol]Ordere d By: Rebecca Menezes on 01-16-2025 RBC (Bld) [#/Vol] 4.73 10*6/uL 4.2-5.4 [facility] Screening total cholesterol/ high density lipoprotein (HDL) cholesterol ratioOrdered By: Rebecca Menezes on 01-16-2025 Cholesterol.total/Mary sterol in HDL [Mass ratio] 3.89 {ratio} [facility] Serum creatinine measurement (mass/volume)Ordered By: Rebecca Menezes on 01-16-2025 Creatinine [Mass/Vol] 0.84 mg/dL 0.70-1.20 [facility] Serum globulin measurementOr dered By: Rebecca Menezes on 01-16-2025 Globulin (S) [Mass/Vol] 3.0 g/dL 2.2-4.2 [facility] Serum glucose measurement (m ass/volume)Ordered By: Rebecca Menezes on 01-16-2025 Glucose [Mass/Vol] 94 mg/dL 70-99 [facility] Serum or plasma alanine fernandes otransferase (ALT) measurementOrdered By: Rebecca Menezes on 01-16-2025 ALT [Catalytic activity/Vol] 9 U/L <35 [facility] Serum or plasma albumin flavia urement (mass/volume)Ordered By: Rebecca Menezes on 01-16-2025 Albumin [Mass/Vol] 4.3 g/dL 3.4-4.8 [facility] Serum or plasma albumin/glob ulin mass ratioOrdered By: Rebecca Menezes on 01-16-2025 Albumin/Globulin [Mass ratio] 1.4 {ratio} 0.9-2.4 [facility] Serum or plasma alkaline kobe sphatase measurementOrdered By: Rebecca Menezes on 01-16-2025 ALP [Catalytic activity/Vol] 86 U/L 35-104 [facility] Serum or plasma calcium flavia urement (mass/volume)Ordered By: Rebecca Menezes on 01-16-2025 Calcium [Mass/Vol] 9.6 mg/dL 7.6-11.0 [facility] Serum or plasma cholesterol in HDL measurement (mass/volume)Ordered By: Rebecca Menezes on 01-16-2025 Cholesterol in HDL [Mass/Vol] 48 mg/dL >40 [facility] Comment on above: National Cholesterol Education Program (NCEP) guidelines:<40 mg/dL: Low HDL-cholesterol (major risk factor for CHD)>= 60 mg/dL: High HDL-cholesterol (negative risk factor for CHD)HDL-cholesterol is affected by a number of factors, e.g. smoking, exercise, hormones, sex and age. Serum or plasma cholesterol measurement (mass/volume)Ordered By: Rebecca Menezes on 01-16-2025 Cholesterol [Mass/Vol] 185 mg/dL <201 [facility] Comment on above: Cholesterol level, D esirable <200 mg/dLBorderline high cholesterol 200-239 mg/dLHigh cholesterol >=240 mg/dLRecommendations of the NCEP Adult Treatment Panel for the following risk-cutoff thresholds for the [place] population. Serum or plasma urea nitroge n measurement (mass/volume)Ordered By: Rebecca Menezes on 01-16-2025 Urea nitrogen [Mass/Vol] 17 mg/dL 4-19 [facility] Sodium levelOrdered By: Stephanie Menezes on 01-16-2025 Sodium [Moles/Vol] 138 mmol/L 133-145 [facility] Total proteinOrdered By: Kee Menezes on 01-16-2025 Protein [Mass/Vol] 7.2 g/dL 5.9-8.4 [facility] Triglycerides measurementOrd ered By: Rebecca Menezes on 01-16-2025 Triglyceride [Mass/Vol] 149 mg/dL <199 [facility] Comment on above: The drugs N-Acetylcy steine and Metamizole may falsely depress this assay. Normal range: <150 mg/dLBorderline High: 150-199 mg/dLHigh: 200-499 mg/dLVery High: >500 mg/dL Vitamin B12on 01-16-2025 Cobalamin (Vitamin B12) [Mass/Vol] 273 pg/mL Normal 180-914 [facility] Comment on above: Performed By: #### L 500.4100, L503.0106, L506.1001, L100.0100, L500.4050 ####[facility] [address] [place], [place], [address] Vitamin B12 ser/plasOrdered By: Rebecca Menezes on 01-16-2025 Cobalamin (Vitamin B12) [Mass/Vol] 273 pg/mL 180-914 [facility] Vitamin D,25 Hydroxyon 01-16 Vitamin D 25-OH 20.5 ng/mL Low 30-100 [facility] Comment on above: Result Comment: Viviana min D Status Deficiency: <20 ng/mL (50nmol/L) Insufficiency: 20-30 ng/mL (50-75 nmol/L) Sufficiency: 30-100 ng/mL (75-250 nmol/L) Toxicity: >100 ng/mL (>250 nmol/L) Performed By: #### L 500.4100, L503.0106, L506.1001, L100.0100, L500.4050 ####[facility] [address] [place], [address] White blood cell (WBC) count Ordered By: Rebecca Menezes on 01-16-2025 WBC (Bld) [#/Vol] 6.9 10*3/uL 4.4-11.0 [facility] Internal Medicine Office Vis belénsarai 01-11-2025 Internal Medicine Office Visit [facility] [address] [place] [address] [place] [address] OFFICE VISIT Date of Service: 01/16/25 MR#: [id number] Acct: [id number] Name: BOZENA MEDEL Rep #: [id number] : 1945 Provider: Dr. Rebecca stephens MD Age/Sex: 79/F Location: [facility] Status: Signed Intake Vital Signs 11/04/24 18:32 01/16/25 08:17 Height 5 ft 7 in 5 ft 7 in Weight: 169 lb BMI 26.4 BP 112/60 Blood Pressure Location Lt brachial Position Sitting Respiration 19 H Pulse 61 Pulse Source Monitor Temp 98.4 F Temp Source Temporal Pulse Oximetry (%) 92 Oxygen Delivery Method room air Comment pt reports shortness of breath with exertion Intake Visit Reasons: fu Chief Complaint: fu Is patient in pain?: No Allergies prednisone Allergy (Severe, Verified 01/16/25 08:20) deathly sick hydrocodone bitartrate (From Vicodin) Adverse Reaction (Verified 01/16/25 08:20) Other oxycodone Adverse Reaction (Verified 01/16/25 08:20) Itching Medications ???Medication ???Instructions ???Recorded ???Confirmed ???Type cetirizine 10 mg capsule (Zyrtec) 10 mg PO DAILY PRN allergy sympto ms 02/03/24 01/16/25 History Have you fallen in the past year?: No Nurse's Note: pt reports having shortness of breath with exertion for the past couple months reports having right arm pain intermittently post fall 11/07/24. pt states that it does not hurt today. [facility] Medical History (Updated 01/16/25 @ 08:[address] Rebecca Menezes MD) Recurrent incisional hernia Abdominal pain Wears hearing aid Loss of hearing Wears glasses Wears dentures Post-menopausal Anxiety Arthritis Non-smoker Leg cramps History of stress test ( 2020) Skin cancer IBS (irritable bowel syndrome) Hearing problem Gallstone Emotional problems Breast lump Back problem Crushing injury of right foot, initial encounter Precancerous polyps Surgical History History of laparoscopy History of cardiac catheterization ( 2020) History of surgical procedure History of colon surgery H/O hernia repair (04/15/24) Hx of bladder repair surgery H/O: hysterectomy History of tubal ligation History of cholecystectomy H/O breast surgery Family History Father Alcohol abuse Respiratory disease Emphysema Brother Colon cancer Sister CVA (cerebral vascular accident) Mother Myocardial infarction Social History household members: none housing: house current occupational status: retired Smoking Status: Never smoker Electronic Cigarette Use: not used alcohol intake: never substance use type: does not use what type of physical activity do you participate in: none seatbelt use: always do you feel safe at home: Yes Questionnaire [facility] BMS Over the last 2 weeks, how often have you been bothered by any of the following problems? 1. Little interest or pleasure in doing things: not at all 2. Feeling down, depressed, or hopeless: several days 3. Trouble falling or staying asleep, or sleeping too much: several days 4. Feeling tired or having little energy: more than half the days 5. Poor appetite or overeating: not at all 6. Feeling bad about yourself - or that you are a failure or have let yourself and your family down: not at all 7. Trouble concentrating on things, such as reading the newspaper or watching television: not at all 8. Moving or speaking so slowly that other people could have noticed? - Or the opposite - being so fidgety or restless that you have been moving around a lot more than usual: not at all 9. Thoughts that you would be better off or of hurting yourself in some way: not at all Total score: 4 If you checked off any problems, how difficult have these problems made it for you to do your work, take care of things at home, or get along with other people?: not difficult at all Source: Developed by Drs. Sj Greco, Felecia Rust, Shlomo Kathleen and colleagues, with an educational simon from [employer]. VANESSA-7 BMS VANESSA-7 Feeling nervous, anxious, or on edge: 1 = Several days Not being able to stop or control worryin = Not at all Worrying too much about different things: 0 = Not at all Trouble relaxin = More than half the days Being so restless that it is hard to sit still: 0 = Not at all Becoming easily annoyed or irritable: 0 = Not at all Feeling afraid as if something awful might happen: 0 = Not at all Total VANESSA-7 score (0-4 normal; 5-9 mild; 10-14 moderate; 15-21 severe): 3 Source: Developed by Drs. Sj Greco, Shlomo Loyola and colleagues, with an educational simon from [employer]. HPI HPI Chief Complaint: fu Details: ELAIN (more content not included)... Normal [facility] Ankle min 3 Viewson 11-04-19 25 Ankle min 3 Views [facility] Imaging Services [address] [place] [address] Ankle min 3 Views MR#: [id number] Acct: [id number] Name: BOZENA MEDEL Rep #: [id number] : 1945 F 79 From: Kashif Gore MD PCP: Dr. Rebecca Menezes MD Status: [facility] ER Study: Ankle min 3 Views Date of Exam: 11/04/24 Exam# [id number] Ordering Dr: Arnold Reich DO PROCEDURE: ANKLE MIN 3 VIEWS REASON FOR EXAM: Fall. TECHNIQUE: 3 views of the left ankle COMPARISON: None FINDINGS: Proximal 5th metatarsal fracture. No suspicious bone lesion. Normal alignment. Mortise appears intact. No effusion. Soft tissues are unremarkable. RAD/Ankle min 3 Views IMPRESSION: Proximal 5th metatarsal fracture. Reading Location: [id number] CC: Dr. Rebecca Menezes MD; Dr. Arnold Reich DO Meat Service Team Member: Signed Normal [facility] Emergency Department Summary on 11-04-2024 Emergency Department Summary [facility] Medical Records Department [address] [place] [address] Emergency Department Summary 11/04/24 MR#: [id number] Acct: [id number] Name: BOZENA MEDEL Rep #: [id number] : 1945 79 From: Arnold Reich DO PCP: Dr. Rebecca Menezes MD Status:REG ER Location: ED HPI History of Present Illness Chief Complaint: Lower Extremity Injury Narrative Narrative: Patient is a 79-year-old female with a past medical history anxiety, IBS who presented to the Emergency Department with a chief complaint of left foot and ankle pain. Patient states that she was on the couch she went to stand up and her family bedside states that her foot got caught from her sock and she felt immediately pain and heard a pop. She said she took Advil prior to coming here but had significant pain and wanted to be further evaluated. Patient states that she denied chest pain shortness of breath lightness dizziness prior to the fall states that she simply had her sock get caught on the rug. [facility] Medical History Abdominal pain Wears hearing aid Loss of hearing Wears glasses Wears dentures Post-menopausal Cancer Anxiety Arthritis History of IBS Non-smoker Leg cramps History of stress test ( 2020) Skin cancer IBS (irritable bowel syndrome) Hearing problem Gallstone Emotional problems Breast lump Back problem Crushing injury of right foot, initial encounter Precancerous polyps Home Medications ???Medication ???Instructions ???Recorded ???Last Taken ???Type cetirizine 10 mg capsule (Zyrtec) 10 mg PO DAILY PRN allergy sympto ms 02/03/24 04/14/24 History alprazolam 0.25 mg tablet 0.25 mg PO BID PRN anxiety #10 tab s 04/11/24 04/14/24 Rx acetaminophen 300 mg-codeine 30 mg 1 - 2 tab PO Q6H PRN pain 3 days 08/30/24 Unknown Rx tablet #14 tabs Allergy/AdvReac Type Severity Reaction Status Date / Time prednisone Allergy Severe deathly Verified 11/04/24 18:33 sick hydrocodone bitartrate (From AdvReac Other Verified 11/04/24 18:33 Vicodin) oxycodone AdvReac Itching Verified 11/04/24 18:33 Family History Father Alcohol abuse Respiratory disease Emphysema Brother Colon cancer Sister CVA (cerebral vascular accident) Mother Myocardial infarction Surgical History History of laparoscopy History of cardiac catheterization ( 2020) History of surgical procedure History of colon surgery H/O hernia repair (04/15/24) Hx of bladder repair surgery H/O: hysterectomy History of tubal ligation History of cholecystectomy H/O breast surgery Social History household members: none housing: house current occupational status: employed 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[employer] Smoking Status: Never smoker Electronic Cigarette Use: not used alcohol intake: never substance use type: does not use what type of physical activity do you participate in: none seatbelt use: always do you feel safe at home: Yes ROS ROS ED ROS Narrative Constitutional: Denies any fevers, chills, headaches, lightness, dizziness Eyes: Denies change in vision double vision blurry vision Cardiovascular: Denies chest pain Neurological: Denies numbness, weakness, tingling Musculoskeletal: Complains of left foot and ankle pain as noted above Skin: Complains of bruising to the foot as noted above EXAM Physical Exam Narrative Exam Narrative: General: Patient lying in bed rest comfortably did not appear to be in acute distress Head: Atraumatic, normocephalic Eyes: PERRL bilaterally, EOMI bilaterally, no conjunctival injection noted Neck: Soft, supple, trachea midline Cardiovascular: Regular rate and rhythm Respiratory: Clear to auscultation bilaterally Musculoskeletal: Patient has tenderness to palpation to the dorsal aspect of her left foot as well as over the lateral malleolus Extremities: DP pulses +2/4 in the bilateral extremities, +5/5 strength noted in the bilateral upper extremities as well as right lower extremity and +4/5 strength noted in left lower extremity secondary to pain Neurological: Patient follow commands knew that she was at [facility] year is 2024. Sensation grossly intact in the bilateral lower extremities Skin: Mood affect appropriate Const Vital Signs: 11/04/24 18:32 11/04/24 20:32 Temperature 98 F Temperature Source Temporal Pulse Rate 95 89 Respiratory Rate 14 Blood Pressure 146/83 H 147/102 H Blood Pressure Mean 104 117 Pulse Ox 94 Oxygen Delivery Method Room Air MDM MDM MDM Narrative Medical decision rain (more content not included)... Normal [facility] Foot min 3 Viewson 5 Foot min 3 Views [facility] Imaging Services [address] [place] [address] Foot min 3 Views MR#: [id number] Acct: [id number] Name: REGLACAMPBELLBOZENA White Rep #: [id number] : 1945 F 79 From: Kashif Gore MD PCP: Dr. Rebecca Menezes MD Status: REG ER Study: Foot min 3 Views Date of Exam: 11/04/24 Exam# [id number] Ordering Dr: Arnold Reich DO PROCEDURE: FOOT MIN 3 VIEWS REASON FOR EXAM: Fall TECHNIQUE: 3 view(s) of the left foot. COMPARISON: None. FINDINGS: Mildly distracted fracture of the proximal 5th metatarsal. Normal alignment. Soft tissues are unremarkable. RAD/Foot min 3 Views IMPRESSION: Proximal 5th metatarsal fracture. Reading Location: [facility] CC: Dr. Rebecca Menezes MD; Dr. Arnold Reich DO Meat Service Team Member: Signed Normal [facility] Surgery Visit Reporton 09-12 Surgery Visit Report [facility] [address] [place] [address] OFFICE VISIT Date of Service: 09/12/24 MR#: [id number] Acct: [id number] Name: LIZYBOZENA Phelps Rep #: [id number] : 1945 Provider: Dr. Lori march MD Age/Sex: 79/F Location: [facility] Status: Signed Intake Vital Signs 08/30/24 10:04 Height 5 ft 7 in Intake Visit Reasons: 2 W FU Chief Complaint: F/U Diagnostic Laparoscopy/Lysis of adhesions/Omentum Biopsy 08/30/24 Densitometer Reader Required: No Is patient in pain?: No Allergies prednisone Allergy (Severe, Verified 09/12/24 12:25) deathly sick hydrocodone bitartrate (From Vicodin) Adverse Reaction (Verified 09/12/24 12:25) Other oxycodone Adverse Reaction (Verified 09/12/24 12:25) Itching Medications ???Medication ???Instructions ???Recorded ???Confirmed ???Type cetirizine 10 mg capsule (Zyrtec) 10 mg PO DAILY PRN allergy symptoms 02/03/24 09/12/24 History alprazolam 0.25 mg tablet 0.25 mg PO BID PRN anxiety #10 tabs 04/11/24 09/12/24 Rx acetaminophen 300 mg-codeine 30 mg 1 - 2 tab PO Q6H PRN pain 3 days 08/30/24 09/12/24 Rx tablet #14 tabs Have you fallen in the past year?: No Subjective Details: 79-year-old female status post diagnostic laparoscopy, omental biopsy presents for follow-up. Patient's biopsy just showed some fat necrosis and inflammation. Patient states her right lower quadrant pain is resolved. Patient been tolerating diet having bowel function. Objective Details: Incisions healing well clean dry and intact, abdomen soft, nondistended, nontender, no signs of infection Coding Level of Care Code Global Post Op Diagnoses History of laparoscopy Z98.890 [facility] Medical History Abdominal pain Wears hearing aid Loss of hearing Wears glasses Wears dentures Post-menopausal Cancer Anxiety Arthritis History of IBS Non-smoker Leg cramps History of stress test ( 2020) Skin cancer IBS (irritable bowel syndrome) Hearing problem Gallstone Emotional problems Breast lump Back problem Crushing injury of right foot, initial encounter Precancerous polyps Surgical History (Updated 09/13/24 @ 08:[address] 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 Patient's incisions healing well. Patient's pain has resolved. Unsure why of the omentum became inflamed as it was only the 1 area distal to the mesh. Follow-up as needed. Patient is agreeable plan. Lori Mart M.D. Pager: [phone] [facility] [address] [place] [address], [address] [place] [address] Office: [phone] 09/13/24 0819 Date Lori Zazueta Signature: Date (if applicable) CC: Dr. Rebecca Menezes MD [facility] Culture, Anaerobic Any Sourc georgie 09-04-2024 BRENNON MACKENZIE culture of omentum, has been collected No growth in 5 days. Normal [facility] Comment on above: Performed By: #### P SUIV #### [facility] [address] [place], [address] Gram Stainon 08-31-2024 GS ancef UNK culture of omentum, has been collected Gram Stain 2+ Red Blood Cells No organisms seen Normal [facility] Comment on above: Performed By: #### P SUIV #### [facility] [address] [place], [address] Wound Cultureon 08-31-2024 WC ancef UNK culture of omentum, has been collected No growth aerobically. Normal [facility] Comment on above: Performed By: #### P SUIV #### [facility] [address] [place], [address] 12 Lead EKGon 08-30-2024 12 Lead EKG [facility] Cardiovascular Services [address] [place] [address] 12 Lead EKG 08/30/24 1006 MR#: [id number] Acct: [id number] Name: BOZENA MEDEL Rep #: [id number] : 1945 79 From: Demetri Torres MD Attending Dr: Dr. Lori Mart MD Status: D EP [facility] Ordering Dr: Gurpreet Mcgovern MD Date: 08/30/24 Location: [facility] Sex: F C Admitted: Test Reason : Blood Pressure : */* mmHG Vent. Rate : 87 BPM Atrial Rate : 87 BPM P-R Int : 148 ms QRS Dur : 90 ms QT Int : 384 ms P-R-T Axes : 70 25 64 degrees QTcB Int : 462 ms Normal sinus rhythm Normal ECG When compared with ECG of 07-Apr-2024 13:39, Premature ventricular complexes are no longer Present Confirmed by Demetri Torres ([id number]), television news video editor JOLANTA CARRION ([id number]) on 08/31/2024 8:29:40 AM Referred By: Lori Mart Confirmed By: Demetri Torres 08/31/24 0829 Date Demetri Torres MD CC: Dr. Rebecca Menezes MD; Dr. Gurpreet Mcgovern MD; Dr. Lori Mart MD Signed Normal [facility] Donnie Ret (add)on 08-30-2024 Donnie Ret (add) - -------- Patient Age/Sex Location Account Attending Physician -------- BOZENA MEDEL 79/F [facility] [id number] Dr. Lori Mart MD -------- Specimen: [id number] Received: 09/01/24 Status: LION Mendez Num: [id number] Spec Type: IMMUNO Subm Dr: Dr. Lori Mart MD [facility] [place] [address] SPECIMEN INFORMATION: Tissue Source: Omentum Clinical Info: Abdominal pain, history of hernia repair Specimen Number: [id number] CPT code: 12254,69054a6 METHODOLOGY: Deparaffinized sections of prefer/formalin-fixed tissue or PAP/DQ stained slides are incubated with monoclonal/polyclonal antibodies/oligonucle otide probes. Localization is made via biotin free immunoperoxidase method. Appropriate controls are performed and reacted as expected. Results on target cell population are indicated in the following table: RESULTS: ANTIBODY / CLONE RESULT AE1-3 (AE1/AE3/PCK26) negative CK20 (KS20.8) negative Vimentin (V9) positive CD68 (KP-1) positive CALRET (polyclonal) negative P53 (DO-7) negative, null pattern Ki-67 (30-9) positive, low These tests were developed and their performance characteristics determined by [facility]. They may not have been cleared or approved by the U.S. Food and Drug Administration. The FDA has determined that such clearance or approval is not necessary. The above immunohistochemical/d ualISH markers are ordered and reviewed by the Pathologist. INTERPRETATION: Omentum, biopsy: No evidence of malignancy. AM. 09/02/2024 Signed (signature on file) Dr. Andrea Funk, 09/02/24 1116 -------- Normal [facility] Comment on above: Performed By: #### P SUIV #### [facility] [address] [place], [address] Discharge Instructionon Discharge Instruction [facility] Medical Records Department [address] [place] [address] Instructions for Home/Discharge Instructions 08/30/24 1210 MR#: [id number] Acct: [id number] Name: LIZYBOZENA K Rep #: [id number] : 1945 79 From: Lori Mart MD PCP: Dr. Rebecca Menezes MD Status:[facility] Discharge Instructions Diet Discharge Diet: Light diet - advance as tolerated Activity Discharge Activity: May Not Drive (while taking narcotic pain medications.) May shower in (days): 1 Lifting Restrictions: no lifting >20 lbs x 2 wks, no strenuous exercise for 4 wks Dressing / Incision Call your doctor if your incision/area has: Continuous Slow Oozing, Sudden Increased Bleeding, Increased Pain/ Swelling, Increased Redness, Foul Smelling Discharge and Swelling at the incision site Call your doctor if you observe: Fever of 101 or Higher Remove Dressing in: 2 days Cleanse incision/area with: Soap Water Additional Dressing/Incision Instructions:: Steri-Strips will fall off in 7 to 10 days, if they do not fall off okay to remove after 10 days. Follow Up Care Please Follow Up With: Lori Mart MD When: Call the office for a follow-up appointment 2 weeks; after 5 PM and on the weekends call [phone] with any concerns. Test Results: Test results from this visit will be discussed in further detail at your follow-up appointment, if applicable. Discharge Plan Admission Attending Provider: Lori Mart Primary Care Provider: Rebecca Menezes Instructions Print Language: Israeli Discharge Orders/Prescriptions Prescriptions: New acetaminophen-codeine 300-30 mg tablet 1 - 2 tab PO Q6H PRN (Reason: pain) 3 Days Qty: 14 0RF Continued Zyrtec 10 mg capsule 10 mg PO DAILY PRN (Reason: allergy symptoms) alprazolam 0.25 mg tablet 0.25 mg PO BID PRN (Reason: anxiety) Qty: 10 0RF Referrals / Follow Up: Rebecca Menezes MD [Primary Care Provider] - Disposition Disposition (needs filled in before D/C Order can be placed): Home, Self Care 08/30/24 1213 Lori Mart MD CC: Dr. Rebecca Menezes MD Signed Normal [facility] MR/POSTOP.Cayla 08-30-2024 MR/POSTOP.[facility] Medical Records Department [address] [place] [address] Anesthesia Postop Eval I 08/30/24 1228 MR#: [id number] Acct: [id number] Name: BOZENA MEDEL Rep #: [id number] : 1945 79 From: Aleah Aesncio CRNA PCP: Dr. Rebecca Menezes MD Status:[facility] Y Race: C Location: [place] [address] Anesthesia: Postop Eval I Current Vital Signs Temperature: 97 F Pulse Rate: 86 Blood Pressure: 131/79 Respiratory Rate: 16 Pulse Ox: 99 Oxygen Delivery Method: Room Air Assessment Airway patent: Yes Spontaneous unlabored respirations: Yes Mental status: Awake and Calm nausea: No Vomiting: No Anesthesia Complication: No Fluid Hydration Crystalloid volume administer (ml): 800 Total IV fluid infused: 800 Progress Note Anesthesia document: Postop Eval 1 completed: Yes 08/30/24 1229 Date Aleah Asencio MOBILE DEVELOPMENT MANAGER Cosigner Signature: Date CC: Signed Normal [facility] MR/[id number] 08-30-2024 [facility] Medical Records Department [address] [place] [address] Anesthesia Postop Eval II 08/30/24 1647 MR#: [id number] Acct: [id number] Name: BOZENA MEDEL Rep #: [id number] : 1945 79 From: Gurpreet Mcgovern MD PCP: Dr. Rebecca Menezes MD Status:[facility] Y Race: C Location: [facility] Anesthesia Postop Eval I Sum Postop Eval Completion status Anesthesia document: Postop Eval 1 completed: Yes Anesthesia Postop Eval I Summary Anesthesia Postop Eval I Summary: Anesthesia Postop Eval I: Assessment Summary Airway patent Yes 08/30/24 12:29 MOBILE DEVELOPMENT MANAGER.SKOBY Spontaneous unlabored Yes 08/30/24 12:29 MOBILE DEVELOPMENT MANAGER.SKOBY respirations Mental status Awake,Calm 08/30/24 12:29 MOBILE DEVELOPMENT MANAGER.SKOBY nausea No 08/30/24 12:29 MOBILE DEVELOPMENT MANAGER.SKOBY Vomiting No 08/30/24 12:29 MOBILE DEVELOPMENT MANAGER.SKOBY Anesthesia Postop Eval I: Fluid Summary Crystalloid volume administer 800 08/30/24 12:29 MOBILE DEVELOPMENT MANAGER.SKOBY (ml) Colloids volume administered ( ml) Blood Product volume administered (ml) Total IV fluid infused 800 08/30/24 12:29 MOBILE DEVELOPMENT MANAGER.SKOBY Anesthesia Postop Eval I: Summary Notes Anesthesia Complication No 08/30/24 12:29 MOBILE DEVELOPMENT MANAGER.SKOBY Anesthesia Complication Comment: Post-operative progress note Anesthesia: Postop Eval II Evaluation Mental status: Awake and Calm Pain Level: 1 nausea: No Vomiting: No Complications Anesthesia Complication: No 08/30/24 1648 Date Gurpreet Mcgovern MD Cosigner Signature: Date CC: Signed Normal [facility] Operative Reporton 4 Operative Report [facility] Medical Records Department [address] [place] [address] Operative Report 08/30/24 1208 MR#: [id number] Acct: [id number] Name: BOZENA MEDEL Mattie Rep #: [id number] : 1945 79 From: Lori Mart MD PCP: Dr. Rebecca Menezes MD Status:[facility] Location: [facility] Operative Report (Standard) Operative Information Surgery/Procedure Performed: Diagnostic laparoscopy, lysis of adhesions, incisional biopsy of omentum Surgeon: Lori Mart Date of Procedure: 08/30/24 Procedure Start Time: 11:13 Procedure Stop Time: 12:15 Pre-Operative Diagnosis: RLQ abd pain Post-Operative Diagnosis: same Select all DRAINS/GRAFTS/IMPLANT S that apply: None Type of Anesthesia: General/Supplemental Special Medications: ancef 2 grams IV x 1 Estimated Blood Loss: <10 cc Specimen collected: Yes Description of specimen(s) removed: omentum biopsy Description of surgery: Indications: this is a 78 year-old female who had a recent ventral hernia repair-march 2024-and had been having right lower quadrant abdominal pain, CT did show haziness of the adipose tissue in this area near the abdominal wall per my read. Diagnostics laparoscopy and possible lysis of adhesions was elected. Description procedure: The patient was placed on operating table in supine position. General Anesthesia was induced. A timeout was completed verifying correct patient, procedure, site, position, social, and special equipment prior to beginning procedure. The abdomen was prepped and draped in usual sterile fashion. An incision was made in the epigastric midline. The fascia was elevated and incised. The peritoneum was elevated and incised. Entry into the peritoneum was confirmed visually and no bowel was noted in the vicinity of the incision. Solis trocar was placed. The abdomen was insufflated with carbon dioxide to a pressure of 12-15 mmHg. Patient tolerated insufflation well. The laparoscope was then inserted and abdomen inspected. No injuries from initial trocar placement were noted. Additional trochars were then inserted in the following locations 5 mm trocar in the left upper/mid/lower abdomen. The abdomen was inspected omentum was adherent to previous mesh, which was well incorporated to the fascia. Adhesions of the omentum were taken down with the Enseal. The distal omentum just beyond the mesh was noted to be firm/inflamed. An incisional biopsy of this omentum was taken and sent to pathology. Anaerobic aerobic cultures were also taken of this omentum. Trocars removed under direct visualization. Abdomen was allowed to collapse. Local anesthesia of 0.5% Marcaine 30 cc was used throughout the case. The 12 mm trocar site was closed with [id number] 0 Vicryl suture. The skin was closed with 4-0 Monocryl and Steri-Strips/OpSite. Patient tolerated procedure well and taken to the postanesthesia care unit in stable condition. Surgical Findings: Patient's distal omentum was noted to be thickened this was actually adherent to abdominal wall below the area of the mesh. Part of this distal omentum was removed and sent to pathology. Weight Clerk partridge farmer: Yes Internal Combustion Engine Subassembler: Gregg Rivera Tasks completed by first aid officer: Opening closing Complications Complications: No 08/31/24 0739 Cosigner Signature (if applicable): CC: Dr. Rebecca Menezes MD; Dr. Lori Mart MD Signed Normal [facility] Surgery Specimen Level [place] 08-30-2024 Surgery Specimen Level IV -------- Patient Age/Sex Location Account Attending Physician -------- BOZENA MEDEL 79/F [facility] [id number] Dr. Lori Mart MD -------- Specimen: [id number] Received: 08/30/24 Status: [facility]ION Andrea Num: [id number] Spec Type: OMENTUM Subm Dr: Dr. Lori Mart MD HEADER OPERATION: Diagnostic laparoscopy PRE-OP DIAGNOSIS: Abdominal pain, history of hernia repair TISSUE SUBMITTED: Omentum -------- MICROSCOPIC DIAGNOSIS Omentum, biopsy: Fat necrosis, fibrosis and benign histiocytic reparative and reactive change. See comment. AM. 09/01/2024 COMMENT Immunohistochemistry ([id number]) supports the above diagnosis. MICROSCOPIC DESCRIPTION Slides are reviewed. GROSS DESCRIPTION Received in fixative is one container labeled with the patient's name and designated Omentum. The specimen consists of four irregular fragments of snider-yellow soft tissue ranging in size from 2.5 to 7.0cm. Serial sections reveal chalky-yellow cut surfaces. No distinct mass lesion is identified. Memorial Marker Designer sections are submitted in four cassettes. AM. 08/31/2024 TC:3 CPT:65761 -------- Patient Age/Sex Location Account Attending Physician -------- BOZENA MEDEL 79/F [facility] [id number] Dr. Lori Mart MD -------- Signed (signature on file) Dr. Andrea Funk, DO 09/02/24 1020 -------- Normal [facility] Comment on above: Performed By: #### P SUIV #### [facility] [address] [place], [place], [id number] Surgery Visit Reporton 08-19 Surgery Visit Report [facility] [address] [place], [place] [address] OFFICE VISIT Date of Service: 08/18/24 MR#: [id number] Acct: [id number] Name: BOZENA MEDEL Rep #: [id number] : 1945 Provider: Dr. Lori march MD Age/Sex: 79/F Location: [facility] Status: Signed Intake Vital Signs 07/21/24 09:03 Height 5 ft 7 in Intake Visit Reasons: abd pain, burning Chief Complaint: Abdominal pain Allergies prednisone Allergy (Severe, Verified 08/18/24 14:48) deathly sick hydrocodone bitartrate (From Vicodin) Adverse Reaction (Verified 08/18/24 14:48) Other oxycodone Adverse Reaction (Verified 08/18/24 14:48) Itching Medications ???Medication ???Instructions ???Recorded ???Confirmed ???Type cetirizine 10 mg capsule (Zyrtec) 10 mg PO DAILY PRN allergy symptoms 02/03/24 08/18/24 History alprazolam 0.25 mg tablet 0.25 mg PO BID PRN anxiety #10 tabs 04/11/24 08/18/24 Rx tramadol 50 mg tablet 50 - 100 mg (1 - 2 x 50 mg) PO Q6H 04/15/24 08/18/24 Rx PRN pain 3 days #14 tabs Have you fallen in the past year?: No PFSH Medical History Abdominal pain Wears hearing aid Loss of hearing Wears glasses Wears dentures Post-menopausal Cancer Anxiety Arthritis History of IBS Non-smoker Leg cramps History of stress test ( 2020) Skin cancer IBS (irritable bowel syndrome) Hearing problem Gallstone Emotional problems Breast lump Back problem Crushing injury of right foot, initial encounter Precancerous polyps Surgical History History of cardiac catheterization ( 2020) History of surgical procedure History of colon surgery H/O hernia repair Hx of bladder repair surgery H/O: hysterectomy History of tubal ligation History of cholecystectomy H/O breast surgery Family History Father Alcohol abuse Respiratory disease Emphysema Brother Colon cancer Sister CVA (cerebral vascular accident) Mother Myocardial infarction Social History household members: none housing: house current occupational status: employed 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 Patient did end up going to the ER to get her CAT scan instead of the 1 that was ordered due to pain. Patient's CAT scan not showing evidence of any hernia in read was called negative. Upon my read there is some haziness of the omentum or abdominal that near the right side below the hernia. Patient states she does have occasional pain that starts more in the right mid abdomen and crosses her umbilicus to the left which can be described as burning patient denies any nausea is having bowel function. Patient does occasionally have no pain other times can have increased pain currently rates the pain a 6/10. Patient states last night she did have increased pain which did not improve with change in position patient did try ibuprofen which did help. Patient does not want to have to take ibuprofen daily. ROS Cardio Cardiovascular: No chest pain Resp Respiratory: No cough Gastro Gastrointestinal: Yes abdominal pain, No nausea or vomiting and No constipation Exam Const General: cooperative, healthy appearing, comfortable and no acute distress HENMT Head: normocephalic and atraumatic Neck Neck: supple Resp Effort Inspection: normal respiratory effort Cardio Rate: regular rate GI Inspection: non-distended Palpation: soft and tender (Right/hypogastric tenderness to palpation, no guarding) with no rebound tenderness Skin General: no rashes or lesions noted Neuro General: CN's II-XI intact bilaterally Extrem General: normal to inspection Psych Mental Status: mental status grossly normal Attitude: cooperative Assessment and Plan Assessment and Plan (1) Abdominal pain: Status: Acute (2) H/O hernia repair: Status: Acute Plan Did review CT abdomen pelvis with the patient. No obvious hernia seen however there appears to be some haziness in the omentum or mesentery to the right below the mesh. Discussed with patient we could do a diagnostic laparoscopy, possible open to see if adhesions could be causing some of her discomfort at is it is in the same location. Did discuss with patient that not a guarantee this will improve the discomfort. Patient (more content not included)... Normal [facility] 09-03-2023 [facility] Office Visit (UCWSTR ) LIZYBOZENA Phelps ([id number]) 1945 F Date Time Provider Department 09/03/23 10:45 AM STEFANIA VICTOR [facility] During your visit today, we recorded the following information about you: Temperature Pulse Respiration Blood pressure 98.4 degrees 98/minute 20/minute 123/81 Weight 74 kg Stefania Victor APRN.CNP 09/03/2023 1:23 PM Signed This [...] history is provided by the patient. No speech/language therapist was used. Sore Throat This is a [...] Palpations: Abdom (more content not included)... Normal [facility] XR CHEST 2V FRONTAL/LATon XR CHEST 2V FRONTAL/LAT * * *Final Repor t* * * DATE OF EXAM: Sep 03 [...] Thoracic spondylosis. IMPRESSION: No acute radiographic abnormality. Meat Service Team Member: NISHI Transcribe Date/Time: Sep 03 2023 11:22A Dictated by : SADI ROTHMAN MD This examination was interpreted and the report reviewed and electronically signed by: SADI ROTHMAN MD on Sep 03 2023 11:23AM EST [id number] N Normal [facility] XR Chest PA and Lateralon IMPRESSION: No acute radiographic abnormality. Meat Service Team Member: [facility] Transcribe Date/Time: Sep 03 2023 11:22A Dictated by : SADI ORTHMAN MD This examination was interpreted and the [...] tissues: Thoracic spondylosis. DIVISION OF RADIOLOGY Provider, Bernice leger [place] - 09/03/2023 * * *Final Report* * [...] spondylosis. IMPRESSION IMPRESSION: No acute radiographic abnormality. Meat Service Team Member: NISHI Transcribe Date/Time: Sep 03 2023 11:22A Dictated by : SADI ROTHMAN MD This examination was interpreted and the report reviewed and electronically signed by: SADI ROTHMAN MD on Sep 03 2023 11:23AM EST [facility] Radiology Study observation (narrative) [facility] XR Chest PA and LateralOrder ed By: Ccf Provider on 09-03-2023 [facility] Basophil percentageOrdered B y: Jorge Crowley on 04-30-2023 Chloride [Moles/Vol] 106 mmol/L 98-107 [place] Cholesterol [Mass/Vol] 122 mg/dL <200 [facility] Comment on above: <200 mg/dL Desirable 200-240 mg/dL Borderline >240 mg/dL High Risk Glucose [Mass/Vol] 80 mg/dL 74-106 [facility] Potassium [Moles/Vol] 4.1 mmol/L 3.5-5.1 [facility] Sodium [Moles/Vol] 139 mmol/L 136-145 [facility] Triglyceride [Mass/Vol] 122 mg/dL <199 [facility] Comment on above: The drugs N-Acetylcy steine and Metamizole may falsely depress this assay.Serum Triglycerides Reference Interval Normal <150 mg/dL Borderline high 150 - 199 mg/dL High 200 - 499 mg/dL Very High > or = 500 mg/dL Laboratory - Chemistry and C hemistry - challengeOrdered By: Jorge Crowley on 04-30-2023 CO2 [Moles/Vol] 27.0 mmol/L 21.0-32.0 [facility] Urea nitrogen/Creatinine [Mass ratio] 17.3 mg/mg 10-20 [facility] No Panel InformationOrdered By: Jorge Crowley on 04-30-2023 Estimated GFR (MDRD) Amer 82 mL/min >60 [facility] Comment on above: GFR Calc Estimated GFR (MDRD) Non-Af Amer 67 mL/min >60 [facility] Comment on above: Non- GFR Calc Serum or plasma calcium flavia urement (mass/volume)Ordered By: Jorge Crowley on 04-30-2023 Calcium [Mass/Vol] 8.9 mg/dL 8.5-10.1 [facility] Serum or plasma cholesterol in HDL measurement (mass/volume)Ordered By: Jorge Crowley on 04-30-2023 Cholesterol in HDL [Mass/Vol] 49 mg/dL >40 [facility] Comment on above: The drugs N-Acetylcy steine and Metamizole may falsely depress this assay. Reference Range HDL <40 mg/dL Low HDL Cholesterol HDL >or= 60 mg/dL High HDL Cholesterol Serum or plasma cholesterol in VLDL measurement (mass/volume)Ordered By: Jorge Crowley on 04-30-2023 Cholesterol in VLDL [Mass/Vol] 24 mg/dL 5-40 [facility] Serum or plasma creatinine m easurement (mass/volume)Ordered By: Jorge Crowley on 04-30-2023 Creatinine [Mass/Vol] 0.86 mg/dL 0.55-1.02 [facility] Comment on above: The validity of the calculated GFR & GFRAA in patients over 70 years has not been determined. Clinical correlation is essential. Serum or plasma low density lipoprotein (LDL) cholesterol measurement (mass/volume)Ordered By: Jorge Crowley on 04-30-2023 Cholesterol in LDL [Mass/Vol] 49 mg/dL 0-130 [facility] Serum or plasma urea nitroge n measurement (mass/volume)Ordered By: Jorge Crowley on 04-30-2023 Urea nitrogen [Mass/Vol] 15 mg/dL 7-18 [facility] Thin prep Papanicolaou smear with manual screeningOrdered By: Jorge Crowley on 04-30-2023 Thin prep Papanicolaou smear with manual screening 6 5-15 [facility] Whole blood hemoglobin A1c/t otal hemoglobin ratio (mass fraction)on 02-10-2022 HbA1c (Bld) [Mass fraction] 5.4 % 3.8-5.6 [facility] Work Phone: Comment on above: Normal < 5.7 % Predi abetic 5.7 - 6.4 % Diabetic >or= 6.5 % Please note range changes. Absolute lymphocyte counton 02-06-2022 Lymphocytes Auto (Unsp spec) [#/Vol] 2.84 10*3/uL 0.83-4.51 [facility] Work Phone: Basophil percentageon 2021 Basophils/100 WBC (Bld) 0.9 % 0-1 [facility] Work Phone: Bilirubin [Mass/Vol] 0.50 mg/dL 0.20-1.00 [place] Work Phone: Comment on above: For patients on eltr ombopag therapy, use of Dimension [place] TBIL is not recommended. Chloride [Moles/Vol] 108 mmol/L 98-107 [place] Work Phone: Cholesterol [Mass/Vol] 158 mg/dL <200 [facility] Work Phone: Comment on above: <200 mg/dL Desirable 200-240 mg/dL Borderline >240 mg/dL High Risk Eosinophils/100 WBC (Bld) 2.7 % 0-5 [facility] Work Phone: Glucose [Mass/Vol] 107 mg/dL 74-106 [facility] Work Phone: Comment on above: Fasting Glucose resu lt from 100 to 125 mg/dL suggests IMPAIRED HOMEOSTASIS per A.D.A. criteria. Neutrophils (Bld) [#/Vol] 2.9 10*3/uL 2.0-7.7 [facility] Work Phone: Neutrophils/100 WBC (Bld) 44.9 % 47-70 [facility] Work Phone: [phone] Potassium [Moles/Vol] 3.6 mmol/L 3.5-5.1 [facility] Work Phone: [phone] Protein [Mass/Vol] 7.2 g/dL 6.4-8.2 [facility] Work Phone: [phone] Sodium [Moles/Vol] 139 mmol/L 136-145 [facility] Work Phone: [phone] Triglyceride [Mass/Vol] 174 mg/dL <199 [facility] Work Phone: Comment on above: The drugs N-Acetylcy steine and Metamizole may falsely depress this assay.Serum Triglycerides Reference Interval Normal <150 mg/dL Borderline high 150 - 199 mg/dL High 200 - 499 mg/dL Very High > or = 500 mg/dL WBC (Bld) [#/Vol] 6.4 10*3/uL 4.4-11.0 [facility] Work Phone: Blood erythrocytes count (nu mber/volume)on 02-06-2022 RBC (Bld) [#/Vol] 4.61 10*6/uL 4.2-5.4 [facility] Work Phone: Blood hemoglobin measurement (mass/volume)on 02-06-2022 Hemoglobin (Bld) [Mass/Vol] 13.6 g/dL 12.0-15.0 [facility] Work Phone: Blood lymphocytes/100 leukoc yteson 02-06-2022 Lymphocytes/100 WBC (Bld) 44.3 % 19-41 [facility] Work Phone: Blood monocytes/100 leukocyt eson 02-06-2022 Monocytes/100 WBC (Bld) 7.0 % 0-10 [facility] Work Phone: Blood platelet mean volumeon 02-06-2022 Platelet mean volume (Bld) [Entitic vol] 9.4 fL 6.2-12.0 [facility] Work Phone: Determination of erythrocyte mean corpuscular volume (MCV)on 02-06-2022 MCV (RBC) [Entitic vol] 90.5 fL 81-99 [facility] Work Phone: [phone] Hematocrit Auto (Bld) [Volum e fraction]on 02-06-2022 Hematocrit (Bld) [Volume fraction] 41.7 % 37-47 [facility] Work Phone: Laboratory - Chemistry and C hemistry - challengeon 02-06-2022 ALP [Catalytic activity/Vol] 97 U/L 45-117 [facility] Work Phone: [phone] ALT [Catalytic activity/Vol] 18 U/L 13-56 [facility] Work Phone: [phone] CO2 [Moles/Vol] 26.0 mmol/L 21.0-32.0 [facility] Work Phone: [phone] Free T4 [Mass/Vol] 0.95 ng/dL 0.76-1.46 [facility] Phone: [phone] Globulin (S) [Mass/Vol] 3.6 g/dL 2.2-4.2 [facility] Work Phone: [phone] Urea nitrogen/Creatinine [Mass ratio] 24.9 mg/mg 10-20 [facility] Work Phone: [phone] Laboratory - Hematology and Cell countson 02-06-2022 Erythrocyte distribution width (RBC) [Entitic vol] 42.9 fL 35.1-43.9 [facility] Work Phone: [phone] Erythrocyte distribution width (RBC) [Ratio] 13.1 % 11.6-14.6 [facility] Work Phone: [phone] Immature granulocytes/100 WBC (Bld) 0.200 % 0.0-0.9 [facility] Work Phone: [phone] Comment on above: IG% - Immature Granu locytes (promyelocytes, myelocytes and metamyelocytes) > 1% indicates that a LEFT SHIFT is Present. MCH (RBC) [Entitic mass] 29.5 pg 27.0-32.0 [facility] Work Phone: [phone] Nucleated RBC/100 WBC (Bld) [Ratio] 0 % 0-5 [facility] Work Phone: [phone] MCHC Auto (RBC) [Mass/Vol]on 02-06-2022 MCHC (RBC) [Mass/Vol] 32.6 g/dL 32-36 [facility] Work Phone: No Panel Informationon 02-06 Estimated GFR (MDRD) Amer 94 mL/min >60 [facility] Work Phone: Comment on above: GFR Calc Estimated GFR (MDRD) Non-Af Amer 78 mL/min >60 [facility] Work Phone: Comment on above: Non- GFR Calc Thyroid Stimulating Hormone (TSH) 1.52 uIU/mL 0.358-3.74 [facility] Work Phone: Platelets bldon 02-06-2022 Platelets (Bld) [#/Vol] 271 10*3/uL 150-450 [facility] Work Phone: Serum or plasma albumin flavia urement (mass/volume)on 02-06-2022 Albumin [Mass/Vol] 3.6 g/dL 3.2-5.0 [facility] Work Phone: [phone] Serum or plasma albumin/glob ulin mass ratioon 02-06-2022 Albumin/Globulin [Mass ratio] 1.0 {ratio} 0.9-2.4 [facility] Work Phone: [phone] Serum or plasma calcium flavia urement (mass/volume)on 02-06-2022 Calcium [Mass/Vol] 8.9 mg/dL 8.5-10.1 [facility] Work Phone: [phone] Serum or plasma cholesterol in HDL measurement (mass/volume)on 02-06-2022 Cholesterol in HDL [Mass/Vol] 43 mg/dL >40 [facility] Work Phone: Comment on above: The drugs N-Acetylcy steine and Metamizole may falsely depress this assay. Reference Range HDL <40 mg/dL Low HDL Cholesterol HDL >or= 60 mg/dL High HDL Cholesterol Serum or plasma cholesterol in VLDL measurement (mass/volume)on 02-06-2022 Cholesterol in VLDL [Mass/Vol] 35 mg/dL 5-40 [facility] Work Phone: Serum or plasma creatinine m easurement (mass/volume)on 02-06-2022 Creatinine [Mass/Vol] 0.76 mg/dL 0.55-1.02 [facility] Work Phone: Comment on above: The validity of the calculated GFR & GFRAA in patients over 70 years has not been determined. Clinical correlation is essential. Serum or plasma low density lipoprotein (LDL) cholesterol measurement (mass/volume)on 02-06-2022 Cholesterol in LDL [Mass/Vol] 80 mg/dL 0-130 [facility] Work Phone: Serum or plasma urea nitroge n measurement (mass/volume)on 02-06-2022 Urea nitrogen [Mass/Vol] 19 mg/dL 7-18 [facility] Work Phone: Thin prep Papanicolaou smear with manual screeningon 02-06-2022 Thin prep Papanicolaou smear with manual screening 13 U/L 15-37 [facility] Work Phone: Thin prep Papanicolaou smear with manual screening 5 5-15 [facility] Work Phone: No Panel Informationon 10-09 IMPRESSION: No acute bony finding. Meat Service Team Member: NISHI Transcribe Date/Time: Oct 09 2021 11:41A Dictated by : PRINCE ROSS MD This examination was interpreted and the report reviewed and electronically signed by: PRINCE ROSS MD on Oct 09 2021 11:46AM [facility] DIVISION OF RADIOLOGY Radiology Study observation (narrative) [facility] No Panel InformationOrdered By: Ccf Provider on 10-09-2021 [facility] XR Ankle - left AP and Later [...] Posterior calcaneal enthesophyte. DIVISION OF RADIOLOGY Provider, [facility] - 10/09/2021 * * *Final [...] enthesophyte. IMPRESSION IMPRESSION: No acute bony finding. Meat Service Team Member: PSCB Transcribe Date/Time: Oct 09 2021 11:41A Dictated by : PRINCE ROSS MD This examination was interpreted and the report reviewed and electronically signed by: PRINCE ROSS MD on Oct 09 2021 11:46AM [facility] XR Foot - left AP and Latera [...] Posterior calcaneal enthesophyte. DIVISION OF RADIOLOGY Provider, [facility] - 10/09/2021 * * *Final Report* * [...] enthesophyte. IMPRESSION IMPRESSION: No acute bony finding. Meat Service Team Member: PSCB Transcribe Date/Time: Oct 09 2021 11:41A Dictated by : PRINCE ROSS MD This examination was interpreted and the report reviewed and electronically signed by: PRINCE ROSS MD on Oct 09 2021 11:46AM EST [facility] SURGon 04-25-2020 SURG - -------- Patient: BOZENA [...] MICROSCOPIC DESCRIPTION 4 Yumiko stained slides reviewed. DONN/mohan 04/27/2020 Signed Verified/Reviewed by SJ KONG MD 04/27/20 This dictation was created using voice recognition software. Phonetic and/or minor grammatical errors may exist. -------- [facility] NAME: BOZENA MEDEL Pathology and Laboratory Medicine UNIT#: [id number] LOC: [facility] [employer]: Grace Powell M.D. [facility] [id number] ROOM/BED: [employer] [facility] : 45 AGE/SEX: 74/F ORD.Oh Barraza MD END OF REPORT Normal [facility] [place] Office Visit: 3 year colonos copyon 07-01-2017 Documentation of current medications (procedure) Done Invalid Interpretation Code [facility] [employer] Work Phone: Fall risk assessment No Invalid Interpretation Code [facility] [employer] Work Phone: Tobacco smoking status NHIS Never Invalid Interpretation Code [facility] Work Phone: Tobacco use [facility] Never smoker Invalid Interpretation Code [facility] Work Phone: Vital Signs Date Time Vital Sign Value Performing Clinician Facility 06-19-2025 11:17-0400 Body height 170.[address] Rebecca Menezes MD Work Phone: [facility] 06-19-2025 11:17-0400 Body mass index (BMI) [Ratio] 26.2 kg/m2 Dr. Rebecca Menezes MD Work Phone: [facility] 06-19-2025 11:17-0400 Body temperature 96.2 [degF] Dr. Rebecca Menezes MD Work Phone: [facility] 06-19-2025 11:17-0400 Body weight 75.[address] Rebecca Menezes MD Work Phone: [facility] 06-19-2025 11:17-0400 Diastolic blood pressure 60 mm[Hg] Dr. Rebecca Menezes MD Work Phone: [facility] 06-19-2025 11:17-0400 Heart rate 89 /min Dr. Rebecca Menezes MD Work Phone: [facility] 06-19-2025 11:17-0400 Respiratory rate 16 /min Dr. Rebecca Menezes MD Work Phone: [facility] 06-19-2025 11:17-0400 SaO2% (BldA) [Mass fraction] 95 % Dr. Rebecca Menezes MD Work Phone: [facility] 06-19-2025 11:17-0400 Systolic blood pressure 96 mm[Hg] Dr. Rebecca Menezes MD Work Phone: [facility] 04-03-2025 10:38-0400 Body height 170.[address] Rebecca Menezes MD Work Phone: [facility] 04-03-2025 10:38-0400 Body mass index (BMI) [Ratio] 26.6 kg/m2 Dr. Rebecca Menezes MD Work Phone: [facility] 04-03-2025 10:38-0400 Body temperature 98.3 [degF] Dr. Rebecca Menezes MD Work Phone: [facility] 04-03-2025 10:38-0400 Body weight 77.[address] Rebecca Menezes MD Work Phone: [facility] 04-03-2025 10:38-0400 Diastolic blood pressure 78 mm[Hg] Dr. Rebecca Menezes MD Work Phone: [facility] 04-03-2025 10:38-0400 Heart rate 100 /min Dr. Rebecca Menezes MD Work Phone: [facility] 04-03-2025 10:38-0400 Respiratory rate 17 /min Dr. Rebecca Menezes MD Work Phone: [facility] 04-03-2025 10:38-0400 SaO2% (BldA) [Mass fraction] 92 % Dr. Rebecca Menezes MD Work Phone: [facility] 04-03-2025 10:38-0400 Systolic blood pressure 118 mm[Hg] Dr. Rebecca Menezes MD Work Phone: [facility] 02-09-2025 12:32-0400 Body height 170.[address] Rebecca Menezes MD Work Phone: [facility] 02-09-2025 12:32-0400 Body mass index (BMI) [Ratio] 26.2 kg/m2 Dr. Rebecca Menezes MD Work Phone: [facility] 02-09-2025 12:32-0400 Body temperature 98.1 [degF] Dr. Rebecca Menezes MD Work Phone: [facility] 02-09-2025 12:32-0400 Body weight 75.[address] Rebecca Menezes MD Work Phone: [facility] 02-09-2025 12:32-0400 Diastolic blood pressure 76 mm[Hg] Dr. Rebecca Menezes MD Work Phone: [facility] 02-09-2025 12:32-0400 Heart rate 117 /min Dr. Rebecca Menezes MD Work Phone: [facility] 02-09-2025 12:32-0400 Respiratory rate 18 /min Dr. Rebecca Menezes MD Work Phone: [facility] 02-09-2025 12:32-0400 SaO2% (BldA) [Mass fraction] 95 % Dr. Rebecca Menezes MD Work Phone: [facility] 02-09-2025 12:32-0400 Systolic blood pressure 128 mm[Hg] Dr. Rebecca Menezes MD Work Phone: [facility] 02-02-2025 07:41-0400 Body temperature 97.8 [degF] Dr. Rebecca Menezes MD Work Phone: [facility] 02-02-2025 07:41-0400 Diastolic blood pressure 76 mm[Hg] Dr. Rebecca Menezes MD Work Phone: [facility] 02-02-2025 07:41-0400 Heart rate 64 /min Dr. Rebecca Menezes MD Work Phone: [facility] 02-02-2025 07:41-0400 Respiratory rate 18 /min Dr. Rebecca Menezes MD Work Phone: [facility] 02-02-2025 07:41-0400 SaO2% (BldA) [Mass fraction] 97 % Dr. Rebecca Menezes MD Work Phone: [facility] 02-02-2025 07:41-0400 Systolic blood pressure 110 mm[Hg] Dr. Rebecca Menezes MD Work Phone: [facility] 02-02-2025 04:34-0400 Body height 170.[address] Rebecca Menezes MD Work Phone: [facility] 02-02-2025 04:34-0400 Body mass index (BMI) [Ratio] 26.6 kg/m2 Dr. Rebecca Menezes MD Work Phone: [facility] 02-02-2025 04:34-0400 Body weight [address] Rebecca Menezes MD Work Phone: [facility] 01-16-2025 08:17-0400 Body mass index (BMI) [Ratio] 26.4 kg/m2 Dr. Rebecca Menezes MD Work Phone: [facility] 01-16-2025 08:17-0400 Body temperature 98.4 [degF] Dr. Rebecca Menezes MD Work Phone: [facility] 01-16-2025 08:17-0400 Body weight 76.[address] Rebecca Menezes MD Work Phone: [facility] 01-16-2025 08:17-0400 Diastolic blood pressure 60 mm[Hg] Dr. Rebecca Menezes MD Work Phone: [facility] 01-16-2025 08:17-0400 Heart rate 61 /min Dr. Rebecca Menezes MD Work Phone: [facility] 01-16-2025 08:17-0400 Respiratory rate 19 /min Dr. Rebecca Menezes MD Work Phone: [facility] 01-16-2025 08:17-0400 SaO2% (BldA) [Mass fraction] 92 % Dr. Rebecca Menezes MD Work Phone: [facility] 01-16-2025 08:17-0400 Systolic blood pressure 112 mm[Hg] Dr. Rebecca Menezes MD Work Phone: [facility] 11-04-2024 20:32-0500 Diastolic blood pressure 102 mm[Hg] Dr. Rebecca Menezes MD Work Phone: [facility] 11-04-2024 20:32-0500 Heart rate 89 /min Dr. Rebecca Menezes MD Work Phone: [facility] 11-04-2024 20:32-0500 Systolic blood pressure 147 mm[Hg] Dr. Rebecca Menezes MD Work Phone: [facility] 11-04-2024 18:32-0500 Body temperature 98 [degF] Dr. Rebecca Menezes MD Work Phone: [facility] 11-04-2024 18:32-0500 Respiratory rate 14 /min Dr. Rebecca Menezes MD Work Phone: [facility] 11-04-2024 18:32-0500 SaO2% (BldA) [Mass fraction] 94 % Dr. Rebecca Menezes MD Work Phone: [facility] 01-26-2024 15:33-0400 Body mass index (BMI) [Ratio] 29.8 kg/m2 [facility] 01-26-2024 15:33-0400 Body weight 86.18 kg [facility] 01-26-2024 14:25-0400 Body height 170.18 cm [facility] 01-26-2024 14:25-0400 Body temperature 97.6 [degF] [facility] 01-26-2024 14:25-0400 Diastolic blood pressure 83 mm[Hg] [facility] 01-26-2024 14:25-0400 Heart rate 87 /min [facility] 01-26-2024 14:25-0400 Respiratory rate 18 /min [facility] 01-26-2024 14:25-0400 SaO2% (BldA) [Mass fraction] 95 % [facility] 01-26-2024 14:25-0400 Systolic blood pressure 127 mm[Hg] [facility] 09-03-2023 10:46-0500 Body temperature 98.4 [degF] Stefania Victor [employer] Work Phone: [facility] 09-03-2023 10:46-0500 Body weight 74.03 kg Stefania Victor [employer]IC[employer] SUPERVISOR Work Phone: [facility] 09-03-2023 10:46-0500 Diastolic blood pressure 81 mm[Hg] Stefania Victor [employer]IC[employer] SUPERVISOR Work Phone: [facility] 09-03-2023 10:46-0500 Heart rate 98 /min Stefania Victor [employer]ICATING SUPERVISOR Work Phone: [facility] 09-03-2023 10:46-0500 Respiratory rate 20 /min Stefania Ivctor [employer] F[employer]ICATING SUPERVISOR Work Phone: [facility] 09-03-2023 10:46-0500 SaO2% (BldA) [Mass fraction] 93 % Stefania Victor [employer]ICATING SUPERVISOR Work Phone: [facility] 09-03-2023 10:46-0500 Systolic blood pressure 123 mm[Hg] Stefania Victor [employer]IC[employer] SUPER[employer]OR Work Phone: [facility] 07-01-2017 07:16-0400 BMI (Body Mass Index) 22.37 kg/m2 Sj Fernando MD [facility] Work Phone: 07-01-2017 07:16-0400 Body Temperature 97.9 [degF] Sj Fernando MD [facility] Work Phone: 07-01-2017 07:16-0400 BP Diastolic 93 mm[Hg] Sj Fernando MD [facility] Work Phone: 07-01-2017 07:16-0400 BP Systolic 154 mm[Hg] Sj Fernando MD [facility] Work Phone: 07-01-2017 07:16-0400 Height 167.64 cm Sj Fernando MD [facility] Work Phone: 07-01-2017 07:16-0400 Pulse (Heart Rate) 92 /min Sj Fernando MD [facility] Work Phone: 07-01-2017 07:160400 Respiratory Rate 20 /min Sj Fernando MD [facility] Work Phone: 07-01-2017 07:16-0400 Weight 62.87 kg jS Fernando MD [facility] Work Phone: Encounters Encounter Date Encounter Type Care Provider Facility [facility]: [facility] Start: 06-19-2025 End: 06-19-[address] Rebecca Menezes MD Work Phone: -Laboratory Start: 06-19-2025 End: 06-19-[address] Rebecca Menezes MD -Laboratory Work Phone: Start: 06-19-2025 End: 06-19-[address] Rebecca Menezes MD -[facility] Work Phone: Start: 06-19-2025 End: 06-19-[address] Rebecca Menezes MD Work Phone: -[facility] Start: 06-19-2025 End: 06-19-2025 ambulatory Rebecca Dacono Facility:[facility] Start: 04-03-2025 End: 04-03-[address] Rebecca Menezes MD Work Phone: -Laboratory Specimen Start: 04-03-2025 End: 04-03-2025 Patient encounter procedure Malou RIVERA -Laboratory Specimen Work Phone: Start: 04-03-2025 End: 04-03-2025 Patient encounter procedure Malou Godinez [facility] -[facility] Work Phone: Start: 04-03-2025 End: 04-03-[address] Rebecca Menezes MD Work Phone: -[facility] Start: 04-03-2025 End: 04-03-2025 ambulatory Rebecca Menezes Facility:[facility] Start: 02-09-2025 End: 02-09-[address] Rebecca Menezes MD Work Phone: [facility] Work Phone: Start: 02-09-2025 End: 02-09-2025 Patient encounter procedure Kashif RIVERA -Laboratory [facility] Start: 02-09-2025 End: 02-09-2025 Patient encounter procedure Kashif RIVERA -[facility] Work Phone: Start: 02-09-2025 End: 02-09-[address] Rebecca Menezes MD Work Phone: [facility] Work Phone: Start: 02-09-2025 End: 02-09-2025 ambulatory Kashif RIVERA Facility:[facility] Start: 02-06-2025 ambulatory Rebecca Menezes Facility :[facility] Start: 02-06-2025 Non-patient / Non-visit Dr. Baltazar Staley MD -[facility] Start: 02-06-2025 End: 02-06-[address] Rebecca Menezes MD Work Phone: [facility] Work Phone: Start: 02-06-2025 End: 02-06-[address] Rebecca Menezes MD -Cardiovascular Services Work Phone: Start: 02-06-2025 End: 02-06-2025 ambulatory Rebecca Menezes Facility:[facility] Start: 02-02-2025 End: 02-02-2025 Emergency department patient visit Dr. Rebecca Menezes MD Work Phone: -Emergency Department Work Phone: Start: 01-16-2025 End: 01-16-[address] Rebecca Menezes MD -Laboratory, [facility] Start: 01-16-2025 End: 01-16-[address] Rebecca Menezes MD -[facility] Work Phone: Start: 01-16-2025 End: 01-16-2025 ambulatory Rebecca Menezes Facility:[facility] Start: 01-16-2025 End: 01-16-2025 ambulatory Rebecca Thomsonlay Facility:[facility] Start: 11-04-2024 End: 11-04-2024 Emergency department patient visit Dr. Arnold Reich DO -Emergency Department Work Phone: Start: 09-12-2024 End: 09-12-2024 ambulatory Rebecca Menezes Facility:[facility] Start: 08-30-2024 End: 08-30-2024 ambulatory Rebecca Menezes Facility:[facility] Start: 08-18-2024 End: 08-18-2024 ambulatory Rebeccaludin Menezes Facility:[facility] Start: 01-26-2024 End: 01-26-2024 Emergency department patient visit [facility]-Emergency Department Work Phone: Start: 09-03-2023 End: 09-03-2023 ambulatory JORGE CROWLEY Facility:[facility] Start: 09-03-2023 End: 09-03-2023 Subsequent hospital visit by physician [facility] Work Phone: Radiology Comment on above: Acute cough [R05.1] Start: 09-03-2023 End: 09-03-2023 Patient encounter procedure Stefania Victor [employer] Work Phone: [facility] Comment on above: Acute cough (Primary Dx); Rhinosinusitis Start: 05-28-2023 End: 05-28-2023 ambulatory [facility] Work Phone: Start: 05-28-2023 End: 05-28-2023 Patient encounter procedure [facility]-Outpatient Breast Imaging Work Phone: Start: 04-30-2023 End: 04-30-2023 ambulatory [facility] Work Phone: Start: 04-30-2023 End: 04-30-2023 Patient encounter procedure [facility] Start: 05-22-2022 End: 05-22-2022 ambulatory [facility] Work Phone: Start: 05-22-2022 End: 05-22-2022 Patient encounter procedure [facility]-Outpatient Bone Densitometry Start: 03-04-2022 End: 03-04-2022 Patient encounter procedure [facility]-Ultrasound, [facility] Start: 02-06-2022 End: 02-06-2022 Patient encounter procedure [facility]-Laboratory, [facility] Start: 10-09-2021 End: 10-09-2021 Subsequent hospital visit by physician [facility] Work Phone: Radiology Comment on above: Foot pain, left [[id number] .[id number]] Procedures Date Procedure Procedure Detail Performing Clinician Start: 06-19-2025 Urnls dip stick/tabl et reagent auto microscopy Dr. Rebecca Menezes MD Work Phone: Start: 06-19-2025 Vitamin D, 25-hydrox y measurement Dr. Rebecca Menezes MD Work Phone: Comment on above: Vitamin D StatusDefi ciency: <20 ng/mL (50nmol/L)Insufficiency: 20-30 ng/mL (50-75 nmol/L)Sufficiency: 30-100 ng/mL (75-250 nmol/L)Toxicity: >100 ng/mL (>250 nmol/L) Start: 06-19-[address] Ankush Menezes MD Work Phone: Start: 04-03-[address] Ankush Menezes MD Work Phone: Start: 02-09-2025 Total iron binding c apacity measurement Dr. Rebecca Menezes MD Work Phone: Start: 02-06-2025 Cardiovascular stres s test using pharmacologic stress agent Dr. Rebecca Menezes MD Work Phone: Start: 02-02-2025 CT angiography of est with contrast Dr. Rebecca Menezes MD Work Phone: Start: 02-02-2025 Plain chest X-ray Dr. Fletcher Menezes MD Work Phone: Start: 02-02-2025 D-dimer assay, quantitative Dr. Rebecca Menezes MD Work Phone: Comment on above: D-Dimer ELEVATED (>0 .49): Additional studies and clinicalassessments are indicated to conclude diagnosis of:Deep Vein Thrombosis (DVT) or Pulmonary Embolism (PE)CRITICAL VALUE CALLED TO [id number]/08/25 0520 Arnoldo Patterson.RESULTS READ BACK BY SAME. Start: 02-02-[address] Rebecca Menezes MD Work Phone: Start: 01-16-2025 Vitamin D, 25-hydrox y measurement Dr. Rebecca Menezes MD Work Phone: Comment on above: Vitamin D StatusDefi ciency: <20 ng/mL (50nmol/L)Insufficiency: 20-30 ng/mL (50-75 nmol/L)Sufficiency: 30-100 ng/mL (75-250 nmol/L)Toxicity: >100 ng/mL (>250 nmol/L) Start: 11-04-2024 X-ray of ankle, thre e or more views Dr. Rebecca Menezes MD Work Phone: Start: 11-04-2024 X-ray of foot, three or more views Dr. Rebecca Menezes MD Work Phone: Start: 01-26-2024 Radiologic examination of knee Start: 01-26-2024 Plain X-ray of femur Start: 09-03-2023 Radiologic exam chest 2 views Stefania Victor [employer] SUPERVISOR Work Phone: Start: 05-28-2023 Screening mammography Start: 05-22-2022 Dual energy X-ray absorptiometry Start: 05-22-2022 Screening mammography Start: 03-04-2022 US scan of thyroid Start: 10-09-2021 Radex ankle complete minimum 3 views Sandrita Sol [employer]IC[employer] SUPERVISOR Work Phone: Plan of Treatment Date Care Activity Detail Author Start: 02-09-2025 Iron and Iron binding capacity panel - Serum or Plasma [facility] Start: 02-09-2025 Magnesium measurement [facility] Start: 02-09-2025 Thyroid stimulating hormone measurement [facility] Start: 02-02-2025 [facility] Start: 02-02-2025 [facility] Start: 01-16-2025 Evaluation of diagnostic study results [facility] Start: 11-04-2024 [facility] Start: 05-29-2024 Covid-19 Vaccine ( season) Covid-19 Vaccine () [facility] Start: 05-29-2024 Covid-19 Vaccine () Covid-19 Vaccine () [facility] Start: 05-29-2024 Influenza vaccination Influenza Vaccine (#1) [facility] Start: 01-26-2024 [facility] Start: 09-28-2023 Advance Directive Discussion Advance Directive Discussion [facility] Start: 05-29-2023 Influenza vaccination Influenza Vaccine (#1) [facility] Start: 09-28-2022 Advance Directive Discussion Advance Directive Discussion [facility] Start: 09-28-2022 Depression Assessment Depression Assessment [facility] Start: 2020 RSV Vaccine (1 - 1-dose 75+ series) RSV Vaccine (1 - 1-dose 75+ series) [facility] Start: 07-03-2019 Shingrix Vaccine (2 of 2) Shingrix Vaccine (2 of 2) [facility] Start: 08-07-2017 End: 08-07-2017 Appointment Appointment [facility] [employer] Work Phone: Start: 07-01-2017 End: 07-01-2017 Colonoscopy flx dx w/collj spec when pfrmd Colonoscopy [facility] [facility] [employer] Work Phone: Start: 07-01-2017 End: 07-01-2017 Appointment Appointment [facility] [employer] Work Phone: Start: 04-05-2017 Diabetes Screening Diabetes Screening [facility] Start: 09-29-2012 Pneumococcal Vaccine: 65+ (2 - PCV) Pneumococcal Vaccine: 65+ (2 - PCV) [facility] Start: 09-29-2012 Pneumococcal Vaccine: 65+ (2 of 2 - PCV) Pneumococcal Vaccine: 65+ (2 of 2 - PCV) [facility] Start: 2010 Bone Density Screening Bone Density Screening [facility] Start: 2010 Screening for osteoporosis Bone Density Screening [facility] Start: 2005 RSV Vaccine (1 - 1-dose 60+ series) RSV Vaccine (1 - 1-dose 60+ series) [facility] Start: 1964 Urine microalbumin profile DTaP,Tdap,Td Vaccine (1 - Tdap) [facility] Start: 1963 Anxiety Screening Anxiety Screening [facility] Start: 1963 Depression Screening Depression Screening [facility] Start: 1963 Hepatitis C Screening Hepatitis C Screening [facility] Start: 1963 Hepatitis C screening Hepatitis C Screening [facility] Start: 01-27-1946 Covid-19 Vaccine (#1) Covid-19 Vaccine (#1) [facility] DXA Bone [Mass/Area] Bone density [facility] Iron [Mass/mass] in Unspecified specimen [facility] Iron saturation [Mas s Fraction] in Serum or Plasma [facility] MG Breast - bilatera l Screening [facility] NM Heart Views W str ess and W radionuclide IV [facility] Patient Education [facility] Work Phone: Patient referral [facility] Work Phone: Total iron binding capacity measurement [facility] Immunizations Immunization Date Immunization Notes Care Provider Kevyn jay 09-29-2011 pneumococcal polysaccharide vaccine, 23 valent Stefania Victor [employer] Work Phone: [facility] 09-28-2010 Pneumococcal Vaccine [place] Work Phone: 09-28-2010 pneumococcal vaccine , unspecified formulation [facility] Payers Date Payer Category Payer Self-pay [id number] 2021 Unknown [id number] 2015 Medicare [id number] Unknown [id number] 2.16.8 [id number] Unknown [id number] 2.16.8 [id number] Unknown [id number] 2.16.8 40.1.130085.3.579.2.462 Unknown [id number] 2.16.8 40.1.662690.3.579.2.462 Unknown [id number] 2.16.8 40.1.056112.3.579.2.462 Unknown [id number] 2.16.8 40.1.771749.3.579.2.462 Unknown [id number] 2.16.8 40.1.296040.3.579.2.462 Unknown [id number] 2.16.8 40.1.220278.3.579.2.462 Unknown [id number] 2.16.8 40.1.961704.3.579.2.462 Unknown [id number] 2.16.8 40.1.402268.3.579.2.462 Unknown [id number] 2.16.8 40.1.149108.3.579.2.462 Unknown [id number] 2.16.8 40.1.046811.3.579.2.462 Unknown [id number] 2.16.8 40.1.474478.3.579.2.462 Unknown [id number] 2.16.8 40.1.937412.3.579.2.462 Unknown [id number] 2.16.8 40.1.435593.3.579.2.462 Unknown [id number] 2.16.8 40.1.628952.3.579.2.462 Unknown [id number] 2.16.8 [id number] Social History Date Type Detail Facility Start: 11-29-2020 End: 01-26-2024 Tobacco smoking status NHIS Unknown if ever smoked [facility] Start: 11-29-2020 None [facility] Start: 11-29-2020 Alone [facility] Start: 1945 Sex Assigned At Female W [facility] Start: 09-29-2013 End: 02-02-2025 Tobacco smoking status NHIS Never smoked tobacco [facility] Start: 09-29-2013 Tobacco use and exposure Smokeless tobacco non-user [facility] Start: 10-09-2021 End: 09-03-2023 Alcohol intake Current non-drinker of alcohol (finding) [facility] Start: 09-02-2020 End: 09-03-2023 History of Social function [facility] Start: 09-02-2020 End: 09-03-2023 Tobacco use panel [facility] National Score (1-100), lower number is lower risk Not on file [facility] Start: 1945 Sex Assigned At Not on file [facility] Medical Equipment Procedure Code Equipment Code Equipment Origin al Text Equipment Identifier Dates Repair, hernia, ventral or umbilical, laparoscopic ([id number]) Extra-gynaecologic al surgical mesh, composite-polymer [id number] FDA Start: 04-15-2024 Repair, hernia, ventral or umbilical, laparoscopic Endoscopic manual linear stapler [id number] FDA Start: 04-15-2024 Mental Status Date Assessment Result Facility 02-02-2025 Cognitive function Voice/Name;Deep Pain [facility] Work Phone: Clinical Notes 10-09-2021 to 06-19-2025 Note Date & Type Note Facility 06-19-2025 Progress note [facility] 04-03-2025 Evaluation note Diagnosis Onset Date Resolution UTI (urinary tract infection) resolved April 03, 2025 10:29am Influenza vaccination declined noneactive June 19, 2025 11:02am Anxiety noneactive May 11:02am Osteopenia noneactive May 11:02am Pelvic pain in female noneactive May 11:02am History of skin cancer noneactive Se ptember 2024 11:02am Screening for breast cancer noneactive June 19, 2025 11:02am Vitamin D deficiency noneactive Sept ember 2024 11:02am [facility] Work Phone: 1(834) 790-359507-07-2025 [facility] [address] [place] [address] OFFICE VISIT Date of Service: 04/03/25 MR#: [id number] Acct: [id number] Patient: BOZENA MEDEL Rep #: [id number] : 1945 Provider: NICOLE Wu Age/Sex: 79/F Location: [facility]NOW Status: Signed Intake Vital Signs 02/09/25 12:32 04/03/25 10:38 Height 5 ft 7 in 5 ft 7 in Weight: 167 lb 170 lb 4 oz BMI 26.2 26.6 BP 128/76 H 118/78 Blood Pressure Location Lt brachial Lt brachial Position Sitting Sitting Respiration 18 17 Pulse 117 H 100 Pulse Source Monitor Monitor Temp 98.1 F 98.3 F Temp Source Temporal Oral Pulse Oximetry (%) 95 92 Oxygen Delivery Method room air Intake Visit Reasons: CONCERN FOR KIDNEY INFECTION Chief Complaint: Burning while urination Densitometer Reader Required: No Accompanied by: Self Is patient in pain?: No Allergies prednisone Allergy (Severe, Verified 04/03/25 10:40) deathly sick hydrocodone bitartrate (From Vicodin) Adverse Reaction (Verified 04/03/25 10:40) Other oxycodone Adverse Reaction (Verified 04/03/25 10:40) Itching Medications ?Medication ?Instructions ?Recorded ?Confirmed ?Type cetirizine 10 mg capsule (Zyrtec) 10 mg PO DAILY PRN a llergy symptoms 02/03/24 04/03/25 History cholecalciferol (vitamin D3) 1,250 1,250 mcg PO QWEEK #12 caps 02/09/25 04/03/25 Rx mcg (50,000 unit) capsule mecobalamin (vitamin B12) 500 mcg mcg PO 02/09/25 07/04/21 History chewable tablet nitrofurantoin 100 mg PO Q12H 5 days #10 ca ps 04/03/25 04/03/25 Rx monohydrate/macrocrystals 100 mg capsule (Macrobid) Have you fallen in the past year?: No Nurse's Note: Burning with urination and lower back pain. Also has periods of frequent urination with little to no production. Symptoms for 5 days. [facility] Medical History Recurrent incisional hernia Abdominal pain Wears hearing aid Loss of hearing Wears glasses Wears dentures Post-menopausal Anxiety Arthritis Non-smoker Leg cramps History of stress test (~2020) Skin cancer IBS (irritable bowel syndrome) Hearing problem Gallstone Emotional problems Breast lump Back problem Crushing injury of right foot, initial encounter Precancerous polyps Surgical History History of laparoscopy History of cardiac catheterization (~2020) History of surgical procedure History of colon surgery H/O hernia repair (04/15/24) Hx of bladder repair surgery H/O: hysterectomy History of tubal ligation History of cholecystectomy H/O breast surgery Family History Father Alcohol abuse Respiratory disease Emphysema Brother Colon cancer Sister CVA (cerebral vascular accident) Mother Myocardial infarction Social History household members: none housing: house current occupational status: retired Smoking Status: Never smoker Electronic Cigarette Use: not used alcohol intake: never substance use type: does not use what type of physical activity do you participate in: none seatbelt use: always do you feel safe at home: Yes HPI HPI Chief Complaint: Burning while urination Details: BOZENA MEDEL, is a 79 F who presents to the office today for concerns over a UTI. Patient states that symptoms started over the weekend while she was camping. She has severe back pain and burning when she urinates. She feels like she has to urinate but cannot. She did try cranberry tablets and frequent water while she was at camp over the weekend. Symptoms have not been relieved. She does not get UTIs frequently. She has not had any fevers or chills. ROS Const Constitutional: Positive for other (ROS negative x 6 except what is described above) Exam Const General: cooperative, healthy appearing and no acute distress Nutritional Appearance: average body habitus Orientation: alert, awake and oriented x3 HENMT Head: normal to inspection and atraumatic Ears: hearing grossly normal bilaterally Nose: external nose normal Face and sinus: normal facial exam Mouth: oral mucosae normal Eyes General: appearance normal, both eyes and all related structures Resp Effort & Inspection: normal respiratory effort Auscultation: Bilateral: Clear to Auscultation Cardio Palpation: normal PMI Rate: regular rate Rhythm: regular rhythm Heart Sounds: S1 normal, S2 normal, no gallops, no murmurs and no rubs GI Inspection: normal to inspection Auscultation: normal bowel sounds Palpation: soft, no hepatosplenomegaly and nontender Neuro General: patient alert, patient awake, patient oriented x3 and CN's II-XI intactbilaterally Coding Level of Care Code Off vis,est,level 3 Diagnoses UTI (urinary tract infection) N39.0 Assessment and Plan Assessment and Plan (1) UTI (urinary tract infection): Status: Acute Plan: Patient does have trace amount of leukocytes in urine. Based on patient's symptoms we will treat her with Macrobid. Will also send out a culture. Encouraged adequate hydration. Encouraged if not any better to see PCP. Orders: Orders POC Urinalysis Dip (Clinic) Today R30.0 - Dysuria Medications: New nitrofurantoin monohyd/m-cryst 100 mg (Macrobid) must administer with a meal/food 100 mg PO Q12H 10 caps 0RF 5 days Clinical Quality Measures Falls Risk Screening/Assistive Devices Have you fallen in the past year?: No 04/03/25 1059 Gil RIVERA> Date _ Malou RIVERA Cosigner Signature: Date (if applicable) CC: ~ [facility]05-08-2025 Discharge summary [facility] Medical Records Department [address] [place] [address] Emergency Department Summary 02/02/25 MR#: [id number] Acct: [id number] Name: BOZENA MEDEL Rep #:[id number] : 1945 79 From: Mehran Bravo MD PCP: Dr. Rebecca Menezes MD Status:REG ER Location: ED HPI History of Present Illness Chief Complaint: Chest Pain Informant: patient, family and EMS Narrative Narrative: Fairly healthy 79-year-old female presenting with left-sided pleuritic chest discomfort. She statesit is not sharp or tearing or pressure or heavy or dull but it is significant. She feels a little bit in the left upper back and the left shoulder but not down her arm or into her jaw/neck. A little dyspneic, no cough or fevers, no palpitations, no near-syncope or syncope. No GI symptoms. No sweats. She broke her foot in October and was laid up for a while but it isdoing better now, she denies having any unilateral calf pain or edema or historyof DVT/PE. Family states she has been belching a lot all night. This has been going on now for about 8 hours, constantly. She does not have a history of heart problems except for some EKGs that showed a mild heart attack, she actually has a nuclearstress test scheduled for this coming Thursday less than 1 week away. [facility] Medical History (Updated 02/02/25 @ 07:[address] Mehran Bravo MD) Recurrent incisional hernia Abdominal pain Wears hearing aid Loss of hearing Wears glasses Wears dentures Post-menopausal Anxiety Arthritis Non-smoker Leg cramps History of stress test (~2020) Skin cancer IBS (irritable bowel syndrome) Hearing problem Gallstone Emotional problems Breast lump Back problem Crushing injury of right foot, initial encounter Precancerous polyps Home Medications ?Medication ?Instructions ?Recorded ?Last Taken ?Type cetirizine 10 mg capsule (Zyrtec) 10 mg PO DAILY PRN a llergy symptoms 02/03/24 04/14/24 History Allergy/AdvReac Type Severity Reaction Status Date / Time prednisone Allergy Severe deathly Verified 02/02/25 04:33 sick hydrocodone bitartrate (From AdvReac Other Verified 02/02/25 04:33 Vicodin) oxycodone AdvReac Itching Verified 02/02/25 04:33 Family History Father Alcohol abuse Respiratory disease Emphysema Brother Colon cancer Sister CVA (cerebral vascular accident) Mother Myocardial infarction Surgical History History of laparoscopy History of cardiac catheterization (~2020) History of surgical procedure History of colon surgery H/O hernia repair (04/15/24) Hx of bladder repair surgery H/O: hysterectomy History of tubal ligation History of cholecystectomy H/O breast surgery Social History household members: none housing: house current occupational status: retired Smoking Status: Never smoker Electronic Cigarette Use: not used alcohol intake: never substance use type: does not use what type of physical activity do you participate in: none seatbelt use: always do you feel safe at home: Yes ROS ROS ED Constitutional Constitutional ED: Denies chills, fever(s) or sweats Eyes Eyes: Denies change in vision or diplopia ENT ENT ED: Denies rhinorrhea or sore throat Cardiovascular Cardiovascular: Reports chest pain; Denies palpitations Respiratory/Chest Respiratory/Chest: Reports dyspnea; Denies cough Gastrointestinal Gastrointestinal: Denies abdominal pain, diarrhea, nausea or vomiting Genitourinary Genitourinary ED: Denies dysuria or hematuria Musculoskeletal Musculoskeletal: Denies back pain or neck pain Integumentary Denies abscess or rash Neurologic Neurologic: Denies headache(s), paresthesias or weakness Psychiatric Psychiatric: Denies anxiety or suicidal thoughts EXAM Physical Exam Const Vital Signs: 02/02/25 04:34 02/02/25 04:34 02/02/25 04:50 Temperature 98.7 F Temperature Source Oral Pulse Rate 95 Respiratory Rate 18 Respiratory Effort Normal Blood Pressure 127/69 H Blood Pressure Mean 88 Pulse Ox 93 92 Oxygen Delivery Method Room Air Room Air 02/02/25 05:30 02/02/25 06:00 02/02/25 07:00 Temperature Temperature Source Pulse Rate 94 89 89 Respiratory Rate 16 16 18 Respiratory Effort Blood Pressure 116/76 113/45 L 123/79 H Blood Pressure Mean 89 67 93 Pulse Ox 91 94 98 Oxygen Delivery Method Room Air Room Air Positive well nourished and well developed General Appearance ED: well developed and NAD HEENT Reports moist mucous membranes normocephalic and atraumatic Eyes PERRL and EOMs intact bilaterally Neck full ROM and supple Chest Wall Chest Narrative: Left chest is very tender, no crepitance or subcutaneous emphysema or palpable step-off, the tenderness is diffuse and from the sternum all the way into the axillary region. Resp normal respiratory effort and clear to auscultation bilaterally Resp Narrative: Breath sounds are equal bilaterally. Cardio regular rate, regular rhythm and no murmurs GI non-tender and non-distended Auscultation: normoactive bowel sounds Palpation: soft Back/Spine no CVA tenderness General Back: other FROM Extremity normal to inspection Extremity Narrative: No calf tenderness or palpable cords. General Extremety ED: Negative for edema, pulses abnormal or tenderness General Extremity: Negative for edema or pulses abnormal Neuro oriented x3, CN's II-XII intact bilaterally and no sensory deficits noted Sensorium / Orientation: awake and alert Motor Exam: strength 5/5 throughout Skin no rashes or lesions noted and no wounds Heart Score History: Slightly/Non-Suspicious ECG: Normal Age: >/= 65 years Risk Factors: No Risk Factors Score: 2 MDM MDM MDM Narrative Medical decision making narrative: EMS did 3 prehospital EKGs all of which were transmitted and reviewed by myself and normal. Her EKGhere is normal. Her troponin also was normal. The rest ofher labs are unremarkable except for D-dimer which is elevated at 0.99, and prior to that returning her 1 view chest x-ray on my interpretation is normal. Given her abnormal D-dimer, I sent her for CT angiography, I reviewed the imagesand report which I agree with, it is essentially unremarkable except for a smallhiatal hernia. No pulmonaryembolus. On reexamination after the patient was given Toradol 15 mg she feels much better. Given her exam and this response, this suggest chest wall etiology although she had no reason to have that. I asked her if she had done any heavy lifting or repetitive movements earlier in the day or during the time of the onset and she has not. Pleurisy in the differential as well. Given that she is doing much better vital signs are normal with blood pressure 123/79 and her ancillaries are all normal comfortablewith her being discharged home with close outpatient follow-up as scheduled. She is as well.She declined prescription analgesics. Lab Data Attestation: I reviewed the patient's lab results. Labs: Laboratory Results - last 24 hr 02/02/25 04:52 WBC 9.7 RBC 4.54 Hgb 13.6 Hct 39.5 MCV 87.0 MCH 30.0 MCHC 34.4 RDW Std Deviation 40.6 RDW Coeff of Pollo 12.7 Plt Count 256 MPV 8.6 Immature Gran % (Auto) 0.300 Neut % (Auto) 57.8 Lymph % (Auto) 32.6 [place] % (Auto) 7.5 Eos % (Auto) 1.3 Baso % (Auto) 0.5 Absolute Neuts (auto) 5.6 Absolute Lymphs (auto) 3.16 Nucleated RBC % 0 D-Dimer Quant (PE/DVT) 0.99 H* Sodium 137 Potassium 4.2 Chloride 104 Carbon Dioxide 23.6 Anion Gap 9 BUN 15 Creatinine 0.98 Estim Creat Clear Calc 49.79 L Est GFR (MDRD) Non-Af 58 L BUN/Creatinine Ratio 15.0 Glucose 99 Calcium 9.0 Troponin T High Sens 11 Radiography Diagnostic Testing: Clinical Impression(s) from Imaging Studies Chest X-Ray 02/02/25 05:00 IMPRESSION: No evidence of acute disease. Reading Location: [id number] Chest CTA 02/02/25 05:22 IMPRESSION: No focal infiltrate or consolidation is seen within the lungs. No evidence of pulmonary embolism. Small hiatal hernia. Reading Location: [id number] Rhythm Strip Rhythm Strip: Sinus Rhythm Rate: 96 Ectopy: None EKG Initial EKG: Attestation: I personally reviewed and interpreted this EKG as follows: Interpretation: Sinus Rhythm and No Acute Injury Pattern Comments: Nml axis & intervals; nml EKG Discharge Plan Triage Chief Complaint: Chest Pain ED Provider: Mehran Bravo Dx/Rx/DC Orders Clinical Impression: Left-sided chest pain Instructions: ED Chest Pain, Noncardiac, ED Pleurisy Prescriptions: No Action Zyrtec 10 mg capsule 10 mg PO DAILY PRN (Reason: allergy symptoms) Primary Care Provider: Rebecca Menezes Referrals: Rebecca Menezes MD [Primary Care Provider] - 1 Week if not improving (and followup for your scheduled nuclear stress) Print Language: Israeli Disposition Disposition: Home, Self Care What to do if you have Problems For any increased pain, shortness of breath, bleeding, nausea or vomiting, chestpain, or any unexpected problems, contact your Primary Care Provider. Call [facility] ([phone]) or report tothe closest Emergency Room. Call 911 if necessary. 02/02/25722 Cosigner Signature (if applicable): CC: Dr. Rebecca Menezes MD ~ Signed ADDENDUM by Dr. Mehran Bravo MD on 02/02/25 at 0726 Patient second troponin came back slightly elevated compared with the initial which was normal, fora delta of 4 which is within normal limits and stable for discharge. 02/02/25725 Cosigner Signature (if applicable): cc: Dr. Rebecca Menezes MD ~* Signed [facility]05-08-2025 Radiology Diagnostic study note [facility] Imaging Services [address] [place] [address] [id number] CTA Chest W/WO Contrast MR#: [id number] Acct: [id number] Name: BOZENA MEDEL Rep #: [id number] : 1945 F 79 From: Mamie Alvarez MD PCP: Dr. Rebecca Menezes MD Status: REG ER Study:CTA Chest W/WO Contrast Date of Exam: 02/02/25 Exam# [id number] Ordering Dr: Radha Bravo MD PROCEDURE: CTA CHEST W/WO CONTRAST 02/02/2025 REASON FOR EXAM: LEFT PLEURITIC CHEST PAIN, ELEVATED D-DIMER TECHNIQUE: CTA axial imaging of the chest with intravenous contrast. Multiplanar and multisequence images wereobtained. PATIENT PREPARATION: Per protocol CONTRAST: Yes. One or more dose reduction techniques were used (e.g., Automated exposure control, adjustment of the mA and/or kV according to patient size, use of iterative reconstruction technique). RADIATION DOSE SUMMARY: CTDlvol: 12.8 mGy DLP: 353 mGycm . COMPARISON: Chest x-ray dated 02/02/2025. FINDINGS: The trachea and central bronchial tree are patent. There is no pleural or pericardial effusion. Theheart is normal in size. The pulmonary arteries are normal in size and caliber. There is no filling defects to suggest pulmonary arterial embolism. The thoracic aorta is without evidence of aneurysmal dilatation. No focal consolidation is seen within the lungs. Dependent changes are present at the lung bases. No acute osseous abnormality seen. Small hiatal hernia is present. CT/CTA Chest W/WO Contrast IMPRESSION: No focal infiltrate or consolidation is seen within the lungs. No evidence of pulmonary embolism. Small hiatal hernia. Reading Location: [id number] CC: Dr. Rebecca Menezes MD; Dr. 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 Rebecca Menezes MD Status: [facility] ER Study:Chest 1 View (Portable) Date of Exam: 02/02/25 Exam# [id number] Ordering Dr: Radha Bravo MD PROCEDURE: CHEST 1 VIEW (PORTABLE) 02/02/2025 REASON FOR EXAM: CHEST PAIN TECHNIQUE: Frontal view of the chest. COMPARISON: 11/29/2020 FINDINGS: The lungs appear clear. Pulmonary vascularity appears within limits. No evidence of pleural effusion. The cardiac and mediastinal contours appear within limits. Surgical clips noted right upper quadrant. RAD/Chest 1 View (Portable) IMPRESSION: No evidence of acute disease. Reading Location: [id number] CC: Dr. Rebecca Menezes MD; Dr. Mehran Bravo MD ~ Meat Service Team Member: Signed [facility]04-21-2025 Evaluation note* Diagnosis Onset Date Resolution Status Admit Date Fatigue noneactive January 16 8:07am Shortness of breath noneactive January 16, 2025 8:07am Anxiety noneactive January 16 8:07am History of skin cancer noneactive Ap ril 2024 8:07am Right shoulder pain noneactive January 16, 2025 8:07am Vitamin D deficiency noneactive Apri l 2024 8:07am [facility] Work Phone: 1(258) 216-183704-21-2025 Evaluation note* Diagnosis Onset Date Resolution Status Admit Date Fatigue noneactive January 16 8:07am Shortness of breath noneactive January 16, 2025 8:07am Anxiety noneactive January 16 8:07am History of skin cancer noneactive Ap ril 2024 8:07am Right shoulder pain noneactive January 16, 2025 8:07am Vitamin D deficiency noneactive Apri l 2024 8:07am Fatigue acute February 09, 2025 12:26pm [facility] Work Phone: 1(647) 941-784604-21-2025 Evaluation note* Diagnosis Onset Date Resolution Status Admit Date Fatigue noneactive January 16 8:07am Shortness of breath noneactive January 16, 2025 8:07am Anxiety noneactive January 16 8:07am History of skin cancer noneactive Ap ril 2024 8:07am Right shoulder pain noneactive January 16, 2025 8:07am Vitamin D deficiency noneactive Apri l 2024 8:07am Fatigue acute February 09, 2025 12:26pm UTI (urinary tract infection) acute April 03, 2025 10:29am [facility] Work Phone: 1(484) 842-889612-03-2024 [facility] Medical Records Department [address] [place] [address] History Physical Exam 08/30/24 0948 MR#: [id number] Acct: [id number] Name: BOZENA MEDEL Rep #: [id number] : 1945 79 From: Lori Mart MD PCP: Dr. Rebecca Menezes MD Status:[facility] Location: [place] [address] History and Physical Date of Admission: 08/30/24 Date of Service: 08/18/24 MR#: [id number] Acct: [id number] Name: BOZENA MEDEL Rep #: [id number] : 1945 Provider: Dr. Lori Mart MD Age/Sex: 79/F Location: [facility] Status: Signed Intake Vital Signs 07/21/2409:03 Height 5 ft 7 in Intake Visit Reasons: abd pain, burning Chief Complaint: Abdominal pain Allergies prednisone Allergy (Severe, Verified 08/18/24 14:48) deathly sickhydrocodone bitartrate (From Vicodin) Adverse Reaction (Verified 08/18/24 14:48) Otheroxycodone Adverse Reaction (Verified 08/18/24 14:48) Itching Medications ???Medication ???Instructions ???Recorded ???Confirmed ???Type cetirizine 10 mg capsule (Zyrtec) 10 mg PO DAILY PRN allergy symptoms 02/03/24 08/18/24 History alprazolam 0.25 mg tablet 0.25 mg PO BID PRN anxiety #10 tabs 04/11/24 08/18/24 Rx tramadol 50 mg tablet 50 - 100 mg (1 - 2 x 50 mg) PO Q6H 04/15/24 08/18/24 Rx PRN pain 3 days #14 tabs Have you fallen in the past year?: No PFSH Medical History Abdominal pain Wears hearing aid Loss of hearing Wears glasses Wears dentures Post-menopausal Cancer Anxiety Arthritis History of IBS Non-smoker Leg cramps History of stress test ( 2020) Skin cancer IBS (irritable bowel syndrome) Hearing problem Gallstone Emotional problems Breast lump Back problem Crushing injury of right foot, initial encounter Precancerous polyps Surgical History History of cardiac catheterization ( 2020) History of surgical procedure History of colon surgery H/O hernia repair Hx of bladder repair surgery H/O: hysterectomy History of tubal ligation History of cholecystectomy H/O breast surgery Family History Father Alcohol abuse Respiratory disease EmphysemaBrother Colon cancerSister CVA (cerebral vascular accident)Mother Myocardial infarction Social History household members: none housing: house current occupational status: employed 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 Patient did end up going to the ER to get her CAT scan instead of the 1 that was ordered due to pain. Patient's CAT scan not showing evidence of any hernia in read was called negative. Upon my read there is some haziness of the omentum or abdominal that near the right side below the hernia. Patient states she does have occasional pain that starts more in the right mid abdomen and crosses her umbilicus to the left which can be described as burning patient denies any nausea is having bowel function. Patient does occasionally have no pain other times can have increased pain currently rates the pain a 6/10. Patient states last night she did have increased pain which did not improve with change in position patient did try ibuprofen which did help. Patient does not want to have to take ibuprofen daily. ROS Cardio Cardiovascular: No chest pain Resp Respiratory: No cough Gastro Gastrointestinal: Yes abdominal pain, No nausea or vomiting and No constipation Exam Const General: cooperative, healthy appearing, comfortable and no acute distress [facility] Head: normocephalic and atraumatic Neck Neck: supple Resp Effort Inspection: normal respiratory effort Cardio Rate: regular rate GI Inspection: non-distended Palpation: soft and tender (Right/hypogastric tenderness to palpation, no guarding) with no rebound tenderness Skin General: no rashes or lesions noted Neuro General: CN's II-XI intact bilaterally Extrem General: normal to inspection Psych Mental Status: mental status grossly normal Attitude: cooperative Assessment and Plan Assessment and Plan (1) Abdominal pain: Status: Acute (2) H/O hernia repair: Status: Acute Plan Did review CT abdomen pelvis with (more content not included)...[facility]04-30-2024 Discharge summary Author Noam Hennessy [facility] January 26, 2024 3:25pm Note Date/Time January 26, 2024 3:0 6pm [facility] Medical Records Department [address] [place] [address] Emergency Department Summary 01/26/24 MR#: [id number] Acct: [id number] Name: BOZENA MEDEL Rep #:[id number] : 1945 78 From: Noam Hennessy MD PCP: Jorge Crowley, DO Status:REG E R Location: ED HPI History of Present Illness Chief Complaint: Lower Extremity Injury Detail of Chief Complaint: Throbbing pain mid right thigh distally to calf. Informant: patient Occured/Mechanism Comment: No history of trauma. No history of injury Onset/Context/Timing Onset: Days (4 to 5 days) Context: Sudden Onset Timing: Intermittent and Waxes and wanes Quality of Pain: Throbbing Location: Mid thigh to calf right side, circumferential Current Severity: 1/10 Maximum Severity: 8/10 Worsened by: Movement and weightbearing Relieved by: Elevation of the foot Associated Symptoms Associated Symptoms: Negative for Parasthesia, Weakness or Loss of Funtion Narrative Narrative: Patient is a 78-year-old woman. She has history of atypical chest pain, GERD who presents with atraumatic throbbing right mid thigh pain radiating to the calf. It is circumferential. Walking makes it worse. She denies symptoms of claudication. She denies history of PE or DVT. She denies rash. She has no other complaints. Patient has been taking Advil gelcaps with some improvement. Reluctant to prescribe NSAIDs in light of patient's age history of GERD. Prior similar symptoms: No Recent Illness/Hospitalization: No PFSH PFSH Home Medications amlodipine 5 mg tablet 5 mg PO DAILY #30 tabs 11/29/20 [Rx Last Taken Unknown] hydrocodone-acetaminophen 5-325mg 5mg-325mg 1 tab PO Q6H PRN PRN Pain 3 days #10TABLETS 01/26/24 [Rx Last Taken Unknown] Allergy/AdvReac Type Severity Reaction Status Date / Time prednisone Allergy Severe deathly Verified 01/26/24 14:27 sick hydrocodone bitartrate AdvReac Other Verified 01/26/24 14:27 [From Vicodin] oxycodone AdvReac Itching Verified 01/26/24 14:27 Social History (Updated 01/26/24 @ 15:[address] Noam Hennessy MD) household members: spouse Smoking Status: Never smoker alcohol intake: never ROS ROS ED Constitutional Constitutional ED: Denies chills, fever(s), subjective or sweats Eyes Eyes: Denies blurry vision or change in vision Respiratory/Chest Respiratory/Chest: Denies dyspnea or dyspnea on exertion Musculoskeletal Musculoskeletal: Denies arthralgias, back pain, myalgias or neck pain Integumentary Denies rash Neurologic Neurologic: Denies paresthesias or weakness Hematologic/Lymphatic Hematologic/Lymphatic: Denies easy bleeding or easy bruising EXAM Physical Exam Const Vital Signs: 01/26/24 14:25 Temperature 97.6 F L Temperature Source Temporal Pulse Rate 87 Respiratory Rate 18 Blood Pressure 127/83 H Blood Pressure Mean 97 Pulse Ox 95 Oxygen Delivery Method Room Air Positive well nourished and well developed General Appearance ED: well developed and NAD HEENT Reports moist mucous membranes normocephalic and atraumatic Resp normal respiratory effort Cardio regular rate and regular rhythm Extremity normal to inspection Extremity Narrative: There is no inguinal lymphadenopathy. There is no asymmetry, swelling, discoloration, leg vein distention, palpable cords or tenderness along the distribution of the deep venous system. DP and PT pulse are 2+ and symmetric. There is no pain palpation with palpation of the calf, popliteal fossa or abductor canal. Movement of her leg causes her discomfort. Ángel Ad 4 test causes her significant discomfort in the proximal gastrocnemius region. There is no swelling of the knee. The patella is not ballotable. There is no effusion. Patient complains of pain with varus valgus stress testing. There was no laxity. Efra's test was negative. Modified Peyman's test was negative. There is no pulsatile mass in the popliteal fossa. Psych mental status grossly normal Skin no wounds Lesions: no lesions Rashes: no rashes MDM MDM MDM Narrative Medical decision making narrative: X-rays were obtained per nurse protocol. Differential diagnosis is musculoskeletal pain, pathologic fracture, peripheral arterial disease. Since patient has palpable pulses and movement exacerbates her pain and a positive Ángel Ad 4 test this is not due to peripheral arterial disease or DVT and x-ray confirms there is no evidence of pathologic fracture. Radiography Chest X-Ray - ED: 2 View (Three-view x-ray of the femur reveals no fracture, foreign body or abnormality of the hip joint or knee joint. Interpreted by me [id number]) and Read by ED Physician (4 view x-ray of the knee reveals degenerativearthritis. There is no effusion, fracture, subluxation dislocation. This was apparently reviewed interpreted by nm [id number]) Diagnostic Testing: Clinical Impression(s) from Imaging Studies Femur X-Ray 01/26/24 14:37 IMPRESSION: Normal x-ray examination of the femur. Electronically Signed: Srinivasa Garcia MD at 15:01 EDT , Knee X-Ray 01/26/24 14:40 IMPRESSION: Degenerative arthrosis. Electronically Signed: Srinivasa Garcia MD at 15:03 EDT , Discharge Plan Triage Chief Complaint: Lower Extremity Injury ED Provider: Noam Hennessy Dx/Rx/DC Orders Clinical Impression: Musculoskeletal pain of right lower extremity, Pain of right lower extremity, Elevated blood-pressure reading without diagnosis of hypertension Instructions: Osteoarthritis Knee Prescriptions: New hydrocodone-acetaminophen [hydrocodone-acetaminophen] 5-325 mg tablet 1 tab PO Q6H PRN PRN (Reason: Pain) 3 Days Qty: 10 0RF No Action amlodipine 5 MG tablet 5 mg PO DAILY Qty: 30 0RF Primary Care Provider: Jorge Crowley Referrals: Rebecca Menezes MD [Med Staff - Active Staff] - Keep Regla appointment Jorge Crowley DO [Primary Care Provider] - Activity Restrictions/Additional Instructions: 1. Apply ice 6 times a day. Disposition Disposition: Home, Self Care What to do if you have Problems For any increased pain, shortness of breath, bleeding, nausea or vomiting, chestpain, or any unexpected problems, contact your Primary Care Provider. Call [facility] ([phone]) or report to the closest Emergency Room. Call 911 if necessary. 01/26/24 1525 <Electronically signed by Noam Hennessy MD> Cosigner Signature (if applicable): CC: Jorge Crowley DO ~ Signed [facility] Work Phone: 1(871) 278-835412-07-2023 NoteHNO ID: [id number] Author: Dariana Richter RT(R) Service: Radiology Author [...] BY: RT Kevin(R) September 03, 2023 11:07 [facility]12-07-2023 NoteHNO ID: [id number] Author: Stefania Victor APRN.METAL FABRICATING SUPERVISOR Service: ? Author Type: Nurse Practitioner Type: [...] history is provided by the patient. No speech/language therapist was used. Sore Throat This is a [...] of injury. Normal ran (more content not included)...[facility]12-07-2023 History of Present illness Narrative* Dariana Richter RT(R) - 09/03/2023 11:10 AM EST Radiology Service Progress Note PATIENT NAME: Bozena Medel DATE OF SERVICE: September 03, 2023 TIME: 11:07 AM PATIENT IDENTITY VERIFICATION COMPLETED USING TWO (2) IDENTIFIERS: Name and Date of confirmedby patient verbally. FALL SCREENING: Has the patient [...] 03, 2023 11:07 AM [facility] History of Present illness Narrative* Stefania Victor APRN.METAL FABRICATING SUPERVISOR - 09/03/2023 10:54 AM EST This note was created using [employer]. Subjective Bozena Medel is a 78 year [...] history is provided by the patient. No speech/language therapist was used. Sore Throat This is a new problem. The current episode started 1 to 4 weeks ago. The problem has been unchanged. Neither side of throat is experiencing more pain than the other. There has been no fever. The painis at a severity of 5/10. The pain [...] 3-5 days if symptoms persist or worsen. Stefania Victor APRN.IVETTE documented [facility] History of Present illness Narrative* Dariana Richter RT(R) - 10/09/2021 11:00 AM EST Radiology Service Progress Note PATIENT NAME: Bozena Medel DATE OF SERVICE: October 09, 2021 TIME: 11:12 AM PATIENT IDENTITY VERIFICATION COMPLETED USING TWO (2) IDENTIFIERS: Name and Date of confirmedby patient verbally. FALL SCREENING: Has the patient had 2 falls in the last year or 1 fall with injury or currently using an Ambulatory Assistive Device (Walker, Cane, Wheelchair, Crutches, etc.)? Yes, Patient High Riskfor Falls What interventions were put in place to prevent falls during this visit? Instructed Patient to Callfor Help if Needed, Offered Assistance with Transfers/Clothing and Increased Observations by Caregivers PATIENT GENDER DATA: Female. status: : No status: NO. PATIENT RELEVANT IMPLANT DATA REVIEWED: Yes RADIOLOGY DEPARTMENT: General X-ray: Exam(s) Completed: Lower Extremity X- Ray(s): Ankle, Left and Foot, Left PERIPHERAL IV DATA: Not applicable SIGNED BY: RT Kevin(Raul) October 09, 2021 11:12 AM documented in this encounterMer[facility] HospitalDischarge summary Author Mehran Bravo [facility] Note Date/Time February 02, 2025 7:26am [facility] Medical Records Department [address] [place] [address] Emergency Department Summary 02/02/25 MR#: [id number] Acct: [id number] Name: BOZENA MEDEL Rep #:[id number] : 1945 79 From: Mehran Bravo MD PCP: Dr. Rebecca Menezes MD Status:REG ER Location: ED HPI History of Present Illness Chief Complaint: Chest Pain Informant: patient, family and EMS Narrative Narrative: Fairly healthy 79-year-old female presenting with left-sided pleuritic chest discomfort. She states it is not sharp or tearing or pressure or heavy or dull but it is significant. She feels a little bit in the left upper back and the left shoulder but not down her arm or into her jaw/neck. A little dyspneic, no cough or fevers, no palpitations, no near-syncope or syncope. No GI symptoms. No sweats. She broke her foot in October and was laid up for a while but it isdoing better now, she denies having any unilateral calf pain or edema or historyof DVT/PE. Family states she has been belching a lot all night. This has been going on now for about 8 hours, constantly. She does not have a history of heart problems except for some EKGs that showed a mild heart attack, she actually has a nuclear stress test scheduled for this coming Thursday less than 1 week away. [facility] Medical History (Updated 02/02/25 @ 07:[address] Mehran Bravo MD) Recurrent incisional hernia Abdominal pain Wears hearing aid Loss of hearing Wears glasses Wears dentures Post-menopausal Anxiety Arthritis Non-smoker Leg cramps History of stress test (~2020) Skin cancer IBS (irritable bowel syndrome) Hearing problem Gallstone Emotional problems Breast lump Back problem Crushing injury of right foot, initial encounter Precancerous polyps Home Medications ?Medication ?Instructions ?Recorded ?Last Taken ?Type cetirizine 10 mg capsule (Zyrtec) 10 mg PO DAILY PRN a llergy symptoms 02/03/24 04/14/24 History Allergy/AdvReac Type Severity Reaction Status Date / Time prednisone Allergy Severe deathly Verified 02/02/25 04:33 sick hydrocodone bitartrate (From AdvReac Other Verified 02/02/25 04:33 Vicodin) oxycodone AdvReac Itching Verified 02/02/25 04:33 Family History Father Alcohol abuse Respiratory disease Emphysema Brother Colon cancer Sister CVA (cerebral vascular accident) Mother Myocardial infarction Surgical History History of laparoscopy History of cardiac catheterization (~2020) History of surgical procedure History of colon surgery H/O hernia repair (04/15/24) Hx of bladder repair surgery H/O: hysterectomy History of tubal ligation History of cholecystectomy H/O breast surgery Social History household members: none housing: house current occupational status: retired Smoking Status: Never smoker Electronic Cigarette Use: not used alcohol intake: never substance use type: does not use what type of physical activity do you participate in: none seatbelt use: always do you feel safe at home: Yes ROS ROS ED Constitutional Constitutional ED: Denies chills, fever(s) or sweats Eyes Eyes: Denies change in vision or diplopia ENT ENT ED: Denies rhinorrhea or sore throat Cardiovascular Cardiovascular: Reports chest pain; Denies palpitations Respiratory/Chest Respiratory/Chest: Reports dyspnea; Denies cough Gastrointestinal Gastrointestinal: Denies abdominal pain, diarrhea, nausea or vomiting Genitourinary Genitourinary ED: Denies dysuria or hematuria Musculoskeletal Musculoskeletal: Denies back pain or neck pain Integumentary Denies abscess or rash Neurologic Neurologic: Denies headache(s), paresthesias or weakness Psychiatric Psychiatric: Denies anxiety or suicidal thoughts EXAM Physical Exam Const Vital Signs: 02/02/25 04:34 02/02/25 04:34 02/02/25 04:50 Temperature 98.7 F Temperature Source Oral Pulse Rate 95 Respiratory Rate 18 Respiratory Effort Normal Blood Pressure 127/69 H Blood Pressure Mean 88 Pulse Ox 93 92 Oxygen Delivery Method Room Air Room Air 02/02/25 05:30 02/02/25 06:00 02/02/25 07:00 Temperature Temperature Source Pulse Rate 94 89 89 Respiratory Rate 16 16 18 Respiratory Effort Blood Pressure 116/76 113/45 L 123/79 H Blood Pressure Mean 89 67 93 Pulse Ox 91 94 98 Oxygen Delivery Method Room Air Room Air Positive well nourished and well developed General Appearance ED: well developed and NAD HEENT Reports moist mucous membranes normocephalic and atraumatic Eyes PERRL and EOMs intact bilaterally Neck full ROM and supple Chest Wall Chest Narrative: Left chest is very tender, no crepitance or subcutaneous emphysema or palpable step-off, the tenderness is diffuse and from the sternum all the way into the axillary region. Resp normal respiratory effort and clear to auscultation bilaterally Resp Narrative: Breath sounds are equal bilaterally. Cardio regular rate, regular rhythm and no murmurs GI non-tender and non-distended Auscultation: normoactive bowel sounds Palpation: soft Back/Spine no CVA tenderness General Back: other FROM Extremity normal to inspection Extremity Narrative: No calf tenderness or palpable cords. General Extremety ED: Negative for edema, pulses abnormal or tenderness General Extremity: Negative for edema or pulses abnormal Neuro oriented x3, CN's II-XII intact bilaterally and no sensory deficits noted Sensorium / Orientation: awake and alert Motor Exam: strength 5/5 throughout Skin no rashes or lesions noted and no wounds Heart Score History: Slightly/Non-Suspicious ECG: Normal Age: >/= 65 years Risk Factors: No Risk Factors Score: 2 MDM MDM MDM Narrative Medical decision making narrative: EMS did 3 prehospital EKGs all of which were transmitted and reviewed by myself and normal. Her EKG here is normal. Her troponin also was normal. The rest ofher labs are unremarkable except for D-dimer which is elevated at 0.99, and prior to that returning her 1 view chest x-ray on my interpretation is normal. Given her abnormal D-dimer, I sent her for CT angiography, I reviewed the imagesand report which I agree with, it is essentially unremarkable except for a smallhiatal hernia. No pulmonary embolus. On reexamination after the patient was given Toradol 15 mg she feels much better. Given her exam and this response, this suggest chest wall etiology although she had no reason to have that. I asked her if she had done any heavy lifting or repetitive movements earlier in the day or during the time of the onset and she has not. Pleurisy in the differential as well. Given that she is doing much better vital signs are normal with blood pressure 123/79 and her ancillaries are all normal comfortablewith her being discharged home with close outpatient follow-up as scheduled. She is as well. She declined prescription analgesics. Lab Data Attestation: I reviewed the patient's lab results. Labs: Laboratory Results - last 24 hr 05/08/25 04:52 WBC 9.7 RBC 4.54 Hgb 13.6 Hct 39.5 MCV 87.0 MCH 30.0 MCHC 34.4 RDW Std Deviation 40.6 RDW Coeff of Pollo 12.7 Plt Count 256 MPV 8.6 Immature Gran % (Auto) 0.300 Neut % (Auto) 57.8 Lymph % (Auto) 32.6 Canyon % (Auto) 7.5 Eos % (Auto) 1.3 Baso % (Auto) 0.5 Absolute Neuts (auto) 5.6 Absolute Lymphs (auto) 3.16 Nucleated RBC % 0 D-Dimer Quant (PE/DVT) 0.99 H* Sodium 137 Potassium 4.2 Chloride 104 Carbon Dioxide 23.6 Anion Gap 9 BUN 15 Creatinine 0.98 Estim Creat Clear Calc 49.79 L Est GFR (MDRD) Non-Af 58 L BUN/Creatinine Ratio 15.0 Glucose 99 Calcium 9.0 Troponin T High Sens 11 Radiography Diagnostic Testing: Clinical Impression(s) from Imaging Studies Chest X-Ray 02/02/25 05:00 IMPRESSION: No evidence of acute disease. Reading Location: [id number] Chest CTA 02/02/25 05:22 IMPRESSION: No focal infiltrate or consolidation is seen within the lungs. No evidence of pulmonary embolism. Small hiatal hernia. Reading Location: [facility] Rhythm Strip Rhythm Strip: Sinus Rhythm Rate: 96 Ectopy: None EKG Initial EKG: Attestation: I personally reviewed and interpreted this EKG as follows: Interpretation: Sinus Rhythm and No Acute Injury Pattern Comments: Nml axis & intervals; nml EKG Discharge Plan Triage Chief Complaint: Chest Pain ED Provider: Mehran Bravo Dx/Rx/DC Orders Clinical Impression: Left-sided chest pain Instructions: ED Chest Pain, Noncardiac, ED Pleurisy Prescriptions: No Action Zyrtec 10 mg capsule 10 mg PO DAILY PRN (Reason: allergy symptoms) Primary Care Provider: Rebecca Menezes Referrals: Rebecca Menezes MD [Primary Care Provider] - 1 Week if not improving (and followup for your scheduled nuclear stress) Print Language: Israeli Disposition Disposition: Home, Self Care What to do if you have Problems For any increased pain, shortness of breath, bleeding, nausea or vomiting, chestpain, or any unexpected problems, contact your Primary Care Provider. Call [facility] ([phone]) or report to the closest Emergency Room. Call 911 if necessary. 02/02/25722 <Electronically signed by Mehran Bravo MD> Cosigner Signature (if applicable): CC: Dr. Rebecca Menezes MD ~ Signed ADDENDUM by Dr. Mehran Bravo MD on 02/02/25 at 0726 Patient second troponin came back slightly elevated compared with the initial which was normal, for a delta of 4 which is within normal limits and stable for discharge. 02/02/25725<Electronically signed by Mehran Bravo MD> Cosigner Signature (if applicable): cc: Dr. Rebecca Menezes MD ~* Signed [facility] Work Phone: Evaluation noteNo assessment information available [facility] Work Phone: Evaluation note* Diagnosis Acute cough- Primary Rhinosinusitis Unspecified sinusitis (chronic) [facility] Diagnosis Acute cough [facility]* Diagnosis Foot pain, left Pain in limb [facility] Additional Instructions 1. Apply ice 6 times a day.[facility] Work Phone: Progress note Author Malou Godinez [facility] Note Date/Time April 03, 2025 10:59 am [facility] [address] [place] [address] OFFICE VISIT Date of Service: 04/03/25 MR#: [id number] Acct: [id number] Patient: BOZENA MEDEL Rep #: [id number] : 1945 Provider: NICOLE Wu Age/Sex: 79/F Location: [facility] Status: Signed Intake Vital Signs 02/09/25 12:32 04/03/25 10:38 Height 5 ft 7 in 5 ft 7 in Weight: 167 lb 170 lb 4 oz BMI 26.2 26.6 BP 128/76 H 118/78 Blood Pressure Location Lt brachial Lt brachial Position Sitting Sitting Respiration 18 17 Pulse 117 H 100 Pulse Source Monitor Monitor Temp 98.1 F 98.3 F Temp Source Temporal Oral Pulse Oximetry (%) 95 92 Oxygen Delivery Method room air Intake Visit Reasons: CONCERN FOR KIDNEY INFECTION Chief Complaint: Burning while urination Densitometer Reader Required: No Accompanied by: Self Is patient in pain?: No Allergies prednisone Allergy (Severe, Verified 04/03/25 10:40) deathly sick hydrocodone bitartrate (From Vicodin) Adverse Reaction (Verified 04/03/25 10:40) Other oxycodone Adverse Reaction (Verified 04/03/25 10:40) Itching Medications ?Medication ?Instructions ?Recorded ?Confirmed ?Type cetirizine 10 mg capsule (Zyrtec) 10 mg PO DAILY PRN a llergy symptoms 02/03/24 04/03/25 History cholecalciferol (vitamin D3) 1,250 1,250 mcg PO QWEEK #12 caps 02/09/25 04/03/25 Rx mcg (50,000 unit) capsule mecobalamin (vitamin B12) 500 mcg mcg PO 02/09/25/04/21 History chewable tablet nitrofurantoin 100 mg PO Q12H 5 days #10 ca ps 04/03/25 04/03/25 Rx monohydrate/macrocrystals 100 mg capsule (Macrobid) Have you fallen in the past year?: No Nurse's Note: Burning with urination and lower back pain. Also has periods of frequent urination with little to no production. Symptoms for 5 days. [facility] Medical History Recurrent incisional hernia Abdominal pain Wears hearing aid Loss of hearing Wears glasses Wears dentures Post-menopausal Anxiety Arthritis Non-smoker Leg cramps History of stress test (~2020) Skin cancer IBS (irritable bowel syndrome) Hearing problem Gallstone Emotional problems Breast lump Back problem Crushing injury of right foot, initial encounter Precancerous polyps Surgical History History of laparoscopy History of cardiac catheterization (~2020) History of surgical procedure History of colon surgery H/O hernia repair (04/15/24) Hx of bladder repair surgery H/O: hysterectomy History of tubal ligation History of cholecystectomy H/O breast surgery Family History Father Alcohol abuse Respiratory disease Emphysema Brother Colon cancer Sister CVA (cerebral vascular accident) Mother Myocardial infarction Social History household members: none housing: house current occupational status: retired Smoking Status: Never smoker Electronic Cigarette Use: not used alcohol intake: never substance use type: does not use what type of physical activity do you participate in: none seatbelt use: always do you feel safe at home: Yes HPI HPI Chief Complaint: Burning while urination Details: BOZENA MEDEL, is a 79 F who presents to the office today for concerns over a UTI. Patient states that symptoms started over the weekend while she was camping. She has severe back pain and burning when she urinates. She feels like she has to urinate but cannot. She did try cranberry tablets and frequent water while she was at camp over the weekend. Symptoms have not been relieved. She does not get UTIs frequently. She has not had any fevers or chills. ROS Const Constitutional: Positive for other (ROS negative x 6 except what is described above) Exam Const General: cooperative, healthy appearing and no acute distress Nutritional Appearance: average body habitus Orientation: alert, awake and oriented x3 HENWV Head: normal to inspection and atraumatic Ears: hearing grossly normal bilaterally Nose: external nose normal Face and sinus: normal facial exam Mouth: oral mucosae normal Eyes General: appearance normal, both eyes and all related structures Resp Effort & Inspection: normal respiratory effort Auscultation: Bilateral: Clear to Auscultation Cardio Palpation: normal PMI Rate: regular rate Rhythm: regular rhythm Heart Sounds: S1 normal, S2 normal, no gallops, no murmurs and no rubs GI Inspection: normal to inspection Auscultation: normal bowel sounds Palpation: soft, no hepatosplenomegaly and nontender Neuro General: patient alert, patient awake, patient oriented x3 and CN's II-XI intactbilaterally Coding Level of Care Code Off vis,est,level 3 Diagnoses UTI (urinary tract infection) N39.0 Assessment and Plan Assessment and Plan (1) UTI (urinary tract infection): Status: Acute Plan: Patient does have trace amount of leukocytes in urine. Based on patient's symptoms we will treat her with Macrobid. Will also send out a culture. Encouraged adequate hydration. Encouraged if not any better to see PCP. Orders: Orders POC Urinalysis Dip (Clinic) Today R30.0 - Dysuria Medications: New nitrofurantoin monohyd/m-cryst 100 mg (Macrobid) must administer with a meal/food 100 mg PO Q12H 10 caps 0RF 5 days Clinical Quality Measures Falls Risk Screening/Assistive Devices Have you fallen in the past year?: No 04/03/25 1059 <Electronically signed by Malou De La Paz> Date _ Malou RIVERA Cosigner Signature: Date (if applicable) CC: ~ [facility] Work Phone: Progress note Author Rebecca Menezes [facility] Note Date/Time June 19, 2025 12:12pm [facility] [address] [place] [address] [place] [address] OFFICE VISIT Date of Service: 06/19/25 MR#: [id number] Acct: [id number] Name: BOZENA MEDEL Rep #: [id number] 1945 Provider: Dr. Stephanie Menezes MD Age/Sex: 79/F Location: [facility] [place] Status: Signed Intake Vital Signs 04/03/25 10:38 06/19/25 11:17 Height 5 ft 7 in 5 ft 7 in Weight: 167 lb BMI 26.2 BP 96/60 Blood Pressure Location Lt brachial Position Sitting Respiration 16 Pulse 89 Pulse Source Monitor Temp 96.2 F L Temp Source Temporal Pulse Oximetry (%) 95 Oxygen Delivery Method room air Intake Visit Reasons: FOLLOW UP Densitometer Reader Required: No Accompanied by: Self Is patient in pain?: No Allergies prednisone Allergy (Severe, Verified 06/19/25 11:11) deathly sick hydrocodone bitartrate (From Vicodin) Adverse Reaction (Verified 06/19/25 11:11) Other oxycodone Adverse Reaction (Verified 06/19/25 11:11) Itching Medications ?Medication ?Instructions ?Recorded ?Confirmed ?Type cetirizine 10 mg capsule (Zyrtec) 10 mg PO DAILY PRN a llergy symptoms 02/03/24 06/19/25 History cholecalciferol (vitamin D3) 1,250 1,250 mcg PO QWEEK #12 caps 02/09/25 06/19/25 Rx mcg (50,000 unit) capsule mecobalamin (vitamin B12) 500 mcg mcg PO 02/09/2505/30 History chewable tablet ibuprofen 200 mg tablet (Advil) 200 mg PO Q6H PRN 05/3006/19/25 History Have you fallen in the past year?: Yes PFSH Medical History (Updated 06/19/25 @ 11:[address] Rebecca Menezes MD) Foot fracture, left Recurrent incisional hernia Abdominal pain Wears hearing aid Loss of hearing Wears glasses Wears dentures Post-menopausal Anxiety Arthritis Non-smoker Leg cramps History of stress test (~2020) Skin cancer IBS (irritable bowel syndrome) Hearing problem Gallstone Emotional problems Breast lump Back problem Crushing injury of right foot, initial encounter Precancerous polyps Surgical History History of laparoscopy History of cardiac catheterization (~2020) History of surgical procedure History of colon surgery H/O hernia repair (04/15/24) Hx of bladder repair surgery H/O: hysterectomy History of tubal ligation History of cholecystectomy H/O breast surgery Family History Father Alcohol abuse Respiratory disease Emphysema Brother Colon cancer Sister CVA (cerebral vascular accident) Mother Myocardial infarction Social History household members: none housing: house current occupational status: retired Smoking Status: Never smoker Electronic Cigarette Use: not used alcohol intake: never substance use type: does not use what type of physical activity do you participate in: none seatbelt use: always do you feel safe at home: Yes Questionnaire PQH-9 BMS Over the last 2 weeks, how often have you been bothered by any of the following problems? 1. Little interest or pleasure in doing things: not at all 2. Feeling down, depressed, or hopeless: several days 3. Trouble falling or staying asleep, or sleeping too much: several days 4. Feeling tired or having little energy: not at all 5. Poor appetite or overeating: not at all 6. Feeling bad about yourself - or that you are a failure or have let yourself and your family down: not at all 7. Trouble concentrating on things, such as reading the newspaper or watching television: not at all 8. Moving or speaking so slowly that other people could have noticed? - Or the opposite - being so fidgety or restless that you have been moving around a lot more than usual: several days 9. Thoughts that you would be better off or of hurting yourself in some way: not at all Total score: 3 If you checked off any problems, how difficult have these problems made it for you to do your work, take care of things at home, or get along with other people?: not difficult at all Source: Developed by Drs. Sj Greco, Shlomo Loyola and colleagues, with an educational simon from [employer]. VANESSA-7 BMS VANESSA-7 Feeling nervous, anxious, or on edge: 1 = Several days Not being able to stop or control worryin = Not at all Worrying too much about different things: 2 = More than half the days Trouble relaxin = Several days Being so restless that it is hard to sit still: 1 = Several days Becoming easily annoyed or irritable: 1 = Several days Feeling afraid as if something awful might happen: 0 = Not at all Total VANESSA-7 score (0-4 normal; 5-9 mild; 10-14 moderate; 15-21 severe): 6 Source: Developed by Drs. Sj Greco, Shlomo Loyola and colleagues, with an educational simon from [employer]. HPI HPI Details: BOZENA MEDEL, is a 79 F who presents to the office today for a follow up. She is up to date on her routine blood work and is due for some screening. She doesn't want a flu shot. She believes she is up to date on her pneumonia/shingles vaccines. She doesn't smoke and doesn't need any refills today. She reports she is trying to eat healthy and staying active. The patient feels that her anxiety has flared up recently. She has lost some friends and feels that has made it difficult. She hasn't been on any medications recently, but is wondering if she can get a refill of the xanax which she had previously used as needed, but hasn't been on it in over a year. She states she gets episodes where she feels just overwhelmed and feels that sheneeds something during those times. She would prefer not to take something on adaily basis. The patient reports she has been having some pain in her pelvic area. She reports it is sore when she pushes and she will occasionally get a sharp pain. She reports it started about 3 months ago, but wasn't happening frequently. Shestates she would get it a couple of times per week. She hasn't had any in the last 3-4 days. She denies any nausea or vomiting and reports her bowels are moving normally. She does get diarrhea, but states this is from her IBS and is unchanged and diet related. She denies any urinary symptoms nor any vaginal bleeding. She reports she will occasionally take an ibuprofen for the pain, which does seem to help. She is eating and drinking normally and her weight is stable. She was treated for a UTI back in March, but states those symptoms have since resolved. At her last office visit, she complained of right arm pain. She reports that itdid improve. She states it does still hurt a little, but not as much as it did. She reports her fatigue and shortness of breath has been doing better since she was last seen. She reports her ankle has mostly healed although she does still occasionally have some pain with it. She has no other questions or concerns at this time. ROS Const Constitutional: Positive for headache(s) (occasional from neck pain) and change in appetite; No body ache, chills, excessive sweating, fatigue, fever(s), frequent falls, snoring, weakness, weight change, sleep problems or abnormal sleep pattern Eyes Eyes: No blurry vision, change in vision, eye pain or Light sensitivity ENT ENT: Positive for abnormal hearing (wears hearing aids), headache(s) (occasionalfrom neck pain) and neck pain (sees chiropractor); No ear or mastoid pain, tinnitus, nasal congestion or sore throat Resp Respiratory: Positive for cough (allergies); No shortness of breath, snoring or wheezing Cardio Cardiology: No chest pain at rest, chest pain with exertion, excessive sweating,shortness of breath, dyspnea on exertion, lightheadedness, orthopnea, palpitations or other (no leg swelling) Gastro GI: Positive for abdominal pain (Intermittent sharp LLQ radiates right), diarrhea (with IBS) and loose stools; No bloating, change in bowel habits, change in stool character, constipation, cramping, nausea/dyspepsia or vomiting Genitourinary-Female: No difficulty urinating, burning urination, painful urination, urinary incontinence, urinary frequency, abnormal vaginal bleeding orpelvic pain Musc Musculoskeletal: Positive for neck pain (sees chiropractor); No abnormal gait, joint pain, back pain, limited range of motion, numbness or tingling Skin Skin: No dry skin, redness, lesions, itchy eyes, rash or wounds Neuro Neurology: Positive for abnormal hearing (wears hearing aids) and headache(s) (occasional from neck pain); No abnormal gait, dizziness, weakness, frequent falls, memory loss, numbness, tingling or fainting Psych Psychiatric: No abnormal sleep pattern, Positive for anxiety, Positive for change in appetite, No irritability, No memory loss and No Thoughts of harming yourself/Others Endo Endocrine: No cold intolerance, excessive sweating, fatigue, flushing, heat intolerance, increased thirst/drinking, increased hunger or weight change Aller/Imm Allergy/Immunologic: No itchy eyes, seasonal allergy symptoms, hives or wheezing Juan/Lymp Hematologic/Lymphatic: No easy bleeding, easy bruising, enlarged lymph nodes or other Exam Const General: cooperative, healthy appearing, no acute distress, well developed, not diaphoretic and not ill appearing Nutritional Appearance: well nourished Orientation: alert and oriented x3 Limitations: mental status not altered HENMT Head: normal to inspection, normocephalic and atraumatic Ears: hearing grossly normal bilaterally Face and sinus: normal facial exam Mouth: oral mucosae normal and moist mucous membranes Teeth and gingiva: dentures (maxillary) Throat: posterior oropharynx normal Eyes Conjunctivae: conjunctivae normal Sclera: sclerae normal Pupils: PERRL Chest Chest palpation & inspection: normal inspection of the chest Resp Effort & Inspection: normal respiratory effort, able to speak in complete sentences, no audible wheezes and no cough Auscultation: Bilateral: Clear to Auscultation Cardio Rate: regular rate Rhythm: regular rhythm Heart Sounds: S1 normal, S2 normal and no murmurs GI Inspection: normal to inspection and non-distended Auscultation: normal bowel sounds Palpation: soft, not firm, no guarding and tender suprapubicly (mild) Musc Musculoskeletal: Yes joint tenderness Skin General: no rashes or lesions noted and dry skin Wounds: no wounds Neuro General: patient alert and patient oriented x3 Cranial Nerves: PERRL Speech: speech normal Extrem General: normal to inspection and no edema Other: Normal left hip ROM. Tenderness to palpation over left lateral hip. Psych Appearance: grossly normal Affect: normal affect Attitude: cooperative Coding Level of Care Code Off vis,est,level 5 Diagnoses Pelvic pain in female R10.2 Anxiety F41.9 Vitamin D deficiency E55.9 Osteopenia, unspecified location M85.80 Osteopenia location: unspecified History of skin cancer Z85.828 Influenza vaccination declined Z28.21 Encounter for screening mammogram for malignant neoplasm of breast Z12.31 Breast cancer screening modality: mammogram Additional Codes PHQ-9 (99119) VANESSA-7 (19528) Time Spent (min) 50 Assessment and Plan Assessment and Plan (1) Pelvic pain in female: Plan: The patient has concerns about pelvic pain. She denies any symptoms today, however, on exam is tender more in the left side. I question if her symptoms are left hip related based on her exam today, however, will get a few labs including a urinalysis for further management. She reports that she is going for a hip adjustment through her chiropractor soon, so will reassess symptoms atthat time. If persistent, will consider further work up. She was in agreement. (2) Anxiety: Plan: Patient reports her anxiety has flared up a little recently since the loss of a few friends. She previously used xanax very sparingly and felt it helped. Willresume and monitor closely. If her needs appear to increase, will consider alternative medications. She scored 6 on her PHQ and 3 on her VANESSA today. She denies any thoughts of suicide. OARRS reviewed and appears appropriate. (3) Vitamin D deficiency: Plan: Patient has been taking high dose replacement. She is almost out and would liketo transition back to her daily supplement. This is likely reasonable, however,will repeat levels and make recommendations at that time. She was in agreement. (4) Osteopenia: Qualifiers: Osteopenia location: unspecified Qualified Code(s): M85.80 - Other specified disorders of bone density and structure, unspecified site Plan: The patient's last bone density was in 2021 which showed osteopenia with a high fracture risk. Will order a repeat for monitoring. (5) History of skin cancer: Plan: Patient has a history of both melanoma and basal cell carcinoma. She follows with dermatology for annual skin checks. Will follow up on their findings and recommendations. (6) Influenza vaccination declined: Plan: The patient doesn't want a flu shot. (7) Screening for breast cancer: Qualifiers: Breast cancer screening modality: mammogram Qualified Code(s): Z12.31 -Encounter for screening mammogram for malignant neoplasm of breast Plan: Mammogram ordered. The patient is here for a follow up. Plan as above. Medications reviewed with the patient. Will await test results to determine an appropriate follow up. The patient was instructed to call with any concerns or questions before then and they were in agreement. I spent a total of 50 minutes on the date of the service which included preparing to see the patient, [id number] patient care, completing clinical documentation, obtaining and/or reviewing separately obtained history. This excludes separately reportable services. Orders: Orders SCRN MAMM (CAD)W/JYOTI BILAT Today Z12.39 - Encounter for other screening for malignant neoplasm of breast Dexa Bone Density Study Today Z78.0 - Asymptomatic menopausal state Vitamin D,25 Hydroxy Today E55.9 - Vitamin D deficiency, unspecified Urinalysis, Complete Today R10.2 - Pelvic and perineal pain Culture, Urine Today R10.2 - Pelvic and perineal pain CBC W/Diff, Automated Today R10.2 - Pelvic and perineal pain Comprehensive Metabolic Profil Today R10.2 - Pelvic and perineal pain Clinical Quality Measures Falls Risk Screening/Assistive Devices Have you fallen in the past year?: Yes 06/19/25 1305 <Electronically signed by Rebecca aguilar MD> Date _ Rebecca Menezes MD Cosigner Signature: Date (if applicable) CC: ~ [facility] Work Phone: Reason for referral (narrative)* Diagnostic Procedure Only (Urgent) - Closed Specialty Diagnoses / Procedures Referred By Contac t Referred To Contact XR IMAGING Diagnoses Foot pain, left Procedures XR FOOT GENERAL 3V AP/LAT/OBL LEFT X-RAY FOOT MINIMUM 3 VIEWS Sandrita Sol APRN.METAL 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[address] [place] [address] Referral ID Status Reason Start Date Expiration Date V isits Requested Visits Authorized [id number] Closed Auto-Generate d Referral 10/09/2021 11/08/2022 1 1 * Diagnostic Procedure Only (Urgent) - Closed Specialty Diagnoses / Procedures Referred By Contac t Referred To Contact XR IMAGING Diagnoses Foot pain, left Procedures XR ANKLE GENERAL 3V AP/LAT/OBL LEFT X-RAY ANKLE MINIMUM 3 VIEWS Sandrita Sol APRN.METAL 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[address] [place] [address] Referral ID Status Reason Start Date Expiration Date V isits Requested Visits Authorized [id number] Closed Auto-Generate d Referral 10/09/2021 11/08/2022 1 [facility]No reason for referral information availableTh[facility]sticks Medical Services Work Phone: Reason for visit Narrative* Diagnostic Procedure Only (Urgent) - Closed Specialty Diagnoses / Procedures Referred By Contac t Referred To Contact XR IMAGING Diagnoses Foot pain, left Procedures XR FOOT GENERAL 3V AP/LAT/OBL LEFT X-RAY FOOT MINIMUM 3 VIEWS Sandrita Sol, BROOMCORN THRESHER.METAL 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[address] [place] [address] Referral ID Status Reason Start Date Expiration Date V isits Requested Visits Authorized [id number] Closed Auto-Generate d Referral 10/09/2021 11/08/2022 1 1 [facility] Summary Purpose Family History No Family History Records Found Relationship Condition Age at Onset Recorded Date/T miles Unknown Family History?Unkno wn, No pertinent history Unknown August 07, 2017 7:24am Family History?Unkno wn, No pertinent history Unknown August 07, 2017 7:24am Relationship Condition Age at Onset Recorded Date/T miles father Alcohol abuse Unknown Disorder of respiratory system Unknown brother Malignant neoplasm of colon Unknown sister Cerebrovascular accident (CVA) Unknown mother Myocardial infarction Unknown Advance Directives No Advanced Directives Records Found Advance Directive Response Recorded Date/ Time Advance Directives No August 06, 2016 8:08pm Living Will No November 29, 2020 5:19am Power of Radar Scientist No November 29 5:19am Advance Directive Response Recorded Date/ Time Advance Directives No August 06, 2016 8:08pm Living Will No January 26, 2024 3:33pm Power of Radar Scientist No January 25 3:33pm Advance Directive Response Recorded Date/ Time Living Will No November 04 8:16pm Do you have a Healthcare Power of Radar Scientist? No November 04, 2024 8:16pm Do you have a Healthcare Power of Radar Scientist? Yes February 02, 2025 4:34am Advance Directives No August 06, 2016 8:08pm Advance Directive Response Recorded Date/ Time Do you have a Healthcare Power of Radar Scientist? Yes February 02, 2025 4:34am Advance Directives No August 06, 2016 8:08pm Advance Directive Response Recorded Date/ Time Advance Directives No August 06, 2016 8:08pm Chief Complaint and Reason for Visit Chief Complaint THYROID NODULE Chief Complaint THYROID NODULE SCREENING Chief Complaint SCREENING Chief Complaint R Leg Pain Chief Complaint Admit Date FALL November 04, 2024 6 :32pm fu January 16, 2025 8:0 7am chest pain February 02, 2025 4:31am Reason for Visit Admit Date Fatigue January 16, 2025 8:0 7am Shortness of breath January 16, 2025 8:0 7am Anxiety January 16, 2025 8:0 7am History of skin cancer January 16, 2025 8:07am Right shoulder pain January 16, 2025 8:0 7am Vitamin D deficiency January 16, 2025 8: 07am Chief Complaint Admit Date FALL November 04, 2024 6 :32pm fu January 16, 2025 8:0 7am chest pain February 02, 2025 4:31am SOB, ABN EKG February 06, 2025 6:43a m SOB, ABN EKG February 06, 2025 4:38p m ACUTE NO ENERGY February 09, 2025 12:26 pm Reason for Visit Admit Date Fatigue January 16, 2025 8:0 7am Shortness of breath January 16, 2025 8:0 7am Anxiety January 16, 2025 8:0 7am History of skin cancer January 16, 2025 8:07am Right shoulder pain January 16, 2025 8:0 7am Vitamin D deficiency January 16, 2025 8: 07am Fatigue February 09, 2025 12:26 pm Chief Complaint Admit Date fu January 16, 2025 8:0 7am chest pain February 02, 2025 4:31am SOB, ABN EKG February 06, 2025 6:43a m SOB, ABN EKG February 06, 2025 4:38p m ACUTE NO ENERGY February 09, 2025 12:26 pm CONCERN FOR KIDNEY INFECTION April 03, 2 025 10:29am Reason for Visit Admit Date Fatigue January 16, 2025 8:0 7am Shortness of breath January 16, 2025 8:0 7am Anxiety January 16, 2025 8:0 7am History of skin cancer January 16, 2025 8:07am Right shoulder pain January 16, 2025 8:0 7am Vitamin D deficiency January 16, 2025 8: 07am Fatigue February 09, 2025 12:26 pm UTI (urinary tract infection) April 03, 2025 10:29am Chief Complaint Admit Date fu January 16, 2025 8:0 7am chest pain February 02, 2025 4:31am SOB, ABN EKG February 06, 2025 6:43a m SOB, ABN EKG February 06, 2025 4:38p m ACUTE NO ENERGY February 09, 2025 12:26 pm CONCERN FOR KIDNEY INFECTION April 03 10:29am Unspecified abnormal findings in urine J angel 2024 12:24pm Chief Complaint Admit Date CONCERN FOR KIDNEY INFECTION April 03 10:29am Unspecified abnormal findings in urine J angel 2024 12:24pm FOLLOW UP June 19, 2025 11:02am INT LAB ORDERS June 19, 2025 2:16pm Reason for Visit Admit Date UTI (urinary tract infection) April 03, 2025 10:29am Influenza vaccination declined June 19, 2025 11:02am Anxiety June 19, 2025 11:02am Osteopenia June 19, 2025 11:02am Pelvic pain in female June 19 11:02am History of skin cancer June 19 11:02am Screening for breast cancer June 192024 11:02am Vitamin D deficiency June 19 11:02am Additional Source Comments INFORMATION SOURCE (unrecogn ized section and content) DATE CREATED AUTHOR 05/03/2020 [facility] Mai Valente DATE CREATED AUTHOR AUTHOR'S ORGANIZ ATION 09/05/2023 [facility] DATE CREATED AUTHOR AUTHOR'S ORGANIZ ATION [facility] Goals (unrecognized section and content) Goals may be documented in a n alternate sectionGoals may be documented in an alternate sectionGoals may be documented in an alternate sectionGoals may be documented in an alternate sectionGoals may be documented in an alternate sectionGoals may be documented in an alternate sectionGoals may be documented in an alternate sectionGoals may be documented in an alternate sectionGoals may be documented in an alternate sectionGoals may be documented in an alternate sectionGoals may be documented in an alternate sectionGoals may be documented in an alternate sectionGoals may be documented in an alternate sectionGoals may be documented in an alternate section Care Teams (unrecognized sec tion and content) Team Status: Active Member Role Status Dates Oh GUEVARA Family Provider Active Jorge Crowley DO Primary Care Provider Active Team Status: Inactive Member Role Status Dates Jorge Crowley DO Primary Care Provider, Attending Provider Active Team Status: Inactive Member Role Status Dates Jorge Crowley DO Primary Care Provi dontrell, Attending Provider, Referring Provider Active Academic Support Director Relationship Specialty Start Date End Date Jorge Crowley [address] [facility] [address] [place] [address] PCP - [facility] Family Medicine 09/03/23 Team Status: Inactive Member Role Status Dates Jorge Crowley DO Primary Care Provider Active Dr. oNam Hennessy MD Emergency Provider Active Academic Support Director Relationship Specialty Start Date End Date Jorge CrowleyDO [address] [facility] [address] [place] [address] PCP - [facility] Family Medicine 09/03/23 Academic Support Director Relationship Specialty Start Date End Date Oh Avendaño MD PCP - [facility] Family Medicine 01/26/13 05/04/23 Team Status: Active Member Role Status Dates Dr. Rebecca Menezes MD Primary Care Provider Active Team Status: Inactive Member Role Status Dates Dr. Rebecca Menezes MD Primary Care Provider Active Start: November 04, 2024 End: November 04, 2024 Dr. Arnold Reich DO Attending Provider Active Start: November 04, 2024 End: November 04, 2024 Dr. Arnold Reich DO Emergency Provider Active Start: November 04, 2024 End: November 04, 2024 Team Status: Inactive Member Role Status Dates Dr. Rebecca Menezes MD Primary Care Provider Active Start: January 16, 2025 End: January 16, 2025 Dr. Rebecca Menezes MD Attending Provider Active Start: January 16, 2025 End: January 16, 2025 Dr. Rebecca Menezes MD Referring Provider Active Start: January 16, 2025 End: January 16, 2025 Team Status: Inactive Member Role Status Dates Dr. Rebecca Menezes MD Primary Care Provider Active Start: February 02, 2025 End: February 02, 2025 Dr. Mehran Bravo MD Emergency Provider Active Start: February 02, 2025 End: February 02, 2025 Team Status: Inactive Member Role Status Dates Dr. Rebecca Menezes MD Primary Care Provider Active Start: February 02, 2025 End: February 02, 2025 Dr. Mehran Bravo MD Attending Provider Active Start: February 02, 2025 End: February 02, 2025 Dr. Mehran Bravo MD Emergency Provider Active Start: February 02, 2025 End: February 02, 2025 Team Status: Active Member Role Status Dates Dr. Rebecca Menezes MD Primary Care Provider Active Start: February 06, 2025 Dr. Rebecca Menezes MD Attending Provider Active Start: February 06, 2025 Dr. Rebecca Menezes MD Referring Provider Active Start: February 06, 2025 Team Status: Active Member Role Status Dates Dr. Rebecca Menezes MD Primary Care Provider Active Start: February 06, 2025 Dr. Rebecca Menezes MD Referring Provider Active Start: February 06, 2025 Dr. Rebecca Menezes MD Other Provider Active St art: February 06, 2025 Dr. Baltazar Staley MD Attending Provider Active S tart: February 06, 2025 Team Status: Inactive Member Role Status Dates Dr. Rebecca Menezes MD Primary Care Provider Active Start: February 09, 2025 End: February 09, 2025 Dr. Rebecca Menezes MD Referring Provider Active Start: February 09, 2025 End: February 09, 2025 NICOLE Park Attending Provider Active St art: February 09, 2025 End: February 09, 2025 Team Status: Active Member Role Status Dates Dr. Rebecca Menezes MD Primary Care Provider Active Start: February 09, 2025 NICOLE Park Attending Provider Active St art: February 09, 2025 Kashif RIVERA PA Referring Provider Active St art: February 09, 2025 Team Status: Inactive Member Role Status Dates Dr. Rebecca Menezes MD Primary Care Provider Active Start: February 06, 2025 End: February 06, 2025 Dr. Rebecca Menezes MD Attending Provider Active Start: February 06, 2025 End: February 06, 2025 Dr. Rebecca Menezes MD Referring Provider Active Start: February 06, 2025 End: February 06, 2025 Team Status: Inactive Member Role Status Dates Dr. Rebecca Menezes MD Primary Care Provider Active Start: February 09, 2025 End: February 09, 2025 NICOLE aPrk Attending Provider Active St art: February 09, 2025 End: February 09, 2025 NICOLE Park Referring Provider Active St art: February 09, 2025 End: February 09, 2025 Team Status: Active Member Role/Relationship Status Dates Dr. Rebecca Menezes MD Primary Care Provider Active Team Status: Inactive Member Role/Relationship Status Dates Dr. Rebecca Menezes MD Primary Care Provider Active Start: January 16, 2025 End: January 16, 2025 Dr. Rebecca Menezes MD Attending Provider Active Start: January 16, 2025 End: January 16, 2025 Dr. Rebecca Menezes MD Referring Provider Active Start: January 16, 2025 End: January 16, 2025 Team Status: Inactive Member Role/Relationship Status Dates Dr. Rebecca Menezes MD Primary Care Provider Active Start: January 16, 2025 End: January 16, 2025 Dr. Rebecca Menezes MD Attending Provider Active Start: January 16, 2025 End: January 16, 2025 Dr. Rebecca Menezes MD Referring Provider Active Start: January 16, 2025 End: January 16, 2025 Team Status: Inactive Member Role/Relationship Status Dates Dr. Rebecca Menezes MD Primary Care Provider Active Start: February 02, 2025 End: February 02, 2025 Dr. Mehran Bravo MD Attending Provider Active Start: February 02, 2025 End: February 02, 2025 Dr. Mehran Bravo MD Emergency Provider Active Start: February 02, 2025 End: February 02, 2025 Team Status: Inactive Member Role/Relationship Status Dates Dr. Rebecca Menezes MD Primary Care Provider Active Start: February 06, 2025 End: February 06, 2025 Dr. Rebecca Menezes MD Attending Provider Active Start: February 06, 2025 End: February 06, 2025 Dr. Rebecca Menezes MD Referring Provider Active Start: February 06, 2025 End: February 06, 2025 Team Status: Active Member Role/Relationship Status Dates Dr. Rebecca Menezes MD Primary Care Provider Active Start: February 06, 2025 Dr. Rebecca Menezes MD Referring Provider Active Start: February 06, 2025 Dr. Rebecca Menezes MD Other Provider Active St art: February 06, 2025 Dr. Baltazar Staley MD Attending Provider Active S tart: February 06, 2025 Team Status: Inactive Member Role/Relationship Status Dates Dr. Rebecca Menezes MD Primary Care Provider Active Start: February 09, 2025 End: February 09, 2025 Dr. Rebecca Menezes MD Referring Provider Active Start: February 09, 2025 End: February 09, 2025 Kashif RIVERA PA Attending Provider Active St art: February 09, 2025 End: February 09, 2025 Team Status: Inactive Member Role/Relationship Status Dates Dr. Rebecca Menezes MD Primary Care Provider Active Start: February 09, 2025 End: February 09, 2025 Kashif Garcia PA, PA Attending Provider Active St art: February 09, 2025 End: February 09, 2025 Kashif RIVERA, PA Referring Provider Active St art: February 09, 2025 End: February 09, 2025 Team Status: Inactive Member Role/Relationship Status Dates Dr. Rebecca Menezes MD Primary Care Provider Active Start: April 03, 2025 End: April 03, 2025 Dr. Rebecca Menezes MD Referring Provider Active Start: April 03, 2025 End: April 03, 2025 Malou Godinez PA, PA Attending Provider Active Start: April 03, 2025 End: April 03, 2025 Team Status: Inactive Member Role/Relationship Status Dates Dr. Rebecca Menezes MD Primary Care Provider Active Start: April 03, 2025 End: April 03, 2025 Malou Godinez PA, PA Attending Provider Active Start: April 03, 2025 End: April 03, 2025 Malou Godinez PA, PA Referring Provider Active Start: April 03, 2025 End: April 03, 2025 Team Status: Active Member Role/Relationship Status Dates Dr. Rebecca Menezes MD Primary care physician Active Team Status: Inactive Member Role/Relationship Status Dates Dr. Rebecca Menezse MD Primary care physician Active Start: April 03, 2025 End: April 03, 2025 Dr. Rebecca Menezes MD Referring Provider Active Start: April 03, 2025 End: April 03, 2025 Malou RIVERA PA Attending physician Active Start: April 03, 2025 End: April 03, 2025 Team Status: Inactive Member Role/Relationship Status Dates Dr. Rebecca Menezes MD Primary care physician Active Start: April 03, 2025 End: April 03, 2025 Malou RIVERA PA Attending physician Active Start: April 03, 2025 End: April 03, 2025 Malou RIVERA PA Referring Provider Active Start: April 03, 2025 End: April 03, 2025 Team Status: Inactive Member Role/Relationship Status Dates Dr. Rebecca Menezes MD Primary care physician Active Start: June 19, 2025 End: June 19, 2025 Dr. Rebecca Menezes MD Attending physician Active Start: June 19, 2025 End: June 19, 2025 Dr. Rebecca Menezes MD Referring Provider Active Start: June 19, 2025 End: June 19, 2025 Team Status: Inactive Member Role/Relationship Status Dates Dr. Rebecca Menezes MD Primary care physician Active Start: June 19, 2025 End: June 19, 2025 Dr. Rebecca Menezes MD Attending physician Active Start: June 19, 2025 End: June 19, 2025 Dr. Rebecca Menezes MD Referring Provider Active Start: June 19, 2025 End: June 19, 2025 Source Comments (unrecognize d section and content) In the event this informatio n is protected by the Federal Confidentiality of Alcohol and Drug Abuse Patient Records regulations: The Federal rules restrict any use of the information to criminally investigate or prosecute any alcohol or drug abuse patient.[facility] the event this information is protected by the Federal Confidentiality of Alcohol and Drug Abuse Patient Records regulations: The Federal rules restrict any use of the information to criminally investigate or prosecute any alcohol or drug abuse patient.[facility] the event this information is protected by the Federal Confidentiality of Alcohol and Drug Abuse Patient Records regulations: The Federal rules restrict any use of the information to criminally investigate or prosecute any alcohol or drug abuse patient.[facility] Reason for Visit (unrecogniz ed section and content) Reason Comments Sore Throat Cough x2 weeks inter mittent FOR RECORDS PERTAINING TO PATIENTS WHO ARE [...] BE BASED ON THE PRIMARY CLINICAL RECORDS. [employer] [facility]. provides no warranty or guarantee of the accuracy or completeness of information in this document.
--- NOTE | 2025-09-01 18:12 | EDS_ITS ---
HPI History of Present Illness Chief Complaint: Other, Pain/Inj Informant: patient and family (Brother) Narrative Narrative: 80-year-old female presenting to the emergency room with right groin/abdominal pain. Patient states that all day she has had a pain in the right lower side of her abdomen. She states that sometimes it is sharp. She states it hurts worse with movement. She denies any change in bowel movements urination fever nausea or appetite. Patient states she is not a diabetic. She does not feel bloated. PFSH [facility] Medical History Foot fracture, left Recurrent incisional hernia Abdominal pain Wears hearing aid Loss of hearing Wears glasses Wears dentures Post-menopausal Anxiety Arthritis Non-smoker Leg cramps History of stress test (~2020) Skin cancer IBS (irritable bowel syndrome) Hearing problem Gallstone Emotional problems Breast lump Back problem Crushing injury of right foot, initial encounter Precancerous polyps Home Medications ?Medication ?Instructions ?Recorded ?Last Taken ?Type cetirizine 10 mg capsule (Zyrtec) 10 mg PO DAILY PRN a llergy symptoms 02/03/24 09/01/25 History cholecalciferol (vitamin D3) 1,250 1,250 mcg PO QWEEK #12 caps 02/09/25 09/01/25 Rx mcg (50,000 unit) capsule mecobalamin (vitamin B12) 500 mcg 500 mcg PO DAILY sup plement 02/09/25 09/01/25 History chewable tablet alprazolam 0.25 mg tablet 0.25 mg PO QDAY PRN anxiety #7 tabs 06/19/25 Unknown Rx ibuprofen 200 mg tablet (Advil) 200 mg PO Q6H PRN feve r or pain 06/19/25 08/30/25 History nitrofurantoin 100 mg PO Q12H 7 days #14 ca ps 09/01/25 Unknown Rx monohydrate/macrocrystals 100 mg capsule (Macrobid) nystatin 100,000 unit/gram topical 1 applic topical TI D 10 days #60 09/01/25 Unknown Rx powder grams Allergy/AdvReac Type Severity Reaction Status Date / Time prednisone Allergy Severe deathly Verified 09/01/25 16:45 sick hydrocodone bitartrate (From AdvReac Other Verified 09/01/25 16:45 Vicodin) oxycodone AdvReac Itching Verified 09/01/25 16:45 Family History Father Alcohol abuse Respiratory disease Emphysema Brother Colon cancer Sister CVA (cerebral vascular accident) Mother Myocardial infarction Surgical History History of laparoscopy History of cardiac catheterization (~2020) History of surgical procedure History of colon surgery H/O hernia repair (04/15/24) Hx of bladder repair surgery H/O: hysterectomy History of tubal ligation History of cholecystectomy H/O breast surgery Social History household members: none housing: house current occupational status: retired Smoking Status: Never smoker Electronic Cigarette Use: not used alcohol intake: never substance use type: does not use what type of physical activity do you participate in: none seatbelt use: always do you feel safe at home: Yes ROS ROS ED Constitutional Constitutional ED: Denies chills, fever(s) or weight loss Eyes Eyes: Denies change in vision or diplopia ENT ENT ED: Denies ear pain, rhinorrhea or sore throat Cardiovascular Cardiovascular: Denies chest pain, orthopnea, palpitations or racing heartbeat Respiratory/Chest Respiratory/Chest: Denies cough, dyspnea or orthopnea Gastrointestinal Gastrointestinal: Reports abdominal pain; Denies diarrhea, nausea or vomiting Genitourinary Genitourinary ED: Denies dysuria, hematuria or urinary frequency Musculoskeletal Musculoskeletal: Denies arthralgias or myalgias Integumentary Denies abscess or rash Neurologic Neurologic: Denies headache(s) or weakness Psychiatric Psychiatric: Denies anxiety, depression, suicidal ideation or suicidal thoughts Endocrine Endocrinology: Denies polydipsia, polyphagia or polyuria Allergic/Immunologic Allergic/Immunologic ED: Denies mouth swelling, tongue swelling or urticaria EXAM Physical Exam Const Vital Signs: 09/01/25 16:44 09/01/25 17:42 09/01/25 18:43 Temperature 97.7 F L Temperature Source Temporal Pulse Rate 106 H 88 Respiratory Rate 18 16 Respiratory Effort Normal Respiratory Pattern Normal Blood Pressure 128/84 H 132/83 H Blood Pressure Mean 98 99 Pulse Ox 93 93 Oxygen Delivery Method Room Air Room Air Positive well nourished and well developed General Appearance ED: well developed and NAD HEENT Reports normocephalic, head/scalp atraumatic and moist mucous membranes Eyes PERRL and EOMs intact bilaterally Neck no lymphadenopathy, supple and no JVD Resp normal respiratory effort and clear to auscultation bilaterally Cardio regular rate, regular rhythm and no murmurs GI GI Narrative: Patient reports tenderness to palpation in the right abdominal pannus in the lower quadrant. She is rubbing the skin. There is evidence of erythema extending from the left side of the pannus to the right with the right being more inflamed than the left. There is a smell of yeast. The skin appears moist. She is rubbing right on the spot and there is some skin that is starting to flake off. The abdomen itself is soft. There is normal bowel sounds. There is no guarding or rebound. I do not see evidence of secondary cellulitis. Palpation: soft and tender RLQ; Negative for guarding or rebound tenderness present Back/Spine no CVA tenderness and normal ROM Extremity normal to inspection General Extremety ED: Negative for edema General Extremity: Negative for edema Neuro oriented x3 and CN's II-XII intact bilaterally Sensorium / Orientation: alert Motor Exam: strength 5/5 throughout Psych mental status grossly normal Mood & Affect: Negative for depressed or tearful Skin no rashes or lesions noted and no wounds MDM MDM MDM Narrative Medical decision making narrative: Differential diagnosis includes but not limited to UTI pyelonephritis appendicitis kidney stone he has candidiasis shingles colitis Basic blood work was obtained shows a normal white count and normal differential. Glucose is 98 urinalysis is 10-25 white cells 5-10 red cells positive nitrates positive leukocyte esterase 4+ bacteria was sent for culture. Prior culture earlier this year grew out E. coli that was pansensitive. Patient will be started on Macrobid. For the skin candidiasis will use nystatin topical powder. She is to keep the area dry. She should plan to follow-up in 1 week. Use caution while washing. Patient is comfortable with this plan. History & Record Review Discussion w/independent historian: Patient and Family Additional record(s) reviewed:: Prior ED visit and Prior labs Lab Data Attestation: I reviewed the patient's lab results. Labs: Laboratory Results - last 24 hr 09/01/25 09/01/25 16:55 18:30 WBC 8.2 RBC 4.59 Hgb 13.6 Hct 40.2 MCV 87.6 MCH 29.6 MCHC 33.8 RDW Std Deviation 42.5 RDW Coeff of Pollo 13.3 Plt Count 269 MPV 8.6 Immature Gran % (Auto) 0.200 Neut % (Auto) 47.7 Lymph % (Auto) 40.6 Kingf[place] % (Auto) 7.6 Eos % (Auto) 3.3 Baso % (Auto) 0.6 Absolute Neuts (auto) 3.9 Absolute Lymphs (auto) 3.33 Nucleated RBC % 0 Sodium 138 Potassium 4.0 Chloride 103 Carbon Dioxide 25.4 Anion Gap 9 BUN 19 Creatinine 0.91 Estim Creat Clear Calc 52.69 Est GFR (MDRD) Non-Af 64 BUN/Creatinine Ratio 20.9 H Glucose 98 Calcium 9.2 Urine Color Yellow Urine Clarity Sl. Cloudy Urine pH 6.0 Ur Specific [place] 1.020 Urine Protein 15 H Urine Glucose (UA) Normal Urine Ketones Negative Urine Occult Blood 50 H Urine Nitrite Positive H Urine Bilirubin Negative Urine Urobilinogen Normal Ur Leukocyte Esterase 100 H Urine RBC 5-10 SEEN Urine WBC 10-25 SEEN Ur Squamous Epith Cells 0-5 SEEN Urine Bacteria 4+ Urine Mucus 0 SEEN Radiography Diagnostic Testing: Clinical Impression(s) from Imaging Studies Abdomen/Pelvis CT 09/01/25 18:35 IMPRESSION: No acute or active inflammatory intra-abdominal pathology. No urinary tract calculi or hydroureteronephrosis on either side. Ancillary findings as noted above. Reading Location: [id number] Discharge Plan Triage Chief Complaint: Other, Pain/Inj ED Provider: Zenon Martinez Dx/Rx/DC Orders Clinical Impression: Candidiasis of skin, Acute cystitis, Abdominal pain Instructions: ED Bailey Skin Infection (Adult), ED Cystitis Female Adult Prescriptions: New nystatin 100,000 unit/gram powder 1 applic topical TID 10 Days Qty: 60 0RF nitrofurantoin monohyd/m-cryst [Macrobid] 100 mg capsule 100 mg PO Q12H 7 Days Qty: 14 0RF Rx Instructions: must administer with a meal/food No Action Zyrtec 10 mg capsule 10 mg PO DAILY PRN (Reason: allergy symptoms) mecobalamin (vitamin B12) 500 mcg tablet,chewable 500 mcg PO DAILY cholecalciferol (vitamin D3) 1,250 mcg (50,000 unit) capsule 1,250 mcg PO QWEEK Qty: 12 1RF ibuprofen [Advil] 200 mg tablet 200 mg PO Q6H PRN (Reason: fever or pain) alprazolam 0.25 mg tablet 0.25 mg PO QDAY PRN (Reason: anxiety) Qty: 7 0RF Primary Care Provider: Rebecca Menezes Referrals: Rebecca Menezes MD [Primary Care Provider, Internal Medicine] - 1 Week Activity Restrictions/Additional Instructions: I would plan to follow-up with your primary care doctor in 1 week for repeat examination of the skin infection. As we discussed you may benefit from putting a washcloth in the skin fold to keep the skin dry as moisture tends to make this infection worse. Print Language: Azeri Disposition Disposition: Home, Self Care
[2025-09-01 18:31] LABS: Mucous, Urine 0 SEEN /hpf (<or=2+)
--- NOTE | 2025-09-01 18:35 | CT_ITS ---
PROCEDURE: CT ABDOMEN/PELVIS WITHOUT CONTRAST 09/01/2025 REASON FOR EXAM: KIDNEY STONE TECHNIQUE: Procedure Code: [id number] Modality: CT Procedure: ABDOMEN/PELVIS WITHOUT CONT Noncontrast technique limits evaluation of the abdominal and pelvic viscera. Coronal and Sagittal reconstruction series were provided. One or more dose reduction techniques were used (e.g., Automated exposure control, adjustment of the mA and/or kV according to patient size, use of iterative reconstruction technique). RADIATION DOSE SUMMARY: CTDlvol: 9.48 mGy DLP: 528.06 mGycm COMPARISON: 07/21/2024 FINDINGS: Lung bases: Clear. Mild dependent atelectasis. Liver: Unremarkable Gallbladder: Surgically absent. Spleen: Unremarkable. Pancreas: Unremarkable. Adrenals: Unremarkable. Kidneys: Unremarkable. No urolithiasis or hydroureteronephrosis. Bladder: Unremarkable. No stone within the bladder. Reproductive Organs: Prior hysterectomy. Unremarkable adnexal regions. Bowel: No evidence of obstruction or active inflammatory process. Postoperative changes of right hemicolectomy with ileocolonic anastomosis in the right upper abdomen. Distal colonic diverticulosis without evidence for active diverticulitis. Lymph nodes: No suspicious lymph node enlargement. Vasculature: Normal caliber abdominal aorta. Mild-moderate atherosclerotic disease. Peritoneum / Retroperitoneum: No ascites or free air. Stable postoperative changes along the anterior abdominal wall probably from prior ventral hernia repair. Bones: Mild multilevel degenerative changes of the spine. CT/Abdomen/Pelvis without Cont IMPRESSION: No acute or active inflammatory intra-abdominal pathology. No urinary tract calculi or hydroureteronephrosis on either side. Ancillary findings as noted above. Reading Location: [id number]
[2025-09-01 18:39] LABS: Hematocrit 40.2 % (37-47); Hemoglobin 13.6 g/dL (12.0-15.0); Immature Granulocytes Count 0.020 X10^3/uL (0.0-0.0); Mean Corp Hgb Conc 33.8 g/dL (32-36); Mean Corpuscular Volume 87.6 fL (81-99); Mean Platelet Vol. 8.6 fl (6.2-12.0); NRBC Flagged by Analyzer 0 % (0-5); Platelet Count 269 K/mm3 (150-450); RBC Distribution Width CV 13.3 % (11.6-14.6); RBC Distribution Width SD 42.5 fl (35.1-43.9); Red Blood Count 4.59 M/mm3 (4.2-5.4); White Blood Count 8.2 K/mm3 (4.4-11.0)
[2025-09-01 18:43] VITALS: BP 132/83; PULSE 88; RESP 16; O2SAT 93
[2025-09-01 19:06] LABS: Color, Urine Yellow (Yellow); Glucose, Dipstick Normal (Normal); Ketone-Dipstick Negative (Negative); Leukocyte Esterase-Dipstick 100 /ul (Negative); Nitrite-Dipstick Positive (Negative); Occult Blood-Urine 50 /ul (Negative); Protein-Dipstick 15 mg/dl (Negative); Specific Gravity, Urine 1.020 (1.002-1.030); Urine Bilirubin Dipstick Negative (Negative)
[2025-09-01 19:34] LABS: Anion Gap 9 (5-15); BUN 19 mg/dL (4-19); BUN/Creat Ratio 20.9 RATIO (10-20); Calcium,Total 9.2 mg/dL (7.6-11.0); Carbon Dioxide 25.4 mmol/L (21.0-32.0); Chloride 103 mmol/L (98-108); Estimated Creatinine Clearance 52.69 ml/min (50-250); Glucose 98 mg/dL (70-99); Potassium 4.0 mmol/L (3.3-5.1)
[2025-09-01 20:00] VITALS: BP 134/68; PULSE 90; RESP 18; O2SAT 93
[2025-09-01 20:04] LABS: Red Blood Cells-Urine 5-10 SEEN /hpf (0-5); Squamous Epithelial Cells - UA 0-5 SEEN /hpf (5-10)
[2025-09-01 20:23] VITALS: BP 134/68; PULSE 90; RESP 18; TEMP 36.6; O2SAT 93
== END 2025-09-01 20:27 | disposition home or self-care (01) ==
PROVIDERS: Emergency Provider Emergency Medicine; PCP Internal Medicine; Visit Provider Emergency Medicine
DX: N30.00 Acute cystitis without hematuria (principal); B37.2 Candidiasis of skin and nail
CPT/HCPCS: 74176; 80048; 81001; 85025; 87077; 87086; 87088; 87186; 99284; A4216